=== PATIENT | male | born 1980 | race Caucasian/White ===

== ENCOUNTER 2019-06-09 20:41 | Emergency (ER) | payer OTHER, SELFPAY ==
[2019-06-09] VITALS (10 sets, daily range): BP systolic 111–245; BP diastolic 63–201; PULSE 80–110; RESP 15–21; TEMP 36.6–37.7; O2SAT 97–100; BMI 40.6
--- NOTE | 2019-06-09 20:43 | EKG12_ITS ---
Test Reason : STROKE Blood Pressure : / mmHG Vent. Rate : 097 BPM Atrial Rate : 097 BPM P-R Int : 188 ms QRS Dur : 102 ms QT Int : 390 ms P-R-T Axes : 056 016 154 degrees QTc Int : 495 ms Normal sinus rhythm Biatrial enlargement Left ventricular hypertrophy Nonspecific ST & T wave changes Prolonged QT Abnormal ECG Confirmed by BERNABE PAUL, MARITZA ([id number]), loan expeditor BRIANNA WATSON ([id number]) on 06/14/2019 8:46:25 AM Referred By: CONNOR Confirmed By:PAULINE KIDD MD
--- NOTE | 2019-06-09 20:43 | CT_ITS ---
We are attempting to reach an attending provider to discuss findings. An addendum with communication details will be sent when the communication is complete. STUDY: CT BRAIN WITHOUT CONTRAST REASON FOR EXAM: Male, 38 years old. HEADACHE, RT HEMPARISIS, APHASIA, RT VISION LOSS RADIATION DOSAGE (If Supplied By Facility): CTDIvol = ( 44.99 ) mGy, DLP = ( 796.11 ) mGycm TECHNIQUE: Transaxial CT imaging of the brain was performed without administration of intravenous contrast material. Individualized dose optimization techniques were used for this CT. COMPARISON: No relevant priors. FINDINGS: Normal soft tissue structures. Normal calvarium. There is an acute intracranial hemorrhage of the left thalamus measuring approximately 2.7 x 1.9 x 3.1 cm. There is mild effacement of the mid left lateral ventricle. Blood is seen in the left lateral ventricle and frontal pole of the right lateral ventricle. There is also demonstrated a focus of hemorrhage posterior to the brainstem measuring 2.2 x 0.8 x 0.8 cm. There is a thin rim of edema surrounding the thalamic bleed. Normal cerebellum. There are no findings of an acute ischemic infarction. Normal visualized paranasal sinuses. CT/Brain/Head without Contrast IMPRESSION: Acute intracranial hemorrhage of the left thalamus measuring approximately 2.7 x 1.9 x 3.1 cm, within rim of surrounding vasogenic edema. There is mild effacement of the mid left lateral ventricle. Blood is seen in the left lateral ventricle and frontal pole of the right lateral ventricle. There is also demonstrated a cyst focus of hemorrhage posterior to the brainstem measuring 2.2 x 0.8 x 0.8 cm. Electronically Signed: kR Valladares MD at 21:01 EST , Service support ,
--- NOTE | 2019-06-09 20:44 | ED.DCSUM_ITS ---
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 Prehospital blood pressure 260/110s. - Past Medical History (1) Depression Status: Chronic Past Medical History Primary Care Physician: NOT,DEFINED [NON-STAFF] - Past Medical History: - - unknown Lives: - - works at [employer] Review of Systems ROS: Unable to Obtain STROKE Inital Vital Signs reviewed: Yes - NIHSS Initial 1a Level of Consciousness: 1 1b LOC Questions (Score 2 if aphasic/stupor): 2 1c LOC Commands (Only score 1st attempt): 0 2 Best Gaze (If aphasic, use reflexive mvmts.): 0 3 Visual: 0 4 Facial Palsy: 0 5 Motor Arm Right (UN = amputation/fusion): 4 5 Motor Arm Left: 0 6 Motor Leg Right: UN 6 Motor Leg Left: UN 8 Sensory (Aphasia/stupor=0 or 1, coma=2): 1 9 Best Language: 3 10 Dysarthria (mute, coma=2, intubated=UN): 2 11 Extinction and Inattention (only scored if +): 0 Total Score: 13 General: Well nourished, Well developed, Obese, - - Somnolent but eyes open, alert. Protecting airway, intermittently vomiting Head: Normocephalic, Atraumatic Eyes: Perrl, EOMI - Able to move bilaterally. No forced deviation. ENT: Moist mucous membranes, No rhinorrhea Neck: Supple, Nontender Abdomen: Soft, Nontender, Nondistended, Normal bowel sounds Back: Normal Inspection Extremities: Nontender, No edema Skin: Normal color, No rash, No Trauma Neurological: Lethargic Diagnostic/Tx/Re-eval Procedure note: Rapid sequence intubation Patient was sedated with etomidate 20 mg and succinylcholine 100 mg. We attempted to preoxygenated him in the right lateral decubitus position with high flow nasal cannula. 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 Therefore, we placed [id number] over him with high flow oxygen and gently bagged him. He had no more vomiting during this. 10 seconds later I was able to get his mouth open, and perform direct laryngoscopy but I was only able to see the epiglottis and may be the very posterior aspect of the vallecula. By hyperflexing the stylette in the 7.5 Uzbek ETT, I was able to direct the end of the tube more anteriorly and with an insurance claims assistant performing a very mild amount of cricoid pressure, she could palpate the tube appearing to pass through the cords/trachea. It was secured with inflated balloon at 20 cm at the lip, bilateral equal breath sounds were heard on auscultation, and no epigastric sounds. Good chest rise was visualized, with good color change on the CO2 Immediately. Intubation was complicated by bradycardia in the 40s and hypoxemia in the 30s. These quickly reversed with bagging. Chest x-ray confirms good ETT placement. Impressions Brain CT 06/09/19 20:43 IMPRESSION: Acute intracranial hemorrhage of the left thalamus measuring approximately 2.7 x 1.9 x 3.1 cm, within rim of surrounding vasogenic edema. There is mild effacement of the mid left lateral ventricle. Blood is seen in the left lateral ventricle and frontal pole of the right lateral ventricle. There is also demonstrated a cyst focus of hemorrhage posterior to the brainstem measuring 2.2 x 0.8 x 0.8 cm. Electronically Signed: Rk Valladares MD at 21:01 EST , Service support , ADDENDUM: 06/09/192108 IMPRESSION: Acute intracranial hemorrhage of the left thalamus measuring approximately 2.7 x 1.9 x 3.1 cm, within rim of surrounding vasogenic edema. There is mild effacement of the mid left lateral ventricle. Blood is seen in the left lateral ventricle and frontal pole of the right lateral ventricle. There is also demonstrated a cyst focus of hemorrhage posterior to the brainstem measuring 2.2 x 0.8 x 0.8 cm. N.B. : The above information has been verbally conveyed by Rk Valladares MD to Dr. Buster Moody MD, on 06/09/2019 21:02:43 (ET). Electronically Signed: Rk Valladares MD at 21:01 EST , Service support , 06/09/19 20:43 Brain/Head without Contrast [CT] Stat 06/09/19 21:22 Chest 1 View [RAD] Stat Laboratory Results 06/09/19 06/09/19 06/09/19 21:00 21:00 21:00 WBC 10.5 RBC 4.93 Hgb 14.8 Hct 43.6 MCV 88.4 MCH 30.0 MCHC 33.9 RDW Std Deviation 40.7 RDW Coeff of Mary 12.6 Plt Count 364 MPV 10.2 Immature Gran % (Auto) 0.400 Neut % (Auto) 60.7 Lymph % (Auto) 25.7 Ray % (Auto) 8.0 Eos % (Auto) 4.5 Baso % (Auto) 0.7 Absolute Neuts (auto) 6.4 Absolute Lymphs (auto) 2.70 Nucleated RBC % 0 PT 14.6 INR 1.2 APTT 26.2 Sodium 141 Potassium 3.4 L Chloride 106 Carbon Dioxide 29.0 Anion Gap 6 BUN 20 H Creatinine 1.49 H Estim Creat Clear Calc 73.78 Est GFR (MDRD) Af Amer 68 Est GFR (MDRD) Non-Af 56 L BUN/Creatinine Ratio 13.4 Glucose 117 H Calcium 8.6 Troponin I 2.100 H* - Rhythm Strip Rhythm Strip: Sinus Tach Rate: 110 Ectopy: None - EKG Initial EKG Interpretation: Sinus Rhythm, No Acute Injury Pattern, Inverted T-Waves - Medical Decision Making Stroke Team Activated: Yes - Prehospital IV Alteplase (t-PA) Administered: No - Hemorrhagic stroke I saw and evaluated patient initially in the EMS bay. I agree with EMSs assessment that his airway at the time is intact but he is intermittently vomiting. They bring him in right lateral decubitus. The patient was able to follow commands and understand me but not able to speak. He was obviously weak unilaterally on the right side and strong with the left upper extremity. I sent him to CT immediately with a team of nurses. His CT was seen as hemorrhagic thalamic bleed with intraventricular extension prior to the patient returning to the room. When he did so, he was a little more lethargic than before, I already had the team prepping him for intubation and drawling up etomidate and succinylcholine. Simultaneously, he was given Zofran 4 mg, labetalol 20 mg, and they were obtaining Cardene drip from the ED Pyxis. We attempted to preoxygenated him however he kept intermittently vomiting and we had to keep him in the right lateral decubitus position, complicating this. We intubated him successfully on the first attempt. Discussed with neurology at [facility], who agrees to accept the patient to the emergency department. We attempted to fly him by local helicopter but they are not able due to weather, it is snowing. Therefore the patient is being transferred via ground MICU. I discussed with the patient's mother over the phone and advised that she meet him at [facility] in [place]. She said he took an antidepressant at one point but is no longer on that and takes no other medications. She states he is not a drug or alcohol user/abuser. Apparently the patient has no other family locally. Also, it appears that we have no access to a medical ICU ground unit. Therefore, to expedite transfer time, patient will be sent by standard local ground crew which we can obtain quickly, along with 1 of the ED nurses with appropriate orders given by myself, which I think will get the patient there in a more timely fashion then awaiting for an [facility] MICU crew. Critical care time (excluding procedures): 30-74 minutes - 45 minutes, including discussing with family over the phone (mother in [place]), discussing with consultants, arranging transfer, and performing direct patient care to bedside. This is exclusive of procedures. ED Disposition - Plan for ED Patient: Disposition: [facility] Diagnosis: Hemorrhagic stroke Referrals: NOT,DEFINED [NON-STAFF] -
[2019-06-09] MEDS: Ondansetron 4 MG/2 ML Vial IV (20:54)
[2019-06-09] MEDS: Etomidate 20 MG/10 ML Vial IV (20:56)
[2019-06-09] MEDS: Succinylcholine Chloride 200 MG/10 ML Vial 100 MG IV (20:57)
[2019-06-09 21:09] LABS: Absolute Neutrophil Count 6.4 X10^3/uL (2.0-7.7); Basophil# 0.07 X10^3/uL; Basophil% 0.7 % (0-1); Eosinophil# 0.47 X10^3/uL; Eosinophils% 4.5 % (0-5); Hematocrit 43.6 % (40-54); Hemoglobin 14.8 g/dL (13.0-16.5); Lymphocyte % 25.7 % (19-41); Mean Corp Hgb Conc 33.9 g/dL (32-36); Mean Corpuscular Volume 88.4 fL (80-94); Mean Platelet Vol. 10.2 fl (6.2-12.0); Monocyte# 0.84 X10^3/uL; NRBC Flagged by Analyzer 0 % (0-5); Neutrophil % 60.7 % (47-70); Platelet Count 364 K/mm3 (150-450); RBC Distribution Width CV 12.6 % (11.6-14.6); RBC Distribution Width SD 40.7 fl (35.1-43.9); Red Blood Count 4.93 M/mm3 (4.6-6.2); White Blood Count 10.5 K/mm3 (4.4-11.0)
[2019-06-09] MEDS: Propofol 10MG/Ml 1,000 MG/100 ML Bottle 8.1 MG CONT INF (21:10)
--- NOTE | 2019-06-09 21:22 | RAD_ITS ---
STUDY: X-RAY CHEST REASON FOR EXAM: Male, 38 years old. ET TUBE AND OG PLACEMENT TECHNIQUE: Single AP portable view of the chest. COMPARISON: None. FINDINGS: monitoring and evaluation advisor leads are present. There is a nasogastric tube with the tip in the stomach and out of the [id number] of the image. There is an endotracheal tube with the tip 6.3 cm proximal to the deondre. The lungs are clear and expanded. There is no demonstrated pleural abnormality. There is moderate cardiac enlargement. Normal mediastinum and alea. Normal visualized pulmonary arteries. Normal visualized aortic arch and descending thoracic aorta. Normal visualized thoracic spine. Normal visualized ribs, clavicles, and shoulders. There is no demonstrated abnormality of the visualized soft tissue structures of the upper abdomen. RAD/Chest 1 View IMPRESSION: Moderate cardiomegaly. Nasogastric and endotracheal tubes noted appearing in adequate position. Electronically Signed: Rk Valladares MD at 21:49 EST , Service support ,
[2019-06-09 21:26] LABS: International Normalized Ratio 1.2; Prothrombin Time (Protime)PT. 14.6 SECONDS (11.7-14.9)
[2019-06-09] MEDS: LORazepam 2 MG/ML Syringe IV (21:26)
[2019-06-09 21:27] LABS: Partial Thromboplast Time 26.2 Seconds (24.1-36.2)
[2019-06-09 21:33] LABS: Anion Gap 6 (5-15); BUN 20 mg/dL (7-18); BUN/Creat Ratio 13.4 RATIO (10-20); Calcium,Total 8.6 mg/dL (8.5-10.1); Chloride 106 mmol/L (98-107); Creatinine, Serum 1.49 mg/dL (0.70-1.30); EST Glomerular Filtration Rate 56 mL/min (>60); Est Glom Filt Rate - Afr Amer 68 mL/min (>60); Estimated Creatinine Clearance 73.78 ml/min; Glucose 117 mg/dL (74-106); Potassium 3.4 mmol/L (3.5-5.1); Sodium Level 141 mmol/L (136-145)
--- NOTE | 2019-06-09 21:35 | ED.RN ---
PT INTUBATED. UNABLE TO PERFORM MOST TASKS FOR NIH. CONTINUING WITH NIH VITALS. UNABLE TO FURTHER ASSES NIH
--- NOTE | 2019-06-09 21:52 | ED.RN ---
UNABLE TO CHART CARDENE GTT ON MAR OR MED TITRATION CARDENE STARTED 2101 @ 5MG/HR BP 196/163 HR 103 2114 TITRATED UP TO RATE OF 7.35 MG/ HR BP 178/123 HR94 2129 TITRATED UP TO RATE OF 10MG/HR BP 153/95 HR 87 2139 TITRATED DOWN TO RATE OF 7.5 MG/HR BP OF 119/68 0 TITRATED DOWN TO RATE OF 5MG/HR BP OF 125/68
[2019-06-09 21:54] LABS: Amphetamine Urine VISTA NEGATIVE (<1000 ng/mL); Barbiturate Urine VISTA NEGATIVE (< 200 ng/mL); Benzodiazepine Urine VISTA NEGATIVE (< 200 ng/mL); Cocaine Urine VISTA NEGATIVE (< 300 ng/mL); Ecstacy Urine VISTA NEGATIVE (< 500 ng/mL); Methadone Urine VISTA NEGATIVE (< 300 ng/mL); PCP Urine VISTA NEGATIVE (< 25 ng/mL); THC Urine VISTA NEGATIVE (< 50 ng/mL); Vista UDS pH Range 6
--- NOTE | 2019-06-09 22:12 | ED.RN ---
Dr Francois notified of tropinon of 2.1 at 2134.
--- NOTE | 2019-06-09 22:19 | ED.RN ---
SHIRA GARCIA HELD FOR BP 111/63. PER DR. SIMS HE WANTS SBP 120-140
[2019-06-09] MEDS: LORazepam 2 MG/ML Syringe 1 MG IV (22:35)
--- NOTE | 2019-06-09 22:42 | ED.RN ---
[facility] TRANSFER LINE NOTIFIED THAT PT HAS LEFT THE FACILITY
--- NOTE | 2019-06-09 22:46 | ED.RN ---
UPON TRANSFER, CARDENE GTT STILL HANGING BUT NOT INFUSING TO TO SBP BEING 111 <120-[address] SIMS.
== END 2019-06-09 22:18 | disposition short-term general hospital (02) ==
PROVIDERS: Emergency Provider Emergency Medicine
DX: I62.9 Nontraumatic intracranial hemorrhage, unspecified (principal); G83.21 Monoplegia of upper limb affecting right dominant side; R47.81 Slurred speech; R09.02 Hypoxemia; R00.1 Bradycardia, unspecified; F32.9 Major depressive disorder, single episode, unspecified
CPT/HCPCS: 31500; 31720; 51702; 70450; 71045; 80048; 80307; 84484; 85025; 85610; 85730; 93005; 94002; 96374; 96375; 96376; 99251; 99285; A4216; G0463; J0330; J2405

== ENCOUNTER 2019-07-08 17:56 | Inpatient (IN) | payer OTHER, SELFPAY ==
[2019-06-09 21:00] VITALS: BMI 40.6
[2019-07-08 18:01] VITALS: BMI 40.1
[2019-07-08 18:54] VITALS: BP 140/94; PULSE 87; RESP 18; TEMP 36.5; O2SAT 96
[2019-07-08 19:00] VITALS: O2SAT 94; BMI 40.0
--- NOTE | 2019-07-08 19:34 | HP.PCM_ITS ---
Problem List (1) Debility Status: Acute (2) Hemorrhagic stroke Status: Acute (3) Intracranial hemorrhage Status: Acute (4) Left-sided nontraumatic intraventricular intracerebral hemorrhage Status: Acute (5) Acute respiratory failure Status: Acute (6) Hydrocephalus Status: Chronic (7) HTN (hypertension) Status: Chronic (8) Chronic cholecystitis Status: Chronic (9) Body mass index (BMI) 40.0-44.9, adult Status: Chronic (10) Tracheostomy present Status: Acute (11) Percutaneous endoscopic gastrostomy status Status: Acute (12) Depression Status: Chronic History of Present Illness Date of Admission: 07/08/19 Chief Complaint: Here for rehabilitation, strengthening, prior to disposition determination. The patient is a 38 year old Male with below past medical history presented to [facility] Department 06/09/2019 with neurologic signs and symptoms. 06/09/2019 CT brain acute hemorrhagic left thalamic stroke within rim vasogenic edema, mild effacement mid left lateral ventricle, blood left lateral ventricle, frontal poles right ventricle hemorrhage posterior to brain stem. 06/09/2019 EKG normal sinus rhythm, biatrial enlargement, left ventricular hypertrophy, nonspecific ST&T wave changes, prolonged QT. 06/09/2019 Chest X-ray moderate cardiomegaly, nasogastric tube, endotracheal tube in position. Slumped in chair, depressed level of consciousness, vomiting. Right sided weakness. Right arm weakness, slurred speech. Happened acutely at work. BP 260/110. Patient intubated. K 3.4, BUN 20, Cr 1.49, Troponin 2.1, started on Cardene drip. [facility] helicopters not flying due to snow. 06/10/2019 Admit to [facility]. CTA head/neck negative aneurysm, vascular malformation. External ventricular drain placed by Neurosurgery to lower intracranial pressure. Hold all anticoagulants in light of intracranial hemorrhage. 06/11/2019 Extubated. 06/12/2019 Reintubated for hypoxia/hypercarbia. Requiring heavy sedation. 06/23/2019 Trach, PEG, restart DVT prophylaxis. 06/24/2019 Restart Tube feed, Attempt CPAP. 06/25/2019 Mccoy catheter removed, using condom catheter. 06/26/2019 External ventricular drain removed, Trach collar as tolerated. 06/28/2019 Treated for S. dysgalactiae pneumonia with Vancomycin, Zosyn. Started on Atorvastatin. BP goal 130/80, on Coreg 12.5MG twice daily, Amlodipine 10MG daily. Clonidine 0.2MG TID. Klonopin 1MG TID, Seroquel 125MG Q8H for agitation. Agitation requiring restraints, Haldol at times. 07/08/2019 Admit to TCU with debility, here for rehabilitation, strengthening, prior to disposition determination. Past Medical History Past Medical History (Chronic Problems): Chronic Problems Depression (Chronic) Hydrocephalus (Chronic) HTN (hypertension) (Chronic) Chronic cholecystitis (Chronic) Body mass index (BMI) 40.0-44.9, adult (Chronic) Allergies No Known Allergies Allergy (Verified 07/08/19 18:53) Home Medications: Ambulatory Orders Medication Instructions Recorded Amlodipine [Norvasc] 10 mg GT DAILY 07/08/19 Carvedilol 25 mg GT BID 07/08/19 Glucerna 1.5 70 ml GT CONT 07/08/19 Ipratropium/Albuterol Sulfate 3 ml IH Q6H 07/08/19 [Iprat-Albut 0.5-3(2.5) mg/3 ml] Quetiapine Fumarate [Seroquel] 25 mg GT BID 07/08/19 Surgical History: - - Tracheostomy, PEG tube. Psychiatric History: Depression Lives: Alone - Works at [employer]. Smoking Status: Unknown if ever smoked Tobacco Use: Non-smoker Alcohol: None Drugs: None - *Family History Maternal History Items: No pertinent history Paternal History Items: No pertinent history Review of Systems Constitutional: Denies: Chills, Fever, Weight Change HEENT: Denies: Head Aches, Sinus Congestion, Sinus Drainage Cardiovascular: Denies: Chest Pain, Palpitations Respiratory: Denies: Cough, Shortness of breath at rest, Sputum production Gastrointestinal: Denies: Abdominal Pain, Nausea, Vomiting Genitourinary: Denies: Dysuria Musculoskeletal: Denies: Joint Pain, Joint Tenderness Skin: Denies: Rash, Wounds Neurological: Denies: Numbness, Tingling, Focal weakness Psychiatric: Denies: Anxiety, Depression, Homicidal Ideations, Suicidal Ideations Hematologic/ Lymphatic: Denies: Easy Bruising, Easy Bleeding VTE Information - Inpt Only VTE Present on Admission: No VTE Mechan Device Prophylaxis: Knee High CHACHA Hose VTE Pharm Prophylaxis ordered?: No Reason prophylaxis not ordered:: Medical Contraindication Patient Problems: Active and Suspected Problems Debility (Acute) Hemorrhagic stroke (Acute) Intracranial hemorrhage (Acute) Left-sided nontraumatic intraventricular intracerebral hemorrhage (Acute) Acute respiratory failure (Acute) Tracheostomy present (Acute) Percutaneous endoscopic gastrostomy status (Acute) - Physical Exam Vitals/I&O's: Vital Signs Temp Pulse Resp BP Pulse Ox 97.7 F L 87 18 140/94 H 94 07/08/19 18:54 07/08/19 18:54 07/08/19 18:54 07/08/19 18:54 07/08/19 19:00 Oxygen Flow Rate (L/min) 5 Oxygen Delivery Method Trach Collar Weight: 134 kg Body Mass Index (BMI) 40.0 Finger Stick Blood Glucose 92 General: Alert, Oriented x3, Cooperative HEENT: Atraumatic, PERRLA, EOMI, Normocephalic Neck: Supple, No JVD, Negative Carotid Bruits, - - Tracheostomy. Lungs: Clear to auscultation, Normal air movement Cardiovascular: Regular rate, No murmurs Abdomen: Bowel Sounds Present, Soft, Non Tender, - - Gastrostomy. Extremities: No edema, Capillary Refill Less than 3 Seconds Skin: No rashes, No breakdown Musculoskeletal: No Tenderness to Palpation of Joints or Extremities Neurological: Cranial nerves II-XII grossly intact Psych/Mental Status: Normal Affect, Appropriate Current Medications Albuterol/Ipratropium (Duoneb) 3 ml INHALATION Q6H.RT YAMILET Amlodipine Besylate (Norvasc) 10 mg GT DAILY [facility] Calamine/Phenol (Calmoseptine Ointment) 1 applic TOPICAL TID YAMILET; Protocol Carvedilol (Coreg) 25 mg GT BID [facility] Enteral Nutritional Formula (Glucerna 1.5) 1,000 mls @ 70 mls/hr GT .[id number] YAMILET Nystatin (Mycostatin Powder) 1 applic TOPICAL BID YAMILET; Protocol Quetiapine Fumarate (Seroquel) 25 mg GT BID [facility] Tuberculin PPD (Tubersol, Aplisol, Ppd) 5 tu ID X1 ONE Stop: 07/09/19 10:01 Tuberculin PPD (Tubersol, Aplisol, Ppd) 5 tu ID X1 ONE Stop: 07/16/19 10:01 Assessment/Plan All Active Problems Debility (Acute) Hemorrhagic stroke (Acute) Intracranial hemorrhage (Acute) Left-sided nontraumatic intraventricular intracerebral hemorrhage (Acute) Acute respiratory failure (Acute) Tracheostomy present (Acute) Percutaneous endoscopic gastrostomy status (Acute) 38 year old male with below past medical history hospitalized for hemorrhagic stroke, acute respiratory failure, status post tracheostomy, PEG tube placement, complicated by agitation, admitted to TCU with debility, here for rehabilitation, strengthening, prior to disposition determination. * Debility - PT/OT. * Dysphagia - ST. * Pain - Tylenol 650MG Q4H PRN pain (1-10). * Bowel - Miralax 17GM daily, Senna/colace 1 tablet BID, Dulcolax 10MG daily PRN. * Adult immunization - Administer Fluzone as appropriate. * DVT prophylaxis - Hold, due to hemorrhagic stroke. * Hypertension - Coreg 25MG BID, Amlodipine 10MG daily. * Nutrition - Glucerna 1.5 70ML/HR. * Shortness of breath - Duoneb 3ML Q6H. * Skin irritation - Calmoseptine BID. * Tinea Corporis - Nystatin powder BID. * Agitation - Seroquel 25MG GT BID, GDR when resident clinically stable.
[2019-07-08 20:30] VITALS: PULSE 86; RESP 18
[2019-07-08] MEDS: Ipratropium/Albuterol Sulfate 3 ML AMPUL.NEB INHALATION (20:30)
[2019-07-08 22:00] VITALS: PULSE 82; O2SAT 98
[2019-07-08] MEDS: Menthol/Lanolin/Calamine/Znox 113 GM Tube 1 APPLIC TOPICAL (22:53)
[2019-07-09] MEDS: Ipratropium/Albuterol Sulfate 3 ML AMPUL.NEB INHALATION ×3 (00:55→19:35)
[2019-07-09 01:13] VITALS: PULSE 91; RESP 24
--- NOTE | 2019-07-09 02:50 | NURSING ---
Went into patients room to check on patient. Patient found to have Tracheostomy pulled out, laying to right side. Moderate amount of drainage noted. FINANCIAL DEVELOPER called at 02:50 hours. Dusky in color. Respirations 5-6 per min. Oxygen Saturation at 68%. HR 148 BPM. Elaina TAN in room at this time. This nurse reinserted trach tube. FINANCIAL DEVELOPER team arrived. Vitals obtained. BP: 163/92; P: 118; R: 20. Patient's color becoming normal in color. Dressing reapplied to Trach site. Labs ordered by Dr. Ivory. Sitter in place per Ethologist. Dr. Oneill notified. NNO. [ End ]
[2019-07-09 03:00] VITALS: RESP 28; O2SAT 95
--- NOTE | 2019-07-09 03:07 | PCM.RRT.NO ---
Rapid Response Note Rapid response was called after the patient pulled out tracheostomy tube. Tracheostomy tube was reinstated. Respiratory therapist were present. Patient has hemorrhagic stroke with right-sided weakness. Heart rate is controlled. Blood pressure systolic in 150s. Pulse ox normal after tracheostomy tube was reinserted patient is mildly irritable. Discussed with the nursing supervisor lamp shades and patient needs sitter. Labs CBC, CMP and magnesium ordered. Patient also has ulcer possible false tract near the tracheostomy tube. Advised to consult ENT tomorrow a.m. Patient Problems: Active and Suspected Problems Debility (Acute) Hemorrhagic stroke (Acute) Intracranial hemorrhage (Acute) Left-sided nontraumatic intraventricular intracerebral hemorrhage (Acute) Acute respiratory failure (Acute) Tracheostomy present (Acute) Percutaneous endoscopic gastrostomy status (Acute) - Physical Exam Vitals/I&O's: Vital Signs Temp Pulse Resp BP Pulse Ox 97.7 F L 91 24 H 140/94 H 98 07/08/19 18:54 07/09/19 01:13 07/09/19 01:13 07/08/19 18:54 07/08/19 22:00 Oxygen Flow Rate (L/min) 5 Oxygen Delivery Method Trach Collar Weight: 295 lb 6.711 oz Body Mass Index (BMI) 40.0 Finger Stick Blood Glucose 92 Intake and Output for Last 24 Hours 07/07/19 07/08/19 07/09/19 23:59 23:59 23:59 Intake Total Balance Current Medications Acetaminophen (Tylenol Liquid) 650 mg GT Q4H PRN PRN PRN Reason: Pain Score 1-10/10 Albuterol/Ipratropium (Duoneb) 3 ml INHALATION Q6H.RT YAMILET Last Admin: 07/09/19 00:55 Dose: 3 ml Documented by: Amlodipine Besylate (Norvasc) 10 mg GT DAILY YAMILET Bisacodyl (Dulcolax) 10 mg RECTAL DAILY PRN PRN Reason: Constipation Calamine/Phenol (Calmoseptine Ointment) 1 applic TOPICAL TID [facility]; Protocol Last Admin: 07/08/19 22:53 Dose: 1 applicatio Documented by: Carvedilol (Coreg) 25 mg GT BID [facility] Enteral Nutritional Formula (Glucerna 1.5) 1,000 mls @ 70 mls/hr GT .[id number] [facility] Last Admin: 07/08/19 22:53 Dose: 70 mls/hr Documented by: Nystatin (Mycostatin Powder) 1 applic TOPICAL BID YAMILET; Protocol Polyethylene Glycol (Miralax) 17 gm GT DAILY YAMILET Quetiapine Fumarate (Seroquel) 25 mg GT BID YAMILET Senna/Docusate Sodium (Senokot-S, Teressa-Colace) 1 tablet GT BID YAMILTE Tuberculin PPD (Tubersol, Aplisol, Ppd) 5 tu ID X1 ONE Stop: 07/09/19 10:01 Tuberculin PPD (Tubersol, Aplisol, Ppd) 5 tu ID X1 ONE Stop: 07/16/19 10:01 Assessment/Plan All Active Problems Debility (Acute) Hemorrhagic stroke (Acute) Intracranial hemorrhage (Acute) Left-sided nontraumatic intraventricular intracerebral hemorrhage (Acute) Acute respiratory failure (Acute) Tracheostomy present (Acute) Percutaneous endoscopic gastrostomy status (Acute)
--- NOTE | 2019-07-09 03:27 | NURSING ---
0250- WORM FARM LABORER reported pt pulling out trach. HOME THEATER INSTALLER called, see WORM FARM LABORER note for further documentation. Dr. Oneill updated via phone, no new orders from Dr. Oneill at this time. Sitter at bedside for patient safety.
[2019-07-09 03:50] LABS: Absolute Lymphocyte Count 1.08 X10^3/uL (0.83-4.51); Basophil# 0.04 X10^3/uL; Basophil% 0.6 % (0-1); Hematocrit 38.5 % (40-54); Hemoglobin 12.4 g/dL (13.0-16.5); Lymphocyte # 1.08 X10^3/ul (4.0); Lymphocyte % 17.2 % (19-41); Mean Corp Hgb Conc 32.2 g/dL (32-36); Mean Corpuscular Hgb 29.9 pg (27.0-32.0); Mean Corpuscular Volume 92.8 fL (80-94); Mean Platelet Vol. 10.4 fl (6.2-12.0); Monocyte# 0.61 X10^3/uL; Monocyte% 9.7 % (0-10); NRBC Flagged by Analyzer 0 % (0-5); Neutrophil % 63.9 % (47-70); Platelet Count 328 K/mm3 (150-450); RBC Distribution Width CV 12.4 % (11.6-14.6); RBC Distribution Width SD 41.6 fl (35.1-43.9); Red Blood Count 4.15 M/mm3 (4.6-6.2); White Blood Count 6.3 K/mm3 (4.4-11.0)
[2019-07-09 04:49] LABS: AST(SGOT) 35 U/L (15-37); Alanine Aminotransfer ALT/SGPT 96 U/L (16-61); Albumin, Serum 3.2 g/dL (3.2-5.0); Alkaline Phosphatase 137 U/L (45-117); Anion Gap 9 (5-15); BUN 31 mg/dL (7-18); BUN/Creat Ratio 27.4 RATIO (10-20); Calcium,Total 8.8 mg/dL (8.5-10.1); Chloride 99 mmol/L (98-107); Creatinine, Serum 1.13 mg/dL (0.70-1.30); EST Glomerular Filtration Rate 77 mL/min (>60); Est Glom Filt Rate - Afr Amer 93 mL/min (>60); Estimated Creatinine Clearance 97.29 ml/min; Glucose 158 mg/dL (74-106); Magnesium 2.1 mg/dL (1.6-2.6); Potassium 4.1 mmol/L (3.5-5.1); Sodium Level 139 mmol/L (136-145)
[2019-07-09 06:20] LABS: ALB/GLOB Ratio 0.7 RATIO (0.9-2.4); Globulin 4.4 g/dL (2.2-4.2); Protein, Total 7.6 g/dL (6.4-8.2)
[2019-07-09] MEDS: Acetaminophen 650 MG/20 ML UDC GT (06:38)
[2019-07-09] MEDS: Polyethylene Glycol 3350 17 GM PACKET GT (06:38)
[2019-07-09] MEDS: Senna/Docusate Sodium 1 Tablet GT (06:38)
[2019-07-09] MEDS: amLODIPine 10 MG Tablet GT (06:46)
[2019-07-09] MEDS: Menthol/Lanolin/Calamine/Znox 113 GM Tube 1 APPLIC TOPICAL ×3 (06:46→21:03)
[2019-07-09] MEDS: QUEtiapine 25 MG Tablet GT ×3 (06:46→21:02)
[2019-07-09] MEDS: Carvedilol 25 MG Tablet GT ×2 (06:46→15:39)
[2019-07-09] MEDS: Nystatin Powder 15gm Bottle 1 APPLIC TOPICAL ×2 (06:47→15:40)
[2019-07-09 06:50] VITALS: PULSE 92; RESP 20; O2SAT 98
--- NOTE | 2019-07-09 10:18 | PCM.NTREPORT ---
Nutrition Therapy Report - History Nutrition Services has been consulted to:: Manage enteral nutrition Current diet / nutrition support order:: Glucerna 1.5 at goal rate of 70ml/hr w/ 200ml flush q6. NPO. - Anthropometric Measurements Height:: 6 ft Weight:: 134 kg Body Mass Index (BMI):: 40.0 - Relevant Labs Relevant Labs:: RBC 4.15 M/mm3 (4.6-6.2) L 07/09/19 03:40 Hgb 12.4 g/dL (13.0-16.5) L 07/09/19 03:40 Hct 38.5 % (40-54) L 07/09/19 03:40 Lymph % (Auto) 17.2 % (19-41) L 07/09/19 03:40 Eos % (Auto) 8.0 % (0-5) H 07/09/19 03:40 BUN 31 mg/dL (7-18) H 07/09/19 03:40 BUN/Creatinine Ratio 27.4 RATIO (10-20) H 07/09/19 03:40 Glucose 158 mg/dL (74-106) H 07/09/19 03:40 ALT 96 U/L (16-61) H 07/09/19 03:40 Alkaline Phosphatase 137 U/L (45-117) H 07/09/19 03:40 Globulin 4.4 g/dL (2.2-4.2) H 07/09/19 03:40 Albumin/Globulin Ratio 0.7 RATIO (0.9-2.4) L 07/09/19 03:40 - Assessment Food / Nutrition-Related History:: Per EMR res non-verbal. Res previous admin [facility]. 06/22 Trach and PEG placed. Current TF: Glucerna 1.5 at goal rate of 70ml/hr w/ 200ml flush q6 providing 2520 calories, 138.6 g protein, 2075 ml total free water per day. Pt tolerating TF w/ residuals-190, 90. Res strict NPO. CBW 295.4 lbs, per EMR res w/ no wt hx. Per RN note pt w/ normal BMs. - Nutrition Intervention Nutrition Prescription:: Estimated pt nutrition needs: 5937-4359 calories, 85-95 grams protein--using 21 jeffry/kg actual wt, 1g/kg pro (adjust BW 94kg). - Food / Nutrient Delivery Interventions Summary of nutrition intervention:: Will monitor TF tolerance and adjust TF as well as flushes as indicated. Nutrition support ordered as / adjusted to:: Jevity 1.5 via PEG at goal rate of 65 ml/hr with 185 ml flush every 4 hours to provide 2340 calories, 100 grams protein, 2296 ml total free water per day. Would intiate TF at 20 ml/hr and increase by 20 ml every 6 to 8 hours as pt tolerates until goal rate achieved Nutrition education provided?: No - MNT Monitoring Further MNT monitoring and evaluation required?: Yes MNT Follow-up in:: 5-7 days - Please call RDN at [phone] with questions/concerns.
[2019-07-09 10:24] VITALS: BMI 40.0
--- NOTE | 2019-07-09 10:35 | CASEMGMT ---
Social Work Attempted to arouse pt to do initial assessment-unsuccessful. Mother is next of kin for pt. Spoke with mother via phone to do initial assessment. Mother asked if pt would stay at facility very long, explained insurance to mother and that continued stay is not guaranteed but talked with mother about placement in another facility if more care is needed. Mother agreeable and realistic to more care for pt and appreciative of phone call. Offered to e-mail her a list of facilities, she declined at this time and will wait until closer to [place] to make SNF placement decisions. Crys Hernandez, social work internet researcher Morena Schroeder, TOOL PLANER SET UP OPERATOR IMAGERY INTELLIGENCE
[2019-07-09] MEDS: Tuberculin,Purif.prot.deriv. 50 TU/ML Vial 5 ML ID (10:43)
--- NOTE | 2019-07-09 11:18 | PCM.PN.RX ---
<Soheila Torrez - Last Filed: 07/09/19 11:18> Progress Note - Pharmacy Subjective: TCU Admission Objective: Allergies No Known Allergies Allergy (Verified 07/08/19 18:53) Current Medications Generic Name Dose Route Start Last Admin Trade Name Freq PRN Reason Stop Dose Admin Acetaminophen 650 mg 07/08/19 19:55 07/09/19 06:38 Tylenol Liquid GT 650 mg Q4H PRN PRN Administration Pain Score 1-10/10 Albuterol/Ipratropium 3 ml 07/08/19 18:15 07/09/19 06:50 Duoneb INHALATION 3 ml Q6H.RT YAMILET Administration Amlodipine Besylate 10 mg 07/09/19 06:00 07/09/19 06:46 Norvasc GT 10 mg DAILY YAMILET Administration Bisacodyl 10 mg 07/08/19 19:56 Dulcolax RECTAL DAILY PRN Constipation Calamine/Phenol 1 applic 07/08/19 22:00 07/09/19 06:46 Calmoseptine Ointment TOPICAL 1 applicatio TID YAMILET Administration Protocol Carvedilol 25 mg 07/09/19 06:00 07/09/19 06:46 Coreg GT 25 mg BID YAMILET Administration Enteral Nutritional Formula 1,000 mls @ 65 mls/hr 07/09/19 11:00 Jevity 1.5 GT .[id number] YAMILET Nystatin 1 applic 07/09/19 06:00 07/09/19 06:47 Mycostatin Powder TOPICAL 1 applicatio BID YAMILET Administration Protocol Polyethylene Glycol 17 gm 07/09/19 06:00 07/09/19 06:38 Miralax GT 17 gm DAILY YAMILET Administration Quetiapine Fumarate 25 mg 07/09/19 16:00 Seroquel GT 1600,2200 YAMILET Senna/Docusate Sodium 1 tablet 07/09/19 06:00 07/09/19 06:38 Senokot-S, Teressa-Colace GT 1 tablet BID YAMILET Administration Tuberculin PPD 5 tu 07/16/19 10:00 Tubersol, Aplisol, Ppd ID 07/16/19 10:01 X1 ONE Problem List Debility (Acute) Hemorrhagic stroke (Acute) Intracranial hemorrhage (Acute) Left-sided nontraumatic intraventricular intracerebral hemorrhage (Acute) Acute respiratory failure (Acute) Hydrocephalus (Chronic) HTN (hypertension) (Chronic) Chronic cholecystitis (Chronic) Body mass index (BMI) 40.0-44.9, adult (Chronic) Tracheostomy present (Acute) Percutaneous endoscopic gastrostomy status (Acute) Vital Signs Temp Pulse Resp BP Pulse Ox 97.7 F L 92 20 H 140/94 H 98 07/08/19 18:54 07/09/19 06:50 07/09/19 06:50 07/08/19 18:54 07/09/19 06:50 Oxygen Flow Rate (L/min) 5 Oxygen Delivery Method Trach Collar Weight: 134 kg Body Mass Index (BMI) 40.0 Finger Stick Blood Glucose 92 Sodium 139 mmol/L (136-145) 07/09/19 03:40 Potassium 4.1 mmol/L (3.5-5.1) 07/09/19 03:40 Chloride 99 mmol/L (98-107) 07/09/19 03:40 Carbon Dioxide 31.0 mmol/L (21.0-32.0) 07/09/19 03:40 Anion Gap 9 (5-15) 07/09/19 03:40 BUN 31 mg/dL (7-18) H 07/09/19 03:40 Creatinine 1.13 mg/dL (0.70-1.30) 07/09/19 03:40 Est GFR (MDRD) Af Amer 93 mL/min (>60) 07/09/19 03:40 Est GFR (MDRD) Non-Af 77 mL/min (>60) 07/09/19 03:40 BUN/Creatinine Ratio 27.4 RATIO (10-20) H 07/09/19 03:40 Glucose 158 mg/dL (74-106) H 07/09/19 03:40 Assessment/Plan: 1. Pain: acetaminophen liquid 650mg GT Q4H PRN pain 1-01/21. Please continue to monitor for increased pain and PRN usage. 2. Hypertension: amlodipine 10mg GT daily and carvedilol 25mg GT BID. Please continue to monitor BP and HR. 3. Shortness of breath: ipratropium/albuterol 3mL inhalation Q6H.RT. Please continue to monitor for increased HR and shortness of breath. Psychotropic Medications: 1. Agitation: quetiapine 25mg GT 1600,2200. Please see physician note regarding GDR. Thanks. Unnecessary Medications: None Bowel Regimen: Miralax 17gm GT daily, senna/docusate 1T GT BID, bisacodyl 10mg MI daily PRN constipation. Please continue to monitor for constipation and PRN usage. Date of Note:: 07/09/19 - Provider Comments Provider responsibility: Provider responsible to enter orders to implement recommendations <Johnathan Oneill Chi - Last Filed: 07/09/19 11:46> Progress Note - Pharmacy Subjective: [] Objective: Allergies No Known Allergies Allergy (Verified 07/08/19 18:53) Current Medications Generic Name Dose Route Start Last Admin Trade Name Freq PRN Reason Stop Dose Admin Acetaminophen 650 mg 07/08/19 19:55 07/09/19 06:38 Tylenol Liquid GT 650 mg Q4H PRN PRN Administration Pain Score 1-10/10 Albuterol/Ipratropium 3 ml 07/08/19 18:15 07/09/19 06:50 Duoneb INHALATION 3 ml Q6H.RT YAMILET Administration Amlodipine Besylate 10 mg 07/09/19 06:00 07/09/19 06:46 Norvasc GT 10 mg DAILY YAMILET Administration Bisacodyl 10 mg 07/08/19 19:56 Dulcolax RECTAL DAILY PRN Constipation Calamine/Phenol 1 applic 07/08/19 22:00 07/09/19 06:46 Calmoseptine Ointment TOPICAL 1 applicatio TID YAMILET Administration Protocol Carvedilol 25 mg 07/09/19 06:00 07/09/19 06:46 Coreg GT 25 mg BID YAMILET Administration Enteral Nutritional Formula 1,000 mls @ 65 mls/hr 07/09/19 11:00 Jevity 1.5 GT .[id number] YAMILET Nystatin 1 applic 07/09/19 06:00 07/09/19 06:47 Mycostatin Powder TOPICAL 1 applicatio BID YAMILET Administration Protocol Polyethylene Glycol 17 gm 07/09/19 06:00 07/09/19 06:38 Miralax GT 17 gm DAILY YAMILET Administration Quetiapine Fumarate 25 mg 07/09/19 16:00 Seroquel GT 1600,2200 YAMILET Senna/Docusate Sodium 1 tablet 07/09/19 06:00 07/09/19 06:38 Senokot-S, Teressa-Colace GT 1 tablet BID YAMILET Administration Tuberculin PPD 5 tu 07/16/19 10:00 Tubersol, Aplisol, Ppd ID 07/16/19 10:01 X1 ONE Problem List Debility (Acute) Hemorrhagic stroke (Acute) Intracranial hemorrhage (Acute) Left-sided nontraumatic intraventricular intracerebral hemorrhage (Acute) Acute respiratory failure (Acute) Hydrocephalus (Chronic) HTN (hypertension) (Chronic) Chronic cholecystitis (Chronic) Body mass index (BMI) 40.0-44.9, adult (Chronic) Tracheostomy present (Acute) Percutaneous endoscopic gastrostomy status (Acute) Vital Signs Temp Pulse Resp BP Pulse Ox 97.7 F L 92 20 H 140/94 H 98 07/08/19 18:54 07/09/19 06:50 07/09/19 06:50 07/08/19 18:54 07/09/19 06:50 Oxygen Flow Rate (L/min) 5 Oxygen Delivery Method Trach Collar Weight: 134 kg Body Mass Index (BMI) 40.0 Finger Stick Blood Glucose 92 Sodium 139 mmol/L (136-145) 07/09/19 03:40 Potassium 4.1 mmol/L (3.5-5.1) 07/09/19 03:40 Chloride 99 mmol/L (98-107) 07/09/19 03:40 Carbon Dioxide 31.0 mmol/L (21.0-32.0) 07/09/19 03:40 Anion Gap 9 (5-15) 07/09/19 03:40 BUN 31 mg/dL (7-18) H 07/09/19 03:40 Creatinine 1.13 mg/dL (0.70-1.30) 07/09/19 03:40 Est GFR (MDRD) Af Amer 93 mL/min (>60) 07/09/19 03:40 Est GFR (MDRD) Non-Af 77 mL/min (>60) 07/09/19 03:40 BUN/Creatinine Ratio 27.4 RATIO (10-20) H 07/09/19 03:40 Glucose 158 mg/dL (74-106) H 07/09/19 03:40 Assessment/Plan: Psychotropic Medications: Unnecessary Medications: Bowel Regimen: - Provider Comments Provider responsibility: Provider responsible to enter orders to implement recommendations Provider Comments to Recommendations by Pharmacy: Agree
--- NOTE | 2019-07-09 11:37 | CASEMGMT ---
Social Work Met with pt to provide emotional support due to visitor restrictions. Gave pt drawing and read letter from community member. Explained to pt why mother is not able to be in the hospital to see him-pt expressed understanding. Crys Hernandez, social work electrical intern Morena Schroeder, OFFAL SEPARATOR OPERATIONS ADMINISTRATIVE ASSISTANT
--- NOTE | 2019-07-09 11:49 | NURSING ---
Addendum entered by Kacie Arevalo 07/09/19 14:35: Dr Kruse returned call, will not be in today, but if pt develops resp distress then he wants notified. Original Note: message left on Dr kruse cell phone for consult order d/t ulcer near trach site, possible false tract
[2019-07-09] MEDS: Jevity 1.5 1,000 ML 65 ML GT (12:45)
[2019-07-09 13:30] VITALS: PULSE 95; RESP 18
[2019-07-09 13:37] VITALS: BP 135/78; PULSE 79; RESP 16; TEMP 36.4; O2SAT 97
--- NOTE | 2019-07-09 14:53 | CASEMGMT ---
Social Work Reviewed and agreed with social work international first officer documentation on this date. Morena Schroeder, STAFFING ADMINISTRATOR CIVIL ENGINEERING ASSISTANT
[2019-07-09 19:30] VITALS: PULSE 86; RESP 22
[2019-07-10] VITALS (7 sets, daily range): BP systolic 129–190; BP diastolic 81–129; PULSE 75–88; RESP 16–20; TEMP 36.6; O2SAT 97
[2019-07-10] MEDS: Ipratropium/Albuterol Sulfate 3 ML AMPUL.NEB INHALATION ×4 (01:17→19:04)
[2019-07-10] MEDS: Menthol/Lanolin/Calamine/Znox 113 GM Tube 1 APPLIC TOPICAL ×3 (06:07→21:06)
[2019-07-10] MEDS: Nystatin Powder 15gm Bottle 1 APPLIC TOPICAL ×2 (06:08→17:18)
[2019-07-10] MEDS: amLODIPine 10 MG Tablet GT (06:09)
[2019-07-10] MEDS: Carvedilol 25 MG Tablet GT ×2 (06:09→17:02)
[2019-07-10] MEDS: Senna/Docusate Sodium 1 Tablet GT (06:09)
[2019-07-10] MEDS: Polyethylene Glycol 3350 17 GM PACKET GT (06:09)
[2019-07-10] MEDS: Jevity 1.5 1,000 ML 65 ML GT (06:11)
[2019-07-10 06:53] LABS: Absolute Neutrophil Count 3.1 X10^3/uL (2.0-7.7); Basophil# 0.06 X10^3/uL; Eosinophil# 0.41 X10^3/uL; Eosinophils% 6.8 % (0-5); Hematocrit 38.3 % (40-54); Hemoglobin 12.5 g/dL (13.0-16.5); Lymphocyte % 28.3 % (19-41); Mean Corp Hgb Conc 32.6 g/dL (32-36); Mean Corpuscular Volume 91.8 fL (80-94); Mean Platelet Vol. 10.5 fl (6.2-12.0); Monocyte# 0.74 X10^3/uL; Monocyte% 12.3 % (0-10); NRBC Flagged by Analyzer 0 % (0-5); Neutrophil # 3.07 X10^3/uL (2.7-7.7); Neutrophil % 51.3 % (47-70); Platelet Count 316 K/mm3 (150-450); RBC Distribution Width CV 12.8 % (11.6-14.6); Red Blood Count 4.17 M/mm3 (4.6-6.2)
[2019-07-10 07:25] LABS: Anion Gap 7 (5-15); BUN 29 mg/dL (7-18); BUN/Creat Ratio 27.1 RATIO (10-20); Calcium,Total 8.9 mg/dL (8.5-10.1); Chloride 101 mmol/L (98-107); Creatinine, Serum 1.07 mg/dL (0.70-1.30); EST Glomerular Filtration Rate 82 mL/min (>60); Est Glom Filt Rate - Afr Amer 99 mL/min (>60); Estimated Creatinine Clearance 102.74 ml/min; Glucose 110 mg/dL (74-106); Potassium 3.9 mmol/L (3.5-5.1); Sodium Level 140 mmol/L (136-145)
--- NOTE | 2019-07-10 10:05 | NURSING ---
pt noted to be coughing up increased amt of mucous. Trach suctioned at this time with small, thick amt of white mucous, coughing resolved at this time and pt resting comfortably. Sitter remains at bedside.
--- NOTE | 2019-07-10 13:09 | NURSING ---
Patient coughing up mucous from trach, suctioned with small but thick amount obtained.
--- NOTE | 2019-07-10 14:58 | NURSING ---
pt trach shiley changed at this time. New size 6 shiley placed without difficulty. Previous shiley noted to have small amt of thick, white mucous in tubing. Wound to trach area cleaned with NS at this time and new foam dressing applied. Pt resting in bed at this time with small twitching movements noted to left side per norm. No s/s distress noted. Sitter remains at bedside.
[2019-07-10] MEDS: QUEtiapine 25 MG Tablet GT ×2 (17:02→21:07)
[2019-07-10] MEDS: Acetaminophen 650 MG/20 ML UDC GT (17:02)
--- NOTE | 2019-07-10 17:21 | NURSING ---
pt noted to be coughing up thick, white mucous via trach. Trach suctioned at this time with noted amt of mall, white, thick drainage. No visible distress noted, resting comfortably at this time, sitter at bedside.
[2019-07-11] MEDS: Jevity 1.5 1,000 ML 65 ML GT ×2 (00:44→20:24)
[2019-07-11 01:20] VITALS: PULSE 82; RESP 20
[2019-07-11] MEDS: Ipratropium/Albuterol Sulfate 3 ML AMPUL.NEB INHALATION ×4 (01:20→19:31)
[2019-07-11] MEDS: Menthol/Lanolin/Calamine/Znox 113 GM Tube 1 APPLIC TOPICAL ×3 (05:22→20:19)
[2019-07-11] MEDS: Nystatin Powder 15gm Bottle 1 APPLIC TOPICAL ×2 (05:23→16:53)
[2019-07-11] MEDS: amLODIPine 10 MG Tablet GT (05:23)
[2019-07-11] MEDS: Carvedilol 25 MG Tablet GT ×2 (05:23→16:45)
[2019-07-11 05:46] LABS: Absolute Lymphocyte Count 1.46 X10^3/uL (0.83-4.51); Absolute Neutrophil Count 3.7 X10^3/uL (2.0-7.7); Basophil# 0.07 X10^3/uL; Basophil% 1.1 % (0-1); Eosinophil# 0.56 X10^3/uL; Eosinophils% 8.7 % (0-5); Hematocrit 37.6 % (40-54); Hemoglobin 12.3 g/dL (13.0-16.5); Lymphocyte # 1.46 X10^3/ul (4.0); Lymphocyte % 22.6 % (19-41); Mean Corp Hgb Conc 32.7 g/dL (32-36); Mean Corpuscular Hgb 31.1 pg (27.0-32.0); Mean Corpuscular Volume 94.9 fL (80-94); Mean Platelet Vol. 10.8 fl (6.2-12.0); Monocyte# 0.61 X10^3/uL; Monocyte% 9.4 % (0-10); NRBC Flagged by Analyzer 0 % (0-5); Neutrophil # 3.74 X10^3/uL (2.7-7.7); Neutrophil % 57.9 % (47-70); Platelet Count 280 K/mm3 (150-450); RBC Distribution Width CV 12.9 % (11.6-14.6); RBC Distribution Width SD 43.8 fl (35.1-43.9); Red Blood Count 3.96 M/mm3 (4.6-6.2); White Blood Count 6.5 K/mm3 (4.4-11.0)
[2019-07-11 06:34] LABS: Anion Gap 6 (5-15); BUN 28 mg/dL (7-18); BUN/Creat Ratio 25.9 RATIO (10-20); Calcium,Total 9.2 mg/dL (8.5-10.1); Chloride 106 mmol/L (98-107); Creatinine, Serum 1.08 mg/dL (0.70-1.30); EST Glomerular Filtration Rate 81 mL/min (>60); Est Glom Filt Rate - Afr Amer 98 mL/min (>60); Estimated Creatinine Clearance 101.79 ml/min; Glucose 134 mg/dL (74-106); Potassium 3.7 mmol/L (3.5-5.1); Sodium Level 144 mmol/L (136-145)
[2019-07-11 07:23] VITALS: PULSE 86; RESP 22; O2SAT 94
[2019-07-11] MEDS: Acetaminophen 650 MG/20 ML UDC GT (07:55)
[2019-07-11 10:00] VITALS: PULSE 85; RESP 18
[2019-07-11 13:37] VITALS: PULSE 84; RESP 18; O2SAT 94
[2019-07-11 13:55] VITALS: BP 152/70; PULSE 82; RESP 20; TEMP 36.8; O2SAT 95
[2019-07-11] MEDS: QUEtiapine 25 MG Tablet GT ×2 (16:46→20:20)
[2019-07-11] MEDS: Senna/Docusate Sodium 1 Tablet GT (16:46)
--- NOTE | 2019-07-11 17:38 | NURSING ---
Pt suctioned, trach care done, inner cannula changed. Pt tolerated well.
[2019-07-11 19:31] VITALS: PULSE 81; RESP 18; O2SAT 94
[2019-07-12 01:45] VITALS: PULSE 82; RESP 20
[2019-07-12] MEDS: Ipratropium/Albuterol Sulfate 3 ML AMPUL.NEB INHALATION ×4 (01:45→21:15)
[2019-07-12] MEDS: Menthol/Lanolin/Calamine/Znox 113 GM Tube 1 APPLIC TOPICAL ×3 (05:24→19:39)
[2019-07-12] MEDS: Nystatin Powder 15gm Bottle 1 APPLIC TOPICAL ×2 (05:24→17:04)
[2019-07-12] MEDS: Senna/Docusate Sodium 1 Tablet GT ×2 (05:25→16:57)
[2019-07-12] MEDS: amLODIPine 10 MG Tablet GT (05:25)
[2019-07-12] MEDS: Carvedilol 25 MG Tablet GT ×2 (05:25→16:57)
[2019-07-12 06:42] LABS: Absolute Lymphocyte Count 1.25 X10^3/uL (0.83-4.51); Absolute Neutrophil Count 3.7 X10^3/uL (2.0-7.7); Basophil# 0.06 X10^3/uL; Eosinophil# 0.47 X10^3/uL; Eosinophils% 7.8 % (0-5); Hematocrit 38.2 % (40-54); Hemoglobin 12.1 g/dL (13.0-16.5); Lymphocyte # 1.25 X10^3/ul (4.0); Lymphocyte % 20.7 % (19-41); Mean Corp Hgb Conc 31.7 g/dL (32-36); Mean Corpuscular Hgb 29.8 pg (27.0-32.0); Mean Corpuscular Volume 94.1 fL (80-94); Mean Platelet Vol. 10.9 fl (6.2-12.0); Monocyte# 0.58 X10^3/uL; Monocyte% 9.6 % (0-10); NRBC Flagged by Analyzer 0 % (0-5); Neutrophil # 3.67 X10^3/uL (2.7-7.7); Neutrophil % 60.6 % (47-70); Platelet Count 264 K/mm3 (150-450); RBC Distribution Width CV 12.6 % (11.6-14.6); RBC Distribution Width SD 43.6 fl (35.1-43.9); Red Blood Count 4.06 M/mm3 (4.6-6.2); White Blood Count 6.1 K/mm3 (4.4-11.0)
[2019-07-12 07:01] LABS: Anion Gap 7 (5-15); BUN 29 mg/dL (7-18); Chloride 103 mmol/L (98-107); Creatinine, Serum 1.16 mg/dL (0.70-1.30); EST Glomerular Filtration Rate 75 mL/min (>60); Est Glom Filt Rate - Afr Amer 90 mL/min (>60); Estimated Creatinine Clearance 94.77 ml/min; Glucose 138 mg/dL (74-106); Potassium 3.8 mmol/L (3.5-5.1); Sodium Level 141 mmol/L (136-145)
[2019-07-12 07:20] VITALS: PULSE 83; RESP 20
--- NOTE | 2019-07-12 08:35 | NURSING ---
pt calllight on, checked on pt and found trach collar off, eyes wide open but no eye contact or response to his name. reapplied trach collar at 28% or 6 liters. pt LT leg & arm with erratic uncontrolled movements frequently. staff checking on him frequently.
--- NOTE | 2019-07-12 09:16 | NURSING ---
CHECKED ON PT AND FOUND TRACH COLLAR OFF. PT SOUNDING MOIST AND COUGHING. SUCTIONED PT OUT. ALOT OF THICK WHITE SPUTUM. ASKED PT IF HE WAS OK, PT NODDED HEAD YES. REAPPLIED TRACH COLLAR. REPORTED TO RN.
--- NOTE | 2019-07-12 13:02 | NURSING ---
TRACH CHANGED OUT. RN IN ROOM. PT TOLERATED WELL.
[2019-07-12 13:25] VITALS: PULSE 85; RESP 20
[2019-07-12 14:25] VITALS: BP 148/88; PULSE 81; RESP 16; TEMP 36.4; O2SAT 94
[2019-07-12] MEDS: Jevity 1.5 1,000 ML 65 ML GT (14:49)
[2019-07-12] MEDS: QUEtiapine 25 MG Tablet GT ×2 (16:43→19:40)
--- NOTE | 2019-07-12 17:08 | NURSING ---
PT SUCTIONED OUT. THICK ,WHITE SPUTUM.
[2019-07-12 21:15] VITALS: PULSE 84; RESP 18
[2019-07-13] MEDS: Nystatin Powder 15gm Bottle 1 APPLIC TOPICAL ×2 (06:04→16:53)
[2019-07-13] MEDS: Menthol/Lanolin/Calamine/Znox 113 GM Tube 1 APPLIC TOPICAL ×3 (06:04→22:02)
[2019-07-13] MEDS: Carvedilol 25 MG Tablet GT ×2 (06:05→16:59)
[2019-07-13] MEDS: Senna/Docusate Sodium 1 Tablet GT ×2 (06:05→16:59)
[2019-07-13] MEDS: amLODIPine 10 MG Tablet GT (06:05)
[2019-07-13 06:30] VITALS: PULSE 88; RESP 20
[2019-07-13] MEDS: Ipratropium/Albuterol Sulfate 3 ML AMPUL.NEB INHALATION ×2 (06:30→19:25)
[2019-07-13 07:00] LABS: Absolute Lymphocyte Count 1.19 X10^3/uL (0.83-4.51); Absolute Neutrophil Count 3.6 X10^3/uL (2.0-7.7); Basophil# 0.05 X10^3/uL; Basophil% 0.8 % (0-1); Eosinophil# 0.55 X10^3/uL; Eosinophils% 9.1 % (0-5); Hematocrit 36.4 % (40-54); Hemoglobin 11.9 g/dL (13.0-16.5); Lymphocyte # 1.19 X10^3/ul (4.0); Lymphocyte % 19.7 % (19-41); Mean Corp Hgb Conc 32.7 g/dL (32-36); Mean Corpuscular Hgb 31.1 pg (27.0-32.0); Mean Platelet Vol. 10.5 fl (6.2-12.0); Monocyte# 0.63 X10^3/uL; Monocyte% 10.4 % (0-10); NRBC Flagged by Analyzer 0 % (0-5); Neutrophil # 3.61 X10^3/uL (2.7-7.7); Neutrophil % 59.7 % (47-70); Platelet Count 242 K/mm3 (150-450); RBC Distribution Width CV 12.9 % (11.6-14.6); RBC Distribution Width SD 43.9 fl (35.1-43.9); Red Blood Count 3.83 M/mm3 (4.6-6.2); White Blood Count 6.1 K/mm3 (4.4-11.0)
[2019-07-13 07:21] LABS: Anion Gap 5 (5-15); BUN 31 mg/dL (7-18); BUN/Creat Ratio 26.3 RATIO (10-20); Calcium,Total 9.2 mg/dL (8.5-10.1); Chloride 106 mmol/L (98-107); Creatinine, Serum 1.18 mg/dL (0.70-1.30); EST Glomerular Filtration Rate 73 mL/min (>60); Est Glom Filt Rate - Afr Amer 89 mL/min (>60); Estimated Creatinine Clearance 93.16 ml/min; Glucose 143 mg/dL (74-106); Potassium 3.8 mmol/L (3.5-5.1); Sodium Level 143 mmol/L (136-145)
[2019-07-13] MEDS: Jevity 1.5 1,000 ML 65 ML GT (09:09)
[2019-07-13 10:00] VITALS: PULSE 81; RESP 18; O2SAT 96
[2019-07-13 14:23] VITALS: BP 126/82; PULSE 78; RESP 24; O2SAT 100
--- NOTE | 2019-07-13 16:33 | NURSING ---
PT SUCTIONED OUT 10AM,12;45 AND 1445. MODERATE THICK/WHITE SPUTUM. AT 10AM INTER CANNULA CHANGED AND TRACH SITE CLEANED AND NEW DRESSING. MOUTH CARE GIVEN. PT TURNED TO RIGHT SIDE HOB 30 DEGREES. PT RESPONDS TO QUESTIONS BY SHACKING HIS HEAD YES OR NO. PT CAN HELP A LITTLE BY TURNING TO THE RIGHT ONCE HE GRABS THE BED RAIL. PT TOLERATED WELL. RN AWARE
[2019-07-13] MEDS: QUEtiapine 25 MG Tablet GT ×2 (16:53→22:02)
[2019-07-13 19:25] VITALS: PULSE 79; RESP 18
[2019-07-14] MEDS: Carvedilol 25 MG Tablet GT ×2 (05:19→17:00)
[2019-07-14] MEDS: Menthol/Lanolin/Calamine/Znox 113 GM Tube 1 APPLIC TOPICAL ×3 (05:19→22:16)
[2019-07-14] MEDS: Senna/Docusate Sodium 1 Tablet GT ×2 (05:19→17:00)
[2019-07-14] MEDS: Polyethylene Glycol 3350 17 GM PACKET GT (05:19)
[2019-07-14] MEDS: amLODIPine 10 MG Tablet GT (05:19)
[2019-07-14] MEDS: Nystatin Powder 15gm Bottle 1 APPLIC TOPICAL ×2 (05:36→17:00)
[2019-07-14] MEDS: Jevity 1.5 1,000 ML 65 ML GT (05:37)
[2019-07-14 06:40] VITALS: PULSE 78; RESP 18; O2SAT 96
[2019-07-14] MEDS: Ipratropium/Albuterol Sulfate 3 ML AMPUL.NEB INHALATION ×2 (06:40→19:16)
--- NOTE | 2019-07-14 10:54 | CASEMGMT ---
Social Work IDT met with patient and mother via conference call. Pt unable to be aroused for meeting. Discussed patient's progress in therapy. Pt is dependent x2 for bed mobility, dependent for all ADLS, using shobha lift to transfers, incontinent of bowel and bladder. Pt is able to tolerate sitting in the chair for up to 2 hours. Using ESTIM on right UE and LE - pt responded well. That will continue. ST is working on receptive and expressive language, oral motor exercises, oral care. Pt needing max tactile cues for exercises. Pt is nonverbal, but can nod head yes-no at times. Pt tolerating continuous tube feed. Recommendations made for bolus - physician to decide. Will continue to monitor weight. Pt still having involuntary left side movements, but trach collar changed to right side and pt is tolerating that better. Activities continuing 1:1 visits, having pt listen to rock music and facetiming family. Pt was independent and working prior with 10 steps to enter home. Explained [employer] NRD 07/18 and continued stay is not guaranteed. IDT recommending continued therapy and nursing care. Mother expressed appreciation for pt's care. Will continue to follow. Morena Schroeder, CLEAT MAKER PAYROLL AND BENEFITS SPECIALIST
[2019-07-14 13:44] VITALS: BP 127/82; PULSE 82; RESP 18; TEMP 36.6; O2SAT 93
[2019-07-14] MEDS: QUEtiapine 25 MG Tablet GT ×2 (17:00→22:16)
[2019-07-14 19:16] VITALS: PULSE 71; RESP 16; O2SAT 91
[2019-07-14 22:56] VITALS: PULSE 83; O2SAT 95
[2019-07-15] MEDS: Jevity 1.5 1,000 ML 65 ML GT ×2 (00:31→19:19)
[2019-07-15] MEDS: Polyethylene Glycol 3350 17 GM PACKET GT (06:45)
[2019-07-15] MEDS: amLODIPine 10 MG Tablet GT (06:45)
[2019-07-15] MEDS: Carvedilol 25 MG Tablet GT ×2 (06:45→17:18)
[2019-07-15] MEDS: Senna/Docusate Sodium 1 Tablet GT ×2 (06:45→17:18)
[2019-07-15] MEDS: Nystatin Powder 15gm Bottle 1 APPLIC TOPICAL ×2 (06:45→17:18)
[2019-07-15] MEDS: Menthol/Lanolin/Calamine/Znox 113 GM Tube 1 APPLIC TOPICAL ×3 (06:45→21:21)
[2019-07-15 09:12] VITALS: PULSE 69; RESP 18; O2SAT 96
[2019-07-15 10:00] VITALS: PULSE 75; RESP 18; O2SAT 95
[2019-07-15 13:31] VITALS: BP 138/95; PULSE 80; RESP 16; TEMP 36.8; O2SAT 95
--- NOTE | 2019-07-15 14:26 | NURSING ---
Received written order from Catherine Lake CNP to remove the scalp sutures. Will make Dr. Oneill aware of the orders received.
--- NOTE | 2019-07-15 14:52 | CASEMGMT ---
Social Work Reviewed and agreed with social work marketing pr intern documentation on this date. Morena Schroeder, COLDFUSION PONY TRIMMER
--- NOTE | 2019-07-15 16:05 | CHAPLAIN ---
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
--- NOTE | 2019-07-15 17:17 | NURSING ---
sutures removed from scalp per order. pt tolerated procedure well.
[2019-07-15] MEDS: QUEtiapine 25 MG Tablet GT ×2 (17:19→21:21)
[2019-07-15 19:12] VITALS: PULSE 81; RESP 18; O2SAT 98
[2019-07-15] MEDS: Ipratropium/Albuterol Sulfate 3 ML AMPUL.NEB INHALATION (19:12)
[2019-07-16] MEDS: Carvedilol 25 MG Tablet GT ×2 (05:23→16:59)
[2019-07-16] MEDS: Senna/Docusate Sodium 1 Tablet GT ×2 (05:24→16:59)
[2019-07-16] MEDS: Menthol/Lanolin/Calamine/Znox 113 GM Tube 1 APPLIC TOPICAL ×3 (05:24→22:48)
[2019-07-16] MEDS: amLODIPine 10 MG Tablet GT (05:24)
[2019-07-16] MEDS: Nystatin Powder 15gm Bottle 1 APPLIC TOPICAL ×2 (05:24→17:00)
[2019-07-16] MEDS: Ipratropium/Albuterol Sulfate 3 ML AMPUL.NEB INHALATION ×2 (07:10→19:45)
[2019-07-16 07:11] VITALS: PULSE 74; RESP 18; O2SAT 95
[2019-07-16] MEDS: Tuberculin,Purif.prot.deriv. 50 TU/ML Vial 5 ML ID (10:50)
[2019-07-16] MEDS: Jevity 1.5 1,000 ML 65 ML GT (11:50)
[2019-07-16 14:04] VITALS: BP 132/90; PULSE 75; RESP 18; TEMP 36.4; O2SAT 96
--- NOTE | 2019-07-16 15:35 | CASEMGMT ---
Social Work Reviewed and agreed with social work pricing intern documentation on this date. Morena Schroeder, POWDER GUARD ENERGY SALES BROKER
[2019-07-16] MEDS: QUEtiapine 25 MG Tablet GT ×2 (16:59→22:29)
[2019-07-16 19:45] VITALS: PULSE 78; RESP 20
[2019-07-17] MEDS: Carvedilol 25 MG Tablet GT ×2 (05:22→16:59)
[2019-07-17] MEDS: amLODIPine 10 MG Tablet GT (05:22)
[2019-07-17] MEDS: Senna/Docusate Sodium 1 Tablet GT ×2 (05:22→16:59)
[2019-07-17] MEDS: Menthol/Lanolin/Calamine/Znox 113 GM Tube 1 APPLIC TOPICAL ×3 (05:22→20:03)
[2019-07-17] MEDS: Nystatin Powder 15gm Bottle 1 APPLIC TOPICAL ×2 (05:22→16:48)
[2019-07-17] MEDS: Jevity 1.5 1,000 ML 65 ML GT (07:06)
[2019-07-17 07:12] VITALS: PULSE 71; RESP 16; O2SAT 97
[2019-07-17] MEDS: Ipratropium/Albuterol Sulfate 3 ML AMPUL.NEB INHALATION ×2 (07:12→19:10)
[2019-07-17 14:12] VITALS: BP 136/91; PULSE 76; RESP 18; TEMP 36.5; O2SAT 97
[2019-07-17] MEDS: QUEtiapine 25 MG Tablet GT ×2 (16:46→20:02)
[2019-07-17 19:10] VITALS: PULSE 82; RESP 20
[2019-07-18] MEDS: Jevity 1.5 1,000 ML 65 ML GT ×2 (02:20→18:43)
[2019-07-18 05:07] VITALS: BP 133/90; PULSE 69
[2019-07-18] MEDS: Carvedilol 25 MG Tablet GT ×2 (05:13→17:00)
[2019-07-18] MEDS: amLODIPine 10 MG Tablet GT (05:13)
[2019-07-18] MEDS: Nystatin Powder 15gm Bottle 1 APPLIC TOPICAL ×2 (05:13→16:51)
[2019-07-18] MEDS: Senna/Docusate Sodium 1 Tablet GT (05:13)
[2019-07-18] MEDS: Menthol/Lanolin/Calamine/Znox 113 GM Tube 1 APPLIC TOPICAL ×3 (05:13→20:31)
[2019-07-18 07:55] VITALS: PULSE 78; RESP 16; O2SAT 96
[2019-07-18] MEDS: Ipratropium/Albuterol Sulfate 3 ML AMPUL.NEB INHALATION ×2 (07:55→20:40)
[2019-07-18 08:45] VITALS: PULSE 71; RESP 18; O2SAT 96
[2019-07-18 16:50] VITALS: BP 146/87; PULSE 79; RESP 14; TEMP 36.7; O2SAT 98
[2019-07-18] MEDS: QUEtiapine 25 MG Tablet GT ×2 (16:50→20:31)
[2019-07-18 20:40] VITALS: PULSE 79; RESP 18
[2019-07-19 05:10] VITALS: BP 154/104; PULSE 78
[2019-07-19] MEDS: Nystatin Powder 15gm Bottle 1 APPLIC TOPICAL ×2 (05:13→17:00)
[2019-07-19] MEDS: amLODIPine 10 MG Tablet GT (05:13)
[2019-07-19] MEDS: Carvedilol 25 MG Tablet GT ×2 (05:13→17:00)
[2019-07-19] MEDS: Menthol/Lanolin/Calamine/Znox 113 GM Tube 1 APPLIC TOPICAL ×3 (05:14→20:27)
[2019-07-19 06:40] VITALS: PULSE 78; RESP 20; O2SAT 94
[2019-07-19] MEDS: Ipratropium/Albuterol Sulfate 3 ML AMPUL.NEB INHALATION ×2 (06:40→18:30)
[2019-07-19] MEDS: Jevity 1.5 1,000 ML 65 ML GT (10:53)
[2019-07-19 14:03] VITALS: BP 142/82; PULSE 74; RESP 16; TEMP 36.4; O2SAT 98
--- NOTE | 2019-07-19 14:39 | CASEMGMT ---
Social Work Reviewed and agreed with social work risk intern documentation on this date. Morena Schroeder, STEWARD/STEWARDESS THIRD SALES AND MARKETING ASSISTANT
--- NOTE | 2019-07-19 14:55 | NURSING ---
Pt suctioned twice this shift so far, moderate amount of thick white sputum noted. Jevity, sterile water, and cool mist humidifier changed this shift, pt had hair/lee trimmed as well as hair washed today. Pt tolerated well and is currently sitting up in his recliner watching tv.
[2019-07-19] MEDS: QUEtiapine 25 MG Tablet GT ×2 (16:54→20:29)
[2019-07-19] MEDS: Senna/Docusate Sodium 1 Tablet GT (17:00)
[2019-07-19 18:30] VITALS: PULSE 81; RESP 18
[2019-07-19 20:27] VITALS: PULSE 76; O2SAT 97
[2019-07-20] MEDS: Carvedilol 25 MG Tablet GT ×2 (05:55→17:17)
[2019-07-20] MEDS: amLODIPine 10 MG Tablet GT (05:55)
[2019-07-20] MEDS: Polyethylene Glycol 3350 17 GM PACKET GT (05:55)
[2019-07-20] MEDS: Senna/Docusate Sodium 1 Tablet GT ×2 (05:55→17:17)
[2019-07-20] MEDS: Jevity 1.5 1,000 ML 65 ML GT (06:06)
[2019-07-20] MEDS: Menthol/Lanolin/Calamine/Znox 113 GM Tube 1 APPLIC TOPICAL ×3 (06:06→20:19)
[2019-07-20] MEDS: Nystatin Powder 15gm Bottle 1 APPLIC TOPICAL ×2 (06:12→17:17)
[2019-07-20 07:14] LABS: Absolute Lymphocyte Count 1.32 X10^3/uL (0.83-4.51); Absolute Neutrophil Count 3.5 X10^3/uL (2.0-7.7); Basophil# 0.04 X10^3/uL; Basophil% 0.7 % (0-1); Eosinophil# 0.48 X10^3/uL; Eosinophils% 8.1 % (0-5); Hematocrit 36.5 % (40-54); Lymphocyte # 1.32 X10^3/ul (4.0); Lymphocyte % 22.3 % (19-41); Mean Corp Hgb Conc 32.9 g/dL (32-36); Mean Corpuscular Hgb 29.9 pg (27.0-32.0); Mean Corpuscular Volume 90.8 fL (80-94); Mean Platelet Vol. 11.3 fl (6.2-12.0); Monocyte# 0.55 X10^3/uL; Monocyte% 9.3 % (0-10); NRBC Flagged by Analyzer 0 % (0-5); Neutrophil # 3.51 X10^3/uL (2.7-7.7); Neutrophil % 59.3 % (47-70); Platelet Count 227 K/mm3 (150-450); RBC Distribution Width CV 12.3 % (11.6-14.6); RBC Distribution Width SD 40.9 fl (35.1-43.9); Red Blood Count 4.02 M/mm3 (4.6-6.2); White Blood Count 5.9 K/mm3 (4.4-11.0)
[2019-07-20 07:38] LABS: Anion Gap 6 (5-15); BUN 20 mg/dL (7-18); BUN/Creat Ratio 21.6 RATIO (10-20); Calcium,Total 8.9 mg/dL (8.5-10.1); Chloride 100 mmol/L (98-107); Creatinine, Serum 0.93 mg/dL (0.70-1.30); EST Glomerular Filtration Rate 97 mL/min (>60); Est Glom Filt Rate - Afr Amer 117 mL/min (>60); Estimated Creatinine Clearance 118.21 ml/min; Glucose 123 mg/dL (74-106); Potassium 3.6 mmol/L (3.5-5.1); Sodium Level 139 mmol/L (136-145)
[2019-07-20 08:00] VITALS: PULSE 90; RESP 18; O2SAT 99
[2019-07-20] MEDS: Ipratropium/Albuterol Sulfate 3 ML AMPUL.NEB INHALATION ×2 (08:00→19:05)
--- NOTE | 2019-07-20 08:50 | MDS.RN ---
Information for the mds was obtained from review of the clinical record, interview of resident, staff, and direct observation of resident's care.
--- NOTE | 2019-07-20 09:57 | NURSING ---
Pt suctioned, tolerated well. Pt had moderate amount of thick, creamy white sputum. Trach area cleaned with sterile water and sterile gauze, dressing changed. Inner cannula changed, tolerated well. PEG tube area cleaned with NS and dressing changed.
[2019-07-20 10:00] VITALS: PULSE 71; RESP 18; O2SAT 98
[2019-07-20 13:50] VITALS: BP 146/82; PULSE 77; RESP 16; TEMP 36.2; O2SAT 97
[2019-07-20 15:17] VITALS: O2SAT 97
--- NOTE | 2019-07-20 15:17 | CPS ---
R.T. was called to TCU because pt pulled his trach out, as R.T. was going in to room, an overhead Rapid Response was called. This R.T. tried to place a size 6 shiley but site was swollen and a 6 wouldn't fit, size 4 shiley cuffed was then placed and secured, pt's Sat's stayed around 97% during this. R.T. recommended an x-ray be taken.
--- NOTE | 2019-07-20 15:30 | RAD_ITS ---
STUDY: X-RAY CHEST REASON FOR EXAM: Male, 38 years old. Reinsertion of tracheostomy after patient pulled it out. TECHNIQUE: Single AP portable view of the chest. COMPARISON: June 09, 2019. FINDINGS: There is now a tracheostomy tube with its tip 6.1 cm above the deondre. The NG tube and endotracheal tube seen on the prior study are no longer present. The lungs are hypoexpanded. There is minimal atelectasis along the horizontal fissure. There is no new infiltrate or mass. There is no demonstrated pleural abnormality. Stable cardiomegaly. Normal mediastinum and alea. Normal visualized pulmonary arteries. Normal visualized aortic arch and descending thoracic aorta. No visualized osseous changes. There is no demonstrated abnormality of the visualized soft tissue structures of the upper abdomen. RAD/Chest 1 View (Portable) IMPRESSION: 1. Tracheostomy tube as described. 2. Stable cardiomegaly without acute pulmonary disease. Electronically Signed: José Antonio Keita DO at 20:17 EDT Tel [phone], Service support ,
--- NOTE | 2019-07-20 15:35 | NURSING ---
Addendum entered by Kacie Arevalo 07/20/19 16:56: Dr Wright removed shiley #4 cuffed and inserted #6 shiley XLT uncuffed. tried capping and unsuccessful. Addendum entered by Kacie Arevalo 07/20/19 16:39: Dr Wright here in room, Resp at his side for assist. Original Note: 1520 BUS AIDE called, trach was lying on pts chest. no resp distress noted, sat 97% on 28% trach collar. RT tried reinserting shiley 6 PROMOTIONS ASSISTANT SALES MARKETING cuffed w/out success, was able to insert shiley 4 PROMOTIONS ASSISTANT SALES MARKETING cuffed w/some resistance. suctioned after w/some resp distress. Dr Wright notified and will be in to assess, chest xray done stat. pt vitals stable, has some coughing d/t irritation. will continue to monitor.
--- NOTE | 2019-07-20 16:30 | CHAPLAIN ---
Type of Pastoral Visit ___ Initial Visit ___ Follow-up Visit ___ On-call Visit ___ General Patient Visit ___ Spiritual Assessment ___ Family Conference ___ Bereavement _x__ Rapid Response ___ Code Blue ___ Other (describe below) Pastoral Care Referral From ___ Patient ___ Family ___ Nurse ___ Physician ___ Amusement Park Ride Mechanic ___ Wrapper Selector _x__ Other (describe below) Sacrament/Intervention ___ Active listening ___ Anointing ___ Islam ___ Bereavement ___ Communion ___ Suha exploration ___ ___ Life review ___ Prayer ___ Reconciliation ___ Sacrament of Sick ___ Supportive presence ___ Wedding ___ Other (describe below) Pastoral Comments attending medical team had situation under control and patient was no longer at risk; no family is available at this time
--- NOTE | 2019-07-20 16:44 | PCM.CONS.GEN ---
Problem List (1) Hemorrhagic stroke Status: Acute (2) Intracranial hemorrhage Status: Acute (3) Acute respiratory failure Status: Acute (4) Tracheostomy present Status: Acute Reason for Consult Date of Consultation: 07/20/19 Reason for Consultation: Trach dislodged, unable to replace size 6, size 4 placed by respiratory History of Present Illness: The patient is a 38 year old M who was transferred from [facility] after a hemorrhagic stroke and tracheotomy. He has suffered ongoing right hemineglect and has dislodged his tracheostomy tube which had been a #6 cuffless. This was placed by respiratory therapy with a #4 cuffed I was consulted for evaluation. Per review of his discharge notes from [facility] he had tolerated downsizing from a #8 well but has not undergone any capping trials although with his recent dislodgment noted oxygen desaturation or respiratory distress was reported. He is otherwise nonverbal and very limited history from the patient was able to be obtained. His current tracheostomy tube is displaced today although previously this had had some ulceration at the side which has subsequently healed since the time of his initial transfer from [facility] over the last week or so. He has had some sputum production that is been suctioned easily but no brayden bleeding, oxygen desaturation, or respiratory distress has been reported. [] Past Medical History Past Medical History (Chronic Problems): Chronic Problems Depression (Chronic) Hydrocephalus (Chronic) HTN (hypertension) (Chronic) Chronic cholecystitis (Chronic) Body mass index (BMI) 40.0-44.9, adult (Chronic) Allergies No Known Allergies Allergy (Verified 07/08/19 18:53) Home Medications: Ambulatory Orders Medication Instructions Recorded Amlodipine [Norvasc] 10 mg GT DAILY 07/08/19 Carvedilol 25 mg GT BID 07/08/19 Glucerna 1.5 70 ml GT CONT 07/08/19 Ipratropium/Albuterol Sulfate 3 ml IH Q6H 07/08/19 [Iprat-Albut 0.5-3(2.5) mg/3 ml] Quetiapine Fumarate [Seroquel] 25 mg GT BID 07/08/19 Surgical History: - - Tracheostomy, PEG tube. Psychiatric History: Depression Lives: Alone - Works at [employer]. Smoking Status: Unknown if ever smoked Tobacco Use: Non-smoker Alcohol: None Drugs: None - *Family History Maternal History Items: No pertinent history Paternal History Items: No pertinent history Review of Systems Unable to obtain accurate/complete ROS d/t: Patient nonverbal with right hemineglect Patient Problems: Active and Suspected Problems Debility (Acute) Hemorrhagic stroke (Acute) Intracranial hemorrhage (Acute) Left-sided nontraumatic intraventricular intracerebral hemorrhage (Acute) Acute respiratory failure (Acute) Tracheostomy present (Acute) Percutaneous endoscopic gastrostomy status (Acute) - Physical Exam Vitals/I&O's: Vital Signs Temp Pulse Resp BP Pulse Ox 97.1 F L 77 16 146/82 H 97 07/20/19 13:50 07/20/19 13:50 07/20/19 13:50 07/20/19 13:50 07/20/19 15:17 Oxygen Flow Rate (L/min) 6 Oxygen Delivery Method Trach Collar Weight: 115.218 kg Body Mass Index (BMI) 40.0 Finger Stick Blood Glucose 92 Intake and Output for Last 24 Hours 07/18/19 07/19/19 07/20/19 23:59 23:59 23:59 Intake Total 2375 / 2375 1083 / 1083 897 / 897 Output Total 6 / 6 Balance 2375 / 2375 1077 / 1077 897 / 897 General: Alert, Cooperative, No apparent distress HEENT: Atraumatic, PERRLA Oral: Moist Mucosa Neck: Supple, Trachea Midline, - - #4 Left tracheotomy tube in place, with occlusion with finger he is unable to move air through the upper airway and is aphonic Lungs: No rhonchi, No wheeze Extremities: No clubbing, No cyanosis, No edema Psych/Mental Status: Normal Affect, - - Nonverbal but does shake his head yes and no although his responses are inconsistent Laboratory Results 07/20/19 06:38: WBC 5.9, RBC 4.02 L, Hgb 12.0 L, Hct 36.5 L, MCV 90.8, MCH 29.9, MCHC 32.9, RDW Std Deviation 40.9, RDW Coeff of Mary 12.3, Plt Count 227, MPV 11.3, Immature Gran % (Auto) 0.300, Neut % (Auto) 59.3, Lymph % (Auto) 22.3, [place] % (Auto) 9.3, Eos % (Auto) 8.1 H, Baso % (Auto) 0.7, Absolute Neuts (auto) 3.5, Absolute Lymphs (auto) 1.32, Nucleated RBC % 0 07/20/19 06:38: Sodium 139, Potassium 3.6, Chloride 100, Carbon Dioxide 33.0 H, Anion Gap 6, BUN 20 H, Creatinine 0.93, Estim Creat Clear Calc 118.21, Est GFR (MDRD) Af Amer 117, Est GFR (MDRD) Non-Af 97, BUN/Creatinine Ratio 21.6 H, Glucose 123 H, Calcium 8.9 Current Medications Acetaminophen (Tylenol Liquid) 650 mg GT Q4H PRN PRN PRN Reason: Pain Score 1-1010 Last Admin: 07/11/19 07:55 Dose: 650 mg Documented by: Albuterol/Ipratropium (Duoneb) 3 ml INHALATION BID.RT [facility] Last Admin: 07/20/19 08:00 Dose: 3 ml Documented by: Amlodipine Besylate (Norvasc) 10 mg GT DAILY [facility] Last Admin: 07/20/19 05:55 Dose: 10 mg Documented by: Bisacodyl (Dulcolax) 10 mg RECTAL DAILY PRN PRN Reason: Constipation Calamine/Phenol (Calmoseptine Ointment) 1 applic TOPICAL TID [facility]; Protocol Last Admin: 07/20/19 06:06 Dose: 1 applicatio Documented by: Carvedilol (Coreg) 25 mg GT BID [facility] Last Admin: 07/20/19 05:55 Dose: 25 mg Documented by: Enteral Nutritional Formula (Jevity 1.5) 1,000 mls @ 65 mls/hr GT .[id number] [facility] Last Admin: 07/20/19 06:06 Dose: 65 mls/hr Documented by: Nystatin (Mycostatin Powder) 1 applic TOPICAL BID [facility]; Protocol Last Admin: 07/20/19 06:12 Dose: 1 applicatio Documented by: Polyethylene Glycol (Miralax) 17 gm GT DAILY [facility] Last Admin: 07/20/19 05:55 Dose: 17 gm Documented by: Quetiapine Fumarate (Seroquel) 25 mg GT 1600,2200 [facility] Last Admin: 07/19/19 20:29 Dose: 25 mg Documented by: Senna/Docusate Sodium (Senokot-S, Teressa-Colace) 1 tablet GT BID [facility] Last Admin: 07/20/19 05:55 Dose: 1 tablet Documented by: Assessment/Plan All Active Problems Debility (Acute) Hemorrhagic stroke (Acute) Intracranial hemorrhage (Acute) Left-sided nontraumatic intraventricular intracerebral hemorrhage (Acute) Acute respiratory failure (Acute) Tracheostomy present (Acute) Percutaneous endoscopic gastrostomy status (Acute) Mich a 38-year-old male status post hemorrhagic stroke with right hemiparesis and tracheostomy. This is been dislodged previously in the day and a #4 was placed. With respiratory therapy at the bedside I replaced this with a #6 uncuffed standard Shiley tracheostomy tube. After placement there is noted to be excellent airflow and suctioning passed easily initiating cough reflex consistent with good placement. A well-formed tracheostoma tract was noted without significant granulation tissue and no bleeding was encountered. He does not appear able to tolerate capping at this time and appears to be trach dependent. Exam is limited at this time in part due to his cooperation but I do suspect given his hemineglect that he may also suffer a focal paralysis and as he improves cognitively over time endoscopic evaluation may be helpful for further assessment. At this time he appears to continue to need tracheostomy for maintenance of his airway and ongoing care to his trach collar to prevent further dislodgment is advised although as this is a mature tract easy replacement of his tracheostomy tube would be anticipated as what was encountered today it is unclear as to why difficulty was encountered previously.
--- NOTE | 2019-07-20 16:51 | CPS ---
AT BEDSIDE ASSESSING PT. DECIDED TO PLACE A SIZE 6 SHILEY BACK IN PT DUE TO 4 HE FELT LIKE WAS TOO SMALL. PT WAS UNABLE TO BREATH AROUND SIZE 4 TRACH WHEN IT WAS OCCLUDED. 6 SHILEY WAS PLACED WITH NO ISSUES. SATS 98% ON 28%CA. PT TOLERATED TRACH CHANGE FINE.
--- NOTE | 2019-07-20 16:55 | NURSING ---
Observed patient attempting to remove trach again. When I entered his room he had the trach collar undone and was attempting to remove the Velcro.
[2019-07-20] MEDS: QUEtiapine 25 MG Tablet GT ×2 (17:16→20:09)
[2019-07-20 19:05] VITALS: PULSE 81; RESP 18
[2019-07-21] MEDS: Jevity 1.5 1,000 ML 65 ML GT ×2 (00:22→18:02)
--- NOTE | 2019-07-21 03:51 | NURSING ---
Patient suctioned at this time, tolerated well. Patient with a moderate amount of thick white sputum still tinged with blood.
[2019-07-21] MEDS: amLODIPine 10 MG Tablet GT (05:21)
[2019-07-21] MEDS: Carvedilol 25 MG Tablet GT ×2 (05:21→17:00)
[2019-07-21] MEDS: Menthol/Lanolin/Calamine/Znox 113 GM Tube 1 APPLIC TOPICAL ×3 (05:24→20:46)
[2019-07-21] MEDS: Nystatin Powder 15gm Bottle 1 APPLIC TOPICAL ×2 (05:24→16:43)
[2019-07-21 06:35] VITALS: PULSE 89; RESP 16; O2SAT 99
[2019-07-21] MEDS: Ipratropium/Albuterol Sulfate 3 ML AMPUL.NEB INHALATION ×2 (06:35→19:45)
--- NOTE | 2019-07-21 12:44 | NURSING ---
AT 9:15AM THIS NURSE SUCTIONED PT OUT,SPUTUM THICK/PINK IN COLOR. DRESSING TO TRACH SITE CLEANED AND CHANGED. TRACHEOSTOMY TIE CHANGED. RN AWARE.
--- NOTE | 2019-07-21 13:22 | NURSING ---
Notified patient's mother that patient decannulated self yesterday and required BROOM HANDLE DIPPER to be called and have Dr. Adriana segundo.
[2019-07-21 15:17] VITALS: BP 144/95; PULSE 85; RESP 22; TEMP 37.3; O2SAT 98
--- NOTE | 2019-07-21 15:25 | CASEMGMT ---
Social Work Met with patient to assess psychosocial well-being. Asked yes/no questions. Patient responded to not intentionally pulling out trache. He indicated it was from his involuntary arm movements. Pt indicated he was not in pain, trache did not currently hurt, but not happy it was in place. Pt responded to sleeping well at night, his mood was good and had no issues. Pt indicated he was tolerating tube feeding well and felt full. Pt working with patient relations director to create a list of items from his apartment that his friend could bring in to help him feel more comfortable and improve his mood. Pt has been Facetiming with his mother and enjoys that greatly. Pt did express how much he misses his mother. SW explained she talks with his mother consistently and provides her updates - pt was pleased. Pt indicated therapy is going well and is excited to be out of isolation 07/21. Will continue to follow. Morena Schroeder, ENVIRONMENTAL GEOLOGIST SCREW MACHINE HAND
[2019-07-21] MEDS: QUEtiapine 25 MG Tablet GT ×2 (16:43→20:48)
[2019-07-21 19:45] VITALS: PULSE 88; RESP 16
[2019-07-22] MEDS: amLODIPine 10 MG Tablet GT (06:02)
[2019-07-22] MEDS: Carvedilol 25 MG Tablet GT ×2 (06:02→16:59)
[2019-07-22] MEDS: Menthol/Lanolin/Calamine/Znox 113 GM Tube 1 APPLIC TOPICAL ×3 (06:03→20:57)
[2019-07-22] MEDS: Nystatin Powder 15gm Bottle 1 APPLIC TOPICAL ×2 (06:10→16:47)
[2019-07-22 07:09] VITALS: PULSE 77; RESP 16; O2SAT 98
--- NOTE | 2019-07-22 07:18 | NURSING ---
suctioned twice this shift, once at 2000 and another at 530 am along with changing of dressings, moderate amount of drainage on dressing of blood and yellow-green mucus, pressure sore very red and raw. cleansed canula size 6 non disposable. tolerated all well.
[2019-07-22 09:45] VITALS: PULSE 82; RESP 18
--- NOTE | 2019-07-22 11:52 | NURSING ---
PT UP IN WHEEL CHAIR TODAY AND WENT TO THERAPY. PT TOLERATED WELL.
--- NOTE | 2019-07-22 12:51 | NURSING ---
NEW DRESSING ORDERS PER DOMINICK DAY/WOUND NURSE. RN AWARE. SEE ORDERS.
[2019-07-22] MEDS: Jevity 1.5 1,000 ML 65 ML GT (14:11)
[2019-07-22 15:31] VITALS: BP 147/91; PULSE 84; RESP 22; TEMP 36.3; O2SAT 97
[2019-07-22] MEDS: QUEtiapine 25 MG Tablet GT ×2 (16:46→20:58)
[2019-07-22 18:20] VITALS: PULSE 77; RESP 15; O2SAT 98
[2019-07-22] MEDS: Ipratropium/Albuterol Sulfate 3 ML AMPUL.NEB INHALATION (18:20)
[2019-07-23] MEDS: Carvedilol 25 MG Tablet GT ×2 (06:22→16:14)
[2019-07-23] MEDS: amLODIPine 10 MG Tablet GT (06:22)
[2019-07-23] MEDS: Nystatin Powder 15gm Bottle 1 APPLIC TOPICAL ×2 (06:24→16:15)
[2019-07-23] MEDS: Menthol/Lanolin/Calamine/Znox 113 GM Tube 1 APPLIC TOPICAL ×3 (06:25→19:55)
[2019-07-23] MEDS: Jevity 1.5 1,000 ML 65 ML GT (07:07)
[2019-07-23] MEDS: Ipratropium/Albuterol Sulfate 3 ML AMPUL.NEB INHALATION ×2 (07:20→18:18)
--- NOTE | 2019-07-23 07:20 | CPS ---
Tube feed running, vest not done.
--- NOTE | 2019-07-23 07:22 | NURSING ---
changed dressing, cleansed area with NS, drainaged was moderate yellow with blood tinge. Site reddened. this nurse also cleansed trach cannula. pt tolerated well. resting with call light at reach.
[2019-07-23 07:40] VITALS: PULSE 78; RESP 18; O2SAT 96
--- NOTE | 2019-07-23 09:08 | CASEMGMT ---
Social Work Patient's friend contacted SW to speak with pt. Pt agreed to speak with friend via conference call. Pt smiled and gave 'thumbs up' and waved 'goodbye'. Pt enjoyed hearing from friend. Friend provided additional interests and background about pt. Friend emotional about pt medical condition - provided emotional support. 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 Friend very appreciative of assistance. Morena Schroeder, INSTALLATION SERVICE REPRESENTATIVE PHLEBOTOMY TECHNICIAN
--- NOTE | 2019-07-23 09:14 | CASEMGMT ---
Social Work Spoke with pt's mother to update on friend phone call. Mother did receive update from therapy the previous day. Explained goal for pt is to request precert from insurance to transfer to RU come NRD 08/04, then complete RU and transition back to TCU until pt progresses for a safe DC plan. Mother is very much agreeable to this plan. Will keep her updated. Will continue to follow. ALISTAIR SierraW
[2019-07-23 14:14] VITALS: BP 142/84; PULSE 84; RESP 16; TEMP 36.6; O2SAT 96
--- NOTE | 2019-07-23 16:10 | NURSING ---
THIS NURSE AWARE OF VITALS THAT WERE TAKEN THIS AFTERNOON AT 1414
[2019-07-23] MEDS: QUEtiapine 25 MG Tablet GT ×2 (16:14→20:41)
[2019-07-23 18:18] VITALS: PULSE 74; RESP 16; O2SAT 95
[2019-07-24] MEDS: Jevity 1.5 1,000 ML 65 ML GT ×2 (03:20→21:03)
[2019-07-24] MEDS: amLODIPine 10 MG Tablet GT (05:54)
[2019-07-24] MEDS: Menthol/Lanolin/Calamine/Znox 113 GM Tube 1 APPLIC TOPICAL ×3 (05:54→21:14)
[2019-07-24] MEDS: Carvedilol 25 MG Tablet GT ×2 (05:54→17:08)
[2019-07-24] MEDS: Nystatin Powder 15gm Bottle 1 APPLIC TOPICAL ×2 (05:55→17:09)
--- NOTE | 2019-07-24 06:31 | NURSING ---
change dressing this morning and cleansed site. large dime size hard mucus found on oli, rn notified. pt tolerated well. pt in bed, comfortable with call light in reach.
[2019-07-24 06:40] VITALS: PULSE 77; RESP 20
[2019-07-24] MEDS: Ipratropium/Albuterol Sulfate 3 ML AMPUL.NEB INHALATION ×2 (06:40→19:15)
[2019-07-24 13:40] VITALS: BP 146/94; PULSE 74; RESP 18; TEMP 36.9
--- NOTE | 2019-07-24 16:58 | NURSING ---
Aware of Vital Signs from this afternoon.
[2019-07-24] MEDS: QUEtiapine 25 MG Tablet GT ×2 (17:08→21:08)
[2019-07-24 19:15] VITALS: PULSE 77; RESP 20; O2SAT 99
[2019-07-25] MEDS: Carvedilol 25 MG Tablet GT ×2 (04:42→17:21)
[2019-07-25] MEDS: amLODIPine 10 MG Tablet GT (04:42)
[2019-07-25] MEDS: Nystatin Powder 15gm Bottle 1 APPLIC TOPICAL ×2 (04:49→17:38)
[2019-07-25] MEDS: Menthol/Lanolin/Calamine/Znox 113 GM Tube 1 APPLIC TOPICAL ×3 (04:49→22:18)
[2019-07-25 06:15] VITALS: PULSE 78; RESP 20
[2019-07-25] MEDS: Ipratropium/Albuterol Sulfate 3 ML AMPUL.NEB INHALATION (06:15)
[2019-07-25] MEDS: Jevity 1.5 1,000 ML 65 ML GT (13:00)
--- NOTE | 2019-07-25 13:14 | NURSING ---
1315 pt coughing more and sputum noted, respiratory called to suction pt Desi Doss RN
[2019-07-25 14:59] VITALS: BP 137/91; PULSE 74; RESP 16; TEMP 36.8; O2SAT 98
[2019-07-25] MEDS: QUEtiapine 25 MG Tablet GT ×2 (17:21→22:19)
[2019-07-26] MEDS: Carvedilol 25 MG Tablet GT ×2 (04:21→16:33)
[2019-07-26] MEDS: Menthol/Lanolin/Calamine/Znox 113 GM Tube 1 APPLIC TOPICAL ×3 (04:21→20:55)
[2019-07-26] MEDS: amLODIPine 10 MG Tablet GT (04:21)
[2019-07-26] MEDS: Nystatin Powder 15gm Bottle 1 APPLIC TOPICAL ×2 (04:22→16:33)
--- NOTE | 2019-07-26 04:37 | NURSING ---
Inner cannula cleansed and reinserted, pt tolerated well. Site cleansed and dressing applied. Pt coughed up secretions on his own and did not require suctioning at this time.
[2019-07-26] MEDS: Jevity 1.5 1,000 ML 65 ML GT (05:59)
[2019-07-26 07:44] VITALS: PULSE 79; RESP 18; O2SAT 96
--- NOTE | 2019-07-26 11:00 | NURSING ---
reattached tube feed after therapy finished session. no residual. trach collar in place @ 28%, pt sitting up in recliner chair. touch call light in reach.
[2019-07-26 14:24] VITALS: BP 151/98; PULSE 77; RESP 22; TEMP 36.7; O2SAT 95
[2019-07-26] MEDS: QUEtiapine 25 MG Tablet GT ×2 (16:33→20:45)
--- NOTE | 2019-07-26 17:00 | NURSING ---
0 residual, meds given via PEG. resting in bed, touch call light in reach, incont urine, incont care provided. jevity infusing as ordered. Trach collar in place 28% or 6 liters.
[2019-07-26 18:49] VITALS: RESP 16
[2019-07-26] MEDS: Ipratropium/Albuterol Sulfate 3 ML AMPUL.NEB INHALATION (18:49)
[2019-07-26 20:57] VITALS: O2SAT 98
[2019-07-27] MEDS: Jevity 1.5 1,000 ML 65 ML GT ×2 (00:13→19:53)
[2019-07-27] MEDS: amLODIPine 10 MG Tablet GT (04:58)
[2019-07-27] MEDS: Carvedilol 25 MG Tablet GT ×2 (04:58→15:03)
[2019-07-27] MEDS: Nystatin Powder 15gm Bottle 1 APPLIC TOPICAL ×2 (04:58→15:12)
[2019-07-27] MEDS: Menthol/Lanolin/Calamine/Znox 113 GM Tube 1 APPLIC TOPICAL ×3 (04:59→19:55)
[2019-07-27 05:54] LABS: Absolute Lymphocyte Count 1.41 X10^3/uL (0.83-4.51); Absolute Neutrophil Count 4.3 X10^3/uL (2.0-7.7); Basophil# 0.05 X10^3/uL; Basophil% 0.7 % (0-1); Eosinophil# 0.45 X10^3/uL; Eosinophils% 6.5 % (0-5); Hematocrit 36.2 % (40-54); Hemoglobin 11.8 g/dL (13.0-16.5); Lymphocyte # 1.41 X10^3/ul (4.0); Lymphocyte % 20.4 % (19-41); Mean Corp Hgb Conc 32.6 g/dL (32-36); Mean Corpuscular Hgb 29.9 pg (27.0-32.0); Mean Corpuscular Volume 91.9 fL (80-94); Mean Platelet Vol. 10.7 fl (6.2-12.0); Monocyte# 0.66 X10^3/uL; Monocyte% 9.5 % (0-10); NRBC Flagged by Analyzer 0 % (0-5); Neutrophil # 4.31 X10^3/uL (2.7-7.7); Neutrophil % 62.3 % (47-70); Platelet Count 298 K/mm3 (150-450); RBC Distribution Width CV 12.2 % (11.6-14.6); RBC Distribution Width SD 41.1 fl (35.1-43.9); Red Blood Count 3.94 M/mm3 (4.6-6.2); White Blood Count 6.9 K/mm3 (4.4-11.0)
[2019-07-27 06:14] LABS: Anion Gap 7 (5-15); BUN 15 mg/dL (7-18); Calcium,Total 8.8 mg/dL (8.5-10.1); Chloride 97 mmol/L (98-107); Creatinine, Serum 0.94 mg/dL (0.70-1.30); EST Glomerular Filtration Rate 95 mL/min (>60); Est Glom Filt Rate - Afr Amer 115 mL/min (>60); Estimated Creatinine Clearance 116.95 ml/min; Glucose 110 mg/dL (74-106); Potassium 3.8 mmol/L (3.5-5.1); Sodium Level 136 mmol/L (136-145)
[2019-07-27 06:30] VITALS: PULSE 88; RESP 18; O2SAT 97
[2019-07-27] MEDS: Ipratropium/Albuterol Sulfate 3 ML AMPUL.NEB INHALATION ×2 (06:30→19:40)
[2019-07-27 14:29] VITALS: BP 157/69; PULSE 79; RESP 18; TEMP 37.3; O2SAT 96
[2019-07-27] MEDS: QUEtiapine 25 MG Tablet GT ×2 (15:03→19:57)
--- NOTE | 2019-07-27 15:15 | NURSING ---
0 RESIDUAL, INNER CANNULA OF TRACH CLEANED AND REINSERTED. TRACH COLLAR TIGHTENED, SLIGHTLY LOOSE AROUND NECK. PT DENIED NEED FOR SUCTIONING, PT HAS BEEN COUGHING UP MUCUS.
[2019-07-27 19:40] VITALS: PULSE 76; RESP 18
[2019-07-28] MEDS: amLODIPine 10 MG Tablet GT (04:53)
[2019-07-28] MEDS: Carvedilol 25 MG Tablet GT ×2 (04:53→17:12)
[2019-07-28] MEDS: Nystatin Powder 15gm Bottle 1 APPLIC TOPICAL ×2 (04:53→17:12)
[2019-07-28] MEDS: Menthol/Lanolin/Calamine/Znox 113 GM Tube 1 APPLIC TOPICAL ×3 (04:53→21:53)
--- NOTE | 2019-07-28 05:30 | NURSING ---
Patient suctioned at this time for a minimum amount of green sputum. Patient's inner cannula cleansed and reinserted. Trache site cleansed at this time and new dressing applied. Patient tolerated procedure well.
[2019-07-28 08:00] VITALS: PULSE 92; RESP 18
[2019-07-28] MEDS: Ipratropium/Albuterol Sulfate 3 ML AMPUL.NEB INHALATION ×2 (08:00→18:30)
[2019-07-28 10:12] VITALS: O2SAT 97
[2019-07-28 13:44] VITALS: BP 140/91; PULSE 76; RESP 18; TEMP 37.3; O2SAT 30
[2019-07-28] MEDS: Jevity 1.5 1,000 ML 65 ML GT (14:37)
[2019-07-28] MEDS: QUEtiapine 25 MG Tablet GT ×2 (17:12→21:49)
[2019-07-28 18:30] VITALS: PULSE 78; RESP 18; O2SAT 98
--- NOTE | 2019-07-28 18:31 | CPS ---
changed water in cool aerosol
[2019-07-29] MEDS: Nystatin Powder 15gm Bottle 1 APPLIC TOPICAL ×2 (04:43→17:44)
[2019-07-29] MEDS: Carvedilol 25 MG Tablet GT ×2 (04:43→17:38)
[2019-07-29] MEDS: Menthol/Lanolin/Calamine/Znox 113 GM Tube 1 APPLIC TOPICAL ×3 (04:43→22:38)
[2019-07-29] MEDS: amLODIPine 10 MG Tablet GT (04:44)
--- NOTE | 2019-07-29 05:15 | NURSING ---
Patient inner cannula cleansed and reinserted at this time. Trache site cleansed and new dressing applied. Offered to suction patient at this time patient refused.
--- NOTE | 2019-07-29 05:45 | NURSING ---
Patient requesting to be suctioned at this time. Patient suctioned at this time for a moderate amount green sputum. Patient tolerated well. Patient appreciative of being suctioned.
[2019-07-29] MEDS: Jevity 1.5 1,000 ML 65 ML GT (11:46)
[2019-07-29] MEDS: QUEtiapine 25 MG Tablet GT ×2 (17:38→22:39)
[2019-07-29 18:56] VITALS: PULSE 70; RESP 16; O2SAT 96
[2019-07-29] MEDS: Ipratropium/Albuterol Sulfate 3 ML AMPUL.NEB INHALATION (18:56)
[2019-07-30] MEDS: Carvedilol 25 MG Tablet GT ×2 (05:52→15:47)
[2019-07-30] MEDS: Polyethylene Glycol 3350 17 GM PACKET GT (05:52)
[2019-07-30] MEDS: amLODIPine 10 MG Tablet GT (05:52)
[2019-07-30] MEDS: Nystatin Powder 15gm Bottle 1 APPLIC TOPICAL ×2 (05:53→15:47)
[2019-07-30] MEDS: Menthol/Lanolin/Calamine/Znox 113 GM Tube 1 APPLIC TOPICAL ×3 (05:54→20:54)
[2019-07-30] MEDS: Jevity 1.5 1,000 ML 65 ML GT (06:00)
--- NOTE | 2019-07-30 11:00 | NURSING ---
0cc tube feed residual. pt going to therapy, sitting in recliner chair. Denies needs or c/o. Off of trach collar per pt request. Sat 96%-97% on RA.
[2019-07-30 13:25] VITALS: BP 133/78; PULSE 76; RESP 22; TEMP 36.7; O2SAT 93
[2019-07-30 14:38] VITALS: RESP 18
[2019-07-30] MEDS: QUEtiapine 25 MG Tablet GT ×2 (15:47→20:53)
--- NOTE | 2019-07-30 15:54 | NURSING ---
0cc residual. meds given via peg, flushed with 60cc sterile water. restarted tube feed as ordered.
[2019-07-30 18:22] VITALS: PULSE 75; RESP 20; O2SAT 99
[2019-07-30] MEDS: Ipratropium/Albuterol Sulfate 3 ML AMPUL.NEB INHALATION (18:22)
[2019-07-31] MEDS: Jevity 1.5 1,000 ML 65 ML GT ×2 (02:26→21:38)
[2019-07-31] MEDS: Carvedilol 25 MG Tablet GT ×2 (04:24→17:02)
[2019-07-31] MEDS: Polyethylene Glycol 3350 17 GM PACKET GT (04:24)
[2019-07-31] MEDS: Menthol/Lanolin/Calamine/Znox 113 GM Tube 1 APPLIC TOPICAL ×3 (04:24→21:36)
[2019-07-31] MEDS: Nystatin Powder 15gm Bottle 1 APPLIC TOPICAL ×2 (04:24→17:02)
[2019-07-31] MEDS: amLODIPine 10 MG Tablet GT (04:25)
--- NOTE | 2019-07-31 05:30 | NURSING ---
Patient suctioned at this time for a small amount of green sputum. Patient's inner cannula cleansed and reinserted at this time. Trache site cleansed and new dressing applied. Patient tolerated procedure well.
[2019-07-31 06:40] VITALS: PULSE 72; RESP 16; O2SAT 98
[2019-07-31] MEDS: Ipratropium/Albuterol Sulfate 3 ML AMPUL.NEB INHALATION ×2 (06:40→19:19)
[2019-07-31 15:00] VITALS: BP 144/92; PULSE 78; RESP 18; TEMP 36.6; O2SAT 96
[2019-07-31] MEDS: QUEtiapine 25 MG Tablet GT ×2 (17:02→21:35)
[2019-07-31 19:19] VITALS: PULSE 75; RESP 18; O2SAT 98
[2019-07-31 23:15] VITALS: PULSE 76; RESP 18; O2SAT 96
[2019-08-01] MEDS: Carvedilol 25 MG Tablet GT ×2 (06:39→16:24)
[2019-08-01] MEDS: Polyethylene Glycol 3350 17 GM PACKET GT (06:39)
[2019-08-01] MEDS: amLODIPine 10 MG Tablet GT (06:39)
[2019-08-01] MEDS: Menthol/Lanolin/Calamine/Znox 113 GM Tube 1 APPLIC TOPICAL ×3 (06:40→22:01)
[2019-08-01] MEDS: Nystatin Powder 15gm Bottle 1 APPLIC TOPICAL ×2 (06:43→16:24)
[2019-08-01] MEDS: Ipratropium/Albuterol Sulfate 3 ML AMPUL.NEB INHALATION ×2 (07:10→19:03)
[2019-08-01 08:22] VITALS: PULSE 85; RESP 18; O2SAT 96
[2019-08-01 14:32] VITALS: BP 155/90; PULSE 80; RESP 20; TEMP 37.1; O2SAT 98
[2019-08-01] MEDS: Jevity 1.5 1,000 ML 65 ML GT (16:22)
[2019-08-01] MEDS: QUEtiapine 25 MG Tablet GT ×2 (16:22→22:00)
--- NOTE | 2019-08-01 16:34 | NURSING ---
Pt suctioned, tolerated well. Trach care done. Inner cannula removed and cleaned with Steril procedure. PT tolerated well. Trach dressing and collar changed.
[2019-08-01 19:03] VITALS: PULSE 83; RESP 18
[2019-08-01 20:05] VITALS: PULSE 81; RESP 16; O2SAT 97
--- NOTE | 2019-08-02 05:13 | NURSING ---
Addendum entered by Rena Lorenzana 08/02/19 07:11: Pt no longer has bright red blood drainage from inner cannula. Sputum cough up by pt on his own color pink tinged thick. SPo2-97% via trach collar 6L FI02-28%. Rn made aware. Original Note: This nurse noted bright red blood on 4x4 gauze and coming out of inner cannula. Notifed DOMINICK Hensley and respiratory. Respiratory came up and accessed the trach and suctioned the patient. Continuing to monitor patient.
[2019-08-02] MEDS: Nystatin Powder 15gm Bottle 1 APPLIC TOPICAL ×2 (05:47→18:14)
[2019-08-02] MEDS: Menthol/Lanolin/Calamine/Znox 113 GM Tube 1 APPLIC TOPICAL ×3 (05:47→22:16)
[2019-08-02] MEDS: Carvedilol 25 MG Tablet GT ×2 (05:47→18:14)
[2019-08-02] MEDS: Polyethylene Glycol 3350 17 GM PACKET GT (05:47)
[2019-08-02] MEDS: amLODIPine 10 MG Tablet GT (05:47)
[2019-08-02 07:17] VITALS: PULSE 80; RESP 18; O2SAT 95
[2019-08-02] MEDS: Ipratropium/Albuterol Sulfate 3 ML AMPUL.NEB INHALATION ×2 (07:37→20:01)
[2019-08-02] MEDS: Jevity 1.5 1,000 ML 65 ML GT (11:23)
[2019-08-02 11:40] VITALS: PULSE 82; RESP 18; O2SAT 98
--- NOTE | 2019-08-02 12:21 | PN_ITS ---
Subjective: Resident seen in room, he is sitting in recliner watching television. He is unable to speak, but he gives me thumbs up and points. His only complaint is he would like to get out of bed, out of chair, walk. He otherwise appears well. Vitals/I&O's: Vital Signs Temp Pulse Resp BP Pulse Ox 98.8 F 80 18 155/90 H 95 08/01/19 14:32 08/02/19 07:17 08/02/19 07:17 08/01/19 14:32 08/02/19 07:17 Oxygen Flow Rate (L/min) 6 Oxygen Delivery Method Trach Collar Weight: 114.986 kg Body Mass Index (BMI) 40.0 Finger Stick Blood Glucose 92 Intake and Output for Last 24 Hours 07/31/19 08/01/19 08/02/19 23:59 23:59 23:59 Intake Total 2689 / 2689 1448 / 1448 Balance 2689 / 2689 1448 / 1448 Past Medical History Past Medical History (Chronic Problems): Chronic Problems Depression (Chronic) Hydrocephalus (Chronic) HTN (hypertension) (Chronic) Chronic cholecystitis (Chronic) Body mass index (BMI) 40.0-44.9, adult (Chronic) Allergies No Known Allergies Allergy (Verified 07/08/19 18:53) Home Medications: Ambulatory Orders Medication Instructions Recorded Amlodipine [Norvasc] 10 mg GT DAILY 07/08/19 Carvedilol 25 mg GT BID 07/08/19 Glucerna 1.5 70 ml GT CONT 07/08/19 Ipratropium/Albuterol Sulfate 3 ml IH Q6H 07/08/19 [Iprat-Albut 0.5-3(2.5) mg/3 ml] Quetiapine Fumarate [Seroquel] 25 mg GT BID 07/08/19 Surgical History: - - Tracheostomy, PEG tube. Psychiatric History: Depression Lives: Alone - Works at [employer]. Smoking Status: Unknown if ever smoked Tobacco Use: Non-smoker Alcohol: None Drugs: None - *Family History Maternal History Items: No pertinent history Paternal History Items: No pertinent history Capacity - Capacity Assessment Tool Can the patient make a choice & communicate that choice?: Yes Can the patient understand benefits, risks and alternatives?: Yes Can the patient make a logical, rational choice?: Yes Is the choice the patient makes consistent w/ their values?: Yes Is there an impending, emergent risk to the patient?: No Does the patient have an Advance Directive?: No Is there a Surrogate Available?: Yes i.e. HCPOA: Yes i.e. close relative (spouse, child, parent, sibling)?: Yes Review of Systems Constitutional: Denies: Chills, Fever, Weight Change HEENT: Denies: Head Aches, Sinus Congestion, Sinus Drainage Cardiovascular: Denies: Chest Pain, Palpitations Respiratory: Denies: Cough, Shortness of breath at rest, Sputum production Gastrointestinal: Denies: Abdominal Pain, Nausea, Vomiting Genitourinary: Denies: Dysuria Musculoskeletal: Denies: Joint Pain, Joint Tenderness Skin: Denies: Rash, Wounds Neurological: Denies: Numbness, Tingling, Focal weakness Psychiatric: Denies: Anxiety, Depression, Homicidal Ideations, Suicidal Ideations Hematologic/ Lymphatic: Denies: Easy Bruising, Easy Bleeding Patient Problems: Active and Suspected Problems Debility (Acute) Hemorrhagic stroke (Acute) Intracranial hemorrhage (Acute) Left-sided nontraumatic intraventricular intracerebral hemorrhage (Acute) Acute respiratory failure (Acute) Tracheostomy present (Acute) Percutaneous endoscopic gastrostomy status (Acute) - Physical Exam Vitals/I&O's: Vital Signs Temp Pulse Resp BP Pulse Ox 98.8 F 80 18 155/90 H 95 08/01/19 14:32 08/02/19 07:17 08/02/19 07:17 08/01/19 14:32 08/02/19 07:17 Oxygen Flow Rate (L/min) 6 Oxygen Delivery Method Trach Collar Weight: 114.986 kg Body Mass Index (BMI) 40.0 Finger Stick Blood Glucose 92 Intake and Output for Last 24 Hours 07/31/19 08/01/19 08/02/19 23:59 23:59 23:59 Intake Total 2689 / 2689 1448 / 1448 Balance 2689 / 2689 1448 / 1448 General: Alert, Oriented x3, Cooperative HEENT: Atraumatic, PERRLA, EOMI, Normocephalic Neck: Supple, No JVD, Negative Carotid Bruits, - - Tracheostomy. Lungs: Clear to auscultation, Normal air movement Cardiovascular: Regular rate, No murmurs Abdomen: Bowel Sounds Present, Soft, Non Tender, - - PEG tube. Extremities: No edema, Capillary Refill Less than 3 Seconds Skin: No rashes, No breakdown Musculoskeletal: No Tenderness to Palpation of Joints or Extremities Neurological: Cranial nerves II-XII grossly intact, - - Right hemiplegia. Psych/Mental Status: Normal Affect, Appropriate Current Medications Acetaminophen (Tylenol Liquid) 650 mg GT Q4H PRN PRN PRN Reason: Pain Score 1-10/10 Last Admin: 07/11/19 07:55 Dose: 650 mg Documented by: Albuterol/Ipratropium (Duoneb) 3 ml INHALATION BID.RT [facility] Last Admin: 08/02/19 07:37 Dose: 3 ml Documented by: Amlodipine Besylate (Norvasc) 10 mg GT DAILY [facility] Last Admin: 08/02/19 05:47 Dose: 10 mg Documented by: Bisacodyl (Dulcolax) 10 mg RECTAL DAILY PRN PRN Reason: Constipation Calamine/Phenol (Calmoseptine Ointment) 1 applic TOPICAL TID [facility]; Protocol Last Admin: 08/02/19 05:47 Dose: 1 applicatio Documented by: Carvedilol (Coreg) 25 mg GT BID [facility] Last Admin: 08/02/19 05:47 Dose: 25 mg Documented by: Enteral Nutritional Formula (Jevity 1.5) 1,000 mls @ 65 mls/hr GT .[id number] [facility] Last Admin: 08/02/19 11:23 Dose: 65 mls/hr Documented by: Nystatin (Mycostatin Powder) 1 applic TOPICAL BID [facility]; Protocol Last Admin: 08/02/19 05:47 Dose: 1 applicatio Documented by: Polyethylene Glycol (Miralax) 17 gm GT DAILY [facility] Last Admin: 08/02/19 05:47 Dose: 17 gm Documented by: Quetiapine Fumarate (Seroquel) 25 mg GT 1600,2200 [facility] Last Admin: 08/01/19 22:00 Dose: 25 mg Documented by: Senna/Docusate Sodium (Senokot-S, Teressa-Colace) 1 tablet GT BID PRN PRN Reason: Constipation Assessment/Plan All Active Problems Debility (Acute) Hemorrhagic stroke (Acute) Intracranial hemorrhage (Acute) Left-sided nontraumatic intraventricular intracerebral hemorrhage (Acute) Acute respiratory failure (Acute) Tracheostomy present (Acute) Percutaneous endoscopic gastrostomy status (Acute) 38 year old male with below past medical history hospitalized for hemorrhagic stroke, acute respiratory failure, status post tracheostomy, PEG tube placement, complicated by agitation, admitted to TCU with debility, here for rehabilitation, strengthening, prior to disposition determination. * Debility - PT/OT. * Dysphagia - ST. * Pain - Tylenol 650MG Q4H PRN pain (1-10). * Bowel - Miralax 17GM daily, Senna/colace 1 tablet BID, Dulcolax 10MG daily PRN. * Adult immunization - Administer Fluzone as appropriate. * DVT prophylaxis - Hold, due to hemorrhagic stroke. * Hypertension - Coreg 25MG BID, Amlodipine 10MG daily. * Nutrition - Glucerna 1.5 70ML/HR. * Shortness of breath - Duoneb 3ML Q6H. * Skin irritation - Calmoseptine BID. * Tinea Corporis - Nystatin powder BID. * Agitation -Lower Seroquel to 25MG QHS x7 days, then stop. * Tracheostomy - Appreciate Dr. Wright input.
[2019-08-02 16:28] VITALS: BP 114/85; PULSE 85; RESP 16; TEMP 37; O2SAT 98
[2019-08-02 20:01] VITALS: PULSE 81; RESP 18; O2SAT 97
[2019-08-02] MEDS: QUEtiapine 25 MG Tablet GT (22:16)
[2019-08-02] MEDS: Acetaminophen 650 MG/20 ML UDC GT (22:16)
--- NOTE | 2019-08-03 05:23 | NURSING ---
Patient complaining of left side pain. unable to withdraw or flush anything via PEG tube. RN on floor notified When attempted to withdraw, patient jumped and grabbed left side in pain. RN notified Dr. Miranda. KUB ordered.
[2019-08-03 05:53] VITALS: O2SAT 98
--- NOTE | 2019-08-03 05:53 | CPS ---
CALLED UP TO SUCTION PT-WHEN ENTERED ROOM PT COUGHING AND DUSKY COLOR-RIGHT SIDE OF TRACH WAS NOT SECURE -TRACH COLLAR REPLACED AND JUAN J REMOVED -PT SUCTIONED FOR SCANT AMOUNT OF BLOODY SECREATIONS-PT HAS STRONG COUGH. SATS 97%
[2019-08-03] MEDS: Acetaminophen 650 MG/20 ML UDC GT (06:01)
[2019-08-03] MEDS: Nystatin Powder 15gm Bottle 1 APPLIC TOPICAL ×2 (06:16→17:05)
[2019-08-03 07:05] VITALS: PULSE 85; RESP 18; O2SAT 98
[2019-08-03] MEDS: Ipratropium/Albuterol Sulfate 3 ML AMPUL.NEB INHALATION ×2 (07:05→19:34)
--- NOTE | 2019-08-03 07:11 | RAD_ITS ---
STUDY: X-RAY - ABDOMEN/PELVIS REASON FOR EXAM: Male, 38 years old. Lt side pain. S/p cva, ltd hx TECHNIQUE: Single AP view of the abdomen / pelvis. COMPARISON: None. FINDINGS: Elevation of the right hemidiaphragm. Right basilar atelectasis and/or infiltrate. There is an unremarkable bowel gas pattern. The visualized liver, spleen and kidneys are grossly normal in size and morphology. Normal soft tissue structures. Normal visualized osseous structures. RAD/Abdomen Single View (Portable) IMPRESSION: Elevation of the right hemidiaphragm with right basilar atelectasis and/or infiltrate. Electronically Signed: Mike Ramos, at 8:31 EDT , Service support ,
--- NOTE | 2019-08-03 08:35 | DCINST_ITS ---
- Discharge Diagnoses Current Active Problems: Current Active and Chronic Problems Debility (Acute) Hemorrhagic stroke (Acute) Intracranial hemorrhage (Acute) Left-sided nontraumatic intraventricular intracerebral hemorrhage (Acute) Acute respiratory failure (Acute) Hydrocephalus (Chronic) HTN (hypertension) (Chronic) Chronic cholecystitis (Chronic) Body mass index (BMI) 40.0-44.9, adult (Chronic) Tracheostomy present (Acute) Percutaneous endoscopic gastrostomy status (Acute) You will use the following diet at home:: Other - NPO. Discharge Activity: Return to Normal Activity, Use Walker Weight Bearing Status: Weight bearing as tolerated Call your doctor if you observe: Fever of 101 or Higher, Inability to urinate, Inability to have a bowel movement, Shortness of breath, Chest pain, Uncontrolled pain Allergies/Adverse Reactions: Allergies No Known Allergies Allergy (Verified 07/08/19 18:53) Medications to take at Discharge Amlodipine [Norvasc] 10 mg GT DAILY 07/08/19 Carvedilol 25 mg GT BID 07/08/19 Glucerna 1.5 70 ml GT CONT 07/08/19 Ipratropium/Albuterol Sulfate [Iprat-Albut 0.5-3(2.5) mg/3 ml] 3 ml IH Q6H 07/08/19 Quetiapine Fumarate [Seroquel] 25 mg GT BID 07/08/19 Acetaminophen Liquid [Tylenol Liquid] 650 mg GT Q4H PRN PRN udc 08/03/19 Bisacodyl [Dulcolax] 10 mg RECTAL DAILY PRN suppos. 08/03/19 Menthol/Lanolin/Calamine/Znox [Calmoseptine Ointment] 1 applic TOPICAL TID tube 08/03/19 Nystatin Powder [Mycostatin Powder] 1 applic TOPICAL BID bottle 08/03/19 Polyethylene Glycol 3350 [Miralax] 17 gm GT DAILY packet 08/03/19 Senna/Docusate Sodium [Senokot-S] 1 tablet GT BID PRN tablet 08/03/19 Primary Care Physician: Care Physician,No Primary [Primary Care Provider] - Please follow up with your Primary Care Physician in: After RU. Test Results: Test results from this visit will be discussed in further detail at your follow- up appointment, if applicable. Please Follow Up With: Deandre Freitas Jr., MD Proposed Discharge Date: 08/03/19
--- NOTE | 2019-08-03 08:37 | DS.PCM_ITS ---
Discharge Date and Diagnosis - Problem List Patient Problems: Active and Suspected Problems Debility (Acute) Hemorrhagic stroke (Acute) Intracranial hemorrhage (Acute) Left-sided nontraumatic intraventricular intracerebral hemorrhage (Acute) Acute respiratory failure (Acute) Tracheostomy present (Acute) Percutaneous endoscopic gastrostomy status (Acute) Date of Admission: 07/08/19 Date of Discharge: 08/03/19 - Primary Discharge Diagnosis Active and Suspected Problems Debility (Acute) Hemorrhagic stroke (Acute) Intracranial hemorrhage (Acute) Left-sided nontraumatic intraventricular intracerebral hemorrhage (Acute) Acute respiratory failure (Acute) Tracheostomy present (Acute) Percutaneous endoscopic gastrostomy status (Acute) - Secondary Discharge Diagnosis Chronic Problems Depression (Chronic) Hydrocephalus (Chronic) HTN (hypertension) (Chronic) Chronic cholecystitis (Chronic) Body mass index (BMI) 40.0-44.9, adult (Chronic) Hospital Course and Treatment Imaging Results: 08/03/19 07:11 KUB [Abdomen Single View (Portable)] [RAD] Urgent Consultations 07/08/19 18:16 Consult: Onc/Wound/claim approver Routine Comment: 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 Segundo on Seroquel taper, 25MG QHS x 7 days, then stop. He is no longer agitated. Dr. Wright consulted for tracheostomy management. 08/03/2019 PEG tube stopped functioning, General Surgery consulted to fix/replace PEG tube. Consult is pending. Discharge to 08/03/2019 for 3 hours of therapy per day. Patient Problems: Active and Suspected Problems Debility (Acute) Hemorrhagic stroke (Acute) Intracranial hemorrhage (Acute) Left-sided nontraumatic intraventricular intracerebral hemorrhage (Acute) Acute respiratory failure (Acute) Tracheostomy present (Acute) Percutaneous endoscopic gastrostomy status (Acute) - Physical Exam Vitals/I&O's: Vital Signs Temp Pulse Resp BP Pulse Ox 98.6 F 85 18 114/85 H 98 08/02/19 16:28 08/03/19 07:05 08/03/19 07:05 08/02/19 16:28 08/03/19 07:05 Oxygen Flow Rate (L/min) 6 Oxygen Delivery Method Trach Collar Weight: 114.986 kg Body Mass Index (BMI) 40.0 Finger Stick Blood Glucose 92 Intake and Output for Last 24 Hours 08/01/19 08/02/19 08/03/19 23:59 23:59 23:59 Intake Total 2551 / 2551 1048 / 1048 Balance 255 / 255 1048 / 1048 Current Medications Acetaminophen (Tylenol Liquid) 650 mg GT Q4H PRN PRN PRN Reason: Pain Score 1-01/21 Last Admin: 08/03/19 06:01 Dose: 650 mg Documented by: Albuterol/Ipratropium (Duoneb) 3 ml INHALATION BID.RT [facility] Last Admin: 08/03/19 07:05 Dose: 3 ml Documented by: Amlodipine Besylate (Norvasc) 10 mg GT DAILY [facility] Last Admin: 08/02/19 05:47 Dose: 10 mg Documented by: Bisacodyl (Dulcolax) 10 mg RECTAL DAILY PRN PRN Reason: Constipation Calamine/Phenol (Calmoseptine Ointment) 1 applic TOPICAL TID [facility]; Protocol Last Admin: 08/02/19 22:16 Dose: 1 applicatio Documented by: Carvedilol (Coreg) 25 mg GT BID [facility] Last Admin: 08/02/19 18:14 Dose: 25 mg Documented by: Enteral Nutritional Formula (Jevity 1.5) 1,000 mls @ 65 mls/hr GT .[id number] [facility] Last Admin: 08/02/19 22:14 Dose: Not Given Documented by: Nystatin (Mycostatin Powder) 1 applic TOPICAL BID [facility]; Protocol Last Admin: 08/03/19 06:16 Dose: 1 applicatio Documented by: Polyethylene Glycol (Miralax) 17 gm GT DAILY [facility] Last Admin: 08/02/19 05:47 Dose: 17 gm Documented by: Quetiapine Fumarate (Seroquel) 25 mg GT QHS [facility] Stop: 08/09/19 22:01 Last Admin: 08/02/19 22:16 Dose: 25 mg Documented by: Senna/Docusate Sodium (Senokot-S, Teressa-Colace) 1 tablet GT BID PRN PRN Reason: Constipation Discharge Diet: - - NPO. Discharge Activity: Return to Normal Activity, Use Walker Weight Bearing Status: Weight bearing as tolerated Call your doctor if you observe: Fever of 101 or Higher, Inability to urinate, Inability to have a bowel movement, Shortness of breath, Chest pain, Uncontrolled pain Home Medications: Medications to take at Discharge Amlodipine [Norvasc] 10 mg GT DAILY 07/08/19 Carvedilol 25 mg GT BID 07/08/19 Glucerna 1.5 70 ml GT CONT 07/08/19 Ipratropium/Albuterol Sulfate [Iprat-Albut 0.5-3(2.5) mg/3 ml] 3 ml IH Q6H 07/08/19 Quetiapine Fumarate [Seroquel] 25 mg GT BID 07/08/19 Acetaminophen Liquid [Tylenol Liquid] 650 mg GT Q4H PRN PRN udc 08/03/19 Bisacodyl [Dulcolax] 10 mg RECTAL DAILY PRN suppos. 08/03/19 Menthol/Lanolin/Calamine/Znox [Calmoseptine Ointment] 1 applic TOPICAL TID tube 08/03/19 Nystatin Powder [Mycostatin Powder] 1 applic TOPICAL BID bottle 08/03/19 Polyethylene Glycol 3350 [Miralax] 17 gm GT DAILY packet 08/03/19 Senna/Docusate Sodium [Senokot-S] 1 tablet GT BID PRN tablet 08/03/19 Primary Care Physician: Care Physician,No Primary [Primary Care Provider] - Please follow up with your Primary Care Physician in: After RU. Please Follow Up With: Deandre Freitas Jr., MD Disposition: Inpt Rehab Unit/Facility Minutes spent on discharge:: 30 Patient Condition:: Stable Medical Necessity - Tobacco Use Smoking Status: Unknown if ever smoked Tobacco Use: Non-smoker Meaningful Use Info Meaningful Use Diagnoses (Choose all that apply): Hemorrhagic CVA - CVA Therapy Assessed for PT,OT and/or ST?: Yes
--- NOTE | 2019-08-03 09:20 | CASEMGMT ---
Social Work John approved patient to transfer to on this date with NRD 08/15. Spoke with mother - mother agreeable. IDT aware. Spoke with pt and pt understandable and agreeable as well. Plan: DC to 08/02. Mroena Schroeder, [employer] SAL[employer]OC[employer] TEACHER
--- NOTE | 2019-08-03 09:44 | NURSING ---
Dr Thorne paged this AM d/t night time nanny reporting unable to withdraw or flush anything via PEG tube pt also c/o LT abd pain. new order for labs and to get CT of abdomen w/contrast via IV. Pt remains NPO.
[2019-08-03 10:33] LABS: Absolute Lymphocyte Count 1.19 X10^3/uL (0.83-4.51); Absolute Neutrophil Count 10.4 X10^3/uL (2.0-7.7); Basophil# 0.05 X10^3/uL; Basophil% 0.4 % (0-1); Eosinophil# 0.18 X10^3/uL; Eosinophils% 1.4 % (0-5); Hematocrit 36.9 % (40-54); Hemoglobin 12.2 g/dL (13.0-16.5); Lymphocyte # 1.19 X10^3/ul (4.0); Lymphocyte % 9.2 % (19-41); Mean Corp Hgb Conc 33.1 g/dL (32-36); Mean Corpuscular Hgb 29.9 pg (27.0-32.0); Mean Corpuscular Volume 90.4 fL (80-94); Mean Platelet Vol. 10.3 fl (6.2-12.0); Monocyte# 1.02 X10^3/uL; Monocyte% 7.9 % (0-10); NRBC Flagged by Analyzer 0 % (0-5); Neutrophil # 10.39 X10^3/uL (2.7-7.7); Neutrophil % 80.6 % (47-70); Platelet Count 323 K/mm3 (150-450); RBC Distribution Width CV 12.2 % (11.6-14.6); RBC Distribution Width SD 40.1 fl (35.1-43.9); Red Blood Count 4.08 M/mm3 (4.6-6.2); White Blood Count 12.9 K/mm3 (4.4-11.0)
[2019-08-03 10:47] LABS: Anion Gap 5 (5-15); BUN 15 mg/dL (7-18); BUN/Creat Ratio 16.3 RATIO (10-20); Chloride 102 mmol/L (98-107); Creatinine, Serum 0.92 mg/dL (0.70-1.30); EST Glomerular Filtration Rate 97 mL/min (>60); Est Glom Filt Rate - Afr Amer 118 mL/min (>60); Estimated Creatinine Clearance 119.49 ml/min; Glucose 115 mg/dL (74-106); Potassium 4.2 mmol/L (3.5-5.1); Sodium Level 136 mmol/L (136-145)
--- NOTE | 2019-08-03 10:53 | NURSING ---
Addendum entered by Kacie Arevalo 08/03/19 12:18: pt going to surgery at 2pm, staff to take down via bed at 1p. Dr Thorne spoke with mother for verbal consent via phone call. Addendum entered by Kacie Arevalo 08/03/19 11:20: pt off unit to CT of abd. prior authorization give via John access services representative. auth #[id number] Original Note: Dr Thorne here and able to get PEG tube to flush and withdraw but pt continues to c/o LT abd pain. still wants CT scan done. feels site may be slightly infected, redness and some drng noted around site.
[2019-08-03 10:57] VITALS: BP 160/95; PULSE 94; RESP 18; TEMP 37.3; O2SAT 97
[2019-08-03] MEDS: Menthol/Lanolin/Calamine/Znox 113 GM Tube 1 APPLIC TOPICAL ×3 (10:59→23:10)
--- NOTE | 2019-08-03 11:05 | CON.PCM_ITS ---
Reason for Consult Date of Consultation: 08/03/19 History of Present Illness: The patient is a 38 year old M admitted to the TCU after a stroke status post trach and PEG back in May at [facility] is planned to go to rehab today. This morning nurses were unable to flush his PEG which he normally has continuous feeds. They also stated that he had discomfort when they are attempting to do so. Patient is able to answer yes/no questions. Denies any abdominal pain when or not do anything with the PEG tube. Past Medical History Past Medical History (Chronic Problems): Chronic Problems Depression (Chronic) Hydrocephalus (Chronic) HTN (hypertension) (Chronic) Chronic cholecystitis (Chronic) Body mass index (BMI) 40.0-44.9, adult (Chronic) Allergies No Known Allergies Allergy (Verified 07/08/19 18:53) Home Medications: Ambulatory Orders Medication Instructions Recorded Amlodipine [Norvasc] 10 mg GT DAILY 07/08/19 Carvedilol 25 mg GT BID 07/08/19 Glucerna 1.5 70 ml GT CONT 07/08/19 Ipratropium/Albuterol Sulfate 3 ml IH Q6H 07/08/19 [Iprat-Albut 0.5-3(2.5) mg/3 ml] Quetiapine Fumarate [Seroquel] 25 mg GT BID 07/08/19 Acetaminophen Liquid [Tylenol 650 mg GT Q4H PRN PRN udc 08/03/19 Liquid] Bisacodyl [Dulcolax] 10 mg RECTAL DAILY PRN suppos. 08/03/19 Menthol/Lanolin/Calamine/Znox 1 applic TOPICAL TID tube 08/03/19 [Calmoseptine Ointment] Nystatin Powder [Mycostatin Powder] 1 applic TOPICAL BID bottle 08/03/19 Polyethylene Glycol 3350 [Miralax] 17 gm GT DAILY packet 08/03/19 Senna/Docusate Sodium [Senokot-S] 1 tab GT BID PRN tab 08/03/19 Surgical History: - - Tracheostomy, PEG tube. Psychiatric History: Depression Lives: Alone - Works at [employer]. Smoking Status: Unknown if ever smoked Tobacco Use: Non-smoker Alcohol: None Drugs: None - *Family History Maternal History Items: No pertinent history Paternal History Items: No pertinent history Patient Problems: Active and Suspected Problems Debility (Acute) Hemorrhagic stroke (Acute) Intracranial hemorrhage (Acute) Left-sided nontraumatic intraventricular intracerebral hemorrhage (Acute) Acute respiratory failure (Acute) Tracheostomy present (Acute) Percutaneous endoscopic gastrostomy status (Acute) - Physical Exam Vitals/I&O's: Vital Signs Temp Pulse Resp BP Pulse Ox 99.2 F H 94 18 160/95 H 97 08/03/19 10:57 08/03/19 10:57 08/03/19 10:57 08/03/19 10:57 08/03/19 10:57 Oxygen Flow Rate (L/min) 6 Oxygen Delivery Method Trach Collar Weight: 253 lb 8 oz Body Mass Index (BMI) 40.0 Finger Stick Blood Glucose 92 Intake and Output for Last 24 Hours 08/01/19 08/02/19 08/03/19 23:59 23:59 23:59 Intake Total 2551 / 2551 1048 / 1048 Balance 2551 / 2551 1048 / 1048 General: Alert, Cooperative, No apparent distress HEENT: - - Trach in place Neck: - - Trach in place Lungs: Normal air movement Cardiovascular: Regular rate Abdomen: Soft, Non-Distended, Tender - Minimal erythema at the PEG site on the left, tender if touching site of PEG or trying to aspirate or flush through PEG site., PEG tube able to be gently flushed with sterile saline without meeting resistance. Neurological: - - Weakness of all 4 extremities with more coordination on the right side Psych/Mental Status: Appropriate Laboratory Results 08/03/19 10:16: WBC 12.9 H, RBC 4.08 L, Hgb 12.2 L, Hct 36.9 L, MCV 90.4, MCH 29.9, MCHC 33.1, RDW Std Deviation 40.1, RDW Coeff of Mary 12.2, Plt Count 323, MPV 10.3, Immature Gran % (Auto) 0.500, Neut % (Auto) 80.6 H, Lymph % (Auto) 9.2 L, [place] % (Auto) 7.9, Eos % (Auto) 1.4, Baso % (Auto) 0.4, Absolute Neuts (auto) 10.4 H, Absolute Lymphs (auto) 1.19, Nucleated RBC % 0 08/03/19 10:16: Sodium 136, Potassium 4.2, Chloride 102, Carbon Dioxide 29.0, Anion Gap 5, BUN 15, Creatinine 0.92, Estim Creat Clear Calc 119.49, Est GFR (M DRD) Af Amer 118, Est GFR (MDRD) Non-Af 97, BUN/Creatinine Ratio 16.3, Glucose 115 H, Calcium 9.0 Current Medications Acetaminophen (Tylenol Liquid) 650 mg GT Q4H PRN PRN PRN Reason: Pain Score 1-1010 Last Admin: 08/03/19 06:01 Dose: 650 mg Documented by: Albuterol/Ipratropium (Duoneb) 3 ml INHALATION BID.RT [facility] Last Admin: 08/03/19 07:05 Dose: 3 ml Documented by: Amlodipine Besylate (Norvasc) 10 mg GT DAILY [facility] Last Admin: 08/02/19 05:47 Dose: 10 mg Documented by: Bisacodyl (Dulcolax) 10 mg RECTAL DAILY PRN PRN Reason: Constipation Calamine/Phenol (Calmoseptine Ointment) 1 applic TOPICAL TID [facility]; Protocol Last Admin: 08/03/19 10:59 Dose: 1 applicatio Documented by: Carvedilol (Coreg) 25 mg GT BID [facility] Last Admin: 08/02/19 18:14 Dose: 25 mg Documented by: Enteral Nutritional Formula (Jevity 1.5) 1,000 mls @ 65 mls/hr GT .[id number] [facility] Last Admin: 08/02/19 22:14 Dose: Not Given Documented by: Nystatin (Mycostatin Powder) 1 applic TOPICAL BID [facility]; Protocol Last Admin: 08/03/19 06:16 Dose: 1 applicatio Documented by: Polyethylene Glycol (Miralax) 17 gm GT DAILY [facility] Last Admin: 08/03/19 10:59 Dose: Not Given Documented by: Quetiapine Fumarate (Seroquel) 25 mg GT QHS [facility] Stop: 08/09/19 22:01 Last Admin: 08/02/19 22:16 Dose: 25 mg Documented by: Senna/Docusate Sodium (Senokot-S, Teressa-Colace) 1 tablet GT BID PRN PRN Reason: Constipation Assessment/Plan All Active Problems Debility (Acute) Hemorrhagic stroke (Acute) Intracranial hemorrhage (Acute) Left-sided nontraumatic intraventricular intracerebral hemorrhage (Acute) Acute respiratory failure (Acute) Tracheostomy present (Acute) Percutaneous endoscopic gastrostomy status (Acute) 38-year-old male status post trach and PEG due to stroke, pain in the left upper quadrant unable to flush PEG possible dislodged 1. Patient does appear to have started about infection at the PEG site was able to slowly flush sterile saline without resistance patient did have discomfort with this. We will plan to check CT abdomen pelvis make sure the PEG is in place. Await CT abdomen pelvis. Addendum: Appears that the PEG tube is within the abdominal wall will plan to do an EGD with replacement of PEG site likely would be using new site in this area is infected. Tried to call the mother however she did not answer her phone will discuss with her once nursing was able to get a hold of her. Kristin Thorne M.D. Pager: [phone] [facility] [address] [place] [address], [address] [place] [address] Office: [phone]
--- NOTE | 2019-08-03 12:32 | NURSING ---
attempted to call report to in rehab, no answer. will try again.
--- NOTE | 2019-08-03 12:44 | NURSING ---
Report called to DOMINICK Pineda on Rehab at this time.
--- NOTE | 2019-08-03 14:00 | CASEMGMT ---
Social Work Due to patient peg procedure, transfer to has been postponed at this time. Will continue to follow. Morena Schroeder, SUPERVISOR TELEVISION [employer] DISTRIBUTION OPERATION SUPERVISOR
[2019-08-03 16:00] VITALS: BP 142/88; PULSE 91; RESP 16; TEMP 36.9; O2SAT 98
--- NOTE | 2019-08-03 16:24 | NURSING ---
AT 1235 TRACH SITE CLEANED AND DRESSING CHANGED. MINIMAL DRAINAGE. INTER CANNULA CLEANED,PT SUCTIONED OUT. HAD THICK PINKED TINGED SPUTUM. PEG SITE CLEANED, DRESSING CHANGED. MINIMAL BLOOD LOOKING DRAINAGE. PT STATED IT WAS SORE TO THE TOUCH. RN AWARE
[2019-08-03] MEDS: Carvedilol 25 MG Tablet GT (17:06)
[2019-08-03] MEDS: Jevity 1.5 1,000 ML 33 ML GT (17:17)
[2019-08-03] MEDS: Cefazolin 2 GM in 0.9% Normal Saline 100 ML IV ×2 (17:48→23:27)
[2019-08-03] MEDS: 0.9% Saline Lock 10 ML Syringe IV ×3 (17:55→23:11)
[2019-08-03 19:34] VITALS: PULSE 85; RESP 18; O2SAT 95
[2019-08-03 20:16] VITALS: PULSE 83; O2SAT 95
[2019-08-03] MEDS: QUEtiapine 25 MG Tablet GT (23:10)
--- NOTE | 2019-08-04 01:25 | NURSING ---
Jevity 1.5 increased to 65 mL/hr per order at this time.
[2019-08-04] MEDS: Carvedilol 25 MG Tablet GT ×2 (05:08→17:36)
[2019-08-04] MEDS: Jevity 1.5 1,000 ML 65 ML GT (05:08)
[2019-08-04] MEDS: Menthol/Lanolin/Calamine/Znox 113 GM Tube 1 APPLIC TOPICAL ×2 (05:08→13:16)
[2019-08-04] MEDS: amLODIPine 10 MG Tablet GT (05:08)
[2019-08-04] MEDS: Polyethylene Glycol 3350 17 GM PACKET GT (05:09)
[2019-08-04] MEDS: Nystatin Powder 15gm Bottle 1 APPLIC TOPICAL ×2 (05:14→17:37)
[2019-08-04] MEDS: 0.9% Saline Lock 10 ML Syringe IV ×2 (05:24→13:19)
[2019-08-04] MEDS: Cefazolin 2 GM in 0.9% Normal Saline 100 ML IV ×2 (05:24→13:16)
--- NOTE | 2019-08-04 05:27 | NURSING ---
0 residual, medications given via PEG. Jevity 1.5 running at 65 mL/hr. Patient tolerating well. Dressing changed to new peg site. optsite noted to left upper quad.
[2019-08-04 06:18] VITALS: PULSE 78; RESP 20
[2019-08-04] MEDS: Ipratropium/Albuterol Sulfate 3 ML AMPUL.NEB INHALATION (06:18)
[2019-08-04 08:16] VITALS: PULSE 83; RESP 16; O2SAT 95
[2019-08-04 09:00] VITALS: TEMP 37.6
[2019-08-04] MEDS: Acetaminophen 650 MG/20 ML UDC GT (09:22)
--- NOTE | 2019-08-04 09:29 | NURSING ---
pt tearful, c/o pain around PEG site from surgery. Tylenol given via PEG, checked placement by auscultation. no issues during administration. Binder reapplied to protect tube from being pulled, pt does not like it but explained the importance of it. Therapy assisted staff with shobha transfer to recliner chair.
--- NOTE | 2019-08-04 10:56 | RAD_ITS ---
STUDY: X-RAY CHEST REASON FOR EXAM: Male, 38 years old. LOW GRADE FEVER TECHNIQUE: AP and lateral views of the chest. COMPARISON: Comparison is made with prior examination dated July 20, 2019. FINDINGS: A tracheostomy tube is in situ. The tip is at 5.3 cm proximal to the deondre. Stable elevation of the right hemidiaphragm. Persistent mild increased markings at the lung bases. This is unchanged. Blunting of the right costophrenic angle. There is moderate cardiac enlargement. Normal mediastinum and alea. Normal visualized pulmonary arteries. Normal visualized aortic arch and descending thoracic aorta. Normal visualized thoracic spine. Normal visualized ribs, clavicles, and shoulders. There is no demonstrated abnormality of the visualized soft tissue structures of the upper abdomen. RAD/Chest PA and Lateral IMPRESSION: Persistent mild increased markings at the lung bases worse on the right side with blunting of the right costophrenic angle. Electronically Signed: Mike Ramos, at 13:18 EDT , Service support ,
[2019-08-04 11:04] VITALS: BP 148/79; PULSE 74; RESP 18; TEMP 37.4; O2SAT 96
--- NOTE | 2019-08-04 11:30 | NURSING ---
trach drsg changed, inner cannula cleansed and reinserted w/out diff. Pt on IV cefazolin for PEG site infection and RT lower lobe infiltrate according to CT of abdomen done yesterday. Low grade temps this AM. Pt pleasant, did his therapy w/out difficulty. Trach collar in place @ 28%, sat 98%. Urine obtained via st cath per order. Urine yellow & clear on return. pt tolerated well.
[2019-08-04 11:55] LABS: Color, Urine Yellow (Yellow); Glucose, Dipstick Normal (Normal); Ketone-Dipstick 5 mg/dl (Negative); Leukocyte Esterase-Dipstick Negative /ul (Negative); Nitrite-Dipstick Negative (Negative); Occult Blood-Urine Negative /ul (Negative); Protein-Dipstick 15 mg/dl (Negative); Urine Bilirubin Dipstick Negative (Negative); Urine Clarity Clear (Clear); Urine Urobilinogen Normal (Normal)
[2019-08-04 12:13] LABS: Absolute Lymphocyte Count 1.44 X10^3/uL (0.83-4.51); Absolute Neutrophil Count 6.9 X10^3/uL (2.0-7.7); Basophil# 0.05 X10^3/uL; Basophil% 0.5 % (0-1); Eosinophil# 0.24 X10^3/uL; Eosinophils% 2.5 % (0-5); Hematocrit 32.7 % (40-54); Hemoglobin 10.9 g/dL (13.0-16.5); Lymphocyte # 1.44 X10^3/ul (4.0); Lymphocyte % 15.1 % (19-41); Mean Corp Hgb Conc 33.3 g/dL (32-36); Mean Corpuscular Hgb 30.2 pg (27.0-32.0); Mean Corpuscular Volume 90.6 fL (80-94); Mean Platelet Vol. 10.7 fl (6.2-12.0); Monocyte# 0.84 X10^3/uL; Monocyte% 8.8 % (0-10); NRBC Flagged by Analyzer 0 % (0-5); Neutrophil # 6.88 X10^3/uL (2.7-7.7); Neutrophil % 72.1 % (47-70); Platelet Count 272 K/mm3 (150-450); RBC Distribution Width CV 12.3 % (11.6-14.6); RBC Distribution Width SD 40.5 fl (35.1-43.9); Red Blood Count 3.61 M/mm3 (4.6-6.2); White Blood Count 9.6 K/mm3 (4.4-11.0)
[2019-08-04 13:18] VITALS: BP 147/85; PULSE 80; RESP 16; TEMP 36.4; O2SAT 96
--- NOTE | 2019-08-04 15:22 | NURSING ---
Dr Thorne here and ok to apply bacitracin to PEG site daily but wipe off later in shift to keep it dry & not moist.
--- NOTE | 2019-08-04 15:49 | PCM.PN.SRG ---
Patient Problems: Active and Suspected Problems Debility (Acute) Hemorrhagic stroke (Acute) Intracranial hemorrhage (Acute) Left-sided nontraumatic intraventricular intracerebral hemorrhage (Acute) Acute respiratory failure (Acute) Tracheostomy present (Acute) Percutaneous endoscopic gastrostomy status (Acute) Subjective: Pt occasionally got tylenol for pain at the G tube site, tolerating TFs - Physical Exam Vitals/I&O's: Vital Signs Temp Pulse Resp BP Pulse Ox 97.6 F L 80 16 147/85 H 96 08/04/19 13:18 08/04/19 13:18 08/04/19 13:18 08/04/19 13:18 08/04/19 13:18 Oxygen Flow Rate (L/min) 6 Oxygen Delivery Method Trach Collar Weight: 253 lb 8 oz Body Mass Index (BMI) 40.0 Finger Stick Blood Glucose 92 Intake and Output for Last 24 Hours 08/02/19 08/03/19 08/04/19 23:59 23:59 23:59 Intake Total 2551 / 2551 1188 / 1188 1326 / 1326 Balance 2551 / 2551 1188 / 1188 1326 / 1326 General: Alert HEENT: - - trach in place Abdomen: Soft, Non-Distended, - - mild erythema at gtube site, mild ttp Laboratory Results 08/04/19 11:30: Urine Color Yellow, Urine Clarity Clear, Urine pH 5.0, Ur Specific Sunol 1.020, Urine Protein 15 H, Urine Glucose (UA) Normal, Urine Ketones 5 H, Urine Occult Blood Negative, Urine Nitrite Negative, Urine Bilirubin Negative, Urine Urobilinogen Normal, Ur Leukocyte Esterase Negative 08/04/19 11:54: WBC 9.6, RBC 3.61 L, Hgb 10.9 L, Hct 32.7 L, MCV 90.6, MCH 30.2, MCHC 33.3, RDW Std Deviation 40.5, RDW Coeff of Mary 12.3, Plt Count 272, MPV 10.7, Immature Gran % (Auto) 1.000 H, Neut % (Auto) 72.1 H, Lymph % (Auto) 15.1 L, [place] % (Auto) 8.8, Eos % (Auto) 2.5, Baso % (Auto) 0.5, Absolute Neuts (auto) 6.9, Absolute Lymphs (auto) 1.44, Nucleated RBC % 0 Current Medications Acetaminophen (Tylenol Liquid) 650 mg GT Q4H PRN PRN PRN Reason: Pain Score 1-10/10 Last Admin: 08/04/19 09:22 Dose: 650 mg Documented by: Albuterol/Ipratropium (Duoneb) 3 ml INHALATION BID.RT [facility] Last Admin: 08/04/19 06:18 Dose: 3 ml Documented by: Amlodipine Besylate (Norvasc) 10 mg GT DAILY [facility] Last Admin: 08/04/19 05:08 Dose: 10 mg Documented by: Bacitracin (Bacitracin Ointment) 1 applic TOPICAL 1000 [facility]; Protocol Bisacodyl (Dulcolax) 10 mg RECTAL DAILY PRN PRN Reason: Constipation Calamine/Phenol (Calmoseptine Ointment) 1 applic TOPICAL TID [facility]; Protocol Last Admin: 08/04/19 13:16 Dose: 1 applicatio Documented by: Carvedilol (Coreg) 25 mg GT BID [facility] Last Admin: 08/04/19 05:08 Dose: 25 mg Documented by: Enteral Nutritional Formula (Jevity 1.5) 1,000 mls @ 65 mls/hr GT .[id number] [facility] Last Admin: 08/04/19 05:08 Dose: 65 mls/hr Documented by: Cefazolin Sodium 2 gm/ Sodium (Chloride) 110 mls @ 150 mls/hr IV Q8 [facility] Last Infusion: 08/04/19 15:29 Dose: Infused Documented by: Sodium Chloride () 250 mls @ 15 mls/hr IV .[id number] PRN PRN Reason: Saline Flush Last Admin: 08/03/19 17:47 Dose: 15 mls/hr Documented by: Sodium Chloride () 250 mls @ 15 mls/hr IV .[id number] PRN PRN Reason: Additional IVPB Infusion Nystatin (Mycostatin Powder) 1 applic TOPICAL BID [facility]; Protocol Last Admin: 08/04/19 05:14 Dose: 1 applicatio Documented by: Polyethylene Glycol (Miralax) 17 gm GT DAILY [facility] Last Admin: 08/04/19 05:09 Dose: 17 gm Documented by: Quetiapine Fumarate (Seroquel) 25 mg GT QHS [facility] Stop: 08/09/19 22:01 Last Admin: 08/03/19 23:10 Dose: 25 mg Documented by: Senna/Docusate Sodium (Senokot-S, Teressa-Colace) 1 tablet GT BID PRN PRN Reason: Constipation Sodium Chloride () 10 - 40 ml IV UD PRN PRN Reason: SALINE FLUSH Last Admin: 08/04/19 13:19 Dose: 10 ml Documented by: Medical Necessity - Tobacco Use Smoking Status: Unknown if ever smoked Tobacco Use: Non-smoker Assessment/Plan All Active Problems Debility (Acute) Hemorrhagic stroke (Acute) Intracranial hemorrhage (Acute) Left-sided nontraumatic intraventricular intracerebral hemorrhage (Acute) Acute respiratory failure (Acute) Tracheostomy present (Acute) Percutaneous endoscopic gastrostomy status (Acute) 38-year-old male status post trach and PEG due to stroke, PEG dislodged s/p replacement G tube 1. Pt radha TFs, g tube is at 7 cm at skin, mild erythema- continue ancef 2 grams IV q8h will continue to monitor/follow at rehab. Kristin Thorne M.D. Pager: [phone] [facility] [address] [place] [address], [address] [place], [address] [place] [address] Office: [phone] Inpatient E&M: [id number] Subs Hosp L1
--- NOTE | 2019-08-04 18:23 | NURSING ---
report given to DOMINICK Goodrich in Rehab, pt to rehab via bed at this time.
== END 2019-08-04 18:21 | DRG 57 ==
PROVIDERS: Internal Medicine; Admitting Provider Family Medicine Geriatric Medicine; Visit Provider Family Medicine Geriatric Medicine
DX: I69.351 Hemiplegia and hemiparesis following cerebral infarction affecting right dominant side (principal); K94.22 Gastrostomy infection; I69.328 Other speech and language deficits following cerebral infarction; I10 Essential (primary) hypertension; F32.9 Major depressive disorder, single episode, unspecified; B35.4 Tinea corporis; Z93.0 Tracheostomy status; Z23 Encounter for immunization; Z87.01 Personal history of pneumonia (recurrent)
CPT/HCPCS: 31502; 31720; 36415; 71045; 71046; 74018; 80048; 80053; 81002; 83735; 85025; 87086; 90732; 92507; 92523; 92526; 92610; 94640; 94667; 94668; 97032; 97110; 97112; 97162; 97167; 97530; 97535; 97802; 97803; 99251; J7050; J7120; A4216; G0463

== ENCOUNTER → 2019-08-03 10:38 | Outpatient (CLI) | payer OTHER, SELFPAY ==
[2019-07-09 10:24] VITALS: BMI 40.0
--- NOTE | 2019-08-03 10:41 | CT_ITS ---
STUDY: CT ABDOMEN WITH CONTRAST REASON FOR EXAM: Male, 38 years old. LUQ PAIN AND PEG TUBE CHECK RADIATION DOSAGE (If Supplied By Facility): CTDIvol = ( 16.73 ) mGy, DLP = ( 1253.07 ) mGycm TECHNIQUE: Transaxial images were obtained post I.V. administration of IV 100ML ISOVUE 300, and with oral contrast. Sagittal and coronal images were reconstructed. Individualized dose optimization techniques were used for this CT. COMPARISON: None. FINDINGS: Focal right lower lobe infiltrate. Minimal increased markings at the left lung base. The visualized portions of the heart are within normal limits. Normal liver. Normal gallbladder and extrahepatic biliary system. Normal spleen. Normal pancreas. Normal bilateral adrenal glands. Normal right kidney. Normal left kidney. The tip of the gastrostomy tube is seen in the anterior aspect of the body of the stomach. Contrast was injected through the gastrostomy tube. Normal small intestine. Normal colon. The appendix is visualized and appears normal. Normal abdominal aorta. Normal inferior vena cava. There is borderline retroperitoneal lymphadenopathy with enlarged nodes no greater than 10mm in the short axis diameter. There is a moderate-sized umbilical hernia containing fat. The neck of the hernia measures 3 cm in transverse dimension. Normal osseous structures. CT/Abdomen WITH IV Contrast IMPRESSION: The tip of the gastrostomy tube is within the anterior aspect of the body of the stomach. Focal right lobe infiltrate with mild increased markings at the left lung base. Electronically Signed: Mike Ramos, at 12:17 EDT , Service support ,
== END ==
PROVIDERS: Visit Provider Family Medicine Geriatric Medicine
DX: R10.12 Left upper quadrant pain (principal); Z93.1 Gastrostomy status
CPT/HCPCS: 74160; Q9967

== ENCOUNTER → 2019-08-03 14:55 | Outpatient (CLI) | payer OTHER, SELFPAY ==
[2019-07-09 10:24] VITALS: BMI 40.0
--- NOTE | 2019-08-03 12:42 | HP.PCM_ITS ---
History and Physical Date of Admission: 08/03/19 08/03/19 1105 MR#: [id number] Acct: [id number] Name: JAVIER PANTOJA Rep #:[id number] : 1980 38 From: Kristin Thorne MD PCP: Care Physician, No Primary Statu s:ADM IN Y Location: [place] [address] Reason for Consult Date of Consultation: 08/03/19 History of Present Illness: The patient is a 38 year old M admitted to the TCU after a stroke status post trach and PEG back in May at [facility] is planned to go to rehab today. This morning nurses were unable to flush his PEG which he normally has continuous feeds. They also stated that he had discomfort when they are attempting to do so. Patient is able to answer yes/no questions. Denies any abdominal pain when or not do anything with the PEG tube. Past Medical History Past Medical History (Chronic Problems): Chronic Problems Depression (Chronic) Hydrocephalus (Chronic) HTN (hypertension) (Chronic) Chronic cholecystitis (Chronic) Body mass index (BMI) 40.0-44.9, adult (Chronic) Allergies No Known Allergies Allergy (Verified 07/08/19 18:53) Home Medications: Ambulatory Orders Medication Instructions Recorded Amlodipine [Norvasc] 10 mg GT DAILY 07/08/19 Carvedilol 25 mg GT BID 07/08/19 Glucerna 1.5 70 ml GT CONT 07/08/19 Ipratropium/Albuterol Sulfate 3 ml IH Q6H 07/08/19 [Iprat-Albut 0.5-3(2.5) mg/3 ml] Quetiapine Fumarate [Seroquel] 25 mg GT BID 07/08/19 Acetaminophen Liquid [Tylenol 650 mg GT Q4H PRN PRN udc 08/03/19 Liquid] Bisacodyl [Dulcolax] 10 mg RECTAL DAILY PRN suppos. 08/03/19 Menthol/Lanolin/Calamine/Znox 1 applic TOPICAL TID tube 08/03/19 [Calmoseptine Ointment] Nystatin Powder [Mycostatin Powder] 1 applic TOPICAL BID bottle 08/03/19 Polyethylene Glycol 3350 [Miralax] 17 gm GT DAILY packet 08/03/19 Senna/Docusate Sodium [Senokot-S] 1 tab GT BID PRN tab 08/03/19 Surgical History: - - Tracheostomy, PEG tube. Psychiatric History: Depression Lives: Alone - Works at [employer]. Smoking Status: Unknown if ever smoked Tobacco Use: Non-smoker Alcohol: None Drugs: None - *Family History Maternal History Items: No pertinent history Paternal History Items: No pertinent history Patient Problems: Active and Suspected Problems Debility (Acute) Hemorrhagic stroke (Acute) Intracranial hemorrhage (Acute) Left-sided nontraumatic intraventricular intracerebral hemorrhage (Acute) Acute respiratory failure (Acute) Tracheostomy present (Acute) Percutaneous endoscopic gastrostomy status (Acute) - Physical Exam Vitals/I&O's: Vital Signs Temp Pulse Resp BP Pulse Ox 99.2 F H 94 18 160/95 H 97 08/03/19 10:57 08/03/19 10:57 08/03/19 10:57 08/03/19 10:57 08/03/19 10:57 Oxygen Flow Rate (L/min) 6 Oxygen Delivery Method Trach Collar Weight: 253 lb 8 oz Body Mass Index (BMI) 40.0 Finger Stick Blood Glucose 92 Intake and Output for Last 24 Hours 08/01/19 08/02/19 08/03/19 23:59 23:59 23:59 Intake Total 2551 / 2551 1048 / 1048 Balance 2551 / 2551 1048 / 1048 General: Alert, Cooperative, No apparent distress HEENT: - - Trach in place Neck: - - Trach in place Lungs: Normal air movement Cardiovascular: Regular rate Abdomen: Soft, Non-Distended, Tender - Minimal erythema at the PEG site on the left, tender if touching site of PEG or trying to aspirate or flush through PEG site., PEG tube able to be gently flushed with sterile saline without meeting resistance. Neurological: - - Weakness of all 4 extremities with more coordination on the right side Psych/Mental Status: Appropriate Laboratory Results 08/03/19 10:16: WBC 12.9 H, RBC 4.08 L, Hgb 12.2 L, Hct 36.9 L, MCV 90.4, MCH 29.9, MCHC 33.1, RDW Std Deviation 40.1, RDW Coeff of Mary 12.2, Plt Count 323, MPV 10.3, Immature Gran % (Auto) 0.500, Neut % (Auto) 80.6 H, Lymph % (Auto) 9.2 L, [place] % (Auto) 7.9, Eos % (Auto) 1.4, Baso % (Auto) 0.4, Absolute Neuts (auto) 10.4 H, Absolute Lymphs (auto) 1.19, Nucleated RBC % 0 08/03/19 10:16: Sodium 136, Potassium 4.2, Chloride 102, Carbon Dioxide 29.0, Anion Gap 5, BUN 15, Creatinine 0.92, Estim Creat Clear Calc 119.49, Est GFR (MDRD) Af Amer 118, Est GFR (MDRD) Non-Af 97, BUN/Creatinine Ratio 16.3, Glucose 115 H, Calcium 9.0 Current Medications Acetaminophen (Tylenol Liquid) 650 mg GT Q4H PRN PRN PRN Reason: Pain Score 1-1010 Last Admin: 08/03/19 06:01 Dose: 650 mg Documented by: Albuterol/Ipratropium (Duoneb) 3 ml INHALATION BID.RT [facility] Last Admin: 08/03/19 07:05 Dose: 3 ml Documented by: Amlodipine Besylate (Norvasc) 10 mg GT DAILY [facility] Last Admin: 08/02/19 05:47 Dose: 10 mg Documented by: Bisacodyl (Dulcolax) 10 mg RECTAL DAILY PRN PRN Reason: Constipation Calamine/Phenol (Calmoseptine Ointment) 1 applic TOPICAL TID [facility]; Protocol Last Admin: 08/03/19 10:59 Dose: 1 applicatio Documented by: Carvedilol (Coreg) 25 mg GT BID [facility] Last Admin: 08/02/19 18:14 Dose: 25 mg Documented by: Enteral Nutritional Formula (Jevity 1.5) 1,000 mls @ 65 mls/hr GT .[id number] [facility] Last Admin: 08/02/19 22:14 Dose: Not Given Documented by: Nystatin (Mycostatin Powder) 1 applic TOPICAL BID [facility]; Protocol Last Admin: 08/03/19 06:16 Dose: 1 applicatio Documented by: Polyethylene Glycol (Miralax) 17 gm GT DAILY [facility] Last Admin: 08/03/19 10:59 Dose: Not Given Documented by: Quetiapine Fumarate (Seroquel) 25 mg GT QHS [facility] Stop: 08/09/19 22:01 Last Admin: 08/02/19 22:16 Dose: 25 mg Documented by: Senna/Docusate Sodium (Senokot-S, Teressa-Colace) 1 tablet GT BID PRN PRN Reason: Constipation Assessment/Plan All Active Problems Debility (Acute) Hemorrhagic stroke (Acute) Intracranial hemorrhage (Acute) Left-sided nontraumatic intraventricular intracerebral hemorrhage (Acute) Acute respiratory failure (Acute) Tracheostomy present (Acute) Percutaneous endoscopic gastrostomy status (Acute) 38-year-old male status post trach and PEG due to stroke, pain in the left upper quadrant unable to flush PEG possible dislodged 1. Patient does appear to have started about infection at the PEG site was able to slowly flush sterile saline without resistance patient did have discomfort with this. We will plan to check CT abdomen pelvis make sure the PEG is in place. Await CT abdomen pelvis. Addendum: Appears that the PEG tube is within the abdominal wall will plan to do an EGD with replacement of PEG site likely would be using new site in this area is infected. Tried to call the mother however she did not answer her phone will discuss with her once nursing was able to get a hold of her. Addendum: Was able to talk to Shakira vo's mother/POA via phone. I have offered the patient EGD with placement of percutaneous gastrostomy tube, if need be will likely use a new site as there may be a possible abscess that would need to drain at the present site. I have explained the risks/benefits of the procedure and described the procedure. I have discussed the risks with the patient, including but not limited to: infection, bleeding, perforation of the GI tract requiring emergency surgery, inability to complete the procedure, injury to any internal organs, complications of anesthesia, etc. - the patient understands and agrees to proceed. I have answered all the mother's questions to the mother's satisfaction and the mother has no further questions. Did also explain to patient and he nodded in understanding and agreement to proceed. Kristin Thorne M.D. Pager: [phone] [facility] [address] [place] [address], [address] [place] [address] Office: [phone] 04/21/20 1155 <Electronically signed by Kristin Rivero am MD> Date _ Kristin Thorne MD
[2019-08-03 13:27] VITALS: BP 155/99; PULSE 99; RESP 18; TEMP 36.5; O2SAT 98; BMI 34.4
[2019-08-03] MEDS: Lactated Ringers 1,000 ML 100 ML IV (13:39)
[2019-08-03] MEDS: Cefazolin 2 GM in 0.9% Normal Saline 100 ML IV (14:07)
[2019-08-03 15:05] VITALS: BP 125/106; BP 155/99; PULSE 101; RESP 20; TEMP 37.4; O2SAT 94
[2019-08-03 15:10] VITALS: BP 118/94; BP 155/99; PULSE 100; RESP 20; O2SAT 93
[2019-08-03 15:15] VITALS: BP 137/80; BP 155/99; PULSE 98; RESP 20; O2SAT 94
[2019-08-03 15:20] VITALS: BP 125/73; BP 155/99; PULSE 95; RESP 20; O2SAT 96
[2019-08-03 15:28] VITALS: BP 123/81; BP 155/99; PULSE 94; RESP 20; TEMP 37.6; O2SAT 97
--- NOTE | 2019-08-11 12:26 | OP.EGD_ITS ---
Patient Name: Segundo Mora Procedure Date: 08/03/2019 2:01 PM Date of : 1980 Age: 38 Procedure: Upper GI endoscopy Indications: PEG replaced with 20 Fr gastric tube Providers: Kristin Thorne MD Medicines: Monitored Anesthesia Care Patient Profile: This is a 38 year old male. Complications: No immediate complications. Procedure: Pre-Anesthesia Assessment: - Prior to the procedure, a History and Physical was performed, and patient medications and allergies were reviewed. The patient's tolerance of previous anesthesia was also reviewed. The risks and benefits of the procedure and the sedation options and risks were discussed with the patient. All questions were answered, and informed consent was obtained. Prior Anticoagulants: The patient has taken no previous anticoagulant or antiplatelet agents. ASA Grade Assessment: Per anesthesia. After reviewing the risks and benefits, the patient was deemed in satisfactory condition to undergo the procedure. After obtaining informed consent, the endoscope was passed under direct vision. Throughout the procedure, the patient's blood pressure, pulse, and oxygen saturations were monitored continuously. The gastroscope was introduced through the mouth, and advanced to the pylorus. The upper GI endoscopy was accomplished without difficulty. The patient tolerated the procedure well. Scope In: 2:31:18 PM Scope Out: 2:55:09 PM Total Procedure Duration Time 0 hours 23 minutes 51 seconds Findings: The Z-line was found 39 cm from the incisors. A small hiatal hernia was present. Previous PEG was no longer in stomach. A replacement site was attempted where there appeared to be good light reflex near the previous peg; however the needle wasn't long enought to be seen in the stomach. The previous PEG was removed under direct visualization and a 20 Fr Gastric tube was placed with a picture taken-- 7 cm at the skin maybe little thicker due to inflammation from dislodgement, but CT a/p done today didn't show any evidence of colon etc between stomach and abd wall- tract was well formed as it was originally placed in May 2019. Impression: - Z-line, 39 cm from the incisors. - Small hiatal hernia. - No specimens collected. - PEG exchanged to Gastric tube 20 Fr Recommendation: - Return patient to TCU for ongoing care. - Continue present medications. Procedure Code(s): --- Professional --- 37413, 52, Esophagogastroduodenoscopy, flexible, transoral; diagnostic, including collection of specimen(s) by brushing or washing, when performed (separate procedure) Diagnosis Code(s): --- Professional --- K44.9, Diaphragmatic hernia without obstruction or gangrene CPT copyright 2017 [employer]. All rights reserved. The codes documented in this report are preliminary and upon curatorial assistant review may be revised to meet current compliance requirements. MD Kristin Miller MD 08/03/2019 3:22:22 PM This report has been signed electronically. Number of Addenda: 0 Note Initiated On: 08/03/2019 2:01 PM
--- NOTE | 2019-08-11 12:26 | OP.CCLET_ITS ---
08/11/2019 No Primary Care Physician Re : Upper GI endoscopy procedure for Segundo Mora Dear Care Physician This procedure was performed on Saturday, August 03, 2019. My impressions and recommendations are as follows: Impressions : - Z-line, 39 cm from the incisors. - Small hiatal hernia. - No specimens collected. - PEG exchanged to Gastric tube 20 Fr Recommendations : - Return patient to TCU for ongoing care. - Continue present medications. My findings are described in the full procedure note, which is enclosed. If I can be of further assistance, please feel free to contact me at Doctor phone number(s): , Work: . Sincerely, MD Kristin Miller MD 08/03/2019 3:22:22 PM This report has been signed electronically.
== END ==
PROVIDERS: Visit Provider Surgery
PROC: 0DJ08ZZ Inspection of Upper Intestinal Tract, Via Natural or Artificial Opening Endoscopic (ICD-10-PCS; CPT 43235; principal; 2019-08-03 13:55)
DX: K94.22 Gastrostomy infection (principal); K44.9 Diaphragmatic hernia without obstruction or gangrene; I10 Essential (primary) hypertension; F32.9 Major depressive disorder, single episode, unspecified; Z93.0 Tracheostomy status; Z79.51 Long term (current) use of inhaled steroids; Z79.899 Other long term (current) drug therapy; Z86.73 Personal history of transient ischemic attack (TIA), and cerebral infarction without residual deficits
CPT/HCPCS: 43246

== ENCOUNTER 2019-08-04 18:15 | Inpatient (IN) | payer OTHER, SELFPAY ==
[2019-08-03 13:27] VITALS: BMI 34.4
[2019-08-04 18:34] VITALS: BP 120/78; PULSE 82; RESP 16; TEMP 37.1; O2SAT 98; BMI 34.4; BMI 40.8
--- NOTE | 2019-08-04 18:45 | NURSING ---
Patient nonverbal, showed this nurse proper call lujan placement. RT here and asked to verify trach collar orders on patient since he moved units.
[2019-08-04 19:16] VITALS: PULSE 73; RESP 16; O2SAT 98
[2019-08-04] MEDS: Ipratropium/Albuterol Sulfate 3 ML AMPUL.NEB INHALATION (19:16)
[2019-08-04 20:00] VITALS: BP 124/66; PULSE 73; RESP 18; TEMP 37.1; O2SAT 97
--- NOTE | 2019-08-04 22:02 | CPS ---
BRAND MARKETING COORDINATOR at bedside with RN for trach care. Trach care was performed with no difficulty. Trach and patient assessment were done after trach care. No problems were noted and pt. noted no SOB. Trach mask was reapplied 28% 6L. BRAND MARKETING COORDINATOR will monitor patient overnight.
[2019-08-04] MEDS: QUEtiapine 25 MG Tablet GT (22:12)
[2019-08-04] MEDS: Carvedilol 25 MG Tablet GT (22:12)
[2019-08-04] MEDS: Cefazolin 2 GM in 0.9% Normal Saline 100 ML IV (22:16)
[2019-08-04] MEDS: Nystatin Powder 15gm Bottle 1 APPLIC TOPICAL (22:16)
[2019-08-04] MEDS: 0.9% Saline Lock 10 ML Syringe IV ×2 (22:18→22:56)
[2019-08-04] MEDS: Menthol/Lanolin/Calamine/Znox 113 GM Tube 1 APPLIC TOPICAL (22:33)
[2019-08-05] VITALS (8 sets, daily range): BP systolic 133–158; BP diastolic 77–91; PULSE 69–80; RESP 18–20; TEMP 36.8–37.1; O2SAT 95–99
[2019-08-05] MEDS: Jevity 1.5 1,000 ML 65 ML GT (03:00)
[2019-08-05] MEDS: 0.9% Saline Lock 10 ML Syringe IV ×3 (06:45→23:41)
[2019-08-05] MEDS: Cefazolin 2 GM in 0.9% Normal Saline 100 ML IV ×3 (06:45→22:31)
[2019-08-05] MEDS: Enoxaparin 40 MG/0.4 ML Syringe SC (06:46)
[2019-08-05] MEDS: Ipratropium/Albuterol Sulfate 3 ML AMPUL.NEB INHALATION ×3 (07:32→19:50)
[2019-08-05] MEDS: Polyethylene Glycol 3350 17 GM PACKET GT (09:25)
[2019-08-05] MEDS: amLODIPine 10 MG Tablet GT (09:26)
[2019-08-05] MEDS: Carvedilol 25 MG Tablet GT ×2 (09:26→21:10)
[2019-08-05] MEDS: QUEtiapine 25 MG Tablet GT ×2 (09:26→21:10)
[2019-08-05] MEDS: BACITRACIN 15 GM Tube 1 APPLIC TOPICAL (09:27)
[2019-08-05] MEDS: Nystatin Powder 15gm Bottle 1 APPLIC TOPICAL ×2 (09:45→21:10)
--- NOTE | 2019-08-05 13:26 | HP.PCM_ITS ---
Problem List (1) Cellulitis Status: Acute Qualifiers: Site of cellulitis of trunk: abdominal wall Comment: at the PEG site (2) Normochromic normocytic anemia Status: Acute Comment: likely due to frequent blood draws while acutely ill. 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 There was also a cyst focus of hemorrhage posterior to the brainstem measuring 2.2 x 0.8 x 0.8 cm. (7) Percutaneous endoscopic gastrostomy status Status: Chronic (8) Tracheostomy present Status: Chronic (9) Chronic cholecystitis Status: Chronic (10) Depression Status: Chronic (11) HTN (hypertension) Status: Chronic Comment: untreated prior to the stroke (12) Hydrocephalus Status: Acute Comment: had a ventriculostomy through a R frontal tj hole with ventricular shunt (13) Obesity Status: Chronic Qualifiers: Obesity type: due to excess calories (14) Hyperglycemia Status: Acute Comment: no hx of DM (15) Regional wall motion abnormality of heart Status: Acute Comment: due to CAD/HI? (16) QT prolongation Status: Acute Comment: on EKG 06/09/19 prior to the initiation of Seroquel History of Present Illness Date of Admission: 08/04/19 Chief Complaint: Debility secondary to left thalamic hemorrhagic CVA with extension into the lateral ventricles. Status post ventriculostomy through a tj hole in the right frontal skull with insertion of a ventricular shunt. Prolonged intubation and now has tracheostomy and PEG. He has R side weakness, dysphagia and aphasia. The patient is a 38 year old M with a past medical history of obesity, depression (not on medication) and hypertension (not on medication at the time of the stroke) who had a left thalamic hemorrhagic CVA with extension into the ventricles on 06/09/19. He was walking along and suddenly fell to the ground and started having vomiting. He was brought to the [facility] emergency room. He was vomiting and unresponsive so he was intubated and sent for a non-contrasted CT brain. CT brain showed an acute intracranial hemorrhage of the left thalamus measuring approximately 2.7 x 1.9 x 3.1 cm within a rim of surrounding vasogenic edema. Blood was seen in the left lateral ventricle and frontal pole of the right lateral ventricle. He was started on a Cardene drip for blood pressure control and transferred to [facility] per the recommendation of the telestroke neurologist. Upon arrival at [facility] his NIH score was 23. He developed hydrocephalus and had a ventriculostomy through a right frontal tj hole with placement of a ventricular shunt. He had a prolonged intubation and required tracheostomy and PEG tube. He had a transthoracic echocardiogram at [facility] which showed concentric left ventricular hypertrophy, grade 2 diastolic dysfunction, akinesis of the inferior wall, hypokinesis of the posterior segment and a mildly reduced ejection fraction at 50 to 55%. There was also right ventricular enlargement which raises a suspicion of pulmonary HTN/possible JAUN. He was transferred to TCU on 07/08/19. PT/OT/ST were ordered and he has improved with therapy to the point where the therapists felt he could tolerate 3 hours of therapy daily. He was transferred to the [facility] at [facility] on 08/04/19 for > 3 H of therapy to restore function as close to his previous normal as possible. Dr. Thorne was consulted on 08/03/2019 because they were unable to flush the PEG and it was very painful when they attempted to. A CT scan of the abdomen and pelvis was done and the PEG tube appeared to be within the abdominal wall. Dr. Thorne was able to get the PEG functioning again. She did notice mild erythema at the insertion site and he has been on Ancef. Past Medical History Past Medical History (Chronic Problems): Chronic Problems Depression (Chronic) Hemorrhagic stroke (Chronic) HTN (hypertension) (Chronic) untreated prior to the stroke Chronic cholecystitis (Chronic) Tracheostomy present (Chronic) Percutaneous endoscopic gastrostomy status (Chronic) Elevated hemidiaphragm (Chronic) Obesity (Chronic) Allergies No Known Allergies Allergy (Verified 08/03/19 13:36) Home Medications: Ambulatory Orders Medication Instructions Recorded Amlodipine [Norvasc] 10 mg GT DAILY 07/08/19 Carvedilol 25 mg GT BID 07/08/19 Glucerna 1.5 70 ml GT CONT 07/08/19 Ipratropium/Albuterol Sulfate 3 ml IH Q6H 07/08/19 [Iprat-Albut 0.5-3(2.5) mg/3 ml] Quetiapine Fumarate [Seroquel] 25 mg GT BID 07/08/19 Acetaminophen Liquid [Tylenol 650 mg GT Q4H PRN PRN udc 08/03/19 Liquid] Bisacodyl [Dulcolax] 10 mg RECTAL DAILY PRN suppos. 08/03/19 Senna/Docusate Sodium [Senokot-S] 1 tab GT BID PRN tab 08/03/19 Menthol/Lanolin/Calamine/Znox 1 applic TOPICAL TID 08/04/19 [Calmoseptine Ointment] Nystatin Powder [Mycostatin Powder] 1 applic TOPICAL BID 08/04/19 Polyethylene Glycol 3350 [Miralax] 17 gm GT DAILY 08/04/19 Surgical History: - - Tracheostomy, PEG tube. Ventriculostomy right frontal skull with insertion of ventricular shunt for hydrocephalus Psychiatric History: Depression - Untreated at the time of the stroke Lives: Alone - He lives in an apartment/condo with a full flight of stairs. There is one handrail. 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 Smoking Status: Never smoker Tobacco Use: Non-smoker Alcohol: Occasional Drugs: None - *Family History Maternal History Items: No pertinent history Paternal History Items: No pertinent history Review of Systems Constitutional: Reports: Weakness. Denies: Chills, Fever HEENT: Reports: Difficulty Swallowing. Denies: Difficulty Hearing Cardiovascular: Denies: Chest Pain, Edema Respiratory: Reports: Cough, Shortness of Breath - when he needs suctioned. Denies: Wheezing Gastrointestinal: Reports: - - he has loose stool related to the tube feed and he is on PRN Imodium. Denies: Abdominal Pain, Hematemesis, Hematochezia, Nausea, Vomiting Genitourinary: Reports: Incontinence - Sometimes does not feel that he has to go and then he is incontinent. Post void residuals yesterday were 200 and 359.. Denies: Dysuria Musculoskeletal: Denies: Joint Pain, Muscle pain Skin: Denies: Jaundice Neurological: Reports: Balance problems, Focal weakness - Right upper extremity, right lower extremity, - - He has expressive a aphasia. Denies: Headaches, Seizures Psychiatric: Reports: Depression - He has a history of depression but was not on medication prior to the stroke. Hematologic/ Lymphatic: Denies: Hx of blood clot Unable to obtain accurate/complete ROS d/t: Review of systems is limited by the fact that the patient has aphasia VTE Information - Inpt Only VTE Present on Admission: No VTE Mechan Device Prophylaxis: Knee High CHACHA Hose VTE Pharm Prophylaxis ordered?: Yes Patient Problems: Active and Suspected Problems Cellulitis (Acute) at the PEG site Normochromic normocytic anemia (Acute) likely due to frequent blood draws while acutely ill. Hyperglycemia (Acute) no hx of DM Regional wall motion abnormality of heart (Acute) due to CAD/HI? QT prolongation (Acute) on EKG 06/09/19 prior to the initiation of Seroquel - Physical Exam Vitals/I&O's: Vital Signs Temp Pulse Resp BP Pulse Ox 98.3 F 74 18 133/77 H 95 08/05/19 09:33 08/05/19 09:33 08/05/19 09:33 08/05/19 09:33 08/05/19 09:33 Oxygen Flow Rate (L/min) 6 Oxygen Delivery Method Trach Collar Weight: 253 lb 7.8 oz Body Mass Index (BMI) 34.3 Finger Stick Blood Glucose 92 Intake and Output for Last 24 Hours 08/03/19 08/04/19 08/05/19 23:59 23:59 23:59 Intake Total 128.25 / 648.25 1500 / 1500 Balance 128.25 / 648.25 1500 / 1500 General: Alert, Cooperative, No apparent distress, Well developed, Well nourished HEENT: Atraumatic, PERRLA, EOMI, Normocephalic Oral: Moist Mucosa Neck: Supple, No Nuchal Rigidity, Trachea Midline, - - difficult to hear over respiratory secretions/noise but no bruits appreciated Lungs: Normal air movement, - - some rales scattered but, I suspect if he was suctioned now the crackles would improve. No wheezing, not tachypneic, no accessory muscle use. Cardiovascular: Regular rate, Regular Rhythm, Normal S1, Normal S2, No murmurs, No Ectopic Activity, No rub noted, No Gallop Abdomen: Bowel Sounds Present, Soft, Non Tender, Non-Distended, Obese, - - Minimal amount of erythema at the PEG site, no odor, no purulent appearing discharge. Extremities: No clubbing, No cyanosis, No edema, No Calf Tenderness Skin: No rashes, No breakdown, - - The site of the endotracheal tube has no teressa-trach erythema and no purulent discharge. There is an ulceration to the left side of the trach that is mostly healed. He currently has a trach collar 6 L of O2. He is maintaining a pulse ox of 95 to 96% on 6 L. The new PEG site has no purulent DC or significant erythema. the old PEG site is reddened and the area is mildly tender to palpate Musculoskeletal: No Muscle Wasting Lymphatic: - - No cervical or supraclavicular adenopathy Neurological: - - No facial asymmetry, weak on the right side, expressive aphasia but understands what is being said to him and responds appropriately. No muscle wasting Psych/Mental Status: Depressed Current Medications Acetaminophen (Tylenol Liquid) 650 mg GT Q4H PRN PRN PRN Reason: Pain Score 1-10/10 Albuterol/Ipratropium (Duoneb) 3 ml INHALATION Q6H.RT [facility] Last Admin: 08/05/19 07:32 Dose: 3 ml Documented by: Amlodipine Besylate (Norvasc) 10 mg GT DAILY [facility] Last Admin: 08/05/19 09:26 Dose: 10 mg Documented by: Bacitracin (Bacitracin Ointment) 1 applic TOPICAL DAILY [facility]; Protocol Last Admin: 08/05/19 09:27 Dose: 1 applicatio Documented by: Bisacodyl (Dulcolax) 10 mg RECTAL DAILY PRN PRN Reason: Constipation Bisacodyl (Dulcolax) 10 mg RECTAL .PRN X 1 PRN PRN Reason: Constipation Calamine/Phenol (Calmoseptine Ointment) 1 applic TOPICAL TID [facility]; Protocol Last Admin: 08/05/19 06:55 Dose: Not Given Documented by: Carvedilol (Coreg) 25 mg GT BID [facility] Last Admin: 08/05/19 09:26 Dose: 25 mg Documented by: Enoxaparin Sodium (Lovenox) 40 mg SC DAILY@0600 [facility] Last Admin: 08/05/19 06:46 Dose: 40 mg Documented by: Cefazolin Sodium 2 gm/ Sodium (Chloride) 110 mls @ 150 mls/hr IV Q8 [facility] Last Infusion: 08/05/19 09:26 Dose: Infused Documented by: Enteral Nutritional Formula (Jevity 1.5) 1,000 mls @ 65 mls/hr GT .[id number] Last Admin: 08/05/19 03:00 Dose: 65 mls/hr Documented by: Sodium Chloride () 250 mls @ 15 mls/hr IV .[id number] PRN PRN Reason: Saline Flush Last Infusion: 08/04/19 23:30 Dose: 0 mls/hr Documented by: Sodium Chloride () 250 mls @ 15 mls/hr IV .[id number] PRN PRN Reason: Additional IVPB Infusion Magnesium Hydroxide (Milk Of Magnesia) 30 ml PO .PRN X 1 PRN PRN Reason: Constipation Nystatin (Mycostatin Powder) 1 applic TOPICAL BID [facility]; Protocol Last Admin: 08/05/19 09:45 Dose: 1 applicatio Documented by: Polyethylene Glycol (Miralax) 17 gm GT DAILY [facility] Last Admin: 08/05/19 09:25 Dose: 17 gm Documented by: Quetiapine Fumarate (Seroquel) 25 mg GT BID [facility] Last Admin: 08/05/19 09:26 Dose: 25 mg Documented by: Senna/Docusate Sodium (Senokot-S, Teressa-Colace) 1 tablet GT BID PRN PRN Reason: Constipation Sodium Chloride () 10 - 40 ml IV UD PRN PRN Reason: SALINE FLUSH Last Admin: 08/05/19 06:45 Dose: 10 ml Documented by: Assessment/Plan All Active Problems Debility (Acute) Left-sided nontraumatic intraventricular intracerebral hemorrhage (Acute) Acute respiratory failure (Resolved) Hydrocephalus (Acute) Cellulitis (Acute) Normochromic normocytic anemia (Acute) Hyperglycemia (Acute) Regional wall motion abnormality of heart (Acute) QT prolongation (Acute) Impressions 1. Debility secondary to intracerebral hemorrhage involving the left thalamus and intraventricular hemorrhage with hydrocephalus requiring a ventriculostomy and placement of a ventricular shunt at [facility]. R side weakness, dysphagia and severe expressive aphasia. 2. Hypertension-not on medication prior to CVA. He was not aware that he had HTN. Admits to drinking energy drinks because he is chronically tired. 3. History of depression per the H&P done in TCU and he is not currently on an antidepressant. 4. Acute respiratory failure requiring prolonged intubation and tracheostomy- tracheostomy is still in place. He decannulated himself twice in the early days after admission to TCU.....no events recently 5. Morbid obesity 6. New onset normochromic normocytic anemia-suspect secondary to prolonged hospitalization and frequent blood draws 7. Status post PEG tube and then new PEG inserted when the first PEG became non-functional and infected. 8. Cellulitis of the subcutaneous tissue around the PEG-on Ancef 9. Dyslipidemia with LDL of 92 and a low HDL at 23 10. Urinary incontinence with urine retention - may need to straight cath or insert Mccoy. Do a couple more PVR's before we commit to a Mccoy 11. suspected JAUN +/- central sleep apnea post CVA. Stop BANG score puts him at high risk for JAUN. Neck circumference is >40cm. Has chronic fatigue and is drinking energy drinks to keep him awake. PLAN PT for gait stability OT for ADL's ST for evaluation Analgesics as needed Bowel protocol Fall precautions Assess for Anxiety/Depression GI prophylaxis not needed-no evidence of ulceration on endoscopy by Dr. Thorne. Patient is without complaint of heartburn or abdominal pain. DVT prophylaxis with enoxaparin 40 mg subcu daily Follow up with neurology, PCP, sleep lab, pulmonary medicine following DC from IP Rehab if the overnight trending pulse ox chows hypoxia at night. Overnight trending pulse ox Consider antidepressant Convert to bolus feedings in the next few days if there is no problem with the new PEG tube Weight loss advised Will need a primary care physician at discharge Inpatient E&M: 92138 Init Hosp L3
[2019-08-05] MEDS: Menthol/Lanolin/Calamine/Znox 113 GM Tube 1 APPLIC TOPICAL ×2 (14:23→21:10)
--- NOTE | 2019-08-05 15:10 | PCM.RU.PYE ---
Admission Information Primary Diagnosis:: Post stroke debility due to hemorrhagic left thalamic CVA with hydrocephalus Status Changes from Prescreening?: No changes Identified Actual Problem List:: Infection, Skin Intergrity, Pain, ALteration in Cmfrt, Depression, Bladder Incontinence, Alteration in Nutrition, Mobility Impaired, Self Care Deficit, Ineffective Communication, Know.Dfct/Disease Process, Know.Dfct of Medicaitons, BP, Hypertension, Alteration/ Air Exchange, Alteration-Leisure Activ. Potential Problem List:: DVT, Bleeding, Infection, UTI, Aspiration, Falls, Skin Integrity, Depression Risk of Complications DVT: LMWH, CHACHA Hose, Sequential Compression Device Bleeding: Monitor Lab Values, Nursing to Teach Precautions for anti-coagulation therapy., Wound, if applicable, to be assessed every shift., Stroke patients assessed for lethargy or change in status. Infection: Clinical Staff to Monitor for S/S of infection:, S/S of infection include fever, redness, warmth, etc. Urinary Tract Infection: Monitor for frequency, burning, discomfort, or incontinence., Nursing will obtain urine sample for urinalysis and C&S when ordered. Aspiration: Clinical staff will monitor for coughing, drooling, congestion., Speech will evaluate swallowing and dsyphasia., Nursing will monitor patient swallowing during meals. Falls: Patient will be evaluated for Fall Precautions, Patient will be placed on Fall Precautions as indicated per protocol. Skin Breakdown: Nursing will assess skin daily using assessment tool., Nursing will place on Skin Breakdown Precautions as indicated. Pain: Clinical staff will assess patient's pain level per protocol., Medications will be given, if needed, and the pain level reassessed., Other methods: Massage, distraction, decrease stimulus, etc. used PRN. Plan of Care Patient requires physician specializing in physical medicine and rehab oversight to provide close medical supervision of rehab issues including: Pain Management, Sleep Problems, Bowel and Bladder, Medical and co-morbidity Management, DVT prophylaxis, Rehabilitation Leadership, Coordination of treatment team Patient needs Physical Therapy: For a minimum of 1 hour, At least 5 out of 7 days Patient needs Physical Therapy to improve:: Mobility, Mobility, Mobility, Strengthening, Transfers, Stretching, ROM, Endurance, Stairs, Gait, Balance Patient needs Occupational Therapy: For a minimum of 1 hour, At least 5 out of 7 days Patient needs Occupational Therapy to improve ADL's incl.: Eating, Grooming, Bathing, Dressing, Toileting, Toilet transfers, Community Reintegration, Higher functioning activities, Household tasks, Adaptive Equipment, Splinting, Other activities as determined Patient requires speech therapy: For a minimum of 1 hour, At least 5 out of 7 days Patient requires speech therapy for: Swallowing, Cognition, Language Skills, Compensatory Strategies Patient requires 24/7 Rehabilitation Nursing for: Pain Issues, Identifying and preventing risk factors, Monitoring and reporting current medical conditions, Assisting with ambulation, transfer, and all ADL's, Teaching patients about disease process and medications, Family teaching, Providing safe environment, Bowel and Bladder Issues, Skin integrity, Medication Management Patient needs Research Librarian/ Case Management for: Discharge Planning, Arranging Home Equipment or Services, Family Interventions Patient needs Dietary and Nutrition Services for: Adequate Nutrition, Nutritional Supplements, Nutritional Education Goals Patient will remain: free from falls, or injury at time of discharge. Patient will perform bed mobility at: MOD I level of assist. Patient will complete transfers from bed to chair at: MOD I level of assist. Patient will ambulate: 100 feet, with MOD I assist, with LRD Patient will complete upper body dressing at: MOD I level of assist. Patient will complete lower body dressing at: MOD I level of assist. Patient will complete toileting at: MOD I level of assist. Patient will perform bathing at: MOD I level of assist. Patient will complete grooming at: MOD I level of assist. Patient will complete home management skills at: MOD I level of assist. Patient will achieve: 12 stairs, at MOD I assist Patient will have pain level of: of 3 or less Patient's skin will: remain intact, free from infection. Patient will receive: adequate nutrition. Discharge Planning Pt Prognosis for Sig. Practical Improv. w/in Reasonable Time: Good Estimated Length of stay (days): 28 Anticipated D/C Destination: Home Was Preadmission Assessment Accurate?: Yes
--- NOTE | 2019-08-05 16:35 | EKG12_ITS ---
Test Reason : QT LONGATION Blood Pressure : / mmHG Vent. Rate : 070 BPM Atrial Rate : 070 BPM P-R Int : 194 ms QRS Dur : 098 ms QT Int : 414 ms P-R-T Axes : 027 004 069 degrees QTc Int : 447 ms Normal sinus rhythm Normal ECG When compared with ECG of 09-JUN-2019 21:11, T wave inversion no longer evident in Inferior leads T wave inversion no longer evident in Lateral leads QT has shortened Confirmed by LARISA BENITO ([id number]), managing editor REGINALD MONSON ([id number] on 08/13/2019 10:34:05 AM Referred By: BRANDAN Confirmed By:LARISA BENITO
--- NOTE | 2019-08-05 18:32 | NURSING ---
Pt unable to void, bladder scanned for 526ml, straight catheter placed at this time using sterile technique, 600mL straw colored urine return, pt tolerated well, will continue with voiding trials and monitor urinary output.
[2019-08-06] VITALS (7 sets, daily range): BP systolic 154; BP diastolic 91; PULSE 70–74; RESP 16–17; TEMP 36.8–37.1; O2SAT 87–98
[2019-08-06] MEDS: Jevity 1.5 1,000 ML 65 ML GT ×2 (00:53→15:57)
[2019-08-06] MEDS: Ipratropium/Albuterol Sulfate 3 ML AMPUL.NEB INHALATION ×3 (01:15→19:30)
[2019-08-06 06:30] LABS: Hematocrit 32.2 % (40-54); Hemoglobin 10.6 g/dL (13.0-16.5); Mean Corp Hgb Conc 32.9 g/dL (32-36); Mean Corpuscular Hgb 29.9 pg (27.0-32.0); Mean Platelet Vol. 10.5 fl (6.2-12.0); Platelet Count 335 K/mm3 (150-450); RBC Distribution Width CV 12.1 % (11.6-14.6); RBC Distribution Width SD 40.6 fl (35.1-43.9); Red Blood Count 3.54 M/mm3 (4.6-6.2)
[2019-08-06] MEDS: Cefazolin 2 GM in 0.9% Normal Saline 100 ML IV ×3 (06:34→21:42)
[2019-08-06] MEDS: Enoxaparin 40 MG/0.4 ML Syringe SC (06:34)
[2019-08-06] MEDS: BACITRACIN 15 GM Tube 1 APPLIC TOPICAL (06:36)
[2019-08-06] MEDS: Menthol/Lanolin/Calamine/Znox 113 GM Tube 1 APPLIC TOPICAL ×3 (06:36→21:43)
[2019-08-06 07:00] LABS: Hemoglobin A1c 6.1 % (4.2-6.3)
[2019-08-06 07:09] LABS: ALB/GLOB Ratio 0.6 RATIO (0.9-2.4); AST(SGOT) 19 U/L (15-37); Alanine Aminotransfer ALT/SGPT 25 U/L (16-61); Albumin, Serum 2.9 g/dL (3.2-5.0); Alkaline Phosphatase 108 U/L (45-117); Anion Gap 6 (5-15); BUN 10 mg/dL (7-18); BUN/Creat Ratio 12.4 RATIO (10-20); Calcium,Total 8.9 mg/dL (8.5-10.1); Chloride 102 mmol/L (98-107); Cholesterol 146 mg/dL (200); Creatinine, Serum 0.81 mg/dL (0.70-1.30); EST Glomerular Filtration Rate 113 mL/min (>60); Est Glom Filt Rate - Afr Amer 137 mL/min (>60); Estimated Creatinine Clearance 135.72 ml/min; Globulin 4.5 g/dL (2.2-4.2); Glucose 113 mg/dL (74-106); High Density Lipoprotein 23 mg/dL; Magnesium 2.2 mg/dL (1.6-2.6); Phosphorus 4.7 mg/dL (2.5-4.9); Potassium 3.7 mmol/L (3.5-5.1); Protein, Total 7.4 g/dL (6.4-8.2); Sodium Level 138 mmol/L (136-145); Triglycerides 157 mg/dL; Very Low Density Lipoprotein 31 mg/dL (5-40)
[2019-08-06] MEDS: QUEtiapine 25 MG Tablet GT ×2 (09:52→21:42)
[2019-08-06] MEDS: Polyethylene Glycol 3350 17 GM PACKET GT (09:53)
[2019-08-06] MEDS: amLODIPine 10 MG Tablet GT (09:53)
[2019-08-06] MEDS: Carvedilol 25 MG Tablet GT ×2 (09:53→21:42)
[2019-08-06] MEDS: Nystatin Powder 15gm Bottle 1 APPLIC TOPICAL ×2 (09:56→21:42)
--- NOTE | 2019-08-06 10:53 | PCM.PN.SRG ---
Patient Problems: Active and Suspected Problems Cellulitis (Acute) at the PEG site Normochromic normocytic anemia (Acute) likely due to frequent blood draws while acutely ill. Hyperglycemia (Acute) no hx of DM Regional wall motion abnormality of heart (Acute) due to CAD/NH? QT prolongation (Acute) on EKG 06/09/19 prior to the initiation of Seroquel Subjective: Patient still tolerating tube feeds at goal with no issues. Patient denies tenderness at PEG site. - Physical Exam Vitals/I&O's: Vital Signs Temp Pulse Resp BP Pulse Ox 98.2 F 71 16 153/81 H 96 08/06/19 08:20 08/06/19 08:20 08/06/19 08:20 08/05/19 21:08 08/06/19 08:20 Oxygen Flow Rate (L/min) 6 Oxygen Delivery Method Trach Collar Weight: 257 lb 0.944 oz Body Mass Index (BMI) 40.8 Finger Stick Blood Glucose 92 Intake and Output for Last 24 Hours 08/04/19 08/05/19 08/06/19 23:59 23:59 23:59 Intake Total 128.25 / 648.25 3255.5 / 3255.5 1195 / 1195 Output Total 600 / 600 Balance 128.25 / 648.25 2655.5 / 2655.5 1195 / 1195 General: Alert, Cooperative, No apparent distress Abdomen: Soft, Non Tender, Non-Distended, - - Minimal erythema at PEG site, moved bumper to 6.5 cm as there was extra slack. Laboratory Results 08/06/19 06:10: Hemoglobin A1c 6.1 08/06/19 06:10: WBC 8.0, RBC 3.54 L, Hgb 10.6 L, Hct 32.2 L, MCV 91.0, MCH 29.9, MCHC 32.9, RDW Std Deviation 40.6, RDW Coeff of Mary 12.1, Plt Count 335, MPV 10.5 08/06/19 06:10: Sodium 138, Potassium 3.7, Chloride 102, Carbon Dioxide 30.0, Anion Gap 6, BUN 10, Creatinine 0.81, Estim Creat Clear Calc 135.72, Est GFR (MDRD) Af Amer 137, Est GFR (MDRD) Non-Af 113, BUN/Creatinine Ratio 12.4, Glucose 113 H, Calcium 8.9, Phosphorus 4.7, Magnesium 2.2, Total Bilirubin 0.20, AST 19, ALT 25, Alkaline Phosphatase 108, Total Protein 7.4, Albumin 2.9 L, Globulin 4.5 H, Albumin/Globulin Ratio 0.6 L, Triglycerides 157, Cholesterol 146, LDL Cholesterol 92, VLDL Cholesterol 31, HDL Cholesterol 23 L Current Medications Acetaminophen (Tylenol Liquid) 650 mg GT Q4H PRN PRN PRN Reason: Pain Score 1-10/10 Albuterol/Ipratropium (Duoneb) 3 ml INHALATION Q6H.RT [facility] Last Admin: 08/06/19 07:00 Dose: 3 ml Documented by: Amlodipine Besylate (Norvasc) 10 mg GT DAILY [facility] Last Admin: 08/06/19 09:53 Dose: 10 mg Documented by: Bacitracin (Bacitracin Ointment) 1 applic TOPICAL DAILY [facility]; Protocol Last Admin: 08/06/19 06:36 Dose: 1 applicatio Documented by: Bisacodyl (Dulcolax) 10 mg RECTAL DAILY PRN PRN Reason: Constipation Bisacodyl (Dulcolax) 10 mg RECTAL .PRN X 1 PRN PRN Reason: Constipation Calamine/Phenol (Calmoseptine Ointment) 1 applic TOPICAL TID [facility]; Protocol Last Admin: 08/06/19 09:57 Dose: 1 applicatio Documented by: Carvedilol (Coreg) 25 mg GT BID [facility] Last Admin: 08/06/19 09:53 Dose: 25 mg Documented by: Enoxaparin Sodium (Lovenox) 40 mg SC DAILY@0600 [facility] Last Admin: 08/06/19 06:34 Dose: 40 mg Documented by: Cefazolin Sodium 2 gm/ Sodium (Chloride) 110 mls @ 150 mls/hr IV Q8 [facility] Last Infusion: 08/06/19 08:00 Dose: Infused Documented by: Enteral Nutritional Formula (Jevity 1.5) 1,000 mls @ 65 mls/hr GT .[id number] [facility] Last Admin: 08/06/19 00:53 Dose: 65 mls/hr Documented by: Sodium Chloride () 250 mls @ 15 mls/hr IV .[id number] PRN PRN Reason: Saline Flush Last Infusion: 08/05/19 23:42 Dose: 0 mls/hr Documented by: Sodium Chloride () 250 mls @ 15 mls/hr IV .[id number] PRN PRN Reason: Additional IVPB Infusion Last Admin: 08/06/19 06:36 Dose: 15 mls/hr Documented by: Magnesium Hydroxide (Milk Of Magnesia) 30 ml PO .PRN X 1 PRN PRN Reason: Constipation Nystatin (Mycostatin Powder) 1 applic TOPICAL BID [facility]; Protocol Last Admin: 08/06/19 09:56 Dose: 1 applicatio Documented by: Polyethylene Glycol (Miralax) 17 gm GT DAILY [facility] Last Admin: 08/06/19 09:53 Dose: 17 gm Documented by: Quetiapine Fumarate (Seroquel) 25 mg GT BID [facility] Last Admin: 08/06/19 09:52 Dose: 25 mg Documented by: Senna/Docusate Sodium (Senokot-S, Teressa-Colace) 1 tablet GT BID PRN PRN Reason: Constipation Sodium Chloride () 10 - 40 ml IV UD PRN PRN Reason: SALINE FLUSH Last Admin: 08/05/19 23:41 Dose: 10 ml Documented by: Medical Necessity - Tobacco Use Smoking Status: Never smoker Tobacco Use: Non-smoker Assessment/Plan All Active Problems Debility (Acute) Left-sided nontraumatic intraventricular intracerebral hemorrhage (Acute) Acute respiratory failure (Resolved) Hydrocephalus (Acute) Cellulitis (Acute) Normochromic normocytic anemia (Acute) Hyperglycemia (Acute) Regional wall motion abnormality of heart (Acute) QT prolongation (Acute) 38-year-old male status post replacement of PEG with G-tube due to dislodgment 1. We will continue Ancef at 2 g IV every 8 as patient had some inflammation at the site of his previous PEG it used to be about 4 cm to the skin placed at 7 cm which is also consistent with the CT abdomen pelvis that was done prior to EGD. G-tube was placed under direct visualization. Due to the inflammation of the abdominal wall unable to place a PEG in another location safely. Patient has been tolerating tube feeds without any issues. Continue to monitor the slight erythema and distance of the bumper of the G-tube. Dr. Hampton will be following weekend and next week. Kristin Thorne M.D. Pager: [phone] [facility] [address] [place] [address], Outpatient [place], [address] [place] [address] Office: [phone] Inpatient E&M: 54531 Subs Hosp L1
--- NOTE | 2019-08-06 12:37 | PCM.PN.BLA ---
Progress Note Day #4 Ancef Afebile VSS-blood pressure is not adequately controlled. The goal for the blood pressure is less than 130/80. 87% on room air today. 94 to 95% on a trach collar with a 6 L of oxygen Oral intake is Agata water only Discussed with nursing - no problems that need addressed Reviewed the PT/OT/ST notes Medication list reviewed. He is currently on 2 antihypertensives (amlodipine 10 mg, Coreg 25 mg twice daily) hx of agitation and is on Seroquel 25 BID but, in the DC note he was to be tapered to 25 mg daily and then stop on 08/08 Alert, no apparent distress Lungs-scattered rhonchi Heart-regular rate and rhythm Abdomen-obese, soft, no guarding with palpation, new PEG site is without erythema or purulent discharge No peripheral edema No calf tenderness no skin breakdown or rashes Impressions 1. 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 2. Hypertension-not adequately controlled 3. Morbid obesity 4. Dysphagia 5. Cellulitis of the abdominal wall secondary to infected PEG tube 6. Encephalopathy post CVA with agitation requiring Seroquel 7. History of depression 8. Suspected obstructive sleep apnea plus/minus central sleep apnea Add HCTZ 12.5 mg Decrease the Seroquel to 25 mg Q HS and DC in the next few days if he tolerates the decrease in the dose with no recurrence of agitation recheck a BMP and mag on Friday and also a Overnight trending pulse ox Consider adding an antidepressant Inpatient E&M: 12803 Subs Hosp L2
[2019-08-07] VITALS (7 sets, daily range): BP systolic 151–156; BP diastolic 90; PULSE 67–89; RESP 15–20; TEMP 36.9–37.1; O2SAT 94–98
[2019-08-07] MEDS: Menthol/Lanolin/Calamine/Znox 113 GM Tube 1 APPLIC TOPICAL ×3 (05:21→21:37)
[2019-08-07] MEDS: Enoxaparin 40 MG/0.4 ML Syringe SC (05:21)
[2019-08-07] MEDS: Cefazolin 2 GM in 0.9% Normal Saline 100 ML IV ×3 (05:21→21:13)
[2019-08-07] MEDS: Ipratropium/Albuterol Sulfate 3 ML AMPUL.NEB INHALATION ×3 (07:09→18:30)
[2019-08-07] MEDS: Carvedilol 25 MG Tablet GT ×2 (08:08→21:35)
[2019-08-07] MEDS: hydroCHLOROthiazide 25 MG Tablet GT (08:08)
[2019-08-07] MEDS: BACITRACIN 15 GM Tube 1 APPLIC TOPICAL (08:08)
[2019-08-07] MEDS: amLODIPine 10 MG Tablet GT (08:08)
[2019-08-07] MEDS: Nystatin Powder 15gm Bottle 1 APPLIC TOPICAL ×2 (08:09→21:37)
[2019-08-07] MEDS: Sertraline 50 MG Tablet PO (12:43)
[2019-08-07] MEDS: Jevity 1.5 1,000 ML 65 ML GT (12:43)
[2019-08-07] MEDS: 0.9% Saline Lock 10 ML Syringe IV (21:29)
[2019-08-07] MEDS: QUEtiapine 25 MG Tablet GT (21:37)
[2019-08-08] MEDS: Cefazolin 2 GM in 0.9% Normal Saline 100 ML IV (05:56)
[2019-08-08] MEDS: Enoxaparin 40 MG/0.4 ML Syringe SC (05:56)
[2019-08-08] MEDS: Menthol/Lanolin/Calamine/Znox 113 GM Tube 1 APPLIC TOPICAL ×3 (06:01→21:39)
[2019-08-08] MEDS: Jevity 1.5 1,000 ML 65 ML GT (09:16)
[2019-08-08] MEDS: hydroCHLOROthiazide 25 MG Tablet GT (09:17)
[2019-08-08] MEDS: Carvedilol 25 MG Tablet GT ×2 (09:17→21:38)
[2019-08-08] MEDS: amLODIPine 10 MG Tablet GT (09:18)
[2019-08-08] MEDS: Nystatin Powder 15gm Bottle 1 APPLIC TOPICAL ×2 (09:18→21:38)
[2019-08-08] MEDS: Sertraline 50 MG Tablet PO (09:18)
[2019-08-08] MEDS: BACITRACIN 15 GM Tube 1 APPLIC TOPICAL (09:22)
[2019-08-08 10:00] VITALS: BP 151/90; PULSE 78; RESP 18; TEMP 36.8; O2SAT 93
[2019-08-08 13:30] VITALS: PULSE 76; RESP 20
[2019-08-08] MEDS: Ipratropium/Albuterol Sulfate 3 ML AMPUL.NEB INHALATION ×2 (13:30→18:35)
[2019-08-08] MEDS: Cephalexin Suspension 250 MG/5 ML PO.SYRINGE 500 MG GT ×3 (14:14→23:58)
[2019-08-08 18:35] VITALS: PULSE 68; RESP 18; O2SAT 96
[2019-08-08] MEDS: QUEtiapine 25 MG Tablet GT (21:38)
[2019-08-08 22:00] VITALS: BP 147/90; PULSE 79; RESP 18; TEMP 36.9; O2SAT 98
[2019-08-09] MEDS: Enoxaparin 40 MG/0.4 ML Syringe SC (05:02)
[2019-08-09] MEDS: Cephalexin Suspension 250 MG/5 ML PO.SYRINGE 500 MG GT ×4 (05:03→23:38)
[2019-08-09] MEDS: Menthol/Lanolin/Calamine/Znox 113 GM Tube 1 APPLIC TOPICAL ×3 (05:04→21:33)
[2019-08-09] MEDS: Jevity 1.5 1,000 ML 65 ML GT (06:03)
[2019-08-09 06:22] LABS: Hematocrit 35.8 % (40-54); Hemoglobin 11.6 g/dL (13.0-16.5)
[2019-08-09 06:25] VITALS: PULSE 72; RESP 18; O2SAT 97
[2019-08-09] MEDS: Ipratropium/Albuterol Sulfate 3 ML AMPUL.NEB INHALATION ×3 (06:25→19:20)
[2019-08-09 06:42] LABS: Anion Gap 5 (5-15); BUN 12 mg/dL (7-18); BUN/Creat Ratio 12.7 RATIO (10-20); Calcium,Total 8.9 mg/dL (8.5-10.1); Chloride 98 mmol/L (98-107); Creatinine, Serum 0.94 mg/dL (0.70-1.30); EST Glomerular Filtration Rate 95 mL/min (>60); Est Glom Filt Rate - Afr Amer 114 mL/min (>60); Estimated Creatinine Clearance 96.15 ml/min; Glucose 111 mg/dL (74-106); Magnesium 2.2 mg/dL (1.6-2.6); Potassium 3.6 mmol/L (3.5-5.1); Sodium Level 135 mmol/L (136-145)
--- NOTE | 2019-08-09 09:58 | CASEMGMT ---
Social Work IDT met with patient and mother via conference call for Team Meeting. Discussed patient's progress in therapy. Pt is is transferring with a hyoer, but the goal is to trial a transfer without the lift. Pt could stand at the wall rail for 3 mins with modx2. Pt is in w/c today and will continue to work on w/c mobility. Pt regained some right hand movements on this date, attempting to assist with dressing while in bed, CGA to min assist for trunk control and total assist for ADLs. ST working on pt's expressive aphasia, but able to understand others and make needs known. St working on other forms of communication, specifically typing. Pt is receiving ATB through peg tube for infection in site. Pt will transition to bolus tube feeds 5x/day. Pt is smiling and in good spirits. Physician did start pt on antidepressant and requested SW to refer to behavioral health for depression. Referral made. Explained insurance update 08/15 and continued stay is not guaranteed. Will ReTeam next week. Will continue to follow. Morena Schroeder, REHAB OFFICE COORDINATOR FINANCIAL REPORTING ACCOUNTANT
[2019-08-09 10:00] VITALS: BP 150/90; PULSE 72; RESP 16; TEMP 36.6; O2SAT 95
[2019-08-09] MEDS: BACITRACIN 15 GM Tube 1 APPLIC TOPICAL (10:31)
[2019-08-09] MEDS: Carvedilol 25 MG Tablet GT ×2 (10:31→21:33)
[2019-08-09] MEDS: Nystatin Powder 15gm Bottle 1 APPLIC TOPICAL ×2 (10:32→21:34)
[2019-08-09] MEDS: hydroCHLOROthiazide 25 MG Tablet GT (10:32)
[2019-08-09] MEDS: Sertraline 50 MG Tablet PO (10:32)
[2019-08-09] MEDS: amLODIPine 10 MG Tablet GT (10:32)
[2019-08-09 13:30] VITALS: PULSE 73; RESP 18; O2SAT 97
--- NOTE | 2019-08-09 14:06 | CPS ---
Patient placed on venti mask through the trach, cool aerosol will be worn at night. Venti mask can be worn throughout the day. This RT ran it over with Dr. Deondre Mensah ELECTRICIAN SUPERVISOR
[2019-08-09] MEDS: Jevity 1.5. 1,000 ML Bottle 300 ML GT ×3 (15:00→21:34)
--- NOTE | 2019-08-09 16:56 | PCM.PN.BLA ---
Progress Note Patient was seen on team rounds today and his mother participated in the telephone in the team meeting by phone. Afebrile VSS-blood pressures are not adequately controlled and in fact have been increasing since admission. The goal of treatment is to maintain the blood pressure less than 130/80. The blood pressure this a.m. is 150/90. Current antihypertensives include amlodipine 10 mg daily, carvedilol 25 mg twice daily and hydrochlorothiazide 25 mg daily. Heart rate is mostly in the 70s. Maintaining appropriate oxygen saturation on RA Oral intake is [] Discussed with nursing - no problems that need addressed Reviewed the PT/OT/ST notes Medication list reviewed. All lab was personally reviewed. Hemoglobin is stable at 11.6. Sodium is mildly decreased at 135 today and the BUN is 12 with a creatinine of 0.94. Potassium is 3.6. HGBA1C is 6.1%. He denies chest pain, shortness of breath, nausea, abdominal pain. He has an occasional cough which is loose and the expectorations from the trach site are clear. Alert, smiling, very interactive today and communicating through hand gestures, oriented x3 Lungs -scattered rhonchi that clear significantly after a cough. Heart-regular rate and rhythm, no gallop Abdomen-obese, soft, nondistended, no guarding with palpation, bowel sounds are normal, the new PEG site has no purulent discharge or erythema around it and the old PEG site is essentially closed. There is a trace of erythema in the area but no pain with palpation No peripheral edema He has started to move his right hand today. He was able to stand at the wall rail for 3-1/2 minutes today. He did the NuStep for 10 minutes today. Please see the PT/OT/ST notes for a better update on how he is progressing. Impressions 1. Debility post intracerebral hemorrhage involving the left thalamus and intraventricular hemorrhage with Hydrocephalus. Status post ventriculostomy and placement of a ventricular shunt at [facility]. Right-sided weakness, dysphagia, severe expressive a aphasia. 2. Status post tracheostomy for acute respiratory failure with prolonged intubation 3. Status post PEG tube for dysphagia 4. Hypertension-not adequately controlled on the present medications. Lisinopril 10 mg daily has been added to his drug regimen. Continue to monitor blood pressures closely and the goal for blood pressure control is less than 130/80. 5. Glucose intolerance-I suspect this should improve with weight loss and weight loss was encouraged. 6. Hypoxia with sleep despite tracheostomy. I suspect he has both obstructive sleep apnea and central sleep apnea related to his recent stroke. He will need a formal sleep study at discharge and follow-up with pulmonary medicine. 7. Acute anemia-suspect secondary to blood loss related to tracheostomy, PEG tube insertion and frequent lab draws during prolonged hospital admission. Hemoglobin is increasing. 8. Urinary incontinence and urine retention - resolved. Initially the postvoid residual ranged from 200-3 59 but the most recent postvoid residual was 66. 9. Depression-started on sertraline 50 mg once daily on 08/07/2019. If the tolerates this for the next 3 or 4 days without any GI symptoms we will likely increase the dose to a more appropriate antidepressant dose of 100 mg daily. Recheck another post void residual today or tomorrow. Continue therapy Start lisinopril 10 mg daily and continue to monitor blood pressure STROKE Vital Signs/Narrative: Vital Signs Pulse Resp Pulse Ox 08/09/19 13:30 73 18 97 Inpatient E&M: [id number] Subs Hosp L2
[2019-08-09] MEDS: Lisinopril 10 MG Tablet PO (18:28)
[2019-08-09 19:20] VITALS: PULSE 80; RESP 18
[2019-08-09 21:07] VITALS: BP 151/97; PULSE 82; RESP 20; TEMP 37.2; O2SAT 97
[2019-08-09 21:30] VITALS: RESP 20; O2SAT 97
[2019-08-09] MEDS: QUEtiapine 25 MG Tablet GT (21:33)
--- NOTE | 2019-08-09 23:40 | NURSING ---
2300 staff heard pt coughing all the up to the nursing station, staff when back to the pt room and pt was slouched in bed and coughing bring up a scant amt of creamy white thick secretions.. staff suctioned pt at this time for a small amt of thick creamy white secretion. pt tolerated this well and pt sounding better with upper lung you clear at this time. staff had offered pt earlier to suction trach and pt refused when he had been coughing up secretions when clinical findings were completed. 2350-pt resting quietly at this time with even non-labored respirations .
--- NOTE | 2019-08-10 02:47 | NURSING ---
Reviewed and agree with ANIMAL HUSBANDRY MANAGER documentation and charting.
[2019-08-10] MEDS: Jevity 1.5. 1,000 ML Bottle 300 ML GT ×2 (05:03→09:38)
[2019-08-10] MEDS: Cephalexin Suspension 250 MG/5 ML PO.SYRINGE 500 MG GT ×4 (05:03→20:25)
[2019-08-10] MEDS: Menthol/Lanolin/Calamine/Znox 113 GM Tube 1 APPLIC TOPICAL ×3 (05:06→20:26)
[2019-08-10] MEDS: Enoxaparin 40 MG/0.4 ML Syringe SC (05:07)
[2019-08-10 08:30] VITALS: PULSE 77; RESP 16; O2SAT 98
[2019-08-10] MEDS: Ipratropium/Albuterol Sulfate 3 ML AMPUL.NEB INHALATION ×3 (08:30→19:50)
[2019-08-10 09:18] VITALS: BP 123/81; PULSE 74; RESP 18; TEMP 36.7; O2SAT 99
[2019-08-10] MEDS: Carvedilol 25 MG Tablet GT ×2 (09:33→20:26)
[2019-08-10] MEDS: Lisinopril 10 MG Tablet PO (09:34)
[2019-08-10] MEDS: amLODIPine 10 MG Tablet GT (09:34)
[2019-08-10] MEDS: hydroCHLOROthiazide 25 MG Tablet GT (09:34)
[2019-08-10] MEDS: Sertraline 50 MG Tablet PO (09:34)
[2019-08-10] MEDS: BACITRACIN 15 GM Tube 1 APPLIC TOPICAL (09:38)
[2019-08-10] MEDS: Nystatin Powder 15gm Bottle 1 APPLIC TOPICAL ×2 (09:39→20:27)
[2019-08-10] MEDS: Jevity 1.5. 1,000 ML Bottle 240 ML GT ×3 (13:10→20:26)
[2019-08-10 13:36] VITALS: PULSE 76; RESP 18
[2019-08-10] MEDS: Loperamide 2 MG Capsule GT (17:56)
[2019-08-10 19:44] VITALS: BP 114/94; PULSE 80; RESP 17; TEMP 36.3; O2SAT 96
[2019-08-10 19:50] VITALS: PULSE 75; PULSE 80; RESP 17; RESP 18
[2019-08-10] MEDS: QUEtiapine 25 MG Tablet GT (20:26)
--- NOTE | 2019-08-11 04:34 | NURSING ---
Reviewed and agree with ELECTRIC RANGE SERVICER documentation and charting.
[2019-08-11] MEDS: Menthol/Lanolin/Calamine/Znox 113 GM Tube 1 APPLIC TOPICAL ×3 (05:10→22:33)
[2019-08-11] MEDS: Cephalexin Suspension 250 MG/5 ML PO.SYRINGE 500 MG GT ×3 (05:11→18:23)
[2019-08-11] MEDS: Nystatin Powder 15gm Bottle 1 APPLIC TOPICAL ×2 (05:11→22:33)
[2019-08-11] MEDS: Jevity 1.5. 1,000 ML Bottle 240 ML GT ×5 (05:12→22:33)
[2019-08-11] MEDS: Enoxaparin 40 MG/0.4 ML Syringe SC (05:21)
--- NOTE | 2019-08-11 07:08 | NURSING ---
Addendum entered by Flavia Faulkner 08/11/19 07:13: 60 minutes at hs and this am for care given. after staff leaves and pt will ring indicating incontinence and at times will require bed changes Original Note: d/t stroke pt requires extensive care for adls, tube feeding, oral care and trach care, as well as incontinence staff spent 60i
[2019-08-11 07:10] VITALS: PULSE 88; RESP 18
[2019-08-11] MEDS: Ipratropium/Albuterol Sulfate 3 ML AMPUL.NEB INHALATION ×2 (07:10→19:18)
[2019-08-11 08:36] VITALS: BP 132/85; PULSE 71; RESP 16; TEMP 36.6; O2SAT 98
--- NOTE | 2019-08-11 09:58 | PCM.PN.BLA ---
Progress Note Afebrile VSS and the BP is well controlled tolerating the TF with no residuals No problems reported by nursing Denies SOB, CP, abdominal pain, nausea He is alert and his mood is more positive and upbeat He is laughing and interacting with the staff in a positive way. Alert, NAD Lungs - CTA, no significant secretions from the trach HRRR PEG site is without erythema or purulent DC. (OLD site and the new site) no edema Impressions 1. Debility secondary to intracerebral hemorrhage involving the left thalamus and intraventricular hemorrhage with hydrocephalus. Status post ventriculostomy and placement of a ventricular shunt at [facility]. 2. Status post tracheostomy following prolonged intubation 3. Status post PEG tube. Speech therapy is working with him and may soon be able to start Agata water protocol...goal is to get him eating. 4. HTN - controlled 5. Glucose intolerance 6. Morbid obesity 7. depression-started on sertraline and seems to be doing well. 8. Sleep disordered breathing with hypoxia at night despite tracheostomy and I suspect he has central sleep apnea in addition to obstructive sleep apnea. Will need to follow-up with pulmonary medicine as an outpatient and have a formal sleep study. Continue therapy and current drug regimen. STROKE Vital Signs/Narrative: Vital Signs Temp Pulse Resp BP Pulse Ox 08/11/19 08:36 98 F 71 16 132/85 H 98 08/11/19 07:10 88 18 Inpatient E&M: [id number] Subs Hosp L2
[2019-08-11] MEDS: amLODIPine 10 MG Tablet GT (10:17)
[2019-08-11] MEDS: Lisinopril 10 MG Tablet PO (10:17)
[2019-08-11] MEDS: BACITRACIN 15 GM Tube 1 APPLIC TOPICAL (10:17)
[2019-08-11] MEDS: Sertraline 50 MG Tablet PO (10:17)
[2019-08-11] MEDS: hydroCHLOROthiazide 25 MG Tablet GT (10:17)
[2019-08-11] MEDS: Carvedilol 25 MG Tablet GT ×2 (10:17→22:33)
[2019-08-11 19:19] VITALS: PULSE 88; RESP 18
[2019-08-11 19:54] VITALS: BP 135/73; PULSE 77; RESP 20; TEMP 37; O2SAT 95
[2019-08-11 20:57] VITALS: O2SAT 98
[2019-08-11] MEDS: QUEtiapine 25 MG Tablet GT (22:33)
[2019-08-12] VITALS (7 sets, daily range): BP systolic 127–146; BP diastolic 68–78; PULSE 66–82; RESP 16–20; TEMP 36.8–37.1; O2SAT 94–99
[2019-08-12] MEDS: Cephalexin Suspension 250 MG/5 ML PO.SYRINGE 500 MG GT ×5 (00:56→22:28)
[2019-08-12] MEDS: Enoxaparin 40 MG/0.4 ML Syringe SC (05:33)
[2019-08-12] MEDS: Menthol/Lanolin/Calamine/Znox 113 GM Tube 1 APPLIC TOPICAL ×3 (05:33→22:27)
[2019-08-12] MEDS: Jevity 1.5. 1,000 ML Bottle 240 ML GT ×5 (05:34→22:28)
[2019-08-12] MEDS: Ipratropium/Albuterol Sulfate 3 ML AMPUL.NEB INHALATION ×3 (07:25→20:35)
[2019-08-12] MEDS: BACITRACIN 15 GM Tube 1 APPLIC TOPICAL (09:58)
[2019-08-12] MEDS: Carvedilol 25 MG Tablet GT ×2 (09:58→22:28)
[2019-08-12] MEDS: amLODIPine 10 MG Tablet GT (09:59)
[2019-08-12] MEDS: hydroCHLOROthiazide 25 MG Tablet GT (09:59)
[2019-08-12] MEDS: Lisinopril 10 MG Tablet PO (09:59)
[2019-08-12] MEDS: Sertraline 50 MG Tablet PO (09:59)
[2019-08-12] MEDS: Nystatin Powder 15gm Bottle 1 APPLIC TOPICAL ×2 (10:14→22:29)
--- NOTE | 2019-08-12 15:31 | CHAPLAIN ---
Type of Pastoral Visit _x__ Initial Visit ___ Follow-up Visit ___ On-call Visit ___ General Patient Visit ___ Spiritual Assessment ___ Family Conference ___ Bereavement ___ Rapid Response ___ Code Blue ___ Other (describe below) Pastoral Care Referral From ___ Patient ___ Family ___ Nurse ___ Physician ___ Strip Polisher ___ Budget Coordinator _x__ Teaching Music Lessons - Other (describe below) Sacrament/Intervention _?__ Active listening ___ Anointing ___ Judaism ___ Bereavement ___ Communion ___ Suha exploration ___ ___ Life review ___ Prayer ___ Reconciliation ___ Sacrament of Sick _x__ Supportive presence ___ Wedding _x__ Other (describe below) Pastoral Comments patient welcoming; visit suggested by community youth secretary; pt could easily follow conversation and responded appropriately with nods and hand motions; pt appears to have positive attitude and does not respond with needs or concerns; this solderer torch talked and asked questions using the pictures in room; pt would be open to future visits;
[2019-08-12] MEDS: QUEtiapine 25 MG Tablet GT (22:28)
[2019-08-13] MEDS: Cephalexin Suspension 250 MG/5 ML PO.SYRINGE 500 MG GT (06:23)
[2019-08-13] MEDS: Enoxaparin 40 MG/0.4 ML Syringe SC (06:23)
[2019-08-13] MEDS: Jevity 1.5. 1,000 ML Bottle 240 ML GT ×5 (06:23→22:29)
[2019-08-13] MEDS: Menthol/Lanolin/Calamine/Znox 113 GM Tube 1 APPLIC TOPICAL ×3 (06:24→22:29)
[2019-08-13] MEDS: Ipratropium/Albuterol Sulfate 3 ML AMPUL.NEB INHALATION ×2 (06:35→19:05)
[2019-08-13 06:45] VITALS: PULSE 60; RESP 20; O2SAT 95
[2019-08-13 07:47] VITALS: BP 159/91; PULSE 63; RESP 18; TEMP 36.6; O2SAT 99
[2019-08-13] MEDS: Sertraline 50 MG Tablet PO (10:50)
[2019-08-13] MEDS: hydroCHLOROthiazide 25 MG Tablet GT (10:50)
[2019-08-13] MEDS: Lisinopril 10 MG Tablet PO ×2 (10:50→22:28)
[2019-08-13] MEDS: BACITRACIN 15 GM Tube 1 APPLIC TOPICAL (10:50)
[2019-08-13] MEDS: amLODIPine 10 MG Tablet GT (10:50)
[2019-08-13] MEDS: Carvedilol 25 MG Tablet GT ×2 (10:50→22:29)
[2019-08-13] MEDS: Nystatin Powder 15gm Bottle 1 APPLIC TOPICAL ×2 (10:51→22:29)
--- NOTE | 2019-08-13 15:07 | PCM.PN.BLA ---
Progress Note Afebrile Blood pressure was elevated at 159/91 this morning. Last night it was 146/78. Tolerating bolus tube feedings. Last bowel movement was today and it was loose and brown and he is incontinent. Continues to be incontinent of urine. Alert, no apparent distress Lungs-clear to auscultation. Occasional cough with rare secretions when taking a deep breath Heart-regular rate and rhythm Abdomen-soft, nontender, nondistended, no guarding with palpation, bowel sounds present. The PEG site is free of erythema and there is no purulent discharge. The old PEG site is closed and nontender to palpation No rashes, no skin breakdown Impressions 1. Debility secondary to intracerebral hemorrhage, subarachnoid hemorrhage and hydrocephalus. Status post craniotomy and placement of reticular shunt. 2. Glucose intolerance 3. Hypertension-he is having end of dose failure so will increase lisinopril to 10 mg twice daily and continue to monitor blood pressures Increase lisinopril to 10 mg p.o. twice daily Check a CBC with differential, BMP, magnesium and phosphorus on Friday continue therapy Inpatient E&M: [id number] [facility] Hosp L1
[2019-08-13 19:05] VITALS: PULSE 70; RESP 18; O2SAT 94
[2019-08-13 19:39] VITALS: BP 119/68; PULSE 69; RESP 16; TEMP 37.2; O2SAT 94
[2019-08-13] MEDS: QUEtiapine 25 MG Tablet GT (22:28)
[2019-08-14] MEDS: Enoxaparin 40 MG/0.4 ML Syringe SC (06:50)
[2019-08-14] MEDS: Jevity 1.5. 1,000 ML Bottle 240 ML GT ×5 (06:50→21:17)
[2019-08-14] MEDS: Menthol/Lanolin/Calamine/Znox 113 GM Tube 1 APPLIC TOPICAL ×3 (06:51→21:16)
[2019-08-14 07:07] LABS: Anion Gap 5 (5-15); BUN 19 mg/dL (7-18); BUN/Creat Ratio 19.1 RATIO (10-20); Calcium,Total 9.1 mg/dL (8.5-10.1); Chloride 100 mmol/L (98-107); EST Glomerular Filtration Rate 89 mL/min (>60); Est Glom Filt Rate - Afr Amer 108 mL/min (>60); Estimated Creatinine Clearance 90.38 ml/min; Glucose 93 mg/dL (74-106); Magnesium 2.2 mg/dL (1.6-2.6); Phosphorus 5.7 mg/dL (2.5-4.9); Potassium 3.8 mmol/L (3.5-5.1); Sodium Level 137 mmol/L (136-145)
[2019-08-14 07:30] VITALS: PULSE 76; RESP 18; O2SAT 91
[2019-08-14] MEDS: Ipratropium/Albuterol Sulfate 3 ML AMPUL.NEB INHALATION ×3 (07:30→18:54)
[2019-08-14 07:45] VITALS: O2SAT 94
[2019-08-14 07:52] VITALS: BP 120/70; PULSE 70; RESP 20; TEMP 36.8; O2SAT 92
[2019-08-14] MEDS: Carvedilol 25 MG Tablet GT ×2 (09:46→21:15)
[2019-08-14] MEDS: BACITRACIN 15 GM Tube 1 APPLIC TOPICAL (09:46)
[2019-08-14] MEDS: hydroCHLOROthiazide 25 MG Tablet GT (09:47)
[2019-08-14] MEDS: Lisinopril 10 MG Tablet PO ×2 (09:48→21:15)
[2019-08-14] MEDS: Sertraline 50 MG Tablet PO (09:48)
[2019-08-14] MEDS: amLODIPine 10 MG Tablet GT (09:48)
[2019-08-14] MEDS: Nystatin Powder 15gm Bottle 1 APPLIC TOPICAL ×2 (09:49→21:41)
[2019-08-14 13:47] VITALS: PULSE 79; RESP 18
[2019-08-14 18:47] VITALS: BP 141/75; PULSE 64; RESP 16; TEMP 36.9; O2SAT 98
[2019-08-14 18:54] VITALS: PULSE 64; RESP 14
[2019-08-14] MEDS: QUEtiapine 25 MG Tablet GT (21:15)
--- NOTE | 2019-08-14 23:23 | NURSING ---
Pt overheard coughing in bed while nurse was outside room. Pt was awake in bed and still coughing when nurse entered room. This nurse asked pt if pt would allow me to suction trach to clear mucous and allow more restful sleep. Pt shook his head. This nurse repeated concern for pt but pt refused a second time. Will continue to monitor.
[2019-08-15] MEDS: Enoxaparin 40 MG/0.4 ML Syringe SC (06:10)
[2019-08-15] MEDS: Menthol/Lanolin/Calamine/Znox 113 GM Tube 1 APPLIC TOPICAL ×3 (06:10→21:56)
[2019-08-15] MEDS: Jevity 1.5. 1,000 ML Bottle 240 ML GT ×5 (06:10→21:57)
[2019-08-15 07:01] LABS: Anion Gap 4 (5-15); BUN 20 mg/dL (7-18); BUN/Creat Ratio 17.2 RATIO (10-20); Calcium,Total 9.1 mg/dL (8.5-10.1); Chloride 99 mmol/L (98-107); Creatinine, Serum 1.16 mg/dL (0.70-1.30); EST Glomerular Filtration Rate 75 mL/min (>60); Est Glom Filt Rate - Afr Amer 90 mL/min (>60); Estimated Creatinine Clearance 77.92 ml/min; Glucose 95 mg/dL (74-106); Magnesium 2.2 mg/dL (1.6-2.6); Phosphorus 5.7 mg/dL (2.5-4.9); Potassium 3.8 mmol/L (3.5-5.1); Sodium Level 136 mmol/L (136-145)
[2019-08-15 07:40] VITALS: PULSE 80; RESP 18; O2SAT 98
[2019-08-15] MEDS: Ipratropium/Albuterol Sulfate 3 ML AMPUL.NEB INHALATION ×3 (07:40→19:15)
[2019-08-15 08:26] VITALS: BP 116/63; PULSE 70; RESP 18; TEMP 36.7; O2SAT 97
[2019-08-15] MEDS: Loperamide 2 MG Capsule GT (09:51)
[2019-08-15] MEDS: BACITRACIN 15 GM Tube 1 APPLIC TOPICAL (09:51)
[2019-08-15] MEDS: Carvedilol 25 MG Tablet GT ×2 (09:51→21:56)
[2019-08-15] MEDS: Lisinopril 10 MG Tablet PO ×2 (09:51→21:57)
[2019-08-15] MEDS: Sertraline 50 MG Tablet PO (09:51)
[2019-08-15] MEDS: hydroCHLOROthiazide 25 MG Tablet GT (09:51)
[2019-08-15] MEDS: Nystatin Powder 15gm Bottle 1 APPLIC TOPICAL ×2 (09:52→21:57)
[2019-08-15] MEDS: amLODIPine 10 MG Tablet GT (09:54)
[2019-08-15 13:33] VITALS: PULSE 78; RESP 18
[2019-08-15 19:15] VITALS: PULSE 71; RESP 16; O2SAT 92
[2019-08-15 19:19] VITALS: BP 116/61; PULSE 68; RESP 16; TEMP 37.1; O2SAT 93
[2019-08-15 21:00] VITALS: BMI 40.8
[2019-08-15] MEDS: QUEtiapine 25 MG Tablet GT (21:57)
[2019-08-16] VITALS (7 sets, daily range): BP systolic 122–142; BP diastolic 65–66; PULSE 65–84; RESP 16–18; TEMP 36.8–37; O2SAT 93–99; BMI 40.8
[2019-08-16] MEDS: Menthol/Lanolin/Calamine/Znox 113 GM Tube 1 APPLIC TOPICAL ×3 (05:24→21:14)
[2019-08-16] MEDS: Enoxaparin 40 MG/0.4 ML Syringe SC (05:24)
[2019-08-16] MEDS: Jevity 1.5. 1,000 ML Bottle 240 ML GT ×5 (05:24→21:13)
[2019-08-16] MEDS: Ipratropium/Albuterol Sulfate 3 ML AMPUL.NEB INHALATION ×3 (06:21→19:47)
--- NOTE | 2019-08-16 06:49 | NURSING ---
Pt suctioned this a.m. and had moderate amount of white, creamy sputum. Pt tolerated fair.
[2019-08-16 06:56] LABS: Absolute Lymphocyte Count 1.42 X10^3/uL (0.83-4.51); Absolute Neutrophil Count 5.1 X10^3/uL (2.0-7.7); Basophil# 0.05 X10^3/uL; Basophil% 0.7 % (0-1); Eosinophil# 0.28 X10^3/uL; Eosinophils% 3.7 % (0-5); Hematocrit 35.9 % (40-54); Hemoglobin 11.8 g/dL (13.0-16.5); Lymphocyte # 1.42 X10^3/ul (4.0); Lymphocyte % 18.9 % (19-41); Mean Corp Hgb Conc 32.9 g/dL (32-36); Mean Corpuscular Hgb 30.6 pg (27.0-32.0); Mean Corpuscular Volume 93.2 fL (80-94); Mean Platelet Vol. 10.4 fl (6.2-12.0); Monocyte# 0.59 X10^3/uL; Monocyte% 7.9 % (0-10); NRBC Flagged by Analyzer 0 % (0-5); Neutrophil # 5.12 X10^3/uL (2.7-7.7); Neutrophil % 68.3 % (47-70); Platelet Count 287 K/mm3 (150-450); RBC Distribution Width CV 12.4 % (11.6-14.6); RBC Distribution Width SD 41.1 fl (35.1-43.9); Red Blood Count 3.85 M/mm3 (4.6-6.2); White Blood Count 7.5 K/mm3 (4.4-11.0)
[2019-08-16 07:15] LABS: Anion Gap 4 (5-15); BUN 21 mg/dL (7-18); BUN/Creat Ratio 16.9 RATIO (10-20); Calcium,Total 8.9 mg/dL (8.5-10.1); Chloride 101 mmol/L (98-107); Creatinine, Serum 1.24 mg/dL (0.70-1.30); EST Glomerular Filtration Rate 69 mL/min (>60); Est Glom Filt Rate - Afr Amer 84 mL/min (>60); Estimated Creatinine Clearance 72.89 ml/min; Glucose 154 mg/dL (74-106); Phosphorus 4.8 mg/dL (2.5-4.9); Potassium 4.1 mmol/L (3.5-5.1); Sodium Level 137 mmol/L (136-145)
--- NOTE | 2019-08-16 10:54 | CASEMGMT ---
Social Work IDT met with patient and mom via conference call for Team meeting. Discussed patient's progress in therapy. Pt is walking 20 ft at wall rail x2 with mod x2 and w/c follow as left side is not as strong, and leg emilia. Pt is mod x2 fro transfers mod assist for bathing, and grooming, min for UE dressing, total for LE dressing. Pt can stand at // bars for 4 mins, scoot pivot transfers min to mod x1. Pt can write with left hand and text. Pt tolerated 1 [address] session, on [place] free water protocol, and will complete MBS soon. Pt's expressive apashia has greatly improved. Pt smiling, laughing, and has good cognitive function. Phsyicain to consult pulmonary to downsize trache and start capping trials. Explained insurance update 08/15 and continued stay is not guaranteed. However, pt making significant progress and IDT recommending continued therapy and nursing. Will continue to follow. Morena Schroeder, SINKER PULLER MARBLE MECHANIC HELPER
[2019-08-16] MEDS: Carvedilol 25 MG Tablet GT ×2 (11:15→21:14)
[2019-08-16] MEDS: hydroCHLOROthiazide 25 MG Tablet GT (11:15)
[2019-08-16] MEDS: Loperamide 2 MG Capsule GT (11:15)
[2019-08-16] MEDS: amLODIPine 10 MG Tablet GT (11:15)
[2019-08-16] MEDS: Sertraline 50 MG Tablet PO (11:15)
[2019-08-16] MEDS: Lisinopril 10 MG Tablet PO ×2 (11:15→21:12)
[2019-08-16] MEDS: Nystatin Powder 15gm Bottle 1 APPLIC TOPICAL ×2 (11:16→21:13)
[2019-08-16] MEDS: BACITRACIN 15 GM Tube 1 APPLIC TOPICAL (11:17)
--- NOTE | 2019-08-16 12:26 | PN_ITS ---
Progress Note Segundo was seen on team rounds today. His mother Shakira participated in the team rounds by phone. Afebrile VSS-blood pressure is currently well controlled. Heart rate is within normal limits. Maintaining appropriate oxygen saturation on RA He is currently on tube feeds by bolus and tolerating well without residuals Discussed with nursing - no problems that need addressed Reviewed the PT/OT/ST notes. Has been tolerating the Passy Merrick speaking valve for 1 hour at a time Medication list reviewed. All lab was personally reviewed. White blood cell count and platelets are within normal limits. The hemoglobin is stable at 11.8 and is actually up from 11.6 on 08/09/2019 and from 10.6 on 08/06/2019. Potassium, sodium and calcium are within normal limits. Blood sugar this morning on the BMP was 154 but I am not sure what the proximity of the most recent feeding was. Phosphorus and magnesium are within normal limits. He denies chest pain, shortness of breath, nausea, abdominal pain, palpitations. He is sleeping well at night and he denies feeling depressed. He is very animated when speaking with the team and he gets his needs across. He is smiling and does not appear to be depressed, but, according to staff he is more grumpy and not wanting to participate with therapy in the valve lapper. Alert, appropriate, upbeat affect Scant secretions from the tracheostomy, there is no erythema around the trach site and no purulent DC Lungs - CTA after a few deep breaths HRRR, no ectopy and no gallop Abdomen-obese, nontender, nondistended, soft, no guarding with palpation, the PEG site is clean without erythema or discharge and he has no pain with palpation of the surrounding area No peripheral edema No rashes, no breakdown He is able to move the L hip forward when ambulating with the wall rail now with better consistency but, he is still requiring assistance with this to adduct the left leg and widen his stance...he can not do this on his own yet. Still having significant ataxia on the left side. He still needs a wheelchair follow. I reviewed Tamym's notes from occupational therapy and the patient is doing better with his upper body dressing and only needed minimal assistance. He is still total assistance for toileting, lower extremity dressing. He is max assist for grooming and moderate assistance with bathing. Impressions 1. Debility secondary to intracerebral hemorrhage involving the left thalamus and intraventricular hemorrhage with hydrocephalus. Status post ventriculostomy and placement of a ventricular shunt at [facility]. 2. Status post tracheostomy following prolonged intubation 3. Status post PEG tube. Speech therapy is working with him and may soon be able to start Agata water protocol...goal is to get him eating. 4. HTN - controlled 5. Glucose intolerance 6. Morbid obesity 7. depression-started on sertraline and seems to be doing well. 8. Sleep disordered breathing with hypoxia at night despite tracheostomy and I suspect he has central sleep apnea in addition to obstructive sleep apnea. Will need to follow-up with pulmonary medicine as an outpatient and have a formal sleep study. Discuss the increased BS this AM with charge machine operator. Does he need a change in the TF formula? Will check a blood sugar 2 hours after the next bolus tube feed. We found out today that Lawrence is not a morning person.....has been doing much better in the afternoon with therapy and not so good in the AM. His therapy schedule will be adjusted. Consult pulmonary medicine. Can the trach be down sized? or can he be decannulated? Will continue to need O2 at night and will also need a formal sleep study post DC. He is making good progress toward his therapy goals. He can no ambulate 20 ft using the wall rail. If he continues to be grumpy and non-cooperative in the AM with the change in the therapy times will likely increase the dose of the antidepressant. We are going to allow a friend to come in for a visit with Lawrence.....he has been isolated for several weeks now and this may be contributing to the depression. Inpatient E&M: 05856 Subs Hosp L2
[2019-08-16 16:50] LABS: Bedside Glucose 135 mg/dL (70-110)
[2019-08-16] MEDS: QUEtiapine 25 MG Tablet GT (21:13)
[2019-08-17] MEDS: Jevity 1.5. 1,000 ML Bottle 240 ML GT ×2 (06:16→09:22)
[2019-08-17] MEDS: Enoxaparin 40 MG/0.4 ML Syringe SC (06:16)
[2019-08-17] MEDS: Menthol/Lanolin/Calamine/Znox 113 GM Tube 1 APPLIC TOPICAL ×3 (06:17→21:04)
[2019-08-17 07:27] VITALS: PULSE 65; RESP 16; O2SAT 98
[2019-08-17] MEDS: Ipratropium/Albuterol Sulfate 3 ML AMPUL.NEB INHALATION ×2 (07:27→13:25)
[2019-08-17 08:19] VITALS: BP 110/61; PULSE 64; RESP 16; TEMP 36.9; O2SAT 94
[2019-08-17] MEDS: hydroCHLOROthiazide 25 MG Tablet GT (09:20)
[2019-08-17] MEDS: BACITRACIN 15 GM Tube 1 APPLIC TOPICAL (09:20)
[2019-08-17] MEDS: Carvedilol 25 MG Tablet GT ×2 (09:20→21:03)
[2019-08-17] MEDS: amLODIPine 10 MG Tablet GT (09:21)
[2019-08-17] MEDS: Lisinopril 10 MG Tablet PO ×2 (09:21→21:03)
[2019-08-17] MEDS: Sertraline 50 MG Tablet PO (09:21)
[2019-08-17] MEDS: Nystatin Powder 15gm Bottle 1 APPLIC TOPICAL ×2 (09:21→21:03)
--- NOTE | 2019-08-17 10:51 | NURSING ---
Dr. Gaming present to asses patient and removing trach. Patient is to remained capped for 12 hours today if tolerated and then increase to 24 hours tomorrow. Patient is educted and aware and is agreeably to treatment plan.
[2019-08-17 11:53] VITALS: PULSE 70; RESP 16; O2SAT 94
[2019-08-17 12:02] VITALS: BMI 40.8
--- NOTE | 2019-08-17 12:45 | CON.PCM_ITS ---
Reason for Consult Date of Consultation: 08/17/19 Reason for Consultation: Possible Trach Decannulation History of Present Illness: The patient is a 38-year-old male, with a history as outlined below, who presented to the rehab unit on August 03 after having spent nearly a month on the TCU. The patient sustained a hemorrhagic CVA on June 09, 2019. He required transfer to [facility], where he underwent ventriculostomy and shunt placement. The patient did have a prolonged endotracheal intubation, which led to subsequent tracheostomy and PEG tube placement. The patient's TCU stay was complicated by unintentional tracheostomy decannulation. The patient currently has a #[address] in place[address] No significant secretions were noted by respiratory or nursing staff. The patient has been on room air. He tolerates a Passy-Merrick valve without issue. Per speech therapy, the patient has been reluctant to go beyond 1 hour of a capping trial. It does appear that the patient's trach was placed on June 23, 2019. Past Medical History Past Medical History (Chronic Problems): Chronic Problems Depression (Chronic) Hemorrhagic stroke (Chronic) HTN (hypertension) (Chronic) untreated prior to the stroke Chronic cholecystitis (Chronic) Tracheostomy present (Chronic) Percutaneous endoscopic gastrostomy status (Chronic) Elevated hemidiaphragm (Chronic) Obesity (Chronic) Allergies No Known Allergies Allergy (Verified 08/03/19 13:36) Home Medications: Ambulatory Orders Medication Instructions Recorded Amlodipine [Norvasc] 10 mg GT DAILY 07/08/19 Carvedilol 25 mg GT BID 07/08/19 Glucerna 1.5 70 ml GT CONT 07/08/19 Ipratropium/Albuterol Sulfate 3 ml IH Q6H 07/08/19 [Iprat-Albut 0.5-3(2.5) mg/3 ml] Quetiapine Fumarate [Seroquel] 25 mg GT BID 07/08/19 Acetaminophen Liquid [Tylenol 650 mg GT Q4H PRN PRN udc 08/03/19 Liquid] Bisacodyl [Dulcolax] 10 mg RECTAL DAILY PRN suppos. 08/03/19 Senna/Docusate Sodium [Senokot-S] 1 tab GT BID PRN tab 08/03/19 Menthol/Lanolin/Calamine/Znox 1 applic TOPICAL TID 08/04/19 [Calmoseptine Ointment] Nystatin Powder [Mycostatin Powder] 1 applic TOPICAL BID 08/04/19 Polyethylene Glycol 3350 [Miralax] 17 gm GT DAILY 08/04/19 Surgical History: - - Tracheostomy, PEG tube. Ventriculostomy right frontal skull with insertion of ventricular shunt for hydrocephalus Psychiatric History: Depression - Untreated at the time of the stroke Lives: Alone - He lives in an apartment/condo with a full flight of stairs. Th ere is one handrail. 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 Smoking Status: Never smoker Tobacco Use: Non-smoker Alcohol: Occasional Drugs: None - *Family History Maternal History Items: No pertinent history Paternal History Items: No pertinent history Review of Systems Constitutional: Denies: Chills, Fever, Weight Change HEENT: Reports: Difficulty Swallowing Cardiovascular: Denies: Chest Pain, Palpitations Respiratory: Denies: Cough, Sputum production Gastrointestinal: Denies: Abdominal Pain, Nausea, Vomiting Genitourinary: Denies: Dysuria Musculoskeletal: Denies: Joint Pain, Joint Tenderness Skin: Denies: Rash, Wounds Neurological: Denies: Numbness, Tingling, Focal weakness Psychiatric: Denies: Anxiety, Depression, Homicidal Ideations, Suicidal Ideations Hematologic/ Lymphatic: Denies: Easy Bruising, Easy Bleeding Patient Problems: Active and Suspected Problems Cellulitis (Acute) at the PEG site Normochromic normocytic anemia (Acute) likely due to frequent blood draws while acutely ill. Hyperglycemia (Acute) no hx of DM Regional wall motion abnormality of heart (Acute) due to CAD/NM? QT prolongation (Acute) on EKG 06/09/19 prior to the initiation of Seroquel - Physical Exam Vitals/I&O's: Vital Signs Temp Pulse Resp BP Pulse Ox 98.4 F 70 16 110/61 94 08/17/19 08:19 08/17/19 11:53 08/17/19 11:53 08/17/19 08:19 08/17/19 11:53 Oxygen Flow Rate (L/min) 6 Oxygen Delivery Method Room Air Weight: 255 lb 4.725 oz Body Mass Index (BMI) 40.8 Finger Stick Blood Glucose 92 Intake and Output for Last 24 Hours 08/15/19 08/16/19 08/17/19 23:59 23:59 23:59 Intake Total 3520 / 3520 3180 / 3180 880 / 880 Output Total 800 / 800 800 / 800 Balance 2720 / 2720 3180 / 2580 80 / 80 General: Alert, Oriented x3, Cooperative, No apparent distress, - - Sitting in recliner HEENT: Atraumatic, PERRLA, EOMI, Normocephalic Neck: Supple, No Nodes, Trachea Midline, - - Tracheostomy site is C/D/I Lungs: Normal air movement, No rhonchi, No wheeze, No rales Cardiovascular: Regular rate, Regular Rhythm, Normal S1 Abdomen: Bowel Sounds Present, Soft, Non Tender Extremities: No clubbing, No cyanosis Skin: No breakdown Musculoskeletal: No Muscle Wasting Lymphatic: No Cervical, Supraclavicular, or Inguinal Adenopathy Psych/Mental Status: Normal Affect, Appropriate Labs (Last 48 Hours) 08/16/19 08/16/19 08/16/19 06:50 06:50 16:20 WBC 7.5 RBC 3.85 L Hgb 11.8 L Hct 35.9 L MCV 93.2 MCH 30.6 MCHC 32.9 RDW Std Deviation 41.1 RDW Coeff of Mary 12.4 Plt Count 287 MPV 10.4 Immature Gran % (Auto) 0.500 Neut % (Auto) 68.3 Lymph % (Auto) 18.9 L Davie % (Auto) 7.9 Eos % (Auto) 3.7 Baso % (Auto) 0.7 Absolute Neuts (auto) 5.1 Absolute Lymphs (auto) 1.42 Nucleated RBC % 0 Sodium 137 Potassium 4.1 Chloride 101 Carbon Dioxide 32.0 Anion Gap 4 L BUN 21 H Creatinine 1.24 Estim Creat Clear Calc 72.89 Est GFR (MDRD) Af Amer 84 Est GFR (MDRD) Non-Af 69 BUN/Creatinine Ratio 16.9 Glucose 154 H Calcium 8.9 Phosphorus 4.8 Magnesium 2.0 POC Glucose 135 H Current Medications Acetaminophen (Tylenol Liquid) 650 mg GT Q4H PRN PRN PRN Reason: Pain Score 1-10/10 Albuterol/Ipratropium (Duoneb) 3 ml INHALATION Q6H.RT YAMILET Last Admin: 08/17/19 07:27 Dose: 3 ml Documented by: Amlodipine Besylate (Norvasc) 10 mg GT DAILY [facility] Last Admin: 08/17/19 09:21 Dose: 10 mg Documented by: Bacitracin (Bacitracin Ointment) 1 applic TOPICAL DAILY [facility]; Protocol Last Admin: 08/17/19 09:20 Dose: 1 applicatio Documented by: Bisacodyl (Dulcolax) 10 mg RECTAL DAILY PRN PRN Reason: Constipation Bisacodyl (Dulcolax) 10 mg RECTAL .PRN X 1 PRN PRN Reason: Constipation Calamine/Phenol (Calmoseptine Ointment) 1 applic TOPICAL TID [facility]; Protocol Last Admin: 08/17/19 06:17 Dose: 1 applicatio Documented by: Carvedilol (Coreg) 25 mg GT BID [facility] Last Admin: 08/17/19 09:20 Dose: 25 mg Documented by: Emollient Ointment (Eucerin Intensive Repair) 1 applic TOPICAL 4X/DAY PRN PRN; Protocol PRN Reason: DRY SKIN Last Admin: 08/15/19 14:18 Dose: 1 applicatio Documented by: Enoxaparin Sodium (Lovenox) 40 mg SC DAILY@0600 [facility] Last Admin: 08/17/19 06:16 Dose: 40 mg Documented by: Enteral Nutritional Formula (Jevity 1.5) 240 ml GT 5X/DAY [facility] Last Admin: 08/17/19 09:22 Dose: 240 ml Documented by: Hydrochlorothiazide (Hctz) 25 mg GT DAILY [facility] Last Admin: 08/17/19 09:20 Dose: 25 mg Documented by: Sodium Chloride () 250 mls @ 15 mls/hr IV .[id number] PRN PRN Reason: Additional IVPB Infusion Last Infusion: 08/07/19 04:35 Dose: Infused Documented by: Lisinopril (Zestril) 10 mg PO BID [facility] Last Admin: 08/17/19 09:21 Dose: 10 mg Documented by: Loperamide HCl (Imodium) 2 mg GT Q4H PRN PRN Reason: DIARRHEA/LOOSE STOOLS Last Admin: 08/16/19 11:15 Dose: 2 mg Documented by: Magnesium Hydroxide (Milk Of Magnesia) 30 ml PO .PRN X 1 PRN PRN Reason: Constipation Nystatin (Mycostatin Powder) 1 applic TOPICAL BID [facility]; Protocol Last Admin: 08/17/19 09:21 Dose: 1 applicatio Documented by: Polyethylene Glycol (Miralax) 17 gm GT DAILY [facility] Last Admin: 08/17/19 09:21 Dose: Not Given Documented by: Quetiapine Fumarate (Seroquel) 25 mg GT QHS [facility] Last Admin: 08/16/19 21:13 Dose: 25 mg Documented by: Senna/Docusate Sodium (Senokot-S, Teressa-Colace) 1 tablet GT BID PRN PRN Reason: Constipation Sertraline HCl (Zoloft) 50 mg PO DAILY [facility] Last Admin: 08/17/19 09:21 Dose: 50 mg Documented by: Sodium Chloride () 10 - 40 ml IV UD PRN PRN Reason: SALINE FLUSH Last Admin: 08/07/19 21:29 Dose: 10 ml Documented by: Assessment/Plan All Active Problems Debility (Acute) Left-sided nontraumatic intraventricular intracerebral hemorrhage (Acute) Acute respiratory failure (Resolved) Hydrocephalus (Acute) Cellulitis (Acute) Normochromic normocytic anemia (Acute) Hyperglycemia (Acute) Regional wall motion abnormality of heart (Acute) QT prolongation (Acute) RECOMMENDATIONS: 1. Proceed with progressive capping trials over the next 2 to 3 days, with tentative plans for decannulation later this week. IMPRESSIONS: 1. Respiratory failure following hemorrhagic CVA, necessitating tracheostomy placement The patient currently has a stable airway in place. He is maintaining appropriate oxygen saturations on room air, has no significant respiratory secretions and appears to have a strong cough. At this time, the patient has a #6 cuffless [address]iley trach in place. I do not see an indication that he needs to be downsized any further. The patient is appropriate for capping trials. I did speak with speech therapy, with plans to cap his trach today for approximately 12 hours. If the patient tolerates capping for 12 hours, then tomorrow I would recommend that he be capped for 24 hours. If he tolerates progressive capping trials over the next several days, consideration could be given to decannulation towards the end of the week. Inpatient E&M: 35268 In Hosp L3
[2019-08-17 13:25] VITALS: PULSE 75; RESP 18; O2SAT 97
--- NOTE | 2019-08-17 13:53 | PCM.NTREPORT ---
Nutrition Therapy Report - History Nutrition Services has been consulted to:: Manage enteral nutrition Current diet / nutrition support order:: NPO; 240mL Jevity 1.5 w/ 200mL flush 5x/day to provide 1800 calories, 76 g protein, and 1912mL total fluid. - Anthropometric Measurements Height:: 5 ft 6 in Weight:: 115.8 kg Body Mass Index (BMI):: 41.2 - Relevant Labs Relevant Labs:: RBC 3.85 M/mm3 (4.6-6.2) L 08/16/19 06:50 Hgb 11.8 g/dL (13.0-16.5) L 08/16/19 06:50 Hct 35.9 % (40-54) L 08/16/19 06:50 Lymph % (Auto) 18.9 % (19-41) L 08/16/19 06:50 Sodium 135 mmol/L (136-145) L 08/09/19 06:10 Carbon Dioxide 33.0 mmol/L (21.0-32.0) H 08/15/19 06:10 Anion Gap 4 (5-15) L 08/16/19 06:50 BUN 21 mg/dL (7-18) H 08/16/19 06:50 Glucose 154 mg/dL (74-106) H 08/16/19 06:50 Phosphorus 5.7 mg/dL (2.5-4.9) H 08/15/19 06:10 Albumin 2.9 g/dL (3.2-5.0) L 08/06/19 06:10 Globulin 4.5 g/dL (2.2-4.2) H 08/06/19 06:10 Albumin/Globulin Ratio 0.6 RATIO (0.9-2.4) L 08/06/19 06:10 HDL Cholesterol 23 mg/dL (40-) L 08/06/19 06:10 - Assessment Food / Nutrition-Related History:: Continues to be NPO. Overall wt appears stable, 0.8 kg decrease since last review. Gradual wt loss desirable given obesity. Tube feeds decreased to 240mL bolus of Jevity 1.5 5x/day. Tolerating well from GI standpoint. Concerns for hyperglycemia yesterday AM - Nutrition Intervention Nutrition Prescription:: As discussed w/ Dr. Mendosa, pt would benefit from wt loss. Appling body wt, 64 kg. 30 calories/kg IBW ~1920 calories/day. However, in considering ASPEN guidelines for morbidly obese (22-25 calories/ kg IBW) pt's needs are more closely ~9423-9680 calories/day. Current tube feeds as ordered provide 1800 calories, 76 g protein, and ~259 g CHO per day. Approximately 57.5% of pt's calories are from CHO, 16.8% from protein, and 30% calories from fat. This is an appropriate distribution of macronutrients, so changing formula does not appear appropriate at this time. Will decrease calories/day so overall CHO/day is less. Will adjust tube feeds to 4x/day as well. See adjusted recommendations below. - Food / Nutrient Delivery Interventions Summary of nutrition intervention:: Adjusted tube feeds Nutrition support ordered as / adjusted to:: Will change tube feeds to 275mL 4x/day to provide 1650 calories, 70 g protein, and 836mL fluid. Continue 200mL flush 5x/day (w/ each feeding and at 2200) to provide a total of 1836mL/day. Nutrition education provided?: No - MNT Monitoring Further MNT monitoring and evaluation required?: Yes MNT Follow-up in:: 1-2 days
[2019-08-17 13:56] VITALS: BMI 41.2
[2019-08-17] MEDS: Jevity 1.5. 1,000 ML Bottle 275 ML GT ×2 (14:01→18:26)
[2019-08-17 14:18] VITALS: O2SAT 95
--- NOTE | 2019-08-17 16:14 | PCM.PN.BLA ---
Progress Note Afebrile Vital signs stable Maintaining appropriate oxygen saturation on room air while awake. FBS on 08/16/2019 was 154. A 2-hour postprandial blood sugar after a bolus feeding was 135. HGBA1C was 6.1 earlier in the admission and this is consistent with glucose intolerance. I discussed the elevated BS's with the technical support engineer and she would like to monitor the Blood sugar fasting a a 2 h PPBS for the next 2 days and if the blood sugars remain elevated will change the TF formula, possibly to Glucerna Lawrence was seen by Dr. Gaming today and the Passy Merrick is going to stay in for 12 hours today and if he tolerates will increase to 24 hours tomorrow. I dicussed this with Lawrence and he understands this is what we have to do to get him decannulated. He has no complaints L- CTA HRRR abd -soft, NT, ND no rashes or breakdown Impressions 1. glucose intolerance 2. Acute respiratory failure with hypoxia. Prolonged intubation at the previous hospital requiring tracheostomy. I hope we can get him decannulated by the end of the week. STROKE Vital Signs/Narrative: Vital Signs Pulse Resp Pulse Ox 08/17/19 14:18 95 08/17/19 13:25 75 18 97 Inpatient E&M: 20085 Subs Hosp L1
[2019-08-17] MEDS: QUEtiapine 25 MG Tablet GT (21:03)
[2019-08-17 21:45] LABS: Bedside Glucose 116 mg/dL (70-110)
[2019-08-18] VITALS: BP 144/74; PULSE 88; RESP 16; TEMP 36.7; O2SAT 96
[2019-08-18 02:18] VITALS: BMI 41.2
[2019-08-18] MEDS: Enoxaparin 40 MG/0.4 ML Syringe SC (06:20)
[2019-08-18] MEDS: Menthol/Lanolin/Calamine/Znox 113 GM Tube 1 APPLIC TOPICAL ×3 (06:20→23:19)
[2019-08-18] MEDS: Jevity 1.5. 1,000 ML Bottle 275 ML GT ×4 (06:20→17:18)
[2019-08-18 06:40] VITALS: PULSE 74; RESP 16; O2SAT 98
[2019-08-18] MEDS: Ipratropium/Albuterol Sulfate 3 ML AMPUL.NEB INHALATION ×2 (06:40→19:00)
[2019-08-18 06:55] LABS: Bedside Glucose 93 mg/dL (70-110)
[2019-08-18 07:33] VITALS: BP 122/75; PULSE 63; RESP 16; TEMP 36.9; O2SAT 100
--- NOTE | 2019-08-18 07:58 | PN_ITS ---
Progress Note Afebrile Blood pressures in the afternoon are still mildly increased Maintaining appropriate oxygen saturation on room air while awake. He is on 2 L of nasal O2 while sleeping due to sleep apnea No complaints sleeping well no N/V/abdominal pain L- CTA HRRR abd -soft, NT, ND no rashes or breakdown discussed the high FBS with the debt counselor and she is going to adjust the caloric intake since he is not actually as tall as what we were told and does not need that many calories. Impressions 1. Debility secondary to intracerebral hemorrhage involving the left thalamus and associated with intraventricular hemorrhage and hydrocephalus. He had a ventriculostomy and placement of a ventricular shunt at [facility]. 2. Acute respiratory failure with prolonged intubation requiring tracheostomy 3. Dysphagia-status post PEG tube 4. Hypertension-not adequately controlled yet. Will continue to adjust antihypertensives to get his systolic less than 130 and the diastolic less than 80 5. Glucose intolerance-encouraged weight loss 6. Morbid obesity 7. Depression-started on sertraline 50 mg daily 8. Sleep disordered breathing-will need a formal sleep study as an outpatient. Continue PT/OT/ST STROKE Vital Signs/Narrative: Vital Signs Temp Pulse Resp BP Pulse Ox 08/18/19 07:33 98.4 F 63 16 122/75 H 100 08/18/19 06:40 74 16 98 Inpatient E&M: [id number] Subs Hosp L2
--- NOTE | 2019-08-18 08:33 | PCM.PN.PUL ---
Patient Problems: Active and Suspected Problems Cellulitis (Acute) at the PEG site Normochromic normocytic anemia (Acute) likely due to frequent blood draws while acutely ill. Hyperglycemia (Acute) no hx of DM Regional wall motion abnormality of heart (Acute) due to CAD/IN? QT prolongation (Acute) on EKG 06/09/19 prior to the initiation of Seroquel Subjective: I was notified by Dr. Mendosa last evening that the patient only tolerated a capping trial for approximately 2 hours yesterday. Per speech therapy documentation, the patient's Passy-Carrollton valve was placed at approximately 10:30 AM. This was subsequently removed and the patient's trach was capped at 1345. The cap was then removed at 1635. Therefore, I did speak with respiratory therapy this morning and advised them to change the patient's tracheostomy tube from a #6 cuffless to a #4 cuffless Shiley. Capping trials can once again then proceed. - Physical Exam Vitals/I&O's: Vital Signs Temp Pulse Resp BP Pulse Ox 98.4 F 63 16 122/75 H 100 08/18/19 07:33 08/18/19 07:33 08/18/19 07:33 08/18/19 07:33 08/18/19 07:33 Oxygen Flow Rate (L/min) 6 Oxygen Delivery Method Room Air Weight: 255 lb 4.725 oz Body Mass Index (BMI) 41.2 Finger Stick Blood Glucose 92 Intake and Output for Last 24 Hours 08/16/19 08/17/19 08/18/19 23:59 23:59 23:59 Intake Total 3180 / 3180 2510 / 2510 Output Total 1200 / 1200 0 / 0 Balance 3180 / 2580 1310 / 1310 0 / 0 Laboratory Results 08/17/19 21:06: POC Glucose 116 H 08/18/19 06:21: POC Glucose 93 Current Medications Acetaminophen (Tylenol Liquid) 650 mg GT Q4H PRN PRN PRN Reason: Pain Score 1-10/10 Albuterol/Ipratropium (Duoneb) 3 ml INHALATION Q6H.RT YAMILET Last Admin: 08/18/19 06:40 Dose: 3 ml Documented by: Amlodipine Besylate (Norvasc) 10 mg GT DAILY YAMILET Last Admin: 08/17/19 09:21 Dose: 10 mg Documented by: Bacitracin (Bacitracin Ointment) 1 applic TOPICAL DAILY [facility]; Protocol Last Admin: 08/17/19 09:20 Dose: 1 applicatio Documented by: Bisacodyl (Dulcolax) 10 mg RECTAL DAILY PRN PRN Reason: Constipation Bisacodyl (Dulcolax) 10 mg RECTAL .PRN X 1 PRN PRN Reason: Constipation Calamine/Phenol (Calmoseptine Ointment) 1 applic TOPICAL TID [facility]; Protocol Last Admin: 08/18/19 06:20 Dose: 1 applicatio Documented by: Carvedilol (Coreg) 25 mg GT BID [facility] Last Admin: 08/17/19 21:03 Dose: 25 mg Documented by: Emollient Ointment (Eucerin Intensive Repair) 1 applic TOPICAL 4X/DAY PRN PRN; Protocol PRN Reason: DRY SKIN Last Admin: 08/17/19 18:27 Dose: 1 applicatio Documented by: Enoxaparin Sodium (Lovenox) 40 mg SC DAILY@0600 [facility] Last Admin: 08/18/19 06:20 Dose: 40 mg Documented by: Enteral Nutritional Formula (Jevity 1.5) 275 ml GT 0600,1000,1400,1800 [facility] Last Admin: 08/18/19 06:20 Dose: 275 ml Documented by: Sodium Chloride () 250 mls @ 15 mls/hr IV .[id number] PRN PRN Reason: Additional IVPB Infusion Last Infusion: 08/07/19 04:35 Dose: Infused Documented by: Lisinopril (Zestril) 10 mg PO QHS [facility] Last Admin: 08/17/19 21:03 Dose: 10 mg Documented by: Lisinopril (Zestril) 15 mg PO DAILY [facility] Loperamide HCl (Imodium) 2 mg GT Q4H PRN PRN Reason: DIARRHEA/LOOSE STOOLS Last Admin: 08/16/19 11:15 Dose: 2 mg Documented by: Magnesium Hydroxide (Milk Of Magnesia) 30 ml PO .PRN X 1 PRN PRN Reason: Constipation Nystatin (Mycostatin Powder) 1 applic TOPICAL BID [facility]; Protocol Last Admin: 08/17/19 21:03 Dose: 1 applicatio Documented by: Polyethylene Glycol (Miralax) 17 gm GT DAILY [facility] Last Admin: 08/17/19 09:21 Dose: Not Given Documented by: Quetiapine Fumarate (Seroquel) 25 mg GT QHS [facility] Last Admin: 08/17/19 21:03 Dose: 25 mg Documented by: Senna/Docusate Sodium (Senokot-S, Teressa-Colace) 1 tablet GT BID PRN PRN Reason: Constipation Sertraline HCl (Zoloft) 50 mg PO DAILY [facility] Last Admin: 08/17/19 09:21 Dose: 50 mg Documented by: Sodium Chloride () 10 - 40 ml IV UD PRN PRN Reason: SALINE FLUSH Last Admin: 08/07/19 21:29 Dose: 10 ml Documented by: Medical Necessity - Tobacco Use Smoking Status: Never smoker Tobacco Use: Non-smoker Assessment/Plan All Active Problems Debility (Acute) Left-sided nontraumatic intraventricular intracerebral hemorrhage (Acute) Acute respiratory failure (Resolved) Hydrocephalus (Acute) Cellulitis (Acute) Normochromic normocytic anemia (Acute) Hyperglycemia (Acute) Regional wall motion abnormality of heart (Acute) QT prolongation (Acute) RECOMMENDATIONS: 1. Downsize tracheostomy tube from #6 to #4 cuffless Shiley. 2. Proceed with progressive capping trials over the next 2 to 3 days, with tentative plans for decannulation later this week. 3. Passy-Carrollton valve can be used as an alternative to capping prior to decannulation. IMPRESSIONS: 1. Respiratory failure following hemorrhagic CVA, necessitating tracheostomy placement The patient currently has a stable airway in place. He is maintaining appropriate oxygen saturations on room air, has no significant respiratory secretions and appears to have a strong cough. At this time, the patient has a #6 cuffless Sh[address] trach in place, which will be downsized today. Following this, plan to proceed with progressive capping trials. Of note, Passy-Carrollton valve can be used as an alternative to capping prior to decannulation. If he tolerates progressive capping trials over the next several days, consideration could be given to decannulation towards the end of the week.
--- NOTE | 2019-08-18 09:00 | CPS ---
R.T. prepped size 4 cuffless shiley trach. Took size 6 trach out and inserted size 4 trach in w/o complications. SpO2=92% post change.
[2019-08-18] MEDS: BACITRACIN 15 GM Tube 1 APPLIC TOPICAL (10:30)
[2019-08-18] MEDS: amLODIPine 10 MG Tablet GT (10:31)
[2019-08-18] MEDS: Carvedilol 25 MG Tablet GT ×2 (10:31→23:18)
[2019-08-18] MEDS: Sertraline 50 MG Tablet PO (10:32)
[2019-08-18] MEDS: Lisinopril 5 MG Tablet 15 MG PO (10:40)
[2019-08-18] MEDS: Nystatin Powder 15gm Bottle 1 APPLIC TOPICAL ×2 (10:41→23:18)
[2019-08-18 11:30] VITALS: BMI 41.2
--- NOTE | 2019-08-18 13:00 | SP.MBSS_ITS ---
PRIMARY / SECONDARY DIAGNOSIS: dysphagia (R13.12) CURRENT DIET (SOLIDS): nothing by mouth (NPO) CURRENT DIET (LIQUIDS): nothing by mouth (NPO) ROUTE OF NUTRITION: percutaneous endoscopic gastrostomy (PEG) tube (Glucerna 1.5 at 65mL/hr) DENTITION: natural upper / lower dentition MENTAL STATUS: sufficient for participation RESPIRATORY STATUS: O2 via room air; tracheostomy tube in place (Shiley 4.0; cuffless; capped). REASON FOR REFERRAL: The Patient is a 38 year old male referred for a modified barium swallow (MBS) study to objectively assess the Patients oropharyngeal swallow function under fluoroscopy to determine appropriateness for PO diet advancement following prolonged NPO status due to severe dysphagia secondary to an acute intracranial hemorrhage of the left thalamus with extension to the lateral ventricles status post tj hole vetriculostomy with ventricular shunt placement, in addition to prolonged intubation and eventual tracheostomy and PEG placement. MEDICAL HISTORY: Acute left thalamic intracranial hemorrhage with extension to the lateral ventricles status post tj hole vetriculostomy with ventricular shunt placement, with resulting right hemiparesis, acute respiratory failure necessitating prolonged intubation (intubated 06/09/2019; extubated 06/11/2019; re-intubated 06/12/2019) with eventual tracheostomy tube placement (06/23/2019), dysphagia resulting in percutaneous endoscopic gastrostomy (PEG) tube placement (06/23/2019), depression, hypertension, chronic cholecystitis, elevated hemidiaphragm, obesity. PREVIOUS MODIFIED BARIUM SWALLOW STUDY: None ADDITIONAL OBJECTIVE ASSESSMENT RESULTS: 06/09/2019 CT revealed an acute intracranial hemorrhage of the left thalamus with mild effacement of the mid left lateral ventricle; blood noted in the left lateral ventricle and frontal pole of the right lateral ventricle; cyst focus of hemorrhage posterior to the brainstem. ASSESSMENT PARAMETERS: The Patient participated in a Modified Barium Swallow (MBS) study on 08/18/2019. This study was recorded in the lateral view and images were sent to PACs for storage. Scoring was completed through each trial using the 8- point Penetration-Aspiration Scale (PAS) and the Videofluoroscopic Scale Score (VSS), and summarized via the Modified Barium Swallow Impairment Profile (MBSImP) and the Bolus Residue Scale (BRS), with severity scoring through the Dysphagia Severity Rating Scale (DSRS), the Swallowing Performance Scale (SPS), and the Dysphagia Classification Scale (DCS), and recommended diet textures through the International Dysphagia Diet Standardisation Initiative (IDDSI) RESULTS OF THE EVALUATION: The Patient presents with mild to moderate oropharyngeal dysphagia (DSRS: 4; SPS: 4) with grade III SILENT aspiration of thin liquids secondary to a recent 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 PER TRIAL): PENETRATION / ASPIRATION SCALE (ZARATE): 1 = does not enter airway 2 = enters airway/above vocal folds/ejected 3 = enters airway/above vocal folds/not ejected 4 = enters airway/contacts vocal folds/ejected 5 = enters airway/contacts vocal folds/not ejected 6 = enters airway/below vocal folds/ejected 7 = enters airway/below vocal folds/not ejected despite effort 8 = enters airway/below vocal folds/no effort VIDEOFLOROSCOPIC SCALE SCORE (ZARATE): Grade I = aspiration of material that has penetrated into the laryngeal vestibule, intact cough reflex Grade II = aspiration < 10 % of the bolus, intact cough reflex Grade III = aspiration of < 10 % of the bolus, reduced cough reflex or aspiration of > 10 % of the bolus, intact cough reflex Grade IV = aspiration of > 10 % of the bolus, reduced cough reflex PENETRATION / ASPIRATION SCALE (SCORE) WITH VIDEOFLOROSCOPIC SCALE SCORE: Thin liquid - 5 mL tsp.: 1 Thin liquids via cup (single sip): 2 Thin liquids via straw (single sip): 1 Thin liquids via straw (single sip): 1 Thin liquids via straw (single sip): 1 Thin liquids via straw (sequential swallows): 2 Pudding via spoon: 1 Regular textured cookie: 1 Thin liquids via straw (single sip): 2 Thin liquids via straw (single sip): 2 Thin liquids via straw (single sip): 1 Thin liquids via straw (sequential swallows): 8 ? Grade III Thin liquids via straw (chin tuck): 2 Thin liquids via straw (chin tuck): 1 Thin liquids via straw (chin tuck): 1 Thin liquids via straw (chin tuck): 2 OBJECTIVE ASSESSMENT OF SWALLOW FUNCTION (QUANTITATIVE ? AGGREGATE): MODIFIED BARIUM SWALLOW IMPAIRMENT PROFILE (MBSImP) LABIAL SEAL: 0 (of 4) no labial escape TONGUE CONTROL: 2 (of 3) posterior escape < 50% BOLUS PREPARATION / MASTICATION: 0 (of 3) timely and efficient BOLUS TRANSPORT / LINGUAL MOTION: 0 (of 4) brisk tongue motion ORAL RESIDUE: 2 (of 4) residue collection on oral structures INITIATION OF PHARYNGEAL SWALLOW: 2 (of 4) posterior surface of epiglottis SOFT PALATE ELEVATION: 0 (of 4) no bolus between soft palate & pharyngeal wall LARYNGEAL ELEVATION: 0 (of 3) complete superior movement / approximation ANTERIOR HYOID EXCURSION: 0 (of 2) complete movement EPIGLOTTIC MOVEMENT: 0 (of 2) complete inversion LARYNGEAL VESTIBULE CLOSURE: 0 (of 2) complete closure PHARYNGEAL STRIPPING WAVE: 0 (of 2) present / complete PE SEGMENT OPENIN (of 3) partial distension / duration / obstruction TONGUE BASE RETRACTION: 2 (of 4) narrow column of contrast PHARYNGEAL RESIDUE: 2 (of 4) collection of residue ESOPHAGEAL BOLUS CLEARANCE: could not view BOLUS RESIDUE SCALE (BRS): 4 (of 6) residue in valleculae and piriform sinus OBJECTIVE ASSESSMENT OF SWALLOW FUNCTION (SEVERITY GRADING): DYSPHAGIA SEVERITY RATING SCALE (DSRS): 4 (moderate) SWALLOWING PERFORMANCE SCALE (SPS): 4 (mild to moderate) DYSPHAGIA CLASSIFICATION SCALE (DCS): D1 (mild) DCS CLASSIFICATION CHARACTERISTICS: mild stasis, without food consistency restriction OBJECTIVE ASSESSMENT OF SWALLOW FUNCTION (QUALITATIVE): ORAL PREPARATORY PHASE: competent bolus manipulation without fragmented swallowing (piecemeal deglutition); sufficient anterior oral containment during oral manipulation; preserved management of breathing / bolus formation ORAL TRANSITIONAL PHASE: no presence of transitional incompetence; no lingual discoordination (no tremor / undulations); sufficient oral clearance; intermittent premature posterior bolus loss directly contributing to pre- prandial penetration and sole aspiration event with thin liquids PHARYNGEAL PHASE: mild pharyngeal phase dyssynchrony directly contributing to intermittent pre-prandial transient penetration and subsequent sole aspiration event during sequential ingestion of thin liquids; appropriate hyolaryngeal excursion and sufficient / consistent laryngeal vestibule pressure generated to expel penetrated material; appropriate pharyngeal motility despite restricted pharyngoesophageal segment dilation likely influenced by the presence of his tracheostomy tube; no signs of velopharyngeal impairments ESOPHAGEAL PHASE: no obvious esophageal phase abnormalities observed. CONTRIBUTING / COMPLICATING FACTORS AND NOTABLE FINDINGS: absent cough in response to tracheobronchial aspiration (atussia), with lowered cough response thresholds common in individuals with tracheostomy tubes. RESPONSE TO STRATEGIES: all deficits managed successfully with reduction in bolus rate / volume adjustments (in fact, he needed prompting to increase his bolus volume and ingestion rate during the sole aspiration event), use of straws, and mild effects during execution of the chin tuck posture, INTERVENTION RECOMMENDATIONS AND CONSIDERATIONS: The Patient requires continued skilled speech-language intervention targeting diet texture management and training / implementation of recommended compensatory strategies; considerations for continued training and implementation of recommended oropharyngeal strengthening exercises to facilitate improved oropharyngeal strength and coordination; and Patient education regarding stroke associated dysphagia. POST ASSESSMENT EDUCATION: The results and recommendations were discussed with the Patient immediately following MBS completion, with the Patient verbalizing understanding and agreement with all recommendations and education provided. We discussed factors impacting effects of aspiration, to include: the quantity of aspiration, the depth of aspiration (trachea or distal airways), and the physical properties of the aspirate. We discussed consequences of oropharyngeal dysphagia, to include pulmonary complications from tracheobronchial aspiration; potential for airway obstruction / asphyxiation; inadequate oral intake because of dysphagia; reduced caloric intake resulting in unintentional and potentially medically complicating loss of weight; and complications in overall course of care with later discharge from acute admissions / increased length of hospitalizations, increased likelihood for discharge to half-way, and overall worse rehabilitation outcomes. DIET TEXTURE RECOMMENDATIONS: Will recommend a mechanical soft textured (IDDSI: 5), thin liquid diet (IDDSI: 0) diet RECOMMENDED COMPENSATORY STRATEGIES: Supervision with assistance as needed, chin tuck, reduced bolus volume / rate of ingestion, straws with all liquids, seated upright at 90 degrees during PO intake, remain upright for 30-60 minutes post meal (GERD precaution), medications crushed in purees; PEG supplementation as needed during transitional period. IMAGE COUNT: [id number] Efra Genao M.A., [employer]ODUCER, CBIS MBSImP Certified, LSVT Certified [facility] Speech-Language Pathology Department Email: [email or web address]
[2019-08-18 17:31] LABS: Bedside Glucose 95 mg/dL (70-110)
[2019-08-18 19:00] VITALS: PULSE 75; RESP 18
[2019-08-18 19:29] VITALS: BP 115/62; PULSE 71; RESP 16; TEMP 37.1; O2SAT 97
[2019-08-18] MEDS: Lisinopril 10 MG Tablet PO (23:18)
[2019-08-18] MEDS: QUEtiapine 25 MG Tablet GT (23:18)
[2019-08-19] VITALS (8 sets, daily range): BP systolic 120–127; BP diastolic 65–73; PULSE 66–84; RESP 14–20; TEMP 36.7–36.8; O2SAT 83–100; BMI 41.2
--- NOTE | 2019-08-19 01:30 | NURSING ---
BLADDER SCANNED FOR 300 ML URINE. PT HAS NOT VOIDED SINCE BEGINNING OF THIS SHIFT.
[2019-08-19 05:51] LABS: Bedside Glucose 94 mg/dL (70-110)
[2019-08-19 06:17] LABS: Anion Gap 5 (5-15); BUN 27 mg/dL (7-18); BUN/Creat Ratio 18.5 RATIO (10-20); Calcium,Total 8.8 mg/dL (8.5-10.1); Chloride 96 mmol/L (98-107); Creatinine, Serum 1.46 mg/dL (0.70-1.30); EST Glomerular Filtration Rate 57 mL/min (>60); Est Glom Filt Rate - Afr Amer 69 mL/min (>60); Estimated Creatinine Clearance 61.91 ml/min; Glucose 101 mg/dL (74-106); Potassium 3.7 mmol/L (3.5-5.1); Sodium Level 133 mmol/L (136-145)
[2019-08-19] MEDS: Menthol/Lanolin/Calamine/Znox 113 GM Tube 1 APPLIC TOPICAL ×3 (06:44→21:11)
[2019-08-19] MEDS: Jevity 1.5. 1,000 ML Bottle 275 ML GT ×3 (06:44→12:49)
[2019-08-19] MEDS: Enoxaparin 40 MG/0.4 ML Syringe SC (06:44)
[2019-08-19] MEDS: Ipratropium/Albuterol Sulfate 3 ML AMPUL.NEB INHALATION ×3 (06:48→18:33)
--- NOTE | 2019-08-19 07:00 | CPS ---
Duoneb breathing treatment running through trach mask. Patient coughing constantly. Patient able to cough up secretions. Pulse ox checked during treatment, sats at 83%, placed patient back on cool aerosol trach collar at 28% and 6lpm. Sats frank to 98%. Nurse aware.
[2019-08-19] MEDS: BACITRACIN 15 GM Tube 1 APPLIC TOPICAL (09:55)
[2019-08-19] MEDS: Carvedilol 25 MG Tablet GT ×2 (09:57→21:11)
[2019-08-19] MEDS: Lisinopril 5 MG Tablet 15 MG PO (09:57)
[2019-08-19] MEDS: amLODIPine 10 MG Tablet GT (09:57)
[2019-08-19] MEDS: Nystatin Powder 15gm Bottle 1 APPLIC TOPICAL ×2 (10:00→21:11)
--- NOTE | 2019-08-19 11:23 | PCM.NTREPORT ---
Nutrition Therapy Report - History Nutrition Services has been consulted to:: Manage enteral nutrition Current diet / nutrition support order:: NPO; 275mL Jevity 1.5 via PEG 4x/day w/ 200mL H2O flush 5x/day - Anthropometric Measurements Height:: 5 ft 6 in Weight:: 115.8 kg Body Mass Index (BMI):: 41.2 - Relevant Labs Relevant Labs:: RBC 3.85 M/mm3 (4.6-6.2) L 08/16/19 06:50 Hgb 11.8 g/dL (13.0-16.5) L 08/16/19 06:50 Hct 35.9 % (40-54) L 08/16/19 06:50 Lymph % (Auto) 18.9 % (19-41) L 08/16/19 06:50 Sodium 133 mmol/L (136-145) L 08/19/19 05:40 Chloride 96 mmol/L (98-107) L 08/19/19 05:40 Carbon Dioxide 33.0 mmol/L (21.0-32.0) H 08/15/19 06:10 Anion Gap 4 (5-15) L 08/16/19 06:50 BUN 27 mg/dL (7-18) H 08/19/19 05:40 Creatinine 1.46 mg/dL (0.70-1.30) H 08/19/19 05:40 Est GFR (MDRD) Non-Af 57 mL/min (>60) L 08/19/19 05:40 Glucose 154 mg/dL (74-106) H 08/16/19 06:50 Phosphorus 5.7 mg/dL (2.5-4.9) H 08/15/19 06:10 Albumin 2.9 g/dL (3.2-5.0) L 08/06/19 06:10 Globulin 4.5 g/dL (2.2-4.2) H 08/06/19 06:10 Albumin/Globulin Ratio 0.6 RATIO (0.9-2.4) L 08/06/19 06:10 HDL Cholesterol 23 mg/dL (40-) L 08/06/19 06:10 - Assessment Food / Nutrition-Related History:: Follow-up after tube feed boluses reduced. Blood sugars appear much more adequately controlled w/ smaller, less frequent feedings. Had MBS yesterday- will trial mechanical soft and thin liquid diet this afternoon. No new wt to assess. - Nutrition Diagnosis Evidence of Malnutrition Exists:: No - Nutrition Intervention Nutrition Prescription:: As discussed w/ Dr. Mendosa, pt would benefit from wt loss. [place] body wt, 64 kg. 30 calories/kg IBW ~1920 calories/day. However, in considering ASPEN guidelines for morbidly obese (22-25 calories/ kg IBW) pt's needs are more closely ~2241-5656 calories/day. - Food / Nutrient Delivery Interventions Summary of nutrition intervention:: Will adjust bolus feeds when PO diet initiated. Nutrition support ordered as / adjusted to:: Recommend 1600 calorie controlled, cardiac diet when PO diet advanced. If pt able to tolerate a PO diet, wean enteral nutrition support. Will adjust to 360mL bolus of Jevity 1.5 if PO intake <50% at meals. 200mL flush w/ each feeding. Each feeding would provide 540 calories, 23 g protein, and 473mL fluid. Nutrition education provided?: No - MNT Monitoring Further MNT monitoring and evaluation required?: Yes MNT Follow-up in:: 3-5 days
[2019-08-19] MEDS: Sertraline 50 MG Tablet PO (12:41)
[2019-08-19 16:21] LABS: Bedside Glucose 131 mg/dL (70-110)
[2019-08-19] MEDS: Lisinopril 10 MG Tablet PO (21:10)
[2019-08-19] MEDS: QUEtiapine 25 MG Tablet GT (21:11)
--- NOTE | 2019-08-19 21:50 | NURSING ---
PT WITH CONTINUOUS COUGHING. SCANT AMT CREAMY WHITE, THIN SPUTUM PRODUCED. PT IS ON HUMIDIFIED OXYGEN AT 28%. PT STATES HE FEELS LIKE HE HAS NO AIR. RESPIRATORY NOTIFIED. RESP THERAPIST, MELINDA, TO PT'S BEDSIDE. PULSE OX IS 94% ON ROOM AIR. PT DEEP SUCTIONED BY RESP THERAPIST FOR SCANT AMT OF CREAMY WHITE WITH 10 ANDORRAN CATHETER. PT WRITING MESSAGES ON PAPER TO THERAPIST. PT'S TRACH CARE HAS BEEN COMPLETED EARLIER THIS SHIFT AND PT TOLERATED PROCEDURE WELL WITH MINIMAL COUGHING.
--- NOTE | 2019-08-20 01:30 | NURSING ---
PT NOTED TO BE COUGHING AND IS AWAKE. SMALL TO MOD AMT CREAM COLORED, SLIMY SPUTUM NOTED ON GOWN NEAR TRACH. OFFERED TO SUCTION PT AND PT IS AGREEABLE TO IT. NO SPUTUM NOTED FROM DEEP SUCTION USING 10 FR SUCTION CATHETER. AEROSOL TX OFFERED TO PT AND PT DECLINES. PT DOES NOT WANT REPOSITIONED AT THIS TIME. PT'S COUGHING SUBSIDES FOR NOW.
[2019-08-20] MEDS: Menthol/Lanolin/Calamine/Znox 113 GM Tube 1 APPLIC TOPICAL ×3 (06:35→21:30)
[2019-08-20] MEDS: Enoxaparin 40 MG/0.4 ML Syringe SC (06:35)
[2019-08-20 06:51] VITALS: PULSE 65; RESP 18; O2SAT 95
[2019-08-20] MEDS: Ipratropium/Albuterol Sulfate 3 ML AMPUL.NEB INHALATION ×2 (06:51→19:35)
[2019-08-20 07:05] LABS: Bedside Glucose 104 mg/dL (70-110)
[2019-08-20 07:36] VITALS: BP 120/55; PULSE 72; RESP 16; TEMP 36.8; O2SAT 95
[2019-08-20] MEDS: Carvedilol 25 MG Tablet GT ×2 (10:52→21:30)
[2019-08-20] MEDS: amLODIPine 10 MG Tablet GT (10:53)
[2019-08-20] MEDS: Sertraline 50 MG Tablet PO (10:53)
[2019-08-20] MEDS: Lisinopril 5 MG Tablet 15 MG PO (10:54)
[2019-08-20] MEDS: Nystatin Powder 15gm Bottle 1 APPLIC TOPICAL ×2 (12:14→21:29)
--- NOTE | 2019-08-20 14:10 | PCM.PN.BLA ---
Progress Note Segundo had an episode of coughing and shortness of breath that lasted approximately 1-1/2 hours last night. He was recently downsized to a #4 trach and has been refusing the humidified oxygen. After he was placed on minified oxygen the coughing paroxysms stopped. He denies shortness of breath today and also denies chest pain. No significant secretions from the ET tube. He is able to expectorate secretions from his mouth. Secretions are clear. Alert, no apparent distress Lungs-clear to auscultation after a cough to clear his throat Heart-regular rate and rhythm, no gallop, no murmur No peripheral edema No calf tenderness No rashes and no breakdown Hands 1. Debility secondary to intracerebral hemorrhage 2. Hypertension-patient had not been monitoring his blood pressure and was using high energy drinks with a lot of caffeine. I suspect the etiology of the intracerebral hemorrhage is uncontrolled hypertension 3. Glucose intolerance-blood sugars are better with decrease in his calories 4. PEG tube secondary to dysphagia 5. Tracheostomy present due to prolonged intubation post stroke - Continue therapy Like to be able to decannulate prior to discharge. I discussed this with Segundo and he understands that he will need to be able to tolerate the capped for at least 24 hours and preferably 48 hours prior to de-cannulating. He is somewhat anxious about this but, wants the ETT out Inpatient E&M: [id number] Subs Hosp L2
[2019-08-20] MEDS: BACITRACIN 15 GM Tube 1 APPLIC TOPICAL (15:25)
[2019-08-20 15:55] VITALS: BMI 41.2
[2019-08-20 17:30] LABS: Bedside Glucose 98 mg/dL (70-110)
[2019-08-20 19:35] VITALS: PULSE 82; RESP 20
[2019-08-20 19:42] VITALS: BP 128/72; PULSE 73; RESP 18; TEMP 36.8; O2SAT 95
[2019-08-20 21:24] VITALS: BMI 41.2
[2019-08-20] MEDS: Lisinopril 10 MG Tablet PO (21:30)
[2019-08-20] MEDS: QUEtiapine 25 MG Tablet GT (21:30)
[2019-08-21 01:31] VITALS: PULSE 67; RESP 16
[2019-08-21] MEDS: Ipratropium/Albuterol Sulfate 3 ML AMPUL.NEB INHALATION ×3 (01:31→22:06)
[2019-08-21] MEDS: Enoxaparin 40 MG/0.4 ML Syringe SC (05:07)
[2019-08-21] MEDS: Menthol/Lanolin/Calamine/Znox 113 GM Tube 1 APPLIC TOPICAL ×3 (05:08→22:04)
--- NOTE | 2019-08-21 05:35 | NURSING ---
This a.m. while performing ADLs, NATURAL GAS INSPECTOR alerted RN that pt PEG tube had popped out. Pt was in no distress and tube was [address] Jara, Hospitalist, was paged. Dr Alonzo came to floor and inserted a new 20 Martiniquais PEG but was unable to reinsert new PEG. Site was cleaned and covered with gauze. Pt tolerated fair.
--- NOTE | 2019-08-21 05:54 | CCHN_ITS ---
Hospitalist Note Hospitalist note: I was notified by the rehab unit early this morning that the patient's G-tube had become dislodged, the tubes balloon had deflated, I obtained another 20 [place]ian replacement G-tube from the emergency room and attempted to reinsert it through the patient's G-tube site stoma under aseptic conditions, unfortunately I was unable to advance the replacement G-tube through the stoma site and I had to stop the attempt. The G-tube site was covered with gauze. Patient had minor discomfort during the attempt.
[2019-08-21 06:46] LABS: Bedside Glucose 101 mg/dL (70-110)
[2019-08-21 07:00] VITALS: PULSE 70; RESP 18; O2SAT 95
[2019-08-21 07:48] VITALS: BP 121/75; PULSE 68; RESP 18; TEMP 36.6; O2SAT 96
[2019-08-21 09:53] VITALS: BMI 41.2
[2019-08-21] MEDS: amLODIPine 10 MG Tablet GT (10:42)
[2019-08-21] MEDS: Carvedilol 25 MG Tablet GT ×2 (10:42→22:01)
[2019-08-21] MEDS: BACITRACIN 15 GM Tube 1 APPLIC TOPICAL (10:42)
[2019-08-21] MEDS: Lisinopril 5 MG Tablet 15 MG PO (10:42)
[2019-08-21] MEDS: Sertraline 50 MG Tablet PO (10:42)
[2019-08-21] MEDS: Nystatin Powder 15gm Bottle 1 APPLIC TOPICAL ×2 (10:43→22:03)
--- NOTE | 2019-08-21 11:00 | NURSING ---
Addendum entered by Suzanne Waters 08/21/19 15:35: no s/s distress noted s/p peg being accidently pulled out this am. no s/s infection noted. minimal bleed this am which has stopped this afternoon. pt tolerating meals and medications without difficulty. no c/o pain. Original Note: Spoke with Dr López in regards to pt's peg tube being pulled out this am. updated him on Dr Chamberlain seeing pt this morning and attempting to reinsert with out success. Dr López said he would reviewed pt's records and would call back if he felt the peg needed to be reinserted, but most likely would just leave it out.
[2019-08-21] MEDS: QUEtiapine 25 MG Tablet GT (22:01)
[2019-08-21] MEDS: Lisinopril 10 MG Tablet PO (22:03)
[2019-08-21 22:06] VITALS: PULSE 74; RESP 16; O2SAT 97
[2019-08-21 22:25] VITALS: BP 115/63; PULSE 68; PULSE 92; RESP 18; TEMP 37.1; O2SAT 95; BMI 41.2
[2019-08-22] MEDS: Menthol/Lanolin/Calamine/Znox 113 GM Tube 1 APPLIC TOPICAL ×3 (06:02→21:26)
[2019-08-22] MEDS: Enoxaparin 40 MG/0.4 ML Syringe SC (06:02)
--- NOTE | 2019-08-22 06:46 | NURSING ---
Trach care done this am. trach cleansed and replaced. cleansed around stoma and new split gauze dressing applied. pt tolerated procedure well. no c/o shortness of breath. denies need for hyperoxygenation.
[2019-08-22 07:00] VITALS: PULSE 72; RESP 20; O2SAT 96
[2019-08-22] MEDS: Ipratropium/Albuterol Sulfate 3 ML AMPUL.NEB INHALATION ×2 (07:00→19:05)
[2019-08-22 08:26] VITALS: BP 109/58; PULSE 64; RESP 16; TEMP 36.8; O2SAT 95
[2019-08-22] MEDS: Loperamide 2 MG Capsule GT (08:42)
[2019-08-22] MEDS: Carvedilol 25 MG Tablet GT ×2 (08:42→21:24)
[2019-08-22] MEDS: Sertraline 50 MG Tablet PO (08:43)
[2019-08-22] MEDS: Lisinopril 5 MG Tablet 15 MG PO (08:43)
[2019-08-22] MEDS: amLODIPine 10 MG Tablet GT (08:43)
[2019-08-22] MEDS: Nystatin Powder 15gm Bottle 1 APPLIC TOPICAL ×2 (08:48→21:27)
[2019-08-22 10:03] VITALS: BMI 41.2
[2019-08-22 19:05] VITALS: PULSE 67; RESP 18
[2019-08-22 19:31] VITALS: BP 104/80; PULSE 80; RESP 18; TEMP 36.9; O2SAT 93
[2019-08-22 21:15] VITALS: PULSE 80; RESP 18; BMI 41.2
[2019-08-22] MEDS: QUEtiapine 25 MG Tablet GT (21:24)
[2019-08-22] MEDS: Lisinopril 10 MG Tablet PO (21:26)
[2019-08-23 06:54] VITALS: O2SAT 97
[2019-08-23 06:56] VITALS: PULSE 79; RESP 20
[2019-08-23] MEDS: Ipratropium/Albuterol Sulfate 3 ML AMPUL.NEB INHALATION ×2 (06:57→18:40)
[2019-08-23] MEDS: Enoxaparin 40 MG/0.4 ML Syringe SC (07:25)
[2019-08-23 07:46] VITALS: BP 133/86; PULSE 72; RESP 20; TEMP 36.9; O2SAT 96
[2019-08-23] MEDS: amLODIPine 10 MG Tablet PO (10:08)
[2019-08-23] MEDS: Polyethylene Glycol 3350 17 GM PACKET PO (10:08)
[2019-08-23] MEDS: Carvedilol 25 MG Tablet PO ×2 (10:08→21:17)
[2019-08-23] MEDS: Sertraline 50 MG Tablet PO (10:09)
[2019-08-23] MEDS: Lisinopril 5 MG Tablet 15 MG PO (10:09)
[2019-08-23] MEDS: Nystatin Powder 15gm Bottle 1 APPLIC TOPICAL (10:17)
--- NOTE | 2019-08-23 12:32 | CASEMGMT ---
Social Work IDT met with patient and mother via conference call for Team Meeting. Discussed patient's progress in therapy. Pt is min x1 assist for pivots, mod for sitting to standing, right arm opening hand, can feel more but no function yet,and starting to get bowel sensations. Pt is mod assist for bathing, mod assist for grooming while seated, min assist for UE, total assist x2 for LE ADLs and toileting. Pt walking on platform weighted walker, can move left leg on own walking 10-12 ft. Pt had MBS and was upgraded to [facility] soft/thin liquid diet, small bites/sips and chin tuck - large sips pt silently aspirated. Pt is tolerating speaking valve very well and will now keep on daily, and potentially get trache pulled this week, and peg tub is out. Explained insurance update 08/24 and continued stay is not guaranteed. Will continue to follow. Morena Schroeder, POLE FRAMER CONSTRUCTION LINEMAN
[2019-08-23] MEDS: Menthol/Lanolin/Calamine/Znox 113 GM Tube 1 APPLIC TOPICAL (14:00)
--- NOTE | 2019-08-23 14:20 | PN_ITS ---
Patient Problems: Active and Suspected Problems Cellulitis (Acute) at the PEG site Normochromic normocytic anemia (Acute) likely due to frequent blood draws while acutely ill. Hyperglycemia (Acute) no hx of DM Regional wall motion abnormality of heart (Acute) due to CAD/WI? QT prolongation (Acute) on EKG 06/09/19 prior to the initiation of Seroquel Subjective: Patient did okay overnight. Patient does report that he has been using the PMV significantly during the day. Patient states that he feels that he cannot tolerate his capping overnight, but is willing to try. Patient reports he is able to cough secretions into his mouth. - Physical Exam Vitals/I&O's: Vital Signs Temp Pulse Resp BP Pulse Ox 36.9 C 72 20 H 133/86 H 96 08/23/19 07:46 08/23/19 07:46 08/23/19 07:46 08/23/19 07:46 08/23/19 07:46 Oxygen Flow Rate (L/min) 6 Oxygen Delivery Method Room Air Weight: 113.2 kg Body Mass Index (BMI) 41.2 Finger Stick Blood Glucose 92 Intake and Output for Last 24 Hours 08/21/19 08/22/19 08/23/19 23:59 23:59 23:59 Intake Total 1660 / 1720 1260 / 1260 1160 / 1160 Output Total 950 / 1200 1950 / 1950 401 / 401 Balance 710 / 520 -690 / -690 759 / 759 General: Alert, Oriented x3, Cooperative, No apparent distress, - - No conversational dyspnea HEENT: Atraumatic, PERRLA, EOMI, Normocephalic Oral: Moist Mucosa, No Gingival or Mucosal Lesions/ Ulcerations Neck: Supple, No JVD, No Nodes, Trachea Midline, - - Shiley 4?0 trach noted. This is clean, dry and intact. PMV currently in place. Lungs: No rhonchi, No wheeze, No rales, Diminished Cardiovascular: Regular rate, Regular Rhythm, Normal S1, Normal S2, No murmurs, No rub noted, No Gallop Abdomen: Bowel Sounds Present, Soft, Non Tender, Non-Distended, Obese Extremities: No clubbing, No cyanosis, Edema Skin: No rashes, No breakdown Musculoskeletal: No Tenderness to Palpation of Joints or Extremities Lymphatic: No Cervical, Supraclavicular, or Inguinal Adenopathy Psych/Mental Status: - - Right-sided weakness with some ataxia appreciated. Sensation appears to be decreased Current Medications Acetaminophen (Tylenol) 650 mg PO Q4H PRN PRN Albuterol/Ipratropium (Duoneb) 3 ml INHALATION Q6H.RT [facility] Last Admin: 08/23/19 13:00 Dose: Not Given Documented by: Amlodipine Besylate (Norvasc) 10 mg PO DAILY [facility] Last Admin: 08/23/19 10:08 Dose: 10 mg Documented by: Bisacodyl (Dulcolax) 10 mg RECTAL DAILY PRN PRN Reason: Constipation Bisacodyl (Dulcolax) 10 mg RECTAL .PRN X 1 PRN PRN Reason: Constipation Calamine/Phenol (Calmoseptine Ointment) 1 applic TOPICAL TID [facility]; Protocol Last Admin: 08/23/19 14:00 Dose: 1 applicatio Documented by: Carvedilol (Coreg) 25 mg PO BID [facility] Last Admin: 08/23/19 10:08 Dose: 25 mg Documented by: Emollient Ointment (Eucerin Intensive Repair) 1 applic TOPICAL 4X/DAY PRN PRN; Protocol PRN Reason: DRY SKIN Last Admin: 08/19/19 13:54 Dose: 1 applicatio Documented by: Enoxaparin Sodium (Lovenox) 40 mg SC DAILY@0600 [facility] Last Admin: 08/23/19 07:25 Dose: 40 mg Documented by: Sodium Chloride () 250 mls @ 15 mls/hr IV .[id number] PRN PRN Reason: Additional IVPB Infusion Last Infusion: 08/07/19 04:35 Dose: Infused Documented by: Lisinopril (Zestril) 10 mg PO QHS [facility] Last Admin: 08/22/19 21:26 Dose: 10 mg Documented by: Lisinopril (Zestril) 15 mg PO DAILY [facility] Last Admin: 08/23/19 10:09 Dose: 15 mg Documented by: Loperamide HCl (Imodium) 2 mg PO Q4H PRN PRN Reason: DIARRHEA/LOOSE STOOLS Magnesium Hydroxide (Milk Of Magnesia) 30 ml PO .PRN X 1 PRN PRN Reason: Constipation Nystatin (Mycostatin Powder) 1 applic TOPICAL BID [facility]; Protocol Last Admin: 08/23/19 10:17 Dose: 1 applicatio Documented by: Polyethylene Glycol (Miralax) 17 gm PO DAILY [facility] Last Admin: 08/23/19 10:08 Dose: 17 gm Documented by: Quetiapine Fumarate (Seroquel) 25 mg PO QHS [facility] Senna/Docusate Sodium (Senokot-S, Teressa-Colace) 1 tablet PO BID PRN PRN Reason: Constipation Sertraline HCl (Zoloft) 50 mg PO DAILY [facility] Last Admin: 08/23/19 10:09 Dose: 50 mg Documented by: Sodium Chloride () 10 - 40 ml IV UD PRN PRN Reason: SALINE FLUSH Last Admin: 08/07/19 21:29 Dose: 10 ml Documented by: Medical Necessity - Tobacco Use Smoking Status: Never smoker Tobacco Use: Non-smoker Assessment/Plan All Active Problems Debility (Acute) Left-sided nontraumatic intraventricular intracerebral hemorrhage (Acute) Acute respiratory failure (Resolved) Hydrocephalus (Acute) Cellulitis (Acute) Normochromic normocytic anemia (Acute) Hyperglycemia (Acute) Regional wall motion abnormality of heart (Acute) QT prolongation (Acute) RECOMMENDATIONS: 1. Attempt capping for the rest of today 2. Reinitiate capping in the morning and continue for 48 hours as tolerated 3. Possible decannulation later this week if able to tolerate capping trials IMPRESSIONS: 1. Respiratory failure following hemorrhagic CVA, necessitating tracheostomy placement The patient currently has a stable airway in place. He is maintaining appropriate oxygen saturations on room air, has no significant respiratory secretions and appears to have a strong cough. Patient was downsized to a Shiley 4?0 cuffless trach and appears to be tolerating this well with PMV. Stressed to the patient the importance of capping trials to assess for ap propriateness of decannulation. Patient does have morbid obesity, so Shiley's 4.0 trach can be used long-term as a therapy for obstructive sleep apnea. However, given age, would recommend attempting decannulation with BiPAP if necessary. Inpatient E&M: [id number] [facility] Hosp L2
--- NOTE | 2019-08-23 14:39 | PCM.PN.BLA ---
Progress Note Lawrence was seen on team rounds today and his mother Shakira participated in the conversation by phone. Afebrile Vital signs stable Maintaining appropriate oxygen saturation on room air while awake Oral intake has been good. The PEG tube became dislodged on 08/21/19 and since he is eating > 50% of meals it was not re-inserted. He has the PMV in place today and he has good voice quality. He has not been able to tolerate being capped at night. I reviewed Dr. Cruz's note from today and he must be able to tolerate being capped at night to be decannulated.......I would suspect he gets better rest not being capped due to suspected JAUN. When he is capped he likely is more restless and not as rested in the AM. Alert, oriented x3, appropriate, smiling Lungs-diminished but clear to auscultation throughout. Currently has the PMV in place and his speech has good quality/not slurred and he is projecting well. H - RRR no gallop ABD - obese, NT, ND, PEG site is without erythema and no DC. There is some dried blood at the site no peripheral edema He is getting stronger with moving the R foot forward and has been using the platform walker. Still not much movement of the RUE but he is getting more feeling in the R arm. Impressions 1. Debility secondary to recent hemorrhagic CVA 2. Sleep disordered breathing 3. Glucose intolerance 4. ARF - this happened when he was on HCTZ for better BP control but it was discontinued. He is also on an NEERAJ.......will recheck the lab in the AM CBC, BMP, mag, phos in the a.m. Continue therapy Try and get him to tolerate capping the trach at night so he could possibly be decannulated. Formal sleep study as an outpatient Inpatient E&M: [id number] Subs Hosp L2
[2019-08-23 15:52] VITALS: BMI 41.2
--- NOTE | 2019-08-23 17:44 | NURSING ---
attempted to cap trach, pt unable to tolerate for more than 30 minutes at a time. Deep suctioned per pt request for secretions. cap replaced on trach pt still not able to tolerate for more than 5 minutes after several attempts with removing. Pt requested to remove cap through dinner and attempt again after he has finished eating. Will continue to monitor.
[2019-08-23 18:40] VITALS: PULSE 74; RESP 18
[2019-08-23 19:30] VITALS: BP 165/94; PULSE 93; RESP 18; TEMP 36.8; O2SAT 95; BMI 41.2
[2019-08-23] MEDS: QUEtiapine 25 MG Tablet PO (21:17)
[2019-08-23] MEDS: Lisinopril 10 MG Tablet PO (21:18)
[2019-08-24] VITALS (8 sets, daily range): BP systolic 113–151; BP diastolic 72–80; PULSE 63–77; RESP 16–20; TEMP 36.8–37.2; O2SAT 93–99; BMI 41.2
--- NOTE | 2019-08-24 03:04 | NURSING ---
pt rang and noted to be down in the bed with lt leg hanging out over the edge of the bed. pt repositioned for comfort. pt noted to have pink tinged mucus on his gown and trach collar. secretions were noted to be thin in consistency. pt trach dressing changed as well as his gown. staff asked pt if needed a breathing tx or be suctioned and pt shook his head no indicating that he just wanted to sleep. pt continued to cough which was dry and hacking in nature. staff asked pt if he needed his trached cleaned again pt shook his head no and then closed his eyes. rn present in pt room when this occurred. will continue to monitor
--- NOTE | 2019-08-24 04:10 | NURSING ---
Pt used call light for staff. When staff entered room, pt pointed to Attends, indicating needing changed. Staff assisted with repositioning pt as left leg was hanging off left side of bed and pt was crouched down in bed. After repositioning, staff noticed mucous on hospital gown and mask. Mucous was thin, pink-tinged mucous. Pt coughed while staff was in room but denied offers to suction pt. Pt mouthed the words that he just wanted to sleep. FINGER LIFT OPERATOR cleaned trach area and changed dressing. Hospital gown was changed. Pt closed his eyes when staff tried to offer help, not giving many answers to staff queries. Staff reassured pt to call for needs and staff will continue to monitor.
--- NOTE | 2019-08-24 04:19 | NURSING ---
Reviewed and agree with NUTRITION DIRECTOR documentation.
[2019-08-24] MEDS: Enoxaparin 40 MG/0.4 ML Syringe SC (05:40)
[2019-08-24] MEDS: Menthol/Lanolin/Calamine/Znox 113 GM Tube 1 APPLIC TOPICAL ×3 (05:40→20:38)
[2019-08-24 07:05] LABS: Hematocrit 34.2 % (40-54); Hemoglobin 11.2 g/dL (13.0-16.5); Mean Corp Hgb Conc 32.7 g/dL (32-36); Mean Corpuscular Hgb 29.9 pg (27.0-32.0); Mean Corpuscular Volume 91.4 fL (80-94); Mean Platelet Vol. 10.5 fl (6.2-12.0); Platelet Count 311 K/mm3 (150-450); RBC Distribution Width CV 12.3 % (11.6-14.6); Red Blood Count 3.74 M/mm3 (4.6-6.2); White Blood Count 7.5 K/mm3 (4.4-11.0)
[2019-08-24 07:30] LABS: Anion Gap 8 (5-15); BUN 27 mg/dL (7-18); BUN/Creat Ratio 21.3 RATIO (10-20); Chloride 103 mmol/L (98-107); Creatinine, Serum 1.27 mg/dL (0.70-1.30); EST Glomerular Filtration Rate 67 mL/min (>60); Est Glom Filt Rate - Afr Amer 81 mL/min (>60); Estimated Creatinine Clearance 71.17 ml/min; Glucose 96 mg/dL (74-106); Magnesium 2.3 mg/dL (1.6-2.6); Phosphorus 4.9 mg/dL (2.5-4.9); Potassium 4.2 mmol/L (3.5-5.1); Sodium Level 137 mmol/L (136-145)
--- NOTE | 2019-08-24 07:45 | NURSING ---
speaking valve placed on from [id number]. at 1005 capped.
[2019-08-24] MEDS: Sertraline 50 MG Tablet PO (08:06)
[2019-08-24] MEDS: Carvedilol 25 MG Tablet PO ×2 (08:06→20:38)
[2019-08-24] MEDS: amLODIPine 10 MG Tablet PO (08:06)
[2019-08-24] MEDS: Lisinopril 5 MG Tablet 15 MG PO (08:06)
[2019-08-24] MEDS: Nystatin Powder 15gm Bottle 1 APPLIC TOPICAL ×2 (10:22→20:39)
--- NOTE | 2019-08-24 11:52 | PCM.PN.BLA ---
Progress Note Afebrile since admission Blood pressures are well controlled with an occasional high blood pressure due to stress(like last night when his trach was capped) Heart rate is well controlled. He is maintaining appropriate oxygen saturation on room air while awake. He uses the trach collar with a 6 L flow at night while sleeping Excellent oral intake All labs personally reviewed. Hemoglobin is stable at 11.2 and the white blood cell count and platelets are within normal limits. With discontinuation of the HCTZ the creat is down to 1.27 from 1.46 on 08/19/19. Phosphorus and magnesium are within normal limits. Potassium is 4.2 today. Current blood pressure medications include amlodipine 10 mg daily, carvedilol 25 mg twice daily lisinopril 10 mg nightly and 15 mg every morning. Alert, appropriate Lungs - decrease but CTA HRRR MM are moist abd- obese NT, BS's present no peripheral edema persistent R side weakness Impressions 1. Debility secondary to intracerebral hemorrhage involving the left thalamus and alsocausing intraventricular hemorrhage with hydrocephalus. Status post ventriculostomy and placement of a ventricular shunt at [facility]. 2. Status post tracheostomy following prolonged intubation 3. Status post PEG tube. Speech therapy is working with him and may soon be able to start Agata water protocol...goal is to get him eating. 4. HTN - controlled for the most part 5. Glucose intolerance 6. Morbid obesity 7. depression-started on sertraline and seems to be doing well. 8. Sleep disordered breathing with hypoxia at night despite tracheostomy and I suspect he has central sleep apnea in addition to obstructive sleep apnea. Will need to follow-up with pulmonary medicine as an outpatient and have a formal sleep study. Continue to monitor the creatinine every few days. Creat at admission to the rehab unit was 0.93. May have to consider decreasing the Lisinopril if the creat does not come down further. Etiology of the HTN? Essential or could he have renal A stenosis? (this would explain an increase in the creatinine with an NEERAJ) Hyperthyroidism? Hyperadrenalism? Pheo? This is W/U that can be considered as an OP since the BP is adequately controlled at the present time. If we need to stop the Lisinopril will likely start an Alpha fara and would need to check orthostatics at that time. STROKE Vital Signs/Narrative: Vital Signs Temp 08/24/19 10:33 98.9 F Inpatient E&M: [id number] Subs Hosp L2
[2019-08-24] MEDS: Ipratropium/Albuterol Sulfate 3 ML AMPUL.NEB INHALATION ×2 (13:45→19:34)
--- NOTE | 2019-08-24 13:58 | CPS ---
Pt wanted capped inner cannula put in instead of PMV @this time, RN is aware.
--- NOTE | 2019-08-24 14:00 | NURSING ---
capped inner cannula in place from 1005 until 1155, pt then requested speaking valve to be placed prior to lunch at 1155. speaking valve in place until 1358 when respiratory therapy placed capped inner cannula per pt request.
--- NOTE | 2019-08-24 14:35 | NURSING ---
pt up to bathroom with assist x2. pt had coughing episode and requested capped inner cannula to be removed, #4 shiley inner cannula then placed, small amt of clear sputum noted, pt then able to breathe better, no s/s of distress, pulse ox 93% on ra.
[2019-08-24] MEDS: QUEtiapine 25 MG Tablet PO (20:37)
[2019-08-24] MEDS: busPIRone 5 MG Tablet PO (20:37)
[2019-08-24] MEDS: Lisinopril 10 MG Tablet PO (20:38)
[2019-08-25] MEDS: Enoxaparin 40 MG/0.4 ML Syringe SC (05:13)
[2019-08-25] MEDS: busPIRone 5 MG Tablet PO ×3 (05:13→20:51)
[2019-08-25] MEDS: Menthol/Lanolin/Calamine/Znox 113 GM Tube 1 APPLIC TOPICAL ×3 (05:14→20:52)
[2019-08-25 07:22] VITALS: PULSE 66; RESP 18; O2SAT 92
[2019-08-25] MEDS: Ipratropium/Albuterol Sulfate 3 ML AMPUL.NEB INHALATION ×2 (07:22→14:10)
[2019-08-25] MEDS: Carvedilol 25 MG Tablet PO ×2 (08:15→20:51)
[2019-08-25] MEDS: Sertraline 100 MG Tablet PO (08:15)
[2019-08-25] MEDS: Lisinopril 5 MG Tablet 15 MG PO (08:15)
[2019-08-25] MEDS: amLODIPine 10 MG Tablet PO (08:15)
[2019-08-25] MEDS: Nystatin Powder 15gm Bottle 1 APPLIC TOPICAL ×2 (08:19→20:50)
--- NOTE | 2019-08-25 08:32 | CASEMGMT ---
Social Work Spoke with pt. Discussed pt's progress with capping trache. Physician expressed pt get's panic attacks when trache is capped. Inquired to pt. Pt expressed it is scary, difficult to breathe at times. Validated feelings. Inquired if there was anything staff to do to make that easier. Pt stated, I just need time. Attempted to give some calming techniques. Pt reiterated, I just need time. Pt expressed yesterday was better than the day before - so he acknowledged the importance of capping and seeing the progress. Discussed pt's mood. Pt expressed he is ready to go home, but does see all of the progress he is making, which is encouraging. Pt stated the physician increased his antidepressant. Inquired if he felt depressed - pt stated no. Explained pt can choose not to have medication increased - pt understood, but that he trusts the physician, and once he gets better he will ask questions at that time. Pt stated overall he is doing well, no other issues. Pt enjoyed seeing his friends during the window visit 08/22, and being able to talk to his mom more. Will continue to follow. Morena Schroeder, ATTENDANT [employer] MOSS GATHERER
[2019-08-25 09:30] VITALS: BP 133/87; PULSE 75; RESP 17; O2SAT 97
[2019-08-25 14:10] VITALS: PULSE 72; RESP 18
[2019-08-25 16:03] VITALS: BMI 41.2
[2019-08-25 19:44] VITALS: BP 106/81; PULSE 68; RESP 16; TEMP 37.1; O2SAT 93
[2019-08-25] MEDS: QUEtiapine 25 MG Tablet PO (20:50)
[2019-08-25] MEDS: Lisinopril 10 MG Tablet PO (20:54)
[2019-08-25 21:05] VITALS: BMI 41.2
[2019-08-26] MEDS: busPIRone 5 MG Tablet PO ×3 (06:01→21:29)
[2019-08-26] MEDS: Menthol/Lanolin/Calamine/Znox 113 GM Tube 1 APPLIC TOPICAL ×3 (06:01→21:32)
[2019-08-26] MEDS: Enoxaparin 40 MG/0.4 ML Syringe SC (06:01)
[2019-08-26 06:28] VITALS: PULSE 73; RESP 20; O2SAT 91
[2019-08-26] MEDS: Ipratropium/Albuterol Sulfate 3 ML AMPUL.NEB INHALATION ×2 (06:28→18:55)
[2019-08-26 07:07] VITALS: BP 127/80; PULSE 63; RESP 18; TEMP 36.2; O2SAT 95
[2019-08-26] MEDS: amLODIPine 10 MG Tablet PO (08:32)
[2019-08-26] MEDS: Carvedilol 25 MG Tablet PO ×2 (08:32→21:29)
[2019-08-26] MEDS: Lisinopril 5 MG Tablet 15 MG PO (08:32)
[2019-08-26] MEDS: Sertraline 100 MG Tablet PO (08:33)
[2019-08-26] MEDS: Nystatin Powder 15gm Bottle 1 APPLIC TOPICAL ×2 (08:36→21:32)
--- NOTE | 2019-08-26 11:43 | PN_ITS ---
Progress Note Afebrile Vital signs are stable and blood pressure is well controlled Maintaining appropriate oxygen saturation on room air He was able to tolerate capping the ETT last night for approximately 3 hours and then he felt like he could not breath and the cap was removed. He denies SOB to me now and he has the PM valve in. PT/OT notes were reviewed. Nursing reports no significant problems. He is in a good mood and he always participates with therapy willingly without much encouragement. He has no complaints today. alert, appropriate, NAD Lungs - diminished but CTA H - RRR, no gallop and no MM and no rub abd - obese, soft, NL BS's present. no peripheral edema and no calf tenderness. still with mod - severe disability. Still requiring assistance to come to a stand from a sitting position but less than before. MOD assist to go from supine to sit. He requires moderate to maximum assist of 2 people with WC follow by a third person to ambulate 26 feet with a platform walker. He is now able to advance the R leg 100% of the time on his own and this is a big improvement. According to the OT notes he is still total assist with eating, mod assist with grooming, mod assist with bathing, min assist with upper body dressing but total assist with lower body dressing. He is total assist with toileting. He is now continent of urine and stool but requires total assist for using the urinal and the commode. He is able to sit at the edge of the bed for 20 minutes now without losing his balance. Impression 1. Debility secondary to intracerebral hemorrhage involving the left thalamus and an intraventricular hemorrhage with hydrocephalus requiring ventriculostomy and placement of a ventricular shunt at [facility]. Deficits include severe left side weakness, expressive aphasia ( much better at this time) and trouble swallowing which has considerably improved....PEG removed and he is now eating 2. Hx od depression - untreated prior to admission 3. tracheostomy.......still can only tolerate 3 hours of capping and must be able to tolerate 24H before the trach can be removed 4. morbid obesity 5. dyslipidemia 6. urine incontinence with urine retention - resolved 7. sleep disordered breathing requiring oxygen anytime he is sleeping - likely has JAUN and possibly central sleep apnea as well from the stroke 8. anxiety with panic attacks which limits the time he is able to tolerate capping of the trach We do not as of yet have a plan for discharge. I am very hopeful that the insurance company will continue to give him more time in inpt rehab because he has made so much improvement since he came to us and this is his best shot for significant recovery to the point where he could possibly return back to work. He is making good progress. I do not know at this time if he will be able to regain the ability to ambulate without assist. 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 At this point I do not see him returning to that level of function but, His intellect is good and he may be able to function in a WC at some point. He will have a long recovery time. He thinks he will go home to [place] and live with his mother but, he is not at that point yet where she could meet all his needs/assist by herself. Continue aggressive therapy because he is only 38 YO and he is making steady progress. I spent time completing his disability paperwork today. Inpatient E&M: [id number] Subs Hosp L3
[2019-08-26 14:26] VITALS: BMI 41.2
[2019-08-26 18:55] VITALS: PULSE 80; RESP 18; O2SAT 96
[2019-08-26 19:40] VITALS: BP 132/82; PULSE 68; RESP 16; TEMP 36.8; O2SAT 96
[2019-08-26] MEDS: Lisinopril 10 MG Tablet PO (21:30)
[2019-08-26] MEDS: QUEtiapine 25 MG Tablet PO (21:30)
[2019-08-27 04:25] VITALS: BMI 41.2
[2019-08-27] MEDS: busPIRone 5 MG Tablet PO ×3 (05:35→22:30)
[2019-08-27] MEDS: Enoxaparin 40 MG/0.4 ML Syringe SC (05:35)
[2019-08-27] MEDS: Menthol/Lanolin/Calamine/Znox 113 GM Tube 1 APPLIC TOPICAL ×3 (06:37→22:30)
[2019-08-27] MEDS: Ipratropium/Albuterol Sulfate 3 ML AMPUL.NEB INHALATION (06:45)
[2019-08-27 07:27] VITALS: PULSE 80; RESP 20; O2SAT 94
[2019-08-27] MEDS: amLODIPine 10 MG Tablet PO (07:57)
[2019-08-27] MEDS: Lisinopril 5 MG Tablet 15 MG PO (07:57)
[2019-08-27] MEDS: Carvedilol 25 MG Tablet PO ×2 (07:57→22:30)
[2019-08-27] MEDS: Sertraline 100 MG Tablet PO (07:58)
[2019-08-27] MEDS: Nystatin Powder 15gm Bottle 1 APPLIC TOPICAL ×2 (07:58→22:31)
[2019-08-27 08:44] VITALS: BP 106/75; PULSE 55; RESP 16; TEMP 36.7; O2SAT 95
--- NOTE | 2019-08-27 08:45 | NURSING ---
Patient refused capping. He requested the Passy Chaffee valve be placed instead. When this medical technical writer encouraged patient and educated patient on the purpose of the capping trials he continued to refuse the cap and insisted on the Passy valve. applied at 0800.
[2019-08-27 11:35] VITALS: BMI 41.2
[2019-08-27 22:30] VITALS: BP 135/75; PULSE 72; RESP 16; TEMP 36.8; O2SAT 97; O2SAT 98; BMI 41.2
[2019-08-27] MEDS: QUEtiapine 25 MG Tablet PO (22:30)
[2019-08-27] MEDS: Lisinopril 10 MG Tablet PO (22:30)
[2019-08-28] MEDS: Menthol/Lanolin/Calamine/Znox 113 GM Tube 1 APPLIC TOPICAL ×3 (05:17→22:29)
[2019-08-28] MEDS: Enoxaparin 40 MG/0.4 ML Syringe SC (05:17)
[2019-08-28] MEDS: busPIRone 5 MG Tablet PO ×3 (05:17→22:27)
--- NOTE | 2019-08-28 05:35 | NURSING ---
staff into give am medication and indicated that he was wet, staff offered pt to washed and pt declined pt given incontinence care and repositioned for comfort. dressing changed to trach. po fluids offered and pt refused
[2019-08-28 07:00] VITALS: BP 109/67; PULSE 68; RESP 18; TEMP 36.8; O2SAT 94
[2019-08-28] MEDS: amLODIPine 10 MG Tablet PO (09:33)
[2019-08-28] MEDS: Lisinopril 5 MG Tablet 15 MG PO (09:33)
[2019-08-28] MEDS: Sertraline 100 MG Tablet PO (09:33)
[2019-08-28] MEDS: Carvedilol 25 MG Tablet PO ×2 (09:33→22:27)
[2019-08-28] MEDS: Nystatin Powder 15gm Bottle 1 APPLIC TOPICAL ×2 (09:34→22:29)
[2019-08-28 14:30] VITALS: BMI 41.2
--- NOTE | 2019-08-28 18:33 | NURSING ---
speaking valve placed at 0920 until 1200 then removed per pt request. pt then capped at 1245.
[2019-08-28 19:40] VITALS: BP 144/75; PULSE 68; RESP 20; TEMP 36.5; O2SAT 95
[2019-08-28] MEDS: Lisinopril 10 MG Tablet PO (22:27)
[2019-08-28] MEDS: QUEtiapine 25 MG Tablet PO (22:28)
[2019-08-28 22:30] VITALS: O2SAT 97
[2019-08-29 00:45] VITALS: O2SAT 96
[2019-08-29 02:59] VITALS: BMI 41.2
[2019-08-29 03:40] VITALS: RESP 18; O2SAT 100
[2019-08-29] MEDS: Menthol/Lanolin/Calamine/Znox 113 GM Tube 1 APPLIC TOPICAL ×3 (06:17→20:21)
[2019-08-29] MEDS: busPIRone 5 MG Tablet PO ×3 (06:17→20:21)
[2019-08-29] MEDS: Enoxaparin 40 MG/0.4 ML Syringe SC (06:17)
[2019-08-29] MEDS: Sertraline 100 MG Tablet PO (07:45)
[2019-08-29] MEDS: amLODIPine 10 MG Tablet PO (07:45)
[2019-08-29] MEDS: Lisinopril 5 MG Tablet 15 MG PO (07:45)
[2019-08-29] MEDS: Nystatin Powder 15gm Bottle 1 APPLIC TOPICAL ×2 (07:46→20:21)
[2019-08-29] MEDS: Carvedilol 25 MG Tablet PO ×2 (07:46→20:21)
[2019-08-29 08:00] VITALS: BP 115/73; PULSE 69; RESP 16; TEMP 36.3; O2SAT 96
[2019-08-29 15:42] VITALS: BMI 41.2
[2019-08-29 16:00] VITALS: O2SAT 94
--- NOTE | 2019-08-29 16:00 | NURSING ---
This nurse called RT due to patients lung you with expiratory wheezing. Trach site remains capped and patients sp[o2 remains 94-97% RA. No complaints voiced or distress. RT will come see patient.
[2019-08-29 20:14] VITALS: BP 129/93; PULSE 69; RESP 20; TEMP 37; O2SAT 94
[2019-08-29] MEDS: Lisinopril 10 MG Tablet PO (20:20)
[2019-08-29] MEDS: QUEtiapine 25 MG Tablet PO (20:20)
[2019-08-30 06:48] VITALS: O2SAT 98
[2019-08-30] MEDS: Enoxaparin 40 MG/0.4 ML Syringe SC (06:58)
[2019-08-30] MEDS: busPIRone 5 MG Tablet PO ×3 (06:58→21:51)
[2019-08-30] MEDS: Menthol/Lanolin/Calamine/Znox 113 GM Tube 1 APPLIC TOPICAL ×3 (06:59→21:52)
[2019-08-30 07:47] LABS: Anion Gap 5 (5-15); BUN 19 mg/dL (7-18); BUN/Creat Ratio 16.4 RATIO (10-20); Calcium,Total 9.2 mg/dL (8.5-10.1); Chloride 104 mmol/L (98-107); Creatinine, Serum 1.16 mg/dL (0.70-1.30); EST Glomerular Filtration Rate 75 mL/min (>60); Est Glom Filt Rate - Afr Amer 90 mL/min (>60); Estimated Creatinine Clearance 77.92 ml/min; Glucose 93 mg/dL (74-106); Magnesium 2.2 mg/dL (1.6-2.6); Potassium 4.5 mmol/L (3.5-5.1); Sodium Level 138 mmol/L (136-145)
--- NOTE | 2019-08-30 08:53 | PCM.PN.BLA ---
Progress Note Lawrence was seen on team rounds today. His mother Shakira participated by phone. febrile Vital signs are stable and blood pressure is well controlled He is maintaining appropriate oxygen saturation on room air when awake. Good oral intake. He Has Now Been capped since noon on Friday. He denies shortness of breath and he is not tachypneic. He has no conversational dyspnea. There is no accessory muscle use. Lungs-clear to auscultation Heart-regular rate and rhythm No peripheral edema He is moving his right upper extremity more than last week. He is consistently moving his right leg forward with ambulation without the physical therapist having to push it forward. Ambulation is still quite difficult and he is requiring the assistance of 2 people to do this. Impressions 1. Post stroke debility 2. [id number] 3. Status post tracheostomy for prolonged intubation. I was able to discuss Decannulation with Dr. Gaming and since Segundo Has Been capped for almost 48 hours and is doing well 4. Dysphagia-PEG tube has been removed and he is eating well with no signs of aspiration. Continue therapy Decannulate today STROKE Vital Signs/Narrative: Vital Signs Pulse Ox 08/30/19 06:48 98 Inpatient E&M: [id number] Subs Hosp L2
[2019-08-30 09:07] VITALS: BP 129/80; PULSE 67; RESP 20; TEMP 36.7; O2SAT 96
[2019-08-30] MEDS: Sertraline 100 MG Tablet PO (09:41)
[2019-08-30] MEDS: Lisinopril 5 MG Tablet 15 MG PO (09:41)
[2019-08-30] MEDS: Carvedilol 25 MG Tablet PO ×2 (09:41→21:51)
[2019-08-30] MEDS: amLODIPine 10 MG Tablet PO (09:41)
[2019-08-30] MEDS: Nystatin Powder 15gm Bottle 1 APPLIC TOPICAL ×2 (09:44→21:52)
[2019-08-30 10:09] VITALS: BMI 41.2
--- NOTE | 2019-08-30 10:59 | CPS ---
Mr. Mora was decannulated at 1045 without any problems. A dressing was taped over the hole and explained to patient about covering the hole to talk until it seals closed.
--- NOTE | 2019-08-30 12:13 | CASEMGMT ---
Social Work IDT met with patient and mother via conference call for Team Meeting. Discussed patient's progress in therapy. Pt is max x1 with platform walker ambulating 28 ft twice with a rest break. Pt is min to mod assist for stand pivot transfers, improved right shoulder movement and hand grasp. Pt is min assist for UE dressing, mod for bathing and total x2 for LE dressing due to balance and clothing management. Pt is now continent with B&B and is using the toilet. Pt is reg/thin diet, chin tuck and small bites. Trache has been capped for 48 hours. Physician to contact specialist to get trache pulled this week. Pt is having improved speech as well. Insurance NRD 08/30 and recommending continued therapy. Will continue to follow. Morena Schroeder, JANITOR AND CLEANER [employer] BPM DEVELOPER
[2019-08-30 20:20] VITALS: BP 134/74; PULSE 69; RESP 18; TEMP 36.9; O2SAT 94; BMI 41.2
[2019-08-30 21:20] VITALS: PULSE 69; RESP 18; O2SAT 94
[2019-08-30] MEDS: QUEtiapine 25 MG Tablet PO (21:51)
[2019-08-30] MEDS: Lisinopril 10 MG Tablet PO (21:51)
--- NOTE | 2019-08-31 03:48 | NURSING ---
Reviewed and agree with PAPER SHEETER documentation and charting.
[2019-08-31] MEDS: Enoxaparin 40 MG/0.4 ML Syringe SC (06:46)
[2019-08-31] MEDS: busPIRone 5 MG Tablet PO ×2 (06:46→13:02)
[2019-08-31] MEDS: Menthol/Lanolin/Calamine/Znox 113 GM Tube 1 APPLIC TOPICAL ×3 (06:46→20:31)
[2019-08-31 07:43] VITALS: BP 127/74; PULSE 82; RESP 16; TEMP 36.6; O2SAT 100
[2019-08-31] MEDS: amLODIPine 10 MG Tablet PO (07:58)
[2019-08-31] MEDS: Carvedilol 25 MG Tablet PO ×2 (07:58→20:29)
[2019-08-31] MEDS: Lisinopril 5 MG Tablet 15 MG PO (07:58)
[2019-08-31] MEDS: Sertraline 100 MG Tablet PO (07:58)
[2019-08-31] MEDS: Nystatin Powder 15gm Bottle 1 APPLIC TOPICAL ×2 (07:59→20:31)
[2019-08-31 09:20] VITALS: BMI 41.2
--- NOTE | 2019-08-31 12:25 | PCM.PN.BLA ---
Progress Note Afebrile Blood pressures well controlled He maintains appropriate oxygen saturation on room air while awake. He is on 2 L of oxygen at night secondary to sleep disordered breathing/hypoxia. He was decannulated on 08/30/2019 and is doing well. Oral intake on 08/30/2019 was 1520 cc. PT/OT/ST notes were reviewed. He has improved exercise tolerance and is able to ambulate 20 to 28 feet with assistance of 2 people now rather than 3. Ambulation is still very difficult. Will likely need a power chair in the future to be mobile. The goal is to have him be more independent with stand pivot/bed mobility so he could function from a power chair level. He still requires maximum assistance of 1 person to go from supine to sitting. Minimal assistance to go from sit to stand and minimal assistance for stand pivot. Still requires total assistance for lower body dressing. He needs minimal assistance for upper body dressing. Total assistance for toileting and toilet transfer. He is not able at this time to be safe at home with just his mother for assistance. He is doing well with eating and lungs are CTA. He is able to recall compensatory strategies for swallowing technique and uses them appropriately. Lawrence denies shortness of breath, chest pain, anxiety. He requested that we discontinue the BuSpar. Alert, oriented X 3 , NAD, smiling Lungs - CTA, not tachypneic, no conversational dyspnea HRRR no peripheral edema He was able to lift the left leg off the bed a few inches today and he lifted the left arm up to shoulder height and he is very proud of himself and showing off Impressions 1. post stroke debility - making excellent progress in therapy 2. dysphagia - PEG has been discontinued and he is eating well and adhering to the small sips and small bites and chin tuck without being monitored now 3. S/P decannulation on 08/30/19 doing well 4. depression -much better mood DC the Buspar but, continue the increased dose of the Sertraline. We discussed that what we really to work hard on now is Stand pivot, supine to sit and transfers with min assist so that he will be able to move in with his mother to assist him at [place]. He is aware and he wants this too. 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 Inpatient E&M: [id number] Subs Hosp L2
[2019-08-31 20:15] VITALS: BP 136/83; PULSE 77; RESP 16; TEMP 36.8; O2SAT 97; BMI 41.2
[2019-08-31] MEDS: QUEtiapine 25 MG Tablet PO (20:29)
[2019-08-31] MEDS: Lisinopril 10 MG Tablet PO (20:30)
--- NOTE | 2019-09-01 03:22 | NURSING ---
REviewed and agree with COMMUNICATIONS FIELD TECHNICIAN documentation and charting.
[2019-09-01] MEDS: Menthol/Lanolin/Calamine/Znox 113 GM Tube 1 APPLIC TOPICAL ×3 (06:15→22:06)
[2019-09-01] MEDS: Enoxaparin 40 MG/0.4 ML Syringe SC (06:15)
[2019-09-01 07:53] VITALS: O2SAT 98
[2019-09-01] MEDS: Sertraline 100 MG Tablet PO (08:29)
[2019-09-01] MEDS: Lisinopril 5 MG Tablet 15 MG PO (08:30)
[2019-09-01] MEDS: Carvedilol 25 MG Tablet PO ×2 (08:30→22:06)
[2019-09-01] MEDS: amLODIPine 10 MG Tablet PO (08:30)
[2019-09-01] MEDS: Nystatin Powder 15gm Bottle 1 APPLIC TOPICAL ×2 (08:34→22:06)
[2019-09-01 08:36] VITALS: BP 148/70; PULSE 56; RESP 16; TEMP 36.7; O2SAT 98
[2019-09-01 15:10] VITALS: BMI 41.2
[2019-09-01 22:00] VITALS: BP 131/88; PULSE 81; RESP 18; TEMP 36.8; O2SAT 96; BMI 41.2
[2019-09-01] MEDS: QUEtiapine 25 MG Tablet PO (22:05)
[2019-09-01] MEDS: Lisinopril 10 MG Tablet PO (22:05)
[2019-09-02] MEDS: Menthol/Lanolin/Calamine/Znox 113 GM Tube 1 APPLIC TOPICAL ×3 (06:33→20:00)
[2019-09-02] MEDS: Enoxaparin 40 MG/0.4 ML Syringe SC (06:33)
--- NOTE | 2019-09-02 07:18 | NURSING ---
pt refused po fluids and use his IS when offered. pt stated that he didn't need use the IS, pt reeducated on the importance of using IS to prevent pneumonia
[2019-09-02 07:30] VITALS: BP 131/69; PULSE 64; RESP 16; TEMP 36.9; O2SAT 97
[2019-09-02] MEDS: Sertraline 100 MG Tablet PO (08:02)
[2019-09-02] MEDS: Lisinopril 5 MG Tablet 15 MG PO (08:02)
[2019-09-02] MEDS: amLODIPine 10 MG Tablet PO (08:02)
[2019-09-02] MEDS: Carvedilol 25 MG Tablet PO ×2 (08:03→20:00)
[2019-09-02] MEDS: Nystatin Powder 15gm Bottle 1 APPLIC TOPICAL ×2 (08:20→20:01)
[2019-09-02 09:11] VITALS: O2SAT 94
[2019-09-02 11:22] VITALS: BMI 41.2
[2019-09-02 19:22] VITALS: BP 123/78; PULSE 64; RESP 16; TEMP 37; O2SAT 95
[2019-09-02] MEDS: QUEtiapine 25 MG Tablet PO (20:01)
[2019-09-02] MEDS: Lisinopril 10 MG Tablet PO (20:01)
[2019-09-03 01:14] VITALS: BMI 41.2
[2019-09-03] MEDS: Enoxaparin 40 MG/0.4 ML Syringe SC (05:56)
[2019-09-03] MEDS: Menthol/Lanolin/Calamine/Znox 113 GM Tube 1 APPLIC TOPICAL ×3 (05:57→20:53)
[2019-09-03 06:46] VITALS: O2SAT 97
[2019-09-03 07:00] VITALS: BP 134/84; PULSE 67; RESP 18; TEMP 36.8; O2SAT 97
[2019-09-03] MEDS: Carvedilol 25 MG Tablet PO ×2 (08:14→20:52)
[2019-09-03] MEDS: amLODIPine 10 MG Tablet PO (08:15)
[2019-09-03] MEDS: Sertraline 100 MG Tablet PO (08:16)
[2019-09-03] MEDS: Lisinopril 5 MG Tablet 15 MG PO (08:16)
[2019-09-03] MEDS: Nystatin Powder 15gm Bottle 1 APPLIC TOPICAL ×2 (08:16→20:52)
--- NOTE | 2019-09-03 08:26 | PCM.PN.BLA ---
Progress Note Afebrile VSS-blood pressure is well controlled. Maintaining appropriate oxygen saturation on RA Oral intake is good Discussed with nursing - no problems that need addressed Reviewed the PT/OT/ST notes Medication list reviewed. Alert, no apparent distress Lungs-clear to auscultation without tachypnea Heart-regular rate and rhythm, no gallop Abdomen-obese, soft, nontender, normal bowel sounds No calf tenderness, no peripheral edema, no rashes, no breakdown Impressions 1. Post stroke debility 2. Acute respiratory failure with prolonged intubation requiring tracheostomy. He was decannulated on 08/30/2019 and is doing well 3. Status post PEG tube-removed 4. Morbid obesity-weight has been decreasing on a calorie controlled diet 5. Hypertension-controlled 6. Anxiety with panic attacks-improved 7. Depression-improving on sertraline and he has no adverse reactions to sertraline so will continue the 100 mg dose. Recheck BMP, magnesium, H&H on Friday. Decrease Seroquel to 12.5 mg p.o. nightly. He has improved significantly since admission to the rehab unit and he is appropriate, talking, alert and oriented x3. He may no longer needs Seroquel. Continue sertraline 100 mg p.o. daily STROKE Vital Signs/Narrative: Vital Signs Pulse Ox 09/03/19 06:46 97 Inpatient E&M: [id number] Subs Hosp L2
[2019-09-03 15:06] VITALS: BMI 41.2
[2019-09-03 19:20] VITALS: BP 143/90; PULSE 66; RESP 18; TEMP 36.6; O2SAT 96
[2019-09-03] MEDS: Lisinopril 10 MG Tablet PO (20:51)
[2019-09-03] MEDS: QUEtiapine 25 MG Tablet 12.5 MG PO (20:52)
[2019-09-04] MEDS: Enoxaparin 40 MG/0.4 ML Syringe SC (06:54)
[2019-09-04] MEDS: Menthol/Lanolin/Calamine/Znox 113 GM Tube 1 APPLIC TOPICAL ×3 (06:54→22:06)
[2019-09-04 07:31] VITALS: O2SAT 97
[2019-09-04] MEDS: Nystatin Powder 15gm Bottle 1 APPLIC TOPICAL ×2 (07:49→22:02)
[2019-09-04] MEDS: amLODIPine 10 MG Tablet PO (07:59)
[2019-09-04] MEDS: Carvedilol 25 MG Tablet PO ×2 (07:59→22:03)
[2019-09-04] MEDS: Lisinopril 5 MG Tablet 15 MG PO (07:59)
[2019-09-04] MEDS: Sertraline 100 MG Tablet PO (08:00)
[2019-09-04 10:00] VITALS: BP 128/72; PULSE 60; RESP 12; TEMP 36.7; O2SAT 95
[2019-09-04 15:01] VITALS: BMI 41.2
[2019-09-04 18:51] VITALS: BP 130/75; PULSE 59; RESP 18; TEMP 36.9; O2SAT 95
[2019-09-04 21:40] VITALS: BMI 41.2
[2019-09-04 22:00] VITALS: PULSE 63; RESP 17
[2019-09-04] MEDS: QUEtiapine 25 MG Tablet 12.5 MG PO (22:02)
[2019-09-04] MEDS: Lisinopril 10 MG Tablet PO (22:04)
[2019-09-05] MEDS: Menthol/Lanolin/Calamine/Znox 113 GM Tube 1 APPLIC TOPICAL ×3 (05:55→21:06)
[2019-09-05] MEDS: Enoxaparin 40 MG/0.4 ML Syringe SC (05:55)
[2019-09-05] MEDS: Lisinopril 5 MG Tablet 15 MG PO (07:39)
[2019-09-05] MEDS: Carvedilol 25 MG Tablet PO ×2 (07:39→21:05)
[2019-09-05] MEDS: amLODIPine 10 MG Tablet PO (07:39)
[2019-09-05] MEDS: Sertraline 100 MG Tablet PO (07:39)
[2019-09-05 08:16] VITALS: BP 126/86; PULSE 58; RESP 17; TEMP 36.6; O2SAT 97
[2019-09-05] MEDS: Nystatin Powder 15gm Bottle 1 APPLIC TOPICAL ×2 (08:18→21:06)
[2019-09-05 17:00] VITALS: BMI 41.2
[2019-09-05 21:00] VITALS: PULSE 86; O2SAT 97
[2019-09-05] MEDS: QUEtiapine 25 MG Tablet 12.5 MG PO (21:05)
[2019-09-05] MEDS: Lisinopril 10 MG Tablet PO (21:05)
[2019-09-05 21:06] VITALS: BP 145/82; PULSE 67; RESP 16; TEMP 36.8; O2SAT 95; BMI 41.2
[2019-09-06] MEDS: Enoxaparin 40 MG/0.4 ML Syringe SC (06:07)
[2019-09-06] MEDS: Menthol/Lanolin/Calamine/Znox 113 GM Tube 1 APPLIC TOPICAL ×2 (06:07→20:53)
[2019-09-06 06:41] LABS: Hematocrit 37.1 % (40-54); Hemoglobin 12.1 g/dL (13.0-16.5)
[2019-09-06 07:05] LABS: Anion Gap 5 (5-15); BUN 26 mg/dL (7-18); BUN/Creat Ratio 21.8 RATIO (10-20); Calcium,Total 9.2 mg/dL (8.5-10.1); Chloride 102 mmol/L (98-107); Creatinine, Serum 1.19 mg/dL (0.70-1.30); EST Glomerular Filtration Rate 72 mL/min (>60); Est Glom Filt Rate - Afr Amer 88 mL/min (>60); Estimated Creatinine Clearance 75.95 ml/min; Glucose 90 mg/dL (74-106); Magnesium 2.3 mg/dL (1.6-2.6); Potassium 4.4 mmol/L (3.5-5.1); Sodium Level 136 mmol/L (136-145)
[2019-09-06 07:14] VITALS: O2SAT 96
[2019-09-06] MEDS: Loperamide 2 MG Capsule PO (08:18)
[2019-09-06] MEDS: amLODIPine 10 MG Tablet PO (08:18)
[2019-09-06] MEDS: Sertraline 100 MG Tablet PO (08:19)
[2019-09-06] MEDS: Lisinopril 5 MG Tablet 15 MG PO (08:19)
[2019-09-06] MEDS: Carvedilol 25 MG Tablet PO ×2 (08:19→20:52)
--- NOTE | 2019-09-06 08:21 | PCM.PN.BLA ---
Progress Note Afebrile Vital signs stable Maintaining appropriate oxygen saturation on room air while awake. Using 2 L at night secondary to sleep disordered breathing. Good oral intake The weight is 243 pounds and 9 ounces, down from 257 pounds admission. Good bowel function Medication list was reviewed. Current antihypertensives include carvedilol 25 mg twice daily, lisinopril 25 mg daily amlodipine 10 mg p.o. daily. Therapy notes were reviewed. Hemoglobin is improving and is 12.1 today. BMP shows a potassium of 4.4, sodium of 136, BUN of 26 and a creatinine of 1.19 and the magnesium is 2.3. Creatinine at admission to the rehab unit was 0.81. No complaints today. Denies lightheadedness, shortness of breath, cough, dysuria, abdominal pain, chest pain. Alert, oriented x3, no apparent distress Lungs-clear to auscultation but diminished, due to poor inspiratory effort Heart-regular rate and rhythm, no gallop, no murmur Abdomen-obese, soft, nontender, nondistended, normal bowel sounds heard No peripheral edema, no calf tenderness No rashes, no breakdown Impressions 1. Post stroke debility-continues to improve with therapy 2. Normochromic normocytic anemia-hemoglobin is improving 3. Acute renal failure-creatinine is improving but has not returned to baseline. Possibly related to increasing the dose of lisinopril/MACEY? 4. Hypertension-controlled 5. Depression/anxiety-better on sertraline Creat has increased with the increase in the dose of the lisinopril. I am going to back off the lisinopril and add Cardura at HS. Will recheck the BMP in a few days. If the creat comes down would be inclined to get a CTA of the renal arteries going forward to R/O Renal artery stenosis. STROKE Vital Signs/Narrative: Vital Signs Pulse Ox 09/06/19 07:14 96 Inpatient E&M: [id number] Subs Hosp L2
[2019-09-06] MEDS: Nystatin Powder 15gm Bottle 1 APPLIC TOPICAL ×2 (08:23→20:53)
[2019-09-06 08:28] VITALS: BP 125/66; PULSE 63; RESP 18; TEMP 36.4; O2SAT 98
[2019-09-06 08:58] VITALS: BMI 41.2
[2019-09-06 19:20] VITALS: BP 144/86; PULSE 67; RESP 18; TEMP 37.1; O2SAT 95
[2019-09-06] MEDS: QUEtiapine 25 MG Tablet 12.5 MG PO (20:51)
[2019-09-06] MEDS: Doxazosin 1 MG Tablet PO (20:52)
[2019-09-07 05:00] VITALS: BMI 41.2
[2019-09-07] MEDS: Enoxaparin 40 MG/0.4 ML Syringe SC (06:37)
[2019-09-07] MEDS: Menthol/Lanolin/Calamine/Znox 113 GM Tube 1 APPLIC TOPICAL ×3 (06:37→20:54)
[2019-09-07 07:24] VITALS: BP 110/72; PULSE 69; RESP 12; TEMP 36.5; O2SAT 96
[2019-09-07] MEDS: Carvedilol 25 MG Tablet PO ×2 (07:44→20:54)
[2019-09-07] MEDS: Sertraline 100 MG Tablet PO (07:44)
[2019-09-07] MEDS: amLODIPine 10 MG Tablet PO (07:44)
[2019-09-07] MEDS: Lisinopril 5 MG Tablet 15 MG PO (07:44)
[2019-09-07] MEDS: Nystatin Powder 15gm Bottle 1 APPLIC TOPICAL ×2 (07:48→20:54)
[2019-09-07 08:21] VITALS: BMI 41.2
--- NOTE | 2019-09-07 08:57 | PCM.PN.BLA ---
Progress Note Seen on TEAM rounds today. His mother Shakira participated in rounds via phone Afebrile Vital signs are stable. Lisinopril was decreased to 10 mg Q AM yesterday due to a persistent mild increase in the creat. He was started on Cardura At HS in place of the Lisinopril at HS. He is also on Coreg and Amlodipine. We tried a diuretic but creat increased so it was discontinued. Nursing and therapists report that there are things that Lawrence will just not do. He will not use the urinal and relies on the nurses to do this for him. He is not participating in toileting. Can not wipe himself. Requires total assistance with bathing. He is able to dress his upper body with standby assist but requires maximum assistance with his lower body. He is total assistance with toileting and moderate assistance with transfer onto the toilet. He was able to do his oral care. ST states he lacks safety awareness and is easily distracted. Alert, speech is fluid and intelligible. He has good facial expression and is smiling. The trach site is healing well with no sign of cellulitis. He is not coughing Lung - CTA HRRR abd - soft, NT, ND, normal BS's no edema No rashes and no skin breakdown He is not able to lift the RUE as far as he did last week......therapy wondering if this is a lack of motivation? Impressions 1. Post stroke debility-continues to improve with therapy when he wants to do something. He has a lack of motivation for doing other things like toileting and dressing his lower body and posterior jayne-care and using the urinal 2. Normochromic normocytic anemia-hemoglobin is improving 3. Acute renal failure-creatinine is improving but has not returned to baseline. Possibly related to increasing the dose of lisinopril/MACEY? 4. Hypertension-controlled 5. Depression/anxiety-better on sertraline 6. cognitive dysfunction with lack of safety awareness and he is also unrealistic about how much help he is requiring. He is too much for his mother to care for at this time and I reinforced this with Lawrence and his mother. We also discussed his lack of motivation to some activities the therapists are trying to get him to do. He will need to be able to use the toilet and do his jayne-care if he is discharged to the community and will also need to use the urinal or get to the BR to urinate. If he is not able to progress with these things then he will likely need to go to an SNF. STROKE Vital Signs/Narrative: Vital Signs Temp Pulse Resp BP Pulse Ox 09/07/19 07:24 97.7 F L 69 12 110/72 96 Inpatient E&M: [id number] Subs Hosp L2
--- NOTE | 2019-09-07 10:40 | CASEMGMT ---
Social Work IDT met with patient and mother via conference call for Team Meeting. Discussed patient's progress in therapy. Pt is max x2 with w/c follow for walking, working on mechanics, putting 3 lb weight on left ankle to give more control. Pt is min to mod x1 for transfers, CGA for bed mobility, mod for grooming, SA for UE dressing, total for LE ADLs and toileting. Pt is inconsistent with lifting arm. Pt is on a reg/thin diet, eating well, wanting to continue to take pills with applesauce. ST to assess more higher level cognitive functioning. Mom reports pt's personality is not having taking a lot initiation for tasks. Pt has poor insight at times, inattention, and to work on voice strategies. The goal is for pt to DC to mother's house. Explained insurance update 09/06 and continued stay is not guaranteed. Will continue to follow. ALISTAIR SierraW
[2019-09-07 20:38] VITALS: BP 115/70; PULSE 72; RESP 18; TEMP 36.8; O2SAT 93
[2019-09-07] MEDS: QUEtiapine 25 MG Tablet 12.5 MG PO (20:42)
[2019-09-07] MEDS: Doxazosin 1 MG Tablet PO (20:54)
[2019-09-08] MEDS: Enoxaparin 40 MG/0.4 ML Syringe SC (05:48)
[2019-09-08] MEDS: Menthol/Lanolin/Calamine/Znox 113 GM Tube 1 APPLIC TOPICAL ×3 (05:49→21:34)
[2019-09-08 07:25] VITALS: BP 110/73; PULSE 67; RESP 12; TEMP 36.6; O2SAT 97
[2019-09-08] MEDS: Polyethylene Glycol 3350 17 GM PACKET PO (07:58)
[2019-09-08] MEDS: Sertraline 100 MG Tablet PO (07:58)
[2019-09-08] MEDS: Carvedilol 25 MG Tablet PO ×2 (07:58→21:34)
[2019-09-08] MEDS: Lisinopril 10 MG Tablet PO (07:58)
[2019-09-08] MEDS: amLODIPine 10 MG Tablet PO (08:00)
--- NOTE | 2019-09-08 08:21 | PN_ITS ---
Progress Note Afebrile VSS-blood pressure is well controlled. He is tolerating the Cardura at night without lightheadedness. Maintaining appropriate oxygen saturation on RA Oral intake is adequate Discussed with nursing - no problems that need addressed. After discussion on rounds yesterday about the need to be able to complete his grooming and toileti ng with minimal assist the patient has been able to use the urinal by himself with non assistance. Reviewed the PT/OT/ST notes - he is getting in and out of bed now with CGA/min assist Medication list reviewed. BMP ordered for the morning. The Lisinopril dose was decreased to 10 mg daily because of the increase in the creatinine. If the creatinine is still elevated tomorrow I am going to DC the lisinopril and recheck the BMP Friday. If creatinine improves with the change in the Lisinopril dose then he will need a CTA of the renal arteries to r/o renal artery stenosis as a contributing factor in the HTN. Denies chest pain, shortness of breath, abdominal pain, nausea/vomiting, dyspnea with exertion, constipation, pain. Alert, appropriate with me, no apparent distress Lungs-clear to auscultation No peripheral edema No rashes Sleeping well with no agitation at night. Impressions 1. post stroke debility 2. ARF - etiology? may be due to lisinopril or to dehydration or to both. DC the Seroquel BMP in the AM Continue therapy STROKE Vital Signs/Narrative: Vital Signs Temp Pulse Resp BP Pulse Ox 09/08/19 07:25 97.8 F 67 12 110/73 97 Inpatient E&M: [id number] Subs Hosp L1
[2019-09-08 12:21] VITALS: BMI 41.2
[2019-09-08 19:19] VITALS: BP 131/57; PULSE 67; RESP 18; TEMP 36.7; O2SAT 99
[2019-09-08] MEDS: Nystatin Powder 15gm Bottle 1 APPLIC TOPICAL (21:34)
[2019-09-08] MEDS: Doxazosin 1 MG Tablet PO (21:34)
[2019-09-08 21:48] VITALS: BMI 41.2
[2019-09-09] MEDS: Enoxaparin 40 MG/0.4 ML Syringe SC (06:00)
[2019-09-09] MEDS: Menthol/Lanolin/Calamine/Znox 113 GM Tube 1 APPLIC TOPICAL ×3 (06:04→21:01)
[2019-09-09 06:35] LABS: Anion Gap 7 (5-15); BUN 27 mg/dL (7-18); BUN/Creat Ratio 23.9 RATIO (10-20); Calcium,Total 8.9 mg/dL (8.5-10.1); Chloride 102 mmol/L (98-107); Creatinine, Serum 1.13 mg/dL (0.70-1.30); EST Glomerular Filtration Rate 77 mL/min (>60); Est Glom Filt Rate - Afr Amer 93 mL/min (>60); Estimated Creatinine Clearance 79.99 ml/min; Glucose 90 mg/dL (74-106); Potassium 4.1 mmol/L (3.5-5.1); Sodium Level 136 mmol/L (136-145)
[2019-09-09] MEDS: amLODIPine 10 MG Tablet PO (07:44)
[2019-09-09] MEDS: Lisinopril 10 MG Tablet PO (07:44)
[2019-09-09] MEDS: Sertraline 100 MG Tablet PO (07:45)
[2019-09-09] MEDS: Carvedilol 25 MG Tablet PO ×2 (07:45→21:01)
[2019-09-09] MEDS: Nystatin Powder 15gm Bottle 1 APPLIC TOPICAL ×2 (07:45→21:01)
[2019-09-09 08:00] VITALS: BP 137/87; PULSE 67; RESP 16; TEMP 37.1; O2SAT 92
[2019-09-09 09:31] VITALS: BMI 41.2
--- NOTE | 2019-09-09 11:22 | PN_ITS ---
Progress Note Afebrile Vital signs are stable and blood pressure is well controlled Maintaining appropriate oxygen saturation on room air Fair oral intake All lab was personally reviewed. The sodium is 136 and the potassium is 4.1 and stable. The BUN is still elevated at 27 and the creatinine is 1.15 with a BUN/creatinine ratio of 23.9. He denies lightheadedness. When nursing and PT encourage him to increase his participation with toileting and using the urinal and dressing he responds and tries. We discussed Segundo with PT/OT and ST today prior to TEAM rounds. He is doing well with financial planning and mat but, he has poor safety awareness. He is unaware that he will fall if the therapist is not supporting him with ambulation. He has a persistent inflated sense of what he is actually able to do at this time and is unaware of the extent of his disabilities. I think if we compare his cognition prior to the stroke with what it is now there would a significant decline. He is very intelligent and was functioning at a higher level of cognition than most folks prior to the stroke. Alert, oriented X 3, NAD Lungs -clear to auscultation Heart-regular rate and rhythm Abdomen-obese but his weight has significantly decreased since admission to rehab. Nontender, nondistended, no guarding with palpation No peripheral edema No calf tenderness No rashes and no skin breakdown Impressions 1. Post stroke debility-excellent improvement with therapy while he is been in the rehab unit. I do not know if he lacks motivation or it is due to cognitive dysfunction but he has to be continually reminded to attempt increased participation with things like toileting, grooming, use of his urinal, personal care 2. Normochromic normocytic anemia-more likely than not secondary to blood loss due to hemorrhagic CVA and craniotomy-hemoglobin is stable and in fact improving 3. Acute renal failure-may be multifactorial. The creatinine did improved with decrease in the lisinopril dose but is still higher than what it was at admission to the rehab unit. His oral intake is less than it was when we were using the PEG tube. This may be contributing to the higher BUN/creatinine ratio. We will continue to monitor periodically. Give IV fluids tonight and repeat a BMP on Friday. If the creat goes back to baseline with hydration I will know that the Increase is due to IV volume depletion and if it does not I am going to DC the Lisinopril and recheck in a few days....if the creat goes back to baseline with the discontinuation of the NEERAJ will need a CTA of the renal arteries DC to r/o MACEY as a secondary cause of the HTN 4. Hypertension-controlled 5. Cognitive dysfunction - I think this is probably greater than we suspect bec ause we do not know his level of cognitive function prior to the stroke and suspect he is very intelligent. His lack of motivation to do certain task and recognize his degree of disability may bbe due to cognitive dysfunction and not due to a lack of motivation. STROKE Vital Signs/Narrative: Vital Signs Temp Pulse Resp BP Pulse Ox 09/09/19 08:00 98.7 F 67 16 137/87 H 92 Inpatient E&M: [id number] Subs Hosp L2
[2019-09-09] MEDS: Lactated Ringers 1,000 ML 999 ML IV (14:10)
[2019-09-09] MEDS: Lactated Ringers 1,000 ML 150 ML IV ×2 (15:12→21:40)
[2019-09-09 18:55] VITALS: BP 125/71; PULSE 69; RESP 18; TEMP 36.6; O2SAT 98
[2019-09-09] MEDS: Doxazosin 1 MG Tablet PO (21:01)
[2019-09-09 21:48] VITALS: BMI 41.2
[2019-09-10] MEDS: Enoxaparin 40 MG/0.4 ML Syringe SC (05:54)
[2019-09-10] MEDS: Menthol/Lanolin/Calamine/Znox 113 GM Tube 1 APPLIC TOPICAL (05:54)
[2019-09-10 07:00] VITALS: BP 134/86; PULSE 73; RESP 18; TEMP 36.7; O2SAT 94
[2019-09-10] MEDS: Sertraline 100 MG Tablet PO (07:46)
[2019-09-10] MEDS: Lisinopril 10 MG Tablet PO (07:46)
[2019-09-10] MEDS: amLODIPine 10 MG Tablet PO (07:46)
[2019-09-10] MEDS: Carvedilol 25 MG Tablet PO ×2 (07:46→21:00)
[2019-09-10] MEDS: Nystatin Powder 15gm Bottle 1 APPLIC TOPICAL (07:53)
[2019-09-10 12:11] VITALS: BMI 41.2
[2019-09-10] MEDS: 0.9% Saline Lock 10 ML Syringe IV (15:14)
[2019-09-10 19:30] VITALS: BP 132/82; PULSE 78; RESP 16; TEMP 37; O2SAT 95
[2019-09-10 21:00] VITALS: PULSE 78; RESP 16; O2SAT 95; BMI 41.2
[2019-09-10] MEDS: Doxazosin 1 MG Tablet PO (21:00)
--- NOTE | 2019-09-11 01:38 | NURSING ---
Reviewed and agree with AERODYNAMICS ENGINEER documentation and charting.
[2019-09-11] MEDS: Enoxaparin 40 MG/0.4 ML Syringe SC (05:49)
[2019-09-11 07:03] LABS: Hematocrit 36.6 % (40-54); Hemoglobin 11.8 g/dL (13.0-16.5)
[2019-09-11 07:48] LABS: Anion Gap 6 (5-15); BUN 22 mg/dL (7-18); BUN/Creat Ratio 19.6 RATIO (10-20); Calcium,Total 9.1 mg/dL (8.5-10.1); Chloride 103 mmol/L (98-107); Creatinine, Serum 1.12 mg/dL (0.70-1.30); EST Glomerular Filtration Rate 78 mL/min (>60); Est Glom Filt Rate - Afr Amer 94 mL/min (>60); Glucose 86 mg/dL (74-106); Potassium 4.3 mmol/L (3.5-5.1); Sodium Level 139 mmol/L (136-145)
[2019-09-11] MEDS: Lisinopril 10 MG Tablet PO (08:08)
[2019-09-11] MEDS: Carvedilol 25 MG Tablet PO ×2 (08:08→20:09)
[2019-09-11] MEDS: amLODIPine 10 MG Tablet PO (08:08)
[2019-09-11] MEDS: Sertraline 100 MG Tablet PO (08:09)
[2019-09-11] MEDS: Nystatin Powder 15gm Bottle 1 APPLIC TOPICAL (08:14)
[2019-09-11 08:15] VITALS: BP 132/72; PULSE 65; RESP 16; TEMP 36.6; O2SAT 100
[2019-09-11 09:35] VITALS: BMI 41.2
[2019-09-11 20:00] VITALS: BP 129/93; PULSE 68; RESP 18; TEMP 36.7; O2SAT 99; BMI 41.2
[2019-09-11] MEDS: Doxazosin 1 MG Tablet 2 MG PO (20:09)
[2019-09-12] MEDS: Enoxaparin 40 MG/0.4 ML Syringe SC (05:47)
[2019-09-12 07:40] VITALS: BP 132/79; PULSE 61; RESP 16; TEMP 36.5; O2SAT 97
[2019-09-12] MEDS: Carvedilol 25 MG Tablet PO ×2 (07:44→21:17)
[2019-09-12] MEDS: amLODIPine 10 MG Tablet PO (07:44)
[2019-09-12] MEDS: Sertraline 100 MG Tablet PO (07:45)
[2019-09-12] MEDS: Nystatin Powder 15gm Bottle 1 APPLIC TOPICAL (07:49)
[2019-09-12 08:40] VITALS: BMI 41.2
[2019-09-12] MEDS: Doxazosin 1 MG Tablet 2 MG PO (21:17)
[2019-09-12 21:20] VITALS: BP 157/89; PULSE 78; RESP 16; TEMP 37; O2SAT 95; BMI 41.2
--- NOTE | 2019-09-12 23:15 | NURSING ---
pt call to have urinal frequently emptied for small amts of urine;usually 50-100cc. staff to room to empty urinal for 50cc at this time bladder scan performed to see if pt was retaining urine. bladder scan was 0cc. rn explained to pt the importance of retraining the bladder and signs and sx of UTI, which pt denied . pt stated that he goes frequently because the staff does not empty it fast enough. pt given reassurance that his urinal is emptied as soon as possible and give an extra urinal if needed. pt acknowledged. rn to leave note for doctor in the am to address the issue, will continue to monitor through out the night
[2019-09-13] MEDS: Enoxaparin 40 MG/0.4 ML Syringe SC (06:31)
[2019-09-13 07:00] VITALS: BP 116/85; PULSE 69; RESP 16; TEMP 36.4; O2SAT 100
[2019-09-13] MEDS: Sertraline 100 MG Tablet PO (08:01)
[2019-09-13] MEDS: amLODIPine 10 MG Tablet PO (08:01)
[2019-09-13] MEDS: Carvedilol 25 MG Tablet PO ×2 (08:01→20:04)
[2019-09-13 10:28] VITALS: BMI 41.2
--- NOTE | 2019-09-13 13:01 | PCM.PN.BLA ---
Progress Note Segundo was seen on TEAM rounds today. His mother Shakira participate in rounds by phone. Afebrile VSS Maintaining appropriate oxygen saturation on RA Oral intake is fair to moderate. Discussed with nursing - no problems that need addressed except, apparently there were some inappropriate comments made to female nurses over the weekend and the nurses are now going in to his room in pairs. Reviewed the PT/OT/ST notes Medication list reviewed. Lawrence has no complaints today Pleasant, smiling, talkative and participating in the conversation Lungs-clear to auscultation, no wheezes, no Rales Heart-regular rate and rhythm, no murmur, no gallop Abdomen-obese, soft, nontender No peripheral edema Trach site is completely healed Impressions 1. post stroke debility 2. HTN - still with some high BPS....goal is < 130/80 3. dehydration with elevated CREAT- no significant improvement with IV fluids. I encouraged him to increase his fluid intake to at least 2 big mugs of water daily rather than 1 and 1/2. He requests that I notify him 1 day before starting any IV fluids. He will increase his water intake. I told him to increase his water intake to 2 full large cups daily (64 oz) Since the creat was still elevated after hydration the Lisinopril was discontinued. will recheck the creat in 5-7 days and if it has returned to baseline will recommend a CTA of the renal arteries going forward. We discussed what is appropriate behavior. I think he would benefit from a visit with a colleague/friend. He has been in TCU for a month and now in [facility] for over a month. He would like this but would like to be notified a day prior to the visit. Inpatient E&M: [id number] Subs Hosp L2
--- NOTE | 2019-09-13 13:52 | CASEMGMT ---
Social Work IDT met with patient and mother via conference call for Team Meeting. Discussed patient's progress in therapy. Pt is working with PT on refining his independence with walking. Pt is successfully using a hemiwalker with mod x1 and SBA x1 ambulating 40-50ft. The goal for the following day is to complete steps and a floor transfer. Pt has been very motivated, using urinal on his own, and taking initiative with tasks. Pt is CGA -min assist for stand pivot transfers, min for grooming , mod for LE ADLs and CGA for UE ADLS. Pt expressed There's some things I'm not doing because I'm afraid of falling so after tomorrow hopefully I'll do more. Pt praised for insight and awareness. Pt is doing well with swallowing and has been working on higher level cognitive strategies. ST noted pt has poor insight on responses in safety situations. Will continue working on that. Discussed DC plans. Pt's mother is coming into town from [place] 09/19 for a week and if able, pt will return home with her for the summer and continue with outpatient therapy. Mom stated she lives with her son and mother so someone will be home with pt all the time and she could assist as needed. Mom did have concerns about 2 steps to enter into home and motor home and car transfers. Therapy will work on those goals. SW to search for outpatient therapy centers near mom's home and will determine DME needed at time of DC. the goal is for pt to continue with therapy in [place] for further improvements until mother visits 09/19. Explained insurance update 09/14 and continued stay is not guaranteed. Will continue to follow and ReTeam next week. ALISTAIR Sierra
[2019-09-13] MEDS: Doxazosin 1 MG Tablet 2 MG PO (20:04)
[2019-09-13 20:09] VITALS: BP 145/83; PULSE 72; RESP 18; TEMP 36.8; O2SAT 97
[2019-09-13 20:14] VITALS: BMI 41.2
[2019-09-14] MEDS: Enoxaparin 40 MG/0.4 ML Syringe SC (06:23)
[2019-09-14 07:30] VITALS: BP 146/87; PULSE 67; RESP 18; TEMP 36.6; O2SAT 100
[2019-09-14] MEDS: Sertraline 100 MG Tablet PO (07:45)
[2019-09-14] MEDS: amLODIPine 10 MG Tablet PO (07:46)
[2019-09-14] MEDS: Carvedilol 25 MG Tablet PO ×2 (07:46→20:46)
[2019-09-14 12:05] VITALS: BMI 41.2
[2019-09-14 18:48] VITALS: BP 130/65; PULSE 71; RESP 18; TEMP 36.8; O2SAT 94
[2019-09-14] MEDS: Doxazosin 1 MG Tablet 2 MG PO (20:46)
[2019-09-14 20:51] VITALS: BMI 41.2
[2019-09-15] MEDS: Enoxaparin 40 MG/0.4 ML Syringe SC (05:21)
[2019-09-15] MEDS: Sertraline 100 MG Tablet PO (07:50)
[2019-09-15] MEDS: Carvedilol 25 MG Tablet PO ×2 (07:50→19:50)
[2019-09-15] MEDS: amLODIPine 10 MG Tablet PO (07:50)
[2019-09-15 08:05] VITALS: BP 129/89; PULSE 65; RESP 16; TEMP 36.4; O2SAT 98
[2019-09-15 09:34] VITALS: BMI 41.2
--- NOTE | 2019-09-15 14:17 | PCM.PN.BLA ---
Progress Note Afebrile Blood pressures are mildly increased. He was recently increased from 1 mg of Cardura at at bedtime to 2 mg. We will continue to monitor blood pressures. He denies dizziness or lightheadedness. Lisinopril was discontinued secondary to elevated creatinine which may be due to lisinopril but could also be due to intravascular volume depletion as his BUN/creatinine ratio has been greater than 20 quickly. Good oral intake Maintaining appropriate oxygen saturation on room air while awake and using 2 L of oxygen at night while sleeping due to sleep disordered breathing. Reviewed PT/OT/ST notes. Lawrence continues to progress. Nursing is c/o inappropriate comments of a sexual nature. This seems to have been a recent thing for the past 7-10 days. Lawrence has no complaint of chest pain, shortness of breath, cough, sore throat, abdominal pain, nausea. Alert, oriented x3, watching TV when we entered the room. Sitting in a recliner chair. Lungs-clear to auscultation throughout Heart-regular rate and rhythm Abdomen-obese, soft, nontender No peripheral edema Impressions 1. Debility secondary to hemorrhagic CVA-progressing well with therapy 2. Hypertension-mildly increased at times. Cardura recently increased to 2 mg nightly and will continue monitoring his blood pressures with a goal of maintaining blood pressure less than 130/80. 3. Obesity-has been losing weight due to calorie restricted diet while in inpatient rehab. 4. 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 Inappropriate sexual comments may be due to decreased inhibition due to the CVA. He does not recall making inappropriate comments. I explained to Lawrence that it is our job to not only physically rehabilitate him but, to make sure he has appropriate safety awareness and he is appropriate with comments to acquaintances and people he meets. In order to assist him with this the nurses will be pointing out any inappropriate behavior or comments he has with them. Continue therapy. Lawrence's mother will be in town next week and we will have her come in for family training to see if she is going to be able to assist Lawrence adequately at home or if we will need to make alternate plans. Inpatient E&M: [id number] Subs Hosp L2
--- NOTE | 2019-09-15 16:20 | CASEMGMT ---
Social Work Insurance approved pt with NRD 09/20, anticipated DC 09/21. Case went to medical review. Contacted mother and explained insurance. Mother stated that isn't going to work because I won't get down there until 09/21. He cannot get into his house and won't have anywhere to go until we leave 09/28. Inquired about arrival date as Team she stated 09/19. She apologized for mis-speaking and reiterated dates of arrival of 09/21 and departure 09/28. Reexplained update went to medical review and requesting pt DC by 09/21. Explained IDT will ReTeam Tuesday 09/19 and determine pt's progress and can submit another update 09/20, but continued stay is not guaranteed. Explained private pay on [place], TCU or another SNF. Mother stated they cannot pay privately. Inquired about DME as SW will order that prior to DC but it must fit on the RV. Mother understood. SW to search for outpatient centers in [place]. Contacted [facility], outpatient center in [place], [place]. Confirmed they provide PT/OT/ST and work with stroke patient's, and can accept's pt, pending insurance. Referral made, clinicals faxed. Will continue to follow. Morena Schroeder, PRODUCT PROMOTER SALES PERSON [employer]
[2019-09-15 19:15] VITALS: BP 142/89; PULSE 86; RESP 16; TEMP 36.9; O2SAT 93
[2019-09-15 19:50] VITALS: PULSE 86; RESP 16; O2SAT 93; BMI 41.2
[2019-09-15] MEDS: Doxazosin 1 MG Tablet 2 MG PO (19:50)
--- NOTE | 2019-09-16 04:12 | NURSING ---
Reviewed and agree with ASSISTANT MANAGER/EMBALMER documentation and charting.
[2019-09-16] MEDS: Enoxaparin 40 MG/0.4 ML Syringe SC (05:56)
--- NOTE | 2019-09-16 06:13 | NURSING ---
Pt refused NEERAJ wrap to RLE this a.m. during ADLs. Pt states that his legs move around and he doesn't needs them. Pt advised of the therapeutic reasons for NEERAJ wraps. Will continue to monitor.
[2019-09-16 06:33] LABS: Anion Gap 8 (5-15); BUN 20 mg/dL (7-18); BUN/Creat Ratio 17.7 RATIO (10-20); Calcium,Total 8.9 mg/dL (8.5-10.1); Chloride 102 mmol/L (98-107); Creatinine, Serum 1.13 mg/dL (0.70-1.30); EST Glomerular Filtration Rate 77 mL/min (>60); Est Glom Filt Rate - Afr Amer 93 mL/min (>60); Estimated Creatinine Clearance 79.99 ml/min; Glucose 92 mg/dL (74-106); Potassium 3.9 mmol/L (3.5-5.1); Sodium Level 138 mmol/L (136-145)
[2019-09-16 07:05] VITALS: BP 138/85; PULSE 69; RESP 17; TEMP 36.6; O2SAT 100
[2019-09-16] MEDS: Carvedilol 25 MG Tablet PO ×2 (08:02→20:16)
[2019-09-16] MEDS: Sertraline 100 MG Tablet PO (08:02)
[2019-09-16] MEDS: amLODIPine 10 MG Tablet PO (08:02)
--- NOTE | 2019-09-16 08:35 | PCM.PN.BLA ---
Progress Note Afebrile Blood pressures are trending up. The majority of the diastolic blood pressures have been greater than 80 over the past 3 to 4 days. Systolic has ranged from 116-157. The diastolic pressure has ranged from 79-89 with the majority of the readings being greater than 80 since the lisinopril was discontinued. PT/OT/ST notes were reviewed. Good oral intake No complaints Alert, oriented x3, no apparent distress, pleasant and appropriate Mucous membranes are moist Lungs-clear to auscultation, diminished in the bases Heart-regular rate and rhythm, no ectopy, no murmur, no gallop Abdomen-obese, soft, nontender, bowel sounds present in all 4 quadrants Trace edema in the right lower extremity, Ovidio wrap in place. No calf tenderness Still with right facial droop, weakness of the right upper extremity and lower extremity, incoordination of the R hand. doing better getting on and off the toilet but still not able to complete hygiene post BM and is total assist Impressions 1. Post stroke debility - continues to improve with therapy 2. HTN - not optimally controlled at this time. Goal is less than 130/80. In a man this age with hemorrhagic CVA and severe debility I feel it is important to r/o secondary causes of HTN. change the doxazosin to 2 mg twice daily and check orthostatic blood pressures twice daily, in the morning and in the late afternoon. CTA of the renal arteries TSH If the CTA and the TSH are normal check a 24H urine for metanephrines STROKE Vital Signs/Narrative: Vital Signs Temp Pulse Resp BP Pulse Ox 09/16/19 07:05 97.8 F 69 17 138/85 H 100 Inpatient E&M: 97154 Subs Hosp L2
--- NOTE | 2019-09-16 08:44 | CT_ITS ---
STUDY: CTA OF THE ABDOMINAL AORTA AND RENAL ARTERIES. REASON FOR EXAM: Male, 38 years old. RENAL ARTERY STENOSIS, ELEVATED BP, RECENT STROKE RADIATION DOSAGE (If Supplied By Facility): CTDIvol = ( 19.18 ) mGy, DLP = ( 931.11 ) mGycm TECHNIQUE: Axial CT angiography multi-detector data acquisition was obtained from the dome of the liver to the symphysis pubis following intravenous administration of IV- 100 mL Isovue 370. Axial images and MIP images were reconstructed from the axial data set. Post-processing of the angiographic images was performed, with multiplanar reformation and 3D reconstruction. Individualized dose optimization techniques were used for this CT. TECHNICAL QUALITY: Good COMPARISON: None. Descriptors of Narrowing: None (0%) Mild (< 50%) Moderate (50-70%) Severe (70-90%) Subtotal/Total Occlusion (90-100%) Non-Evaluable (technically non-diagnostic FINDINGS: Focal linear density at the right lung base suggestive of a focal infiltrate and/or atelectasis. Small hiatal hernia. Abdominal aorta: No demonstrated narrowing. Celiac and superior mesenteric arteries: No demonstrated narrowing. Inferior mesenteric artery: No demonstrated narrowing. Right renal artery(arteries): No demonstrated narrowing. Left renal artery(arteries): No demonstrated narrowing. CT/CTA Abdomen W/WO Contrast IMPRESSION: Normal abdominal aorta and bilateral renal arteries without a hemodynamically significant stenosis. Electronically Signed: Mike Ramos, at 10:22 EDT , Service support ,
[2019-09-16 09:12] LABS: Thyroid Stim Hormone (TSH) 2.38 uIU/mL (0.358-3.74)
--- NOTE | 2019-09-16 10:19 | NURSING ---
PT VOMITED ALL OVER HIMSELF WHEN INJECTED WITH CONTRAST. PT CLEANED UP AND PUT IN DRY GOWN. PT DENIES NAUSEA AND SOB. PT DID COUGH STRONGLY AND CLEAR HIS THROAT. CONTINUES TO CLEAR HIS THROAT SLIGHTLY. REPORT CALLED TO REHAB NURSE WHO IS AWARE OF EVENTS. PT RETURNS TO RU BY WC.
[2019-09-16] MEDS: Doxazosin 1 MG Tablet 2 MG PO ×2 (11:57→20:15)
[2019-09-16 14:18] VITALS: BMI 41.2
[2019-09-16 19:22] VITALS: BP 143/83; PULSE 79; RESP 16; TEMP 37.2; O2SAT 97
[2019-09-16 20:13] VITALS: BMI 41.2
[2019-09-16 22:00] VITALS: PULSE 78
[2019-09-17] MEDS: Enoxaparin 40 MG/0.4 ML Syringe SC (06:23)
[2019-09-17 06:32] VITALS: BP 130/95; BP 138/85; BP 150/97; PULSE 66; PULSE 73; PULSE 91
[2019-09-17 07:45] VITALS: BP 138/85; PULSE 66; RESP 16; TEMP 36.6; O2SAT 98
[2019-09-17] MEDS: Sertraline 100 MG Tablet PO (08:58)
[2019-09-17] MEDS: Doxazosin 1 MG Tablet 2 MG PO ×2 (08:58→20:56)
[2019-09-17] MEDS: Carvedilol 25 MG Tablet PO ×2 (08:58→20:56)
[2019-09-17] MEDS: amLODIPine 10 MG Tablet PO (08:58)
[2019-09-17 10:17] VITALS: BMI 41.2
[2019-09-17 17:58] VITALS: BP 118/51; BP 140/77; BP 145/68; PULSE 86; PULSE 87; PULSE 91
[2019-09-17 18:51] VITALS: BP 140/77; PULSE 87; RESP 18; TEMP 36.4; O2SAT 96
[2019-09-18 05:00] VITALS: BMI 41.2
[2019-09-18] MEDS: Enoxaparin 40 MG/0.4 ML Syringe SC (06:55)
[2019-09-18 07:00] VITALS: BP 129/85; PULSE 68; RESP 16; TEMP 36.7; O2SAT 96
[2019-09-18] MEDS: Doxazosin 1 MG Tablet 2 MG PO ×2 (08:14→20:43)
[2019-09-18] MEDS: amLODIPine 10 MG Tablet PO (08:14)
[2019-09-18] MEDS: Carvedilol 25 MG Tablet PO ×2 (08:14→20:43)
[2019-09-18] MEDS: Sertraline 100 MG Tablet PO (08:14)
[2019-09-18 15:04] VITALS: BMI 41.2
[2019-09-18 19:26] VITALS: BP 128/90; PULSE 77; RESP 17; TEMP 36.5; O2SAT 96
[2019-09-19] MEDS: Enoxaparin 40 MG/0.4 ML Syringe SC (06:32)
[2019-09-19 07:30] VITALS: BP 125/77; PULSE 57; RESP 16; TEMP 36.6; O2SAT 97
[2019-09-19] MEDS: Sertraline 100 MG Tablet PO (07:52)
[2019-09-19] MEDS: Carvedilol 25 MG Tablet PO ×2 (07:52→21:01)
[2019-09-19] MEDS: amLODIPine 10 MG Tablet PO (07:52)
[2019-09-19] MEDS: Doxazosin 1 MG Tablet 2 MG PO ×2 (07:53→21:01)
[2019-09-19 14:41] VITALS: BMI 41.2
[2019-09-19 19:00] VITALS: BP 126/83; PULSE 64; RESP 18; TEMP 36.8; O2SAT 97
[2019-09-20 05:00] VITALS: BMI 41.2
[2019-09-20] MEDS: Enoxaparin 40 MG/0.4 ML Syringe SC (06:14)
[2019-09-20 07:06] VITALS: BP 130/78; PULSE 65; RESP 12; TEMP 36.4; O2SAT 99
[2019-09-20] MEDS: Carvedilol 25 MG Tablet PO ×2 (07:54→20:37)
[2019-09-20] MEDS: amLODIPine 10 MG Tablet PO (07:54)
[2019-09-20] MEDS: Doxazosin 1 MG Tablet 2 MG PO ×2 (07:54→20:36)
[2019-09-20] MEDS: Sertraline 100 MG Tablet PO (07:54)
--- NOTE | 2019-09-20 10:29 | CASEMGMT ---
Social Work IDT met with patient and mother via conference call for Team Meeting. Discussed patient's progress in therapy. Pt is CGA to min assist for stand pivot transfers, SBA for bed mobility, walking 20-24 ft with base quad cane, using hemiwalker for longer distance, but walking becoming more functional. Pt completed 2 steps with 2 HR and has since completed a flight of steps with a rest in between. The goal is to walk on carpet this week. Pt is mod assist for bathing, set up for UE dressing, min for LE dressing and shoe laces, set up for urinal, max-total assist for BM toileting. ST continuing to working cognitive strategies. Pt needs a plan prior to heading into a task and performs better. Pt has more slurred speech when fatigued, but otherwise improving. Explained insurance NRD 09/20, and continued stay is not guaranteed. Mother stated she changed her travel schedule and is leaving [place] on this date and will be in town for a week and will take pt home with her on 09/23. Mother able to complete a day of therapy family training/nursing shared care on 09/21. Requesting DC 09/23, if insurance approves. Will continue to follow. Morena Schroeder, ALISTAIR HARTW
--- NOTE | 2019-09-20 11:03 | PN_ITS ---
Progress Note Lawrence was seen on team rounds today. His Shakira participated in rounds by telephone. Shakira plans on being in [place] by Tomorrow and will come in for family training on Friday. She is driving a motor home and plans on taking Lawrence home to [place] on Friday. Afebrile VSS-the blood pressure is improving with the increase in the doxazosin to 2 mg p.o. twice daily. Systolics are primarily under 130 with the diastolic is still greater than 80 at times. the Cardura was increased to BID on 09/16/19 Maintaining appropriate oxygen saturation on RA Oral intake is very good Discussed with nursing - no problems that need addressed Reviewed the PT/OT/ST notes Medication list reviewed. All lab was personally reviewed. The TSH is normal at 2.38. 24-hour urine metanephrines are pending. CTA of the abdomen showed no evidence of renal artery stenosis. No complaints. He is looking forward to being released this week. Alert, appropriate, smiling, participating in the conversation, oriented x3 Lungs-clear to auscultation but diminished-likely secondary to body habitus Heart-regular rate and rhythm, no gallop, no murmur Abdomen-soft, nondistended No significant peripheral edema. No calf tenderness. Ambulating with a quad cane now and he was able to ambulate 95 feet with fluctuating ataxia. No loss of balance but had inconsistent step length and width. Ataxia becomes more pronounced when he is fatigued. He can do sit to stand and stand pivot with only contact-guard assist now. He performed the tug test and 56.14 seconds today. He did 10 sit to stands in 30 seconds with no loss of balance. He is using a quad cane. He was able to put on his own shoes today with only min assist for the right shoe only. Impressions 1. Post stroke debility-continues to improve with therapy and is almost to a point where he could go home with his mother. Still requiring assistance with donning clothing on lower body and with hygiene post BM. Has progressed to the point where he is now able to use a quad cane for ambulation. 2. HTN - better with the increase in the Cardura to 2 mg BID. Can not use a diuretic since he went into ARF with HCTZ when attempted but, his oral intake of fluid is better now so may consider a low dose of HCTZ....12.5 daily 3. mild orthostatic BP change since Cardura increased.....pt is asymptomatic. Start HCTZ 12.5 mg daily today. Recheck a BMP on . Continue therapy Shakira to come in for family training on Friday Plan DC on Friday IF the insurance company is OK with this. Continue to monitor the BP and await the results of the 24 hour urine metanephrines STROKE Vital Signs/Narrative: Vital Signs Temp Pulse Resp BP Pulse Ox 09/20/19 07:06 97.6 F L 65 12 130/78 H 99 Inpatient E&M: 10504 Subs Hosp L2
[2019-09-20 12:03] VITALS: BMI 41.2
[2019-09-20] MEDS: hydroCHLOROthiazide 12.5mg 12.5 MG PO (12:12)
[2019-09-20 19:15] VITALS: BP 150/96; PULSE 68; RESP 16; TEMP 36.6; O2SAT 97
[2019-09-20 20:42] VITALS: BMI 41.2
[2019-09-20 22:00] VITALS: RESP 16
[2019-09-21] MEDS: Enoxaparin 40 MG/0.4 ML Syringe SC (06:34)
[2019-09-21 06:46] VITALS: BP 129/91; BP 141/96; BP 144/83; PULSE 71; PULSE 74; PULSE 86
--- NOTE | 2019-09-21 06:58 | NURSING ---
Pt obstinate this morning keeping eyes shut during staff care. Pt finally opened eyes and in an attempt to get Orthostatic VS, pt pointed to lower bed. This nurse asked pt to verbalize needs, pt told me to Put the bed down! This nurse asked him to say please since pt stated the We wanted it down as he shrugged his shoulders. This nurse told pt that he did not need to be rude.
[2019-09-21 08:00] VITALS: BP 134/88; PULSE 70; RESP 16; TEMP 36.6; O2SAT 97
[2019-09-21] MEDS: Carvedilol 25 MG Tablet PO ×2 (09:44→20:02)
[2019-09-21] MEDS: amLODIPine 10 MG Tablet PO (09:44)
[2019-09-21] MEDS: Doxazosin 1 MG Tablet 2 MG PO ×2 (09:44→20:02)
[2019-09-21] MEDS: hydroCHLOROthiazide 12.5mg 12.5 MG PO (09:44)
[2019-09-21] MEDS: Sertraline 100 MG Tablet PO (09:44)
[2019-09-21 10:02] VITALS: BMI 41.2
--- NOTE | 2019-09-21 13:08 | CASEMGMT ---
Social Work Spoke with insurance C.M. about DC plans and mother therapy training. Insurance approved pt with LCD 09/22, DC 09/23. If pt does not DC 09/23, submit review for barriers to DC. Notified mother whom is agreeable. Will await arrival of w/c prior to DC from [facility]. Referral faxed to [facility] in [place], [place] for PT/OT/ST. Plan: DC to mother's home in [place] 09/23 with outpatient PT/OT/ST, w/c Morena Schroeder MSW DIRECTOR INSTRUCTIONAL MATERIAL
[2019-09-21 18:50] VITALS: BP 153/81; PULSE 67; RESP 16; TEMP 37; O2SAT 96
[2019-09-21 21:20] VITALS: BMI 41.2
--- NOTE | 2019-09-22 01:47 | NURSING ---
09/20 @ 19:00. Upon arrival of this shift, pt was observed amongst a group of people outside without masks. Pt was with Mother, brother, Mom's boyfriend, and 2 ladies. No one was wearing a mask. Day shift nurse approached pt to inform them that they had breached the visitation agreement, thus compromising the COVID policy. Pt was escorted by Mother back to rehab unit with masks in place & mother departed. Pt was told by this nurse that his mask would now be necessary while in room during pt care.
[2019-09-22] MEDS: Enoxaparin 40 MG/0.4 ML Syringe SC (06:33)
[2019-09-22 06:48] VITALS: BP 124/78; BP 124/94; BP 125/73; PULSE 63; PULSE 80; PULSE 82
[2019-09-22 07:25] VITALS: BP 144/80; PULSE 66; RESP 16; TEMP 36.4; O2SAT 93
[2019-09-22] MEDS: hydroCHLOROthiazide 12.5mg 12.5 MG PO (10:12)
[2019-09-22] MEDS: Sertraline 100 MG Tablet PO (10:13)
--- NOTE | 2019-09-22 10:38 | PCM.PN.BLA ---
Progress Note Afebrile VSS -blood pressure is mildly increased. a small dose of HCTZ was added to the drug regimen yesterday Maintaining appropriate oxygen saturation on RA Oral intake is good Discussed with nursing - Pt was allowed to go outside to visit with his family yesterday IF they all wore masks and had normal temps. Unfortunately they did not adhere to the social distancing and then did not wear the masks.......the homeland security program specialist observed them not wearing the masks......they put them on when the nurse showed up to check on him. He is now restricted to the room which makes the family training with his mother less than optimal but, we can not put the other patients at risk. Reviewed the PT/OT/ST notes Medication list reviewed. Urine metanephrines are still pending. Labs been ordered for the morning. Alert, no apparent distress, calm and appropriate. Mucous membranes are moist Lungs-clear to auscultation with diminished breath sounds more likely than not secondary to body habitus. No wheezes, no Rales, no rhonchi. No conversational dyspnea and he is not tachypneic. Heart-regular rate and rhythm, no murmur, no gallop Abdomen-obese, soft, no guarding with palpation, nondistended Small amount of edema of the right ankle which is not unexpected because this is his weak side Right facial droop has improved significantly since admission to the rehab unit. The right arm and right leg are getting stronger and he is able to use the hemiwalker. He has done steps. Impressions 1. 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 The TSH and the Renal artery CTA are normal. 2. Hypertension-mildly elevated, not optimally controlled. Small dose of HCTZ was added to his drug regimen yesterday. BMP has been ordered for the a.m. he had ARF while in [facility] and creat has not improved with Hydration or discontinuation of the NEERAJ. 3. Sleep disordered breathing-continue oxygen anytime he is sleeping. 4. Dyslipidemia 5. Obesity 6. Normochromic normocytic anemia more likely than not secondary to blood loss with hemorrhagic CVA and subsequent craniotomy for shunt placement for hydrocephalus. 7. Acute renal failure-etiology uncertain at this time. Creatinine has improved but is not back to baseline. The creatinine has ranged from a low of 0.81 to a high of 1.49 since 06/09/2019. Current creatinine is 1.13. I met Shakira today and answered her questions. She and Lawrence would like his prescriptions filled at the retail pharmacy s they have them when they leave Friday. CARLOS, LUZ in the AM We discussed the need for a formal sleep study going forward and that sleep apnea is not always obstructive...it can be centrally mediated due to the CVA. Hopefully the metanephrines will be back by Friday......If not I will phone Lawrence when I get the results. STROKE Vital Signs/Narrative: Vital Signs Temp Pulse Pulse Pulse Pulse Resp BP 09/22/19 07:25 97.6 F L 66 16 144/80 H 09/22/19 06:48 82 63 80 BP BP BP Pulse Ox 09/22/19 07:25 93 09/22/19 06:48 124/78 H 125/73 H 124/94 H
[2019-09-22] MEDS: Carvedilol 25 MG Tablet PO ×2 (10:42→20:54)
[2019-09-22] MEDS: Doxazosin 1 MG Tablet 2 MG PO ×2 (10:42→20:54)
[2019-09-22] MEDS: amLODIPine 10 MG Tablet PO (10:42)
[2019-09-22 17:00] VITALS: BMI 41.2
[2019-09-22 19:09] VITALS: BP 157/85; PULSE 71; RESP 16; TEMP 36.9; O2SAT 96
[2019-09-22 20:07] LABS: Metanephrine, Ur 53 ug/L (Undefined); Normetanephrines, Ur 245 ug/L (Undefined)
[2019-09-22 23:51] LABS: Metanephrines, 24Ur 144 ug/24 hr (58-276); Normetanephrines, 24Ur 668 ug/24 hr (156-729)
[2019-09-23 05:54] LABS: Hematocrit 34.3 % (40-54); Hemoglobin 11.3 g/dL (13.0-16.5)
[2019-09-23 06:00] VITALS: BP 129/89; BP 140/87; PULSE 66; PULSE 68
[2019-09-23 06:15] LABS: Anion Gap 7 (5-15); BUN 19 mg/dL (7-18); BUN/Creat Ratio 15.1 RATIO (10-20); Chloride 100 mmol/L (98-107); Creatinine, Serum 1.26 mg/dL (0.70-1.30); EST Glomerular Filtration Rate 68 mL/min (>60); Est Glom Filt Rate - Afr Amer 82 mL/min (>60); Estimated Creatinine Clearance 71.73 ml/min; Glucose 93 mg/dL (74-106); Magnesium 2.2 mg/dL (1.6-2.6); Potassium 3.6 mmol/L (3.5-5.1); Sodium Level 139 mmol/L (136-145)
[2019-09-23] MEDS: Enoxaparin 40 MG/0.4 ML Syringe SC (06:42)
[2019-09-23] MEDS: Doxazosin 1 MG Tablet 2 MG PO ×2 (07:52→21:26)
[2019-09-23] MEDS: hydroCHLOROthiazide 12.5mg 12.5 MG PO (07:53)
[2019-09-23] MEDS: Carvedilol 25 MG Tablet PO (07:53)
[2019-09-23] MEDS: Sertraline 100 MG Tablet PO (07:53)
[2019-09-23] MEDS: amLODIPine 10 MG Tablet PO (07:53)
[2019-09-23 08:17] VITALS: BP 140/87; PULSE 66; RESP 16; TEMP 36.7; O2SAT 95
[2019-09-23 09:33] VITALS: BMI 41.2
--- NOTE | 2019-09-23 12:55 | DCINST_ITS ---
- Discharge Diagnoses Current Active Problems: Current Active and Chronic Problems Cellulitis (Acute) at the PEG site Normochromic normocytic anemia (Acute) likely due to frequent blood draws while acutely ill. Elevated hemidiaphragm (Chronic) Obesity (Chronic) Hyperglycemia (Acute) no hx of DM Regional wall motion abnormality of heart (Acute) due to CAD/MA? QT prolongation (Acute) on EKG 06/09/19 prior to the initiation of Seroquel You will use the following diet at home:: Calorie/Carbohydrate Controlled (spe cify 1200, 1400, etc) - carbohydrate controlled, low salt and low fat Your food should be the consistency of: Mechanical soft (ground) Your liquids should be the consistency of: Regular/Thin Discharge Activity: May Not Drive, May Shower, Use Walker - naima-walker Weight Bearing Status: Full weight bearing Call your doctor if you observe: Fever of 101 or Higher, Inability to urinate, Inability to have a bowel movement, Shortness of breath, Dizziness, Fainting spells, Chest pain, Calf discomfort, Uncontrolled pain, - - Go the ED or call 911 immediately if sudden onset: 1. facial droop 2. slurred speech or inability to get words out 3. weakness or numbness on 1 side of the face, arm or leg. 4. vertigo or room spinning 5. loss of vision or trouble seeing in one eye 6. Confusion 7. Trouble walking or maintaining balance and trouble with coordination 8. Sudden severe headache with no known cause Instructions: Tips for Using Less Salt, Low-Fat Cooking Tips, How to Vice President Of Procurement the Size of Servings, Diabetes: Understanding Carbohydrates, Weight Management: Healthy Eating, What Are Snoring and Sleep Apnea? Allergies/Adverse Reactions: Allergies No Known Allergies Allergy (Verified 08/03/19 13:36) Medications to take at Discharge Amlodipine [Norvasc] 10 mg PO DAILY #30 tab 09/23/19 Carvedilol 25 mg PO BID #60 tab 09/23/19 Doxazosin Mesylate [Cardura] 2 mg PO BID #60 tab 09/23/19 Lisinopril [Zestril] 10 mg PO DAILY #30 tab 09/23/19 Menthol/Lanolin/Calamine/Znox [Calmoseptine Ointment] 1 applic TOPICAL TID PRN PRN #1 tube 09/23/19 Sertraline HCl [Zoloft] 100 mg PO DAILY #30 tab 09/23/19 The following prescriptions were given: Menthol/Lanolin/Calamine/Znox [Calmoseptine Ointment] 1 applic TOPICAL TID PRN PRN #1 tube PRN Reason: jayne-anal irritation Transmission Status: Pending to [facility] Doxazosin Mesylate [Cardura] 2 mg PO BID #60 tab Transmission Status: Pending to [facility] Carvedilol 25 mg PO BID #60 tab Transmission Status: Pending to [facility] Amlodipine [Norvasc] 10 mg PO DAILY #30 tab Transmission Status: Pending to [facility] Lisinopril [Zestril] 10 mg PO DAILY #30 tab Transmission Status: Pending to [facility] Sertraline HCl [Zoloft] 100 mg PO DAILY #30 tab Transmission Status: Pending to [facility] Primary Care Physician: Care Physician,No Primary [Primary Care Provider] - Please follow up with your Primary Care Physician in: [place] after arriving in [place] Test Results: Test results from this visit will be discussed in further detail at your follow- up appointment, if applicable. Please Follow Up With: neurology Proposed Discharge Date: 09/24/19
--- NOTE | 2019-09-23 13:13 | PCM.DC.SUM ---
Discharge Date and Diagnosis - Problem List Patient Problems: Active and Suspected Problems Wall motion abnormality of inferior wall of left ventricle (Acute) Cardiomyopathy (Acute) Cognitive dysfunction due to stroke (Acute) Acute renal failure (Acute) Sleep-disordered breathing (Acute) Debility (Acute) Due to hemorrhagic left thalamus CVA on 06/09/2019 Hemorrhagic stroke (Acute) Left-sided nontraumatic intraventricular intracerebral hemorrhage (Acute) 06/09/2019 he had an acute intracranial hemorrhage of the left thalamus measuring 2.7 x 1.9 x 3.1 cm with surrounding vasogenic edema. There was also a cyst focus of hemorrhage posterior to the brainstem measuring 2.2 x 0.8 x 0.8 cm. Normochromic normocytic anemia (Acute) likely due to frequent blood draws while acutely ill. Hyperglycemia (Acute) no hx of DM Regional wall motion abnormality of heart (Acute) due to CAD/[place]? QT prolongation (Acute) on EKG 06/09/19 prior to the initiation of Seroquel Date of Admission: 08/04/19 Date of Discharge: 09/24/19 - Primary Discharge Diagnosis Acute Problems: Active Problems Debility (Acute) Due to hemorrhagic left thalamus CVA on 06/09/2019 Hemorrhagic stroke (Acute) Left-sided nontraumatic intraventricular intracerebral hemorrhage (Acute) 06/09/2019 he had an acute intracranial hemorrhage of the left thalamus measuring 2.7 x 1.9 x 3.1 cm with surrounding vasogenic edema. There was also a cyst focus of hemorrhage posterior to the brainstem measuring 2.2 x 0.8 x 0.8 cm. History of bur hole ventriculostomy Normochromic normocytic anemia (Acute) likely due to hemorrhagic CVA and frequent blood draws while acutely ill. Glucose intolerance with a HGA1C of 6.1% Regional wall motion abnormality of heart (Acute) akinesis of the inferior wall and hypokinesis of the posterior segment due to CAD/[place]? QT prolongation (Acute) on EKG 06/09/19 prior to the initiation of Seroquel..recheck of EKG on 08/05/19 showed the QTc to be 447 which was shortened in comparison to EKG done of 06/09/19 Cardiomyopathy (Acute) - EF is 50-55% with regional wall motion abnormality Cognitive dysfunction due to stroke (Acute) Acute renal failure Hyponatremia - resolved Cellulitis of the area surrounding the PEG tube - resolved Dysphagia Aphasia urinary incontinence and retention - resolved anxiety and depression Sleep disordered breathing with hypoxia Suspected Problems: JAUN - Secondary Discharge Diagnosis Chronic Problems: Chronic Problems Right ventricular enlargement (Chronic) - suspect JAUN Grade II diastolic dysfunction (Chronic) - likely due to uncontrolled HTN Left ventricular hypertrophy (Chronic) Dyslipidemia (Chronic) Low HDL (under 40) (Chronic) Glucose intolerance (Chronic) Depression (Chronic) Essential HTN (hypertension) (Chronic) untreated prior to the stroke Chronic cholecystitis (Chronic) Tracheostomy present (Chronic) - he was decannulated on 08/30/19 and the tracheostomy site is healed Percutaneous endoscopic gastrostomy status (Chronic) - removed and the site is healed Elevated hemidiaphragm (Chronic) Morbid Obesity (Chronic) Hospital Course and Treatment Imaging Results: Clinical Impression(s) from Imaging Studies Abdomen CTA 09/16/19 08:44 IMPRESSION: Normal abdominal aorta and bilateral renal arteries without a hemodynamically significant stenosis. Electronically Signed: Mike Rachel, at 10:22 EDT , Service support , Laboratory Tests 09/23/19 09/23/19 09/16/19 Range/Units 05:43 05:43 14:14 WBC (4.4-11.0) K/mm3 RBC (4.6-6.2) M/mm3 Hgb 11.3 L (13.0-16.5) g/dL Hct 34.3 L (40-54) % MCV (80-94) fL MCH (27.0-32.0) pg MCHC (32-36) g/dL RDW Std Deviation (35.1-43.9) fl RDW Coeff of Mary (11.6-14.6) % Plt Count (150-450) K/mm3 MPV (6.2-12.0) fl Immature Gran % (Auto) (0.0-0.9) % Neut % (Auto) (47-70) % Lymph % (Auto) (19-41) % [place] % (Auto) (0-10) % Eos % (Auto) (0-5) % Baso % (Auto) (0-1) % Absolute Neuts (auto) (2.0-7.7) X10^3/uL Absolute Lymphs (auto) (0.83-4.51) X10^3/uL Nucleated RBC % (0-5) % Sodium 139 (136-145) mmol/L Potassium 3.6 (3.5-5.1) mmol/L Chloride 100 (98-107) mmol/L Carbon Dioxide 32.0 (21.0-32.0) mmol/L Anion Gap 7 (5-15) BUN 19 H (7-18) mg/dL Creatinine 1.26 (0.70-1.30) mg/dL Estim Creat Clear Calc 71.73 ml/min Est GFR (MDRD) Af Amer 82 (>60) mL/min Est GFR (MDRD) Non-Af 68 (>60) mL/min BUN/Creatinine Ratio 15.1 (10-20) RATIO Glucose 93 (74-106) mg/dL Hemoglobin A1c (4.2-6.3) % Calcium 9.0 (8.5-10.1) mg/dL Phosphorus (2.5-4.9) mg/dL Magnesium 2.2 (1.6-2.6) mg/dL Total Bilirubin (0.20-1.00) mg/dL AST (15-37) U/L ALT (16-61) U/L Alkaline Phosphatase (45-117) U/L Total Protein (6.4-8.2) g/dL Albumin (3.2-5.0) g/dL Globulin (2.2-4.2) g/dL Albumin/Globulin Ratio (0.9-2.4) RATIO Triglycerides ( - 199) mg/dL Cholesterol (200) mg/dL LDL Cholesterol (0-130) mg/dL VLDL Cholesterol (5-40) mg/dL HDL Cholesterol (40 - ) mg/dL TSH (0.358-3.74) uIU/mL Urine Metanephrine 53 (Undefined) ug/L U Metanephrines 24 Hr 144 (58-276) ug/24 hr U Normetanephrine 245 (Undefined) ug/L U Normetanephrine 24h 668 (156-729) ug/24 hr POC Glucose (70-110) mg/dL 09/16/19 09/16/19 09/11/19 Range/Units 05:58 05:58 06:10 WBC (4.4-11.0) K/mm3 RBC (4.6-6.2) M/mm3 Hgb (13.0-16.5) g/dL Hct (40-54) % MCV (80-94) fL MCH (27.0-32.0) pg MCHC (32-36) g/dL RDW Std Deviation (35.1-43.9) fl RDW Coeff of Mary (11.6-14.6) % Plt Count (150-450) K/mm3 MPV (6.2-12.0) fl Immature Gran % (Auto) (0.0-0.9) % Neut % (Auto) (47-70) % Lymph % (Auto) (19-41) % [place] % (Auto) (0-10) % Eos % (Auto) (0-5) % Baso % (Auto) (0-1) % Absolute Neuts (auto) (2.0-7.7) X10^3/uL Absolute Lymphs (auto) (0.83-4.51) X10^3/uL Nucleated RBC % (0-5) % Sodium 138 139 (136-145) mmol/L Potassium 3.9 4.3 (3.5-5.1) mmol/L Chloride 102 103 (98-107) mmol/L Carbon Dioxide 28.0 30.0 (21.0-32.0) mmol/L Anion Gap 8 6 (5-15) BUN 20 H 22 H (7-18) mg/dL Creatinine 1.13 1.12 (0.70-1.30) mg/dL Estim Creat Clear Calc 79.99 80.70 ml/min Est GFR (MDRD) Af Amer 93 94 (>60) mL/min Est GFR (MDRD) Non-Af 77 78 (>60) mL/min BUN/Creatinine Ratio 17.7 19.6 (10-20) RATIO Glucose 92 86 (74-106) mg/dL Hemoglobin A1c (4.2-6.3) % Calcium 8.9 9.1 (8.5-10.1) mg/dL Phosphorus (2.5-4.9) mg/dL Magnesium (1.6-2.6) mg/dL Total Bilirubin (0.20-1.00) mg/dL AST (15-37) U/L ALT (16-61) U/L Alkaline Phosphatase (45-117) U/L Total Protein (6.4-8.2) g/dL Albumin (3.2-5.0) g/dL Globulin (2.2-4.2) g/dL Albumin/Globulin Ratio (0.9-2.4) RATIO Triglycerides ( - 199) mg/dL Cholesterol (200) mg/dL LDL Cholesterol (0-130) mg/dL VLDL Cholesterol (5-40) mg/dL HDL Cholesterol (40 - ) mg/dL TSH 2.38 (0.358-3.74) uIU/mL Urine Metanephrine (Undefined) ug/L U Metanephrines 24 Hr (58-276) ug/24 hr U Normetanephrine (Undefined) ug/L U Normetanephrine 24h (156-729) ug/24 hr POC Glucose (70-110) mg/dL 09/11/19 09/09/19 09/06/19 Range/Units 06:10 05:54 06:34 WBC (4.4-11.0) K/mm3 RBC (4.6-6.2) M/mm3 Hgb 11.8 L (13.0-16.5) g/dL Hct 36.6 L (40-54) % MCV (80-94) fL MCH (27.0-32.0) pg MCHC (32-36) g/dL RDW Std Deviation (35.1-43.9) fl RDW Coeff of Mary (11.6-14.6) % Plt Count (150-450) K/mm3 MPV (6.2-12.0) fl Immature Gran % (Auto) (0.0-0.9) % Neut % (Auto) (47-70) % Lymph % (Auto) (19-41) % [place] % (Auto) (0-10) % Eos % (Auto) (0-5) % Baso % (Auto) (0-1) % Absolute Neuts (auto) (2.0-7.7) X10^3/uL Absolute Lymphs (auto) (0.83-4.51) X10^3/uL Nucleated RBC % (0-5) % Sodium 136 136 (136-145) mmol/L Potassium 4.1 4.4 (3.5-5.1) mmol/L Chloride 102 102 (98-107) mmol/L Carbon Dioxide 27.0 29.0 (21.0-32.0) mmol/L Anion Gap 7 5 (5-15) BUN 27 H 26 H (7-18) mg/dL Creatinine 1.13 1.19 (0.70-1.30) mg/dL Estim Creat Clear Calc 79.99 75.95 ml/min Est GFR (MDRD) Af Amer 93 88 (>60) mL/min Est GFR (MDRD) Non-Af 77 72 (>60) mL/min BUN/Creatinine Ratio 23.9 H 21.8 H (10-20) RATIO Glucose 90 90 (74-106) mg/dL Hemoglobin A1c (4.2-6.3) % Calcium 8.9 9.2 (8.5-10.1) mg/dL Phosphorus (2.5-4.9) mg/dL Magnesium 2.3 (1.6-2.6) mg/dL Total Bilirubin (0.20-1.00) mg/dL AST (15-37) U/L ALT (16-61) U/L Alkaline Phosphatase (45-117) U/L Total Protein (6.4-8.2) g/dL Albumin (3.2-5.0) g/dL Globulin (2.2-4.2) g/dL Albumin/Globulin Ratio (0.9-2.4) RATIO Triglycerides ( - 199) mg/dL Cholesterol (200) mg/dL LDL Cholesterol (0-130) mg/dL VLDL Cholesterol (5-40) mg/dL HDL Cholesterol (40 - ) mg/dL TSH (0.358-3.74) uIU/mL Urine Metanephrine (Undefined) ug/L U Metanephrines 24 Hr (58-276) ug/24 hr U Normetanephrine (Undefined) ug/L U Normetanephrine 24h (156-729) ug/24 hr POC Glucose (70-110) mg/dL 09/06/19 08/30/19 08/24/19 Range/Units 06:34 07:14 06:44 WBC (4.4-11.0) K/mm3 RBC (4.6-6.2) M/mm3 Hgb 12.1 L (13.0-16.5) g/dL Hct 37.1 L (40-54) % MCV (80-94) fL MCH (27.0-32.0) pg MCHC (32-36) g/dL RDW Std Deviation (35.1-43.9) fl RDW Coeff of Mary (11.6-14.6) % Plt Count (150-450) K/mm3 MPV (6.2-12.0) fl Immature Gran % (Auto) (0.0-0.9) % Neut % (Auto) (47-70) % Lymph % (Auto) (19-41) % [place] % (Auto) (0-10) % Eos % (Auto) (0-5) % Baso % (Auto) (0-1) % Absolute Neuts (auto) (2.0-7.7) X10^3/uL Absolute Lymphs (auto) (0.83-4.51) X10^3/uL Nucleated RBC % (0-5) % Sodium 138 137 (136-145) mmol/L Potassium 4.5 4.2 (3.5-5.1) mmol/L Chloride 104 103 (98-107) mmol/L Carbon Dioxide 29.0 26.0 (21.0-32.0) mmol/L Anion Gap 5 8 (5-15) BUN 19 H 27 H (7-18) mg/dL Creatinine 1.16 1.27 (0.70-1.30) mg/dL Estim Creat Clear Calc 77.92 71.17 ml/min Est GFR (MDRD) Af Amer 90 81 (>60) mL/min Est GFR (MDRD) Non-Af 75 67 (>60) mL/min BUN/Creatinine Ratio 16.4 21.3 H (10-20) RATIO Glucose 93 96 (74-106) mg/dL Hemoglobin A1c (4.2-6.3) % Calcium 9.2 9.0 (8.5-10.1) mg/dL Phosphorus 4.9 (2.5-4.9) mg/dL Magnesium 2.2 2.3 (1.6-2.6) mg/dL Total Bilirubin (0.20-1.00) mg/dL AST (15-37) U/L ALT (16-61) U/L Alkaline Phosphatase (45-117) U/L Total Protein (6.4-8.2) g/dL Albumin (3.2-5.0) g/dL Globulin (2.2-4.2) g/dL Albumin/Globulin Ratio (0.9-2.4) RATIO Triglycerides ( - 199) mg/dL Cholesterol (200) mg/dL LDL Cholesterol (0-130) mg/dL VLDL Cholesterol (5-40) mg/dL HDL Cholesterol (40 - ) mg/dL TSH (0.358-3.74) uIU/mL Urine Metanephrine (Undefined) ug/L U Metanephrines 24 Hr (58-276) ug/24 hr U Normetanephrine (Undefined) ug/L U Normetanephrine 24h (156-729) ug/24 hr POC Glucose (70-110) mg/dL 08/24/19 08/21/19 08/20/19 Range/Units 06:44 06:39 16:45 WBC 7.5 (4.4-11.0) K/mm3 RBC 3.74 L (4.6-6.2) M/mm3 Hgb 11.2 L (13.0-16.5) g/dL Hct 34.2 L (40-54) % MCV 91.4 (80-94) fL MCH 29.9 (27.0-32.0) pg MCHC 32.7 (32-36) g/dL RDW Std Deviation 41.0 (35.1-43.9) fl RDW Coeff of Mary 12.3 (11.6-14.6) % Plt Count 311 (150-450) K/mm3 MPV 10.5 (6.2-12.0) fl Immature Gran % (Auto) (0.0-0.9) % Neut % (Auto) (47-70) % Lymph % (Auto) (19-41) % [place] % (Auto) (0-10) % Eos % (Auto) (0-5) % Baso % (Auto) (0-1) % Absolute Neuts (auto) (2.0-7.7) X10^3/uL Absolute Lymphs (auto) (0.83-4.51) X10^3/uL Nucleated RBC % (0-5) % Sodium (136-145) mmol/L Potassium (3.5-5.1) mmol/L Chloride (98-107) mmol/L Carbon Dioxide (21.0-32.0) mmol/L Anion Gap (5-15) BUN (7-18) mg/dL Creatinine (0.70-1.30) mg/dL Estim Creat Clear Calc ml/min Est GFR (MDRD) Af Amer (>60) mL/min Est GFR (MDRD) Non-Af (>60) mL/min BUN/Creatinine Ratio (10-20) RATIO Glucose (74-106) mg/dL Hemoglobin A1c (4.2-6.3) % Calcium (8.5-10.1) mg/dL Phosphorus (2.5-4.9) mg/dL Magnesium (1.6-2.6) mg/dL Total Bilirubin (0.20-1.00) mg/dL AST (15-37) U/L ALT (16-61) U/L Alkaline Phosphatase (45-117) U/L Total Protein (6.4-8.2) g/dL Albumin (3.2-5.0) g/dL Globulin (2.2-4.2) g/dL Albumin/Globulin Ratio (0.9-2.4) RATIO Triglycerides ( - 199) mg/dL Cholesterol (200) mg/dL LDL Cholesterol (0-130) mg/dL VLDL Cholesterol (5-40) mg/dL HDL Cholesterol (40 - ) mg/dL TSH (0.358-3.74) uIU/mL Urine Metanephrine (Undefined) ug/L U Metanephrines 24 Hr (58-276) ug/24 hr U Normetanephrine (Undefined) ug/L U Normetanephrine 24h (156-729) ug/24 hr POC Glucose 101 98 (70-110) mg/dL 08/20/19 08/19/19 08/19/19 Range/Units 06:29 16:11 05:48 WBC (4.4-11.0) K/mm3 RBC (4.6-6.2) M/mm3 Hgb (13.0-16.5) g/dL Hct (40-54) % MCV (80-94) fL MCH (27.0-32.0) pg MCHC (32-36) g/dL RDW Std Deviation (35.1-43.9) fl RDW Coeff of Mary (11.6-14.6) % Plt Count (150-450) K/mm3 MPV (6.2-12.0) fl Immature Gran % (Auto) (0.0-0.9) % Neut % (Auto) (47-70) % Lymph % (Auto) (19-41) % [place] % (Auto) (0-10) % Eos % (Auto) (0-5) % Baso % (Auto) (0-1) % Absolute Neuts (auto) (2.0-7.7) X10^3/uL Absolute Lymphs (auto) (0.83-4.51) X10^3/uL Nucleated RBC % (0-5) % Sodium (136-145) mmol/L Potassium (3.5-5.1) mmol/L Chloride (98-107) mmol/L Carbon Dioxide (21.0-32.0) mmol/L Anion Gap (5-15) BUN (7-18) mg/dL Creatinine (0.70-1.30) mg/dL Estim Creat Clear Calc ml/min Est GFR (MDRD) Af Amer (>60) mL/min Est GFR (MDRD) Non-Af (>60) mL/min BUN/Creatinine Ratio (10-20) RATIO Glucose (74-106) mg/dL Hemoglobin A1c (4.2-6.3) % Calcium (8.5-10.1) mg/dL Phosphorus (2.5-4.9) mg/dL Magnesium (1.6-2.6) mg/dL Total Bilirubin (0.20-1.00) mg/dL AST (15-37) U/L ALT (16-61) U/L Alkaline Phosphatase (45-117) U/L Total Protein (6.4-8.2) g/dL Albumin (3.2-5.0) g/dL Globulin (2.2-4.2) g/dL Albumin/Globulin Ratio (0.9-2.4) RATIO Triglycerides ( - 199) mg/dL Cholesterol (200) mg/dL LDL Cholesterol (0-130) mg/dL VLDL Cholesterol (5-40) mg/dL HDL Cholesterol (40 - ) mg/dL TSH (0.358-3.74) uIU/mL Urine Metanephrine (Undefined) ug/L U Metanephrines 24 Hr (58-276) ug/24 hr U Normetanephrine (Undefined) ug/L U Normetanephrine 24h (156-729) ug/24 hr POC Glucose 104 131 H 94 (70-110) mg/dL 08/19/19 08/18/19 08/18/19 Range/Units 05:40 16:31 06:21 WBC (4.4-11.0) K/mm3 RBC (4.6-6.2) M/mm3 Hgb (13.0-16.5) g/dL Hct (40-54) % MCV (80-94) fL MCH (27.0-32.0) pg MCHC (32-36) g/dL RDW Std Deviation (35.1-43.9) fl RDW Coeff of Mary (11.6-14.6) % Plt Count (150-450) K/mm3 MPV (6.2-12.0) fl Immature Gran % (Auto) (0.0-0.9) % Neut % (Auto) (47-70) % Lymph % (Auto) (19-41) % [place] % (Auto) (0-10) % Eos % (Auto) (0-5) % Baso % (Auto) (0-1) % Absolute Neuts (auto) (2.0-7.7) X10^3/uL Absolute Lymphs (auto) (0.83-4.51) X10^3/uL Nucleated RBC % (0-5) % Sodium 133 L (136-145) mmol/L Potassium 3.7 (3.5-5.1) mmol/L Chloride 96 L (98-107) mmol/L Carbon Dioxide 32.0 (21.0-32.0) mmol/L Anion Gap 5 (5-15) BUN 27 H (7-18) mg/dL Creatinine 1.46 H (0.70-1.30) mg/dL Estim Creat Clear Calc 61.91 ml/min Est GFR (MDRD) Af Amer 69 (>60) mL/min Est GFR (MDRD) Non-Af 57 L (>60) mL/min BUN/Creatinine Ratio 18.5 (10-20) RATIO Glucose 101 (74-106) mg/dL Hemoglobin A1c (4.2-6.3) % Calcium 8.8 (8.5-10.1) mg/dL Phosphorus (2.5-4.9) mg/dL Magnesium (1.6-2.6) mg/dL Total Bilirubin (0.20-1.00) mg/dL AST (15-37) U/L ALT (16-61) U/L Alkaline Phosphatase (45-117) U/L Total Protein (6.4-8.2) g/dL Albumin (3.2-5.0) g/dL Globulin (2.2-4.2) g/dL Albumin/Globulin Ratio (0.9-2.4) RATIO Triglycerides ( - 199) mg/dL Cholesterol (200) mg/dL LDL Cholesterol (0-130) mg/dL VLDL Cholesterol (5-40) mg/dL HDL Cholesterol (40 - ) mg/dL TSH (0.358-3.74) uIU/mL Urine Metanephrine (Undefined) ug/L U Metanephrines 24 Hr (58-276) ug/24 hr U Normetanephrine (Undefined) ug/L U Normetanephrine 24h (156-729) ug/24 hr POC Glucose 95 93 (70-110) mg/dL 08/17/19 08/16/19 08/16/19 Range/Units 21:06 16:20 06:50 WBC (4.4-11.0) K/mm3 RBC (4.6-6.2) M/mm3 Hgb (13.0-16.5) g/dL Hct (40-54) % MCV (80-94) fL MCH (27.0-32.0) pg MCHC (32-36) g/dL RDW Std Deviation (35.1-43.9) fl RDW Coeff of Mary (11.6-14.6) % Plt Count (150-450) K/mm3 MPV (6.2-12.0) fl Immature Gran % (Auto) (0.0-0.9) % Neut % (Auto) (47-70) % Lymph % (Auto) (19-41) % [place] % (Auto) (0-10) % Eos % (Auto) (0-5) % Baso % (Auto) (0-1) % Absolute Neuts (auto) (2.0-7.7) X10^3/uL Absolute Lymphs (auto) (0.83-4.51) X10^3/uL Nucleated RBC % (0-5) % Sodium 137 (136-145) mmol/L Potassium 4.1 (3.5-5.1) mmol/L Chloride 101 (98-107) mmol/L Carbon Dioxide 32.0 (21.0-32.0) mmol/L Anion Gap 4 L (5-15) BUN 21 H (7-18) mg/dL Creatinine 1.24 (0.70-1.30) mg/dL Estim Creat Clear Calc 72.89 ml/min Est GFR (MDRD) Af Amer 84 (>60) mL/min Est GFR (MDRD) Non-Af 69 (>60) mL/min BUN/Creatinine Ratio 16.9 (10-20) RATIO Glucose 154 H (74-106) mg/dL Hemoglobin A1c (4.2-6.3) % Calcium 8.9 (8.5-10.1) mg/dL Phosphorus 4.8 (2.5-4.9) mg/dL Magnesium 2.0 (1.6-2.6) mg/dL Total Bilirubin (0.20-1.00) mg/dL AST (15-37) U/L ALT (16-61) U/L Alkaline Phosphatase (45-117) U/L Total Protein (6.4-8.2) g/dL Albumin (3.2-5.0) g/dL Globulin (2.2-4.2) g/dL Albumin/Globulin Ratio (0.9-2.4) RATIO Triglycerides ( - 199) mg/dL Cholesterol (200) mg/dL LDL Cholesterol (0-130) mg/dL VLDL Cholesterol (5-40) mg/dL HDL Cholesterol (40 - ) mg/dL TSH (0.358-3.74) uIU/mL Urine Metanephrine (Undefined) ug/L U Metanephrines 24 Hr (58-276) ug/24 hr U Normetanephrine (Undefined) ug/L U Normetanephrine 24h (156-729) ug/24 hr POC Glucose 116 H 135 H (70-110) mg/dL 08/16/19 08/15/19 08/14/19 Range/Units 06:50 06:10 06:00 WBC 7.5 (4.4-11.0) K/mm3 RBC 3.85 L (4.6-6.2) M/mm3 Hgb 11.8 L (13.0-16.5) g/dL Hct 35.9 L (40-54) % MCV 93.2 (80-94) fL MCH 30.6 (27.0-32.0) pg MCHC 32.9 (32-36) g/dL RDW Std Deviation 41.1 (35.1-43.9) fl RDW Coeff of Mary 12.4 (11.6-14.6) % Plt Count 287 (150-450) K/mm3 MPV 10.4 (6.2-12.0) fl Immature Gran % (Auto) 0.500 (0.0-0.9) % Neut % (Auto) 68.3 (47-70) % Lymph % (Auto) 18.9 L (19-41) % [place] % (Auto) 7.9 (0-10) % Eos % (Auto) 3.7 (0-5) % Baso % (Auto) 0.7 (0-1) % Absolute Neuts (auto) 5.1 (2.0-7.7) X10^3/uL Absolute Lymphs (auto) 1.42 (0.83-4.51) X10^3/uL Nucleated RBC % 0 (0-5) % Sodium 136 137 (136-145) mmol/L Potassium 3.8 3.8 (3.5-5.1) mmol/L Chloride 99 100 (98-107) mmol/L Carbon Dioxide 33.0 H 32.0 (21.0-32.0) mmol/L Anion Gap 4 L 5 (5-15) BUN 20 H 19 H (7-18) mg/dL Creatinine 1.16 1.00 (0.70-1.30) mg/dL Estim Creat Clear Calc 77.92 90.38 ml/min Est GFR (MDRD) Af Amer 90 108 (>60) mL/min Est GFR (MDRD) Non-Af 75 89 (>60) mL/min BUN/Creatinine Ratio 17.2 19.1 (10-20) RATIO Glucose 95 93 (74-106) mg/dL Hemoglobin A1c (4.2-6.3) % Calcium 9.1 9.1 (8.5-10.1) mg/dL Phosphorus 5.7 H 5.7 H (2.5-4.9) mg/dL Magnesium 2.2 2.2 (1.6-2.6) mg/dL Total Bilirubin (0.20-1.00) mg/dL AST (15-37) U/L ALT (16-61) U/L Alkaline Phosphatase (45-117) U/L Total Protein (6.4-8.2) g/dL Albumin (3.2-5.0) g/dL Globulin (2.2-4.2) g/dL Albumin/Globulin Ratio (0.9-2.4) RATIO Triglycerides ( - 199) mg/dL Cholesterol (200) mg/dL LDL Cholesterol (0-130) mg/dL VLDL Cholesterol (5-40) mg/dL HDL Cholesterol (40 - ) mg/dL TSH (0.358-3.74) uIU/mL Urine Metanephrine (Undefined) ug/L U Metanephrines 24 Hr (58-276) ug/24 hr U Normetanephrine (Undefined) ug/L U Normetanephrine 24h (156-729) ug/24 hr POC Glucose (70-110) mg/dL 08/09/19 08/09/19 08/06/19 Range/Units 06:10 06:10 06:10 WBC (4.4-11.0) K/mm3 RBC (4.6-6.2) M/mm3 Hgb 11.6 L (13.0-16.5) g/dL Hct 35.8 L (40-54) % MCV (80-94) fL MCH (27.0-32.0) pg MCHC (32-36) g/dL RDW Std Deviation (35.1-43.9) fl RDW Coeff of Mary (11.6-14.6) % Plt Count (150-450) K/mm3 MPV (6.2-12.0) fl Immature Gran % (Auto) (0.0-0.9) % Neut % (Auto) (47-70) % Lymph % (Auto) (19-41) % [place] % (Auto) (0-10) % Eos % (Auto) (0-5) % Baso % (Auto) (0-1) % Absolute Neuts (auto) (2.0-7.7) X10^3/uL Absolute Lymphs (auto) (0.83-4.51) X10^3/uL Nucleated RBC % (0-5) % Sodium 135 L 138 (136-145) mmol/L Potassium 3.6 3.7 (3.5-5.1) mmol/L Chloride 98 102 (98-107) mmol/L Carbon Dioxide 32.0 30.0 (21.0-32.0) mmol/L Anion Gap 5 6 (5-15) BUN 12 10 (7-18) mg/dL Creatinine 0.94 0.81 (0.70-1.30) mg/dL Estim Creat Clear Calc 96.15 135.72 ml/min Est GFR (MDRD) Af Amer 114 137 (>60) mL/min Est GFR (MDRD) Non-Af 95 113 (>60) mL/min BUN/Creatinine Ratio 12.7 12.4 (10-20) RATIO Glucose 111 H 113 H (74-106) mg/dL Hemoglobin A1c (4.2-6.3) % Calcium 8.9 8.9 (8.5-10.1) mg/dL Phosphorus 4.7 (2.5-4.9) mg/dL Magnesium 2.2 2.2 (1.6-2.6) mg/dL Total Bilirubin 0.20 (0.20-1.00) mg/dL AST 19 (15-37) U/L ALT 25 (16-61) U/L Alkaline Phosphatase 108 (45-117) U/L Total Protein 7.4 (6.4-8.2) g/dL Albumin 2.9 L (3.2-5.0) g/dL Globulin 4.5 H (2.2-4.2) g/dL Albumin/Globulin Ratio 0.6 L (0.9-2.4) RATIO Triglycerides 157 ( - 199) mg/dL Cholesterol 146 (200) mg/dL LDL Cholesterol 92 (0-130) mg/dL VLDL Cholesterol 31 (5-40) mg/dL HDL Cholesterol 23 L (40 - ) mg/dL TSH (0.358-3.74) uIU/mL Urine Metanephrine (Undefined) ug/L U Metanephrines 24 Hr (58-276) ug/24 hr U Normetanephrine (Undefined) ug/L U Normetanephrine 24h (156-729) ug/24 hr POC Glucose (70-110) mg/dL 08/06/19 08/06/19 Range/Units 06:10 06:10 WBC 8.0 (4.4-11.0) K/mm3 RBC 3.54 L (4.6-6.2) M/mm3 Hgb 10.6 L (13.0-16.5) g/dL Hct 32.2 L (40-54) % MCV 91.0 (80-94) fL MCH 29.9 (27.0-32.0) pg MCHC 32.9 (32-36) g/dL RDW Std Deviation 40.6 (35.1-43.9) fl RDW Coeff of Mary 12.1 (11.6-14.6) % Plt Count 335 (150-450) K/mm3 MPV 10.5 (6.2-12.0) fl Immature Gran % (Auto) (0.0-0.9) % Neut % (Auto) (47-70) % Lymph % (Auto) (19-41) % [place] % (Auto) (0-10) % Eos % (Auto) (0-5) % Baso % (Auto) (0-1) % Absolute Neuts (auto) (2.0-7.7) X10^3/uL Absolute Lymphs (auto) (0.83-4.51) X10^3/uL Nucleated RBC % (0-5) % Sodium (136-145) mmol/L Potassium (3.5-5.1) mmol/L Chloride (98-107) mmol/L Carbon Dioxide (21.0-32.0) mmol/L Anion Gap (5-15) BUN (7-18) mg/dL Creatinine (0.70-1.30) mg/dL Estim Creat Clear Calc ml/min Est GFR (MDRD) Af Amer (>60) mL/min Est GFR (MDRD) Non-Af (>60) mL/min BUN/Creatinine Ratio (10-20) RATIO Glucose (74-106) mg/dL Hemoglobin A1c 6.1 (4.2-6.3) % Calcium (8.5-10.1) mg/dL Phosphorus (2.5-4.9) mg/dL Magnesium (1.6-2.6) mg/dL Total Bilirubin (0.20-1.00) mg/dL AST (15-37) U/L ALT (16-61) U/L Alkaline Phosphatase (45-117) U/L Total Protein (6.4-8.2) g/dL Albumin (3.2-5.0) g/dL Globulin (2.2-4.2) g/dL Albumin/Globulin Ratio (0.9-2.4) RATIO Triglycerides ( - 199) mg/dL Cholesterol (200) mg/dL LDL Cholesterol (0-130) mg/dL VLDL Cholesterol (5-40) mg/dL HDL Cholesterol (40 - ) mg/dL TSH (0.358-3.74) uIU/mL Urine Metanephrine (Undefined) ug/L U Metanephrines 24 Hr (58-276) ug/24 hr U Normetanephrine (Undefined) ug/L U Normetanephrine 24h (156-729) ug/24 hr POC Glucose (70-110) mg/dL no microbiology done during admission to inpt Rehab MODIFIED BARIUM SWALLOW: 08/18/19 RESULTS OF THE EVALUATION: The Patient presents with mild to moderate oropharyngeal dysphagia (DSRS: 4; SPS: 4) with grade III SILENT aspiration of thin liquids secondary to a recent 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 AGGREGATE): MODIFIED BARIUM SWALLOW IMPAIRMENT PROFILE (MBSImP) LABIAL SEAL: 0 (of 4) no labial escape TONGUE CONTROL: 2 (of 3) posterior escape < 50% BOLUS PREPARATION / MASTICATION: 0 (of 3) timely and efficient BOLUS TRANSPORT / LINGUAL MOTION: 0 (of 4) brisk tongue motion ORAL RESIDUE: 2 (of 4) residue collection on oral structures INITIATION OF PHARYNGEAL SWALLOW: 2 (of 4) posterior surface of epiglottis SOFT PALATE ELEVATION: 0 (of 4) no bolus between soft palate & pharyngeal wall LARYNGEAL ELEVATION: 0 (of 3) complete superior movement / approximation ANTERIOR HYOID EXCURSION: 0 (of 2) complete movement EPIGLOTTIC MOVEMENT: 0 (of 2) complete inversion LARYNGEAL VESTIBULE CLOSURE: 0 (of 2) complete closure PHARYNGEAL STRIPPING WAVE: 0 (of 2) present / complete PE SEGMENT OPENIN (of 3) partial distension / duration / obstruction TONGUE BASE RETRACTION: 2 (of 4) narrow column of contrast PHARYNGEAL RESIDUE: 2 (of 4) collection of residue ESOPHAGEAL BOLUS CLEARANCE: could not view BOLUS RESIDUE SCALE (BRS): 4 (of 6) residue in valleculae and piriform sinus Dr. Thorne-[place] [facility] for management of PEG tube Dr. Willam Gaming and Dr. Natanael Cruz-pulmonary medicine for management of tracheostomy Dr. 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 Status post ventriculostomy through a tj hole in the right frontal skull with insertion of a ventricular shunt. Prolonged intubation with placement of tracheostomy and PEG. He has R side weakness, dysphagia and aphasia. 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 He did not have a PCP and had not been seen by a doctor in quite some time. He was walking along and suddenly fell to the ground and started vomiting. He was brought to the [facility] emergency room. He was vomiting and unresponsive so he was intubated and sent for a non-contrasted CT brain. CT brain showed an acute intracranial hemorrhage of the left thalamus measuring approximately 2.7 x 1.9 x 3.1 cm within a rim of surrounding vasogenic edema. Blood was seen in the left lateral ventricle and frontal pole of the right lateral ventricle. He was started on a Cardene drip for blood pressure control and transferred to [facility] per the recommendation of the telestroke neurologist. Upon arrival at [facility] his NIH score was 23. He developed hydrocephalus and had a ventriculostomy through a right frontal tj hole with placement of a ventricular shunt. He had a prolonged intubation and required tracheostomy and PEG tube. He had a transthoracic echocardiogram at [facility] which showed concentric left ventricular hypertrophy, grade 2 diastolic dysfunction, akinesis of the inferior wall, hypokinesis of the posterior segment and a mildly reduced ejection fraction at 50 to 55%. There was also right ventricular enlargement which raises a suspicion of pulmonary HTN/possible JAUN. [facility]. PT/OT/ST were ordered and he had improved with therapy to the point where the therapists felt he could tolerate 3 hours of therapy daily. He was transferred to the IPRU at [facility] on 08/04/19 for > 3 H of therapy daily to restore function as close to his previous normal as possible. 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 Dr. Thorne was consulted on 08/03/2019 because nursing was unable to flush the PEG and it was very painful when they attempted to. A CT scan of the abdomen and pelvis was done and the PEG tube appeared to be within the abdominal wall. Dr. Thorne replaced the PEG tube with a G-tube due to dislodgment of the initial tube. She noticed mild erythema at the insertion site and he was treated for cellulitis with Ancef. At the time of transfer to inpt Rehab Lawrence had expressive aphasia and marked weakness on the right side. He was on Seroquel 25 mg BID for agitation. Because of the stroke and a high STOP BANG score an overnight trending pulse ox was ordered. The overnight trending pulse ox was done while he had the tracheostomy in place and it showed hypoxia which is likely due to central sleep apnea due to CVA. I also suspect he has JAUN due to obesity that predated the stroke. HBe was placed on O2 at 2 LPM any time he was sleeping. Blood sugars were elevated and a HGBA1C was checked and it was 6.1% which is consistent with glucose intolerance/prediabetes. The sanitation truck cleaner was consulted and he was placed on a carb controlled cardiac diet following removal of the PEG on 08/21/19. He was decannulated on 08/30/19. Seroquel was weaned off without any return of agitation. He was started on Sertraline at admission to the inpt unit and this was gradually increased to 100 mg daily to get control of anxiety/depression. He is doing well at the time of discharge. Lawrence did very well with therapy and at the time of discharge he is able to ambulate with a naima-walker. Urinary incontinence and urine retention have resolved. He is able to do his upper body dressing but still requires assistance with lower body dressing and also requires assistance with toileting and hygiene post bowel movement. Weakness of the right arm and leg has significantly improved. On 09/22/19 his mother Shakira came [facility] family [facility]. Lawrence will be going home with Shakira in [place] at [place]. Lab on 09/23/2019 showed a stable hemoglobin at 11.3. The electrolytes were within normal limits and the BUN was 19 with a creatinine of 1.26. The creatinine has ranged from 0.81-1.46 during his admission to [facility]. His creatinine on the day of the stroke was 1.49. Blood pressure was not adequately controlled on Coreg 25 mg twice daily, amlodipine 10 mg daily and doxazosin 2 mg twice daily. I initially added an NEERAJ in light of the glucose intolerance but the creat seemed to increase and it never returned back to 0.81. Lisinopril was discontinued. He was tried on a low-dose of hydrochlorothiazide however every time we attempt this his creatinine increases. He had a CTA of the renal arteries that revealed no evidence of stenosis. TSH was within normal limits. Urine metanephrines and normetanephrine's were within normal limits. Prior to discharge he was started on lisinopril 10 mg daily to assist in maintaining a blood pressure less than 130/80. Since he has no evidence of renal artery stenosis I do not feel the elevated creat is due to Lisinopril. Vital signs at the time of dictation are pulse rate 66, blood pressure 140/87, respiratory rate 16 and he was 95% saturated on room air. I hesitate to use Hydralazine due to the frequency of dosing and am trying to limit medication to twice daily for ease of use and for compliance. He was discharged on 09/24/19. A wheelchair was obtained for him prior to discharge. He will need to purchase a naima-walker and a shower chair. The social services specialist made arrangements for Lawrence to have outpatient physical therapy at [facility] therapy in [facility] for PT/OT/ST. Medications were faxed to the hospital OP pharmacy so that Lawrence would have them at [place]. Appts with a PCP in [place] and a neurologist were made prior to his DC by SW and nursing. Going forward he will need a formal sleep study and follow up with Pulmonary medicine for treatment if the study is +....casey if he has central sleep apnea. He should also be seen by cardiology for the ABN ECHO and have a stress test to evaluate for CAD in light of the akinesis of the inferior wall and hypokinesis of the posterior segment. Weight loss was advised to control blood sugars and decrease the likelihood that he will progress from glucose intolerance to DM. Alert, no apparent distress, calm and appropriate. Mucous membranes are moist Lungs-clear to auscultation with diminished breath sounds more likely than not secondary to body habitus. No wheezes, no Rales, no rhonchi. No conversational dyspnea and he is not tachypneic. Heart-regular rate and rhythm, no murmur, no gallop Abdomen-obese, soft, no guarding with palpation, nondistended Small amount of edema of the right ankle which is not unexpected because this is his weak side Right facial droop has improved significantly since admission to the rehab unit. The right arm and right leg are getting stronger and he is able to use the hemiwalker. He has done steps. This note was generated with Cumulux dictation software. It may contain incorrect words, spelling, and punctuation that were not noted in checking the note before signing. 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 There was also a cyst focus of hemorrhage posterior to the brainstem measuring 2.2 x 0.8 x 0.8 cm. Normochromic normocytic anemia (Acute) likely due to frequent blood draws while acutely ill. Hyperglycemia (Acute) no hx of DM Regional wall motion abnormality of heart (Acute) due to CAD/[place]? QT prolongation (Acute) on EKG 06/09/19 prior to the initiation of Seroquel - Physical Exam Vitals/I&O's: Vital Signs Temp Pulse Resp BP Pulse Ox 98.0 F 66 16 140/87 H 95 09/23/19 08:17 09/23/19 08:17 09/23/19 08:17 09/23/19 08:17 09/23/19 08:17 Oxygen Flow Rate (L/min) 2 Oxygen Delivery Method Room Air Weight: 242 lb 15.19 oz Body Mass Index (BMI) 41.2 Finger Stick Blood Glucose 92 Orthostatic Vital Signs Start: 09/17/19 00:58 Freq: q24h Status: Active Protocol: Activity Type Activity Date Activity User E-Sign Co-Sign Detail Recorded Client Recorded Date Recorded By Document 09/23/19 06:00 [facility] [id number] 09/23/19 06:41 WCM 09/23/19 06:00 Orthostatic Vitals Sitting -Blood Pressure (90/60-120/80 mm Hg) 129/89 H -Extremity Use Left Arm -Pulse Rate (60-100 beats/min) 68 Lying -Blood Pressure (90/60-120/80 mm Hg) 140/87 H -Extremity Use Left Arm -Pulse Rate (60-100 beats/min) 66 Intake and Output for Last 24 Hours 09/21/19 09/22/19 09/23/19 23:59 23:59 23:59 Intake Total 900 / 900 1480 / 1480 360 / 360 Output Total 1300 / 1300 1600 / 1600 575 / 575 Balance -400 / -400 -120 / -120 -215 / -215 Laboratory Results 09/16/19 14:14: Urine Metanephrine 53, U Metanephrines 24 Hr 144, U Normetanephrine 245, U Normetanephrine 24h 668 09/23/19 05:43: Hgb 11.3 L, Hct 34.3 L 09/23/19 05:43: Sodium 139, Potassium 3.6, Chloride 100, Carbon Dioxide 32.0, Anion Gap 7, BUN 19 H, Creatinine 1.26, Estim Creat Clear Calc 71.73, Est GFR (MDRD) Af Amer 82, Est GFR (MDRD) Non-Af 68, BUN/Creatinine Ratio 15.1, Glucose 93, Calcium 9.0, Magnesium 2.2 Current Medications Albuterol/Ipratropium (Duoneb) 3 ml INHALATION Q4H.RT PRN PRN Reason: SHORTNESS OF BREATH Bisacodyl (Dulcolax) 10 mg RECTAL .PRN X 1 PRN PRN Reason: Constipation Doxazosin Mesylate (Cardura) 2 mg PO BID [facility] Last Admin: 09/23/19 07:52 Dose: 2 mg Documented by: Emollient Ointment (Eucerin Intensive Repair) 1 applic TOPICAL 4X/DAY PRN PRN; Protocol PRN Reason: DRY SKIN Last Admin: 08/19/19 13:54 Dose: 1 applicatio Documented by: Enoxaparin Sodium (Lovenox) 40 mg SC DAILY@0600 [facility] Last Admin: 09/23/19 06:42 Dose: 40 mg Documented by: Hydrochlorothiazide () 12.5 mg PO DAILY [facility] Last Admin: 09/23/19 07:53 Dose: 12.5 mg Documented by: Magnesium Hydroxide (Milk Of Magnesia) 30 ml PO .PRN X 1 PRN PRN Reason: Constipation Nystatin (Mycostatin Powder) 1 applic TOPICAL DAILY PRN; Protocol PRN Reason: REDNESS Sertraline HCl (Zoloft) 100 mg PO DAILY [facility] Last Admin: 09/23/19 07:53 Dose: 100 mg Documented by: Sodium Chloride () 10 - 40 ml IV UD PRN PRN Reason: SALINE FLUSH Last Admin: 09/10/19 15:14 Dose: 10 ml Documented by: Discharge Activity: May Not Drive, May Shower, Use Walker - naima-walker Weight Bearing Status: Full weight bearing Call your doctor if you observe: Fever of 101 or Higher, Inability to urinate, Inability to have a bowel movement, Shortness of breath, Dizziness, Fainting spells, Chest pain, Calf discomfort, Uncontrolled pain, - - Go the ED or call 911 immediately if sudden onset: 1. facial droop 2. slurred speech or inability to get words out 3. weakness or numbness on 1 side of the face, arm or leg. 4. vertigo or room spinning 5. loss of vision or trouble seeing in one eye 6. Confusion 7. Trouble walking or maintaining balance and trouble with coordination 8. Sudden severe headache with no known cause Home Medications: Medications to take at Discharge Amlodipine [Norvasc] 10 mg PO DAILY #30 tab 09/23/19 Carvedilol 25 mg PO BID #60 tab 09/23/19 Doxazosin Mesylate [Cardura] 2 mg PO BID #60 tab 09/23/19 Lisinopril [Zestril] 10 mg PO DAILY #30 tab 09/23/19 Menthol/Lanolin/Calamine/Znox [Calmoseptine Ointment] 1 applic TOPICAL TID PRN PRN #1 tube 09/23/19 Sertraline HCl [Zoloft] 100 mg PO DAILY #30 tab 09/23/19 Following Prescrptions Were Given to Patient: Menthol/Lanolin/Calamine/Znox [Calmoseptine Ointment] 1 applic TOPICAL TID PRN PRN #1 tube PRN Reason: jayne-anal irritation Transmission Status: Pending to [facility] Doxazosin Mesylate [Cardura] 2 mg PO BID #60 tab Transmission Status: Pending to [facility] Carvedilol 25 mg PO BID #60 tab Transmission Status: Pending to [facility] Amlodipine [Norvasc] 10 mg PO DAILY #30 tab Transmission Status: Pending to [facility] Lisinopril [Zestril] 10 mg PO DAILY #30 tab Transmission Status: Pending to [facility] Sertraline HCl [Zoloft] 100 mg PO DAILY #30 tab Transmission Status: Pending to [facility] Primary Care Physician: Care Physician,No Primary [Primary Care Provider] - Please follow up with your Primary Care Physician in: [place] after arriving in [place] Please Follow Up With: neurology Patient Instructions: Tips for Using Less Salt, Low-Fat Cooking Tips, How to Corporate Trust Officer the Size of Servings, Diabetes: Understanding Carbohydrates, What Are Snoring and Sleep Apnea?, Weight Management: Healthy Eating Disposition: Home - to his mom's house in [place] and will have OP PT/OT/ST Minutes spent on discharge:: 50 Patient Condition:: Good Medical Necessity - Tobacco Use Smoking Status: Never smoker Tobacco Use: Non-smoker Meaningful Use Info Meaningful Use Diagnoses (Choose all that apply): Hemorrhagic CVA - CVA Therapy Assessed for PT,OT and/or ST?: Yes Inpatient E&M: [id number] Disch Hosp
[2019-09-23] MEDS: Lisinopril 10 MG Tablet PO (13:59)
[2019-09-23 19:03] VITALS: BP 132/82; PULSE 66; RESP 16; TEMP 36.9; O2SAT 95
[2019-09-23 21:26] VITALS: BP 142/69; PULSE 70
[2019-09-24 00:07] VITALS: BMI 41.2
[2019-09-24] MEDS: Enoxaparin 40 MG/0.4 ML Syringe SC (05:25)
[2019-09-24 05:41] LABS: Hematocrit 33.4 % (40-54); Hemoglobin 10.7 g/dL (13.0-16.5)
[2019-09-24 07:53] VITALS: BP 123/73; PULSE 80; RESP 18; TEMP 36.4; O2SAT 97
[2019-09-24] MEDS: hydroCHLOROthiazide 12.5mg 12.5 MG PO ×2 (08:15→08:18)
[2019-09-24] MEDS: Doxazosin 1 MG Tablet 2 MG PO (08:18)
[2019-09-24] MEDS: Sertraline 100 MG Tablet PO (08:18)
--- NOTE | 2019-09-24 10:19 | NURSING ---
Going over Discharge instructions, patients mother states that Neurology from [place] called her and made appointment with her for [facility]. Pt asked about PT/OT/ST set up in [place]. Set up by [facility] and they should be calling patient for appointment. Name of PT/OT/ST given to mother and told to call them for appointment if they do not call. Marisa teaching packet given on tips of using less Salt, Low Fat Cooking tips, How to Arcade Games Mechanic the size of servings, Diabetes:Understanding Cabs and Weight Management, Healthy Eating, and Sleep [place] as instructed by Dr. Mendosa.
[2019-09-24 10:28] VITALS: BMI 41.2
== END 2019-09-24 10:20 | disposition home or self-care (01) | DRG 56 ==
PROVIDERS: Admitting Provider Internal Medicine; Visit Provider Internal Medicine
DX: I69.351 Hemiplegia and hemiparesis following cerebral infarction affecting right dominant side (principal); J96.01 Acute respiratory failure with hypoxia; G91.9 Hydrocephalus, unspecified; Z68.41 Body mass index [BMI] 40.0-44.9, adult; L03.311 Cellulitis of abdominal wall; T85.528A Displacement of other gastrointestinal prosthetic devices, implants and grafts, initial encounter; I69.320 Aphasia following cerebral infarction; I69.393 Ataxia following cerebral infarction; I69.392 Facial weakness following cerebral infarction; I69.391 Dysphagia following cerebral infarction; R13.10 Dysphagia, unspecified; F32.9 Major depressive disorder, single episode, unspecified; E66.01 Morbid (severe) obesity due to excess calories; I10 Essential (primary) hypertension; D64.9 Anemia, unspecified; E78.5 Hyperlipidemia, unspecified; G47.37 Central sleep apnea in conditions classified elsewhere; F41.0 Panic disorder [episodic paroxysmal anxiety]; G47.33 Obstructive sleep apnea (adult) (pediatric); Y92.129 Unspecified place in nursing home as the place of occurrence of the external cause; Z93.1 Gastrostomy status; Z93.0 Tracheostomy status; Z98.2 Presence of cerebrospinal fluid drainage device; Y73.8 Miscellaneous gastroenterology and urology devices associated with adverse incidents, not elsewhere classified
CPT/HCPCS: 31720; 36415; 74175; 74230; 80048; 80053; 80061; 82962; 83036; 83735; 83835; 84100; 84443; 85014; 85018; 85025; 85027; 92507; 92526; 92610; 92611; 93005; 94640; 94762; 97110; 97112; 97116; 97140; 97162; 97166; 97530; 97535; 97542; 97802; 97803; J7050; J7120; Q9967; A4216

== ENCOUNTER → 2019-12-15 09:16 | Outpatient (CLI) | payer OTHER, SELFPAY ==
[2019-12-14 09:14] VITALS: BMI 39.2
[2019-12-15 10:00] LABS: Hemoglobin 11.8 g/dL (13.0-16.5); Mean Corp Hgb Conc 32.8 g/dL (32-36); Mean Corpuscular Hgb 29.9 pg (27.0-32.0); Mean Corpuscular Volume 91.4 fL (80-94); Mean Platelet Vol. 10.3 fl (6.2-12.0); Platelet Count 317 K/mm3 (150-450); RBC Distribution Width CV 12.1 % (11.6-14.6); RBC Distribution Width SD 40.8 fl (35.1-43.9); Red Blood Count 3.94 M/mm3 (4.6-6.2); White Blood Count 6.4 K/mm3 (4.4-11.0)
[2019-12-15 10:40] LABS: AST(SGOT) 18 U/L (15-37); Alanine Aminotransfer ALT/SGPT 32 U/L (16-61); Albumin, Serum 3.8 g/dL (3.2-5.0); Alkaline Phosphatase 105 U/L (45-117); Anion Gap 5 (5-15); BUN 24 mg/dL (7-18); BUN/Creat Ratio 21.1 RATIO (10-20); Calcium,Total 8.3 mg/dL (8.5-10.1); Chloride 105 mmol/L (98-107); Creatinine, Serum 1.14 mg/dL (0.70-1.30); EST Glomerular Filtration Rate 76 mL/min (>60); Est Glom Filt Rate - Afr Amer 92 mL/min (>60); Globulin 3.8 g/dL (2.2-4.2); Glucose 96 mg/dL (74-106); Potassium 4.2 mmol/L (3.5-5.1); Protein, Total 7.6 g/dL (6.4-8.2); Sodium Level 137 mmol/L (136-145)
== END ==
PROVIDERS: PCP Family Medicine; Referring Provider Nurse Practitioner Family; Visit Provider Nurse Practitioner Family
DX: I61.0 Nontraumatic intracerebral hemorrhage in hemisphere, subcortical (principal); I10 Essential (primary) hypertension
CPT/HCPCS: 36415; 80053; 85027

== ENCOUNTER → 2020-01-03 10:31 | Outpatient (CLI) | payer OTHER, SELFPAY ==
[2019-12-14 09:14] VITALS: BMI 39.2
--- NOTE | 2020-01-03 10:36 | ART_ITS ---
Reason For Study: Absent Rt Peripheral Pulses Procedure A bilateral lower extremity continuous wave Doppler with analog waveform analysis and ankle brachial indexes. Left Segmental Pressures Left brachial= 121mmHg. Left posterior tibial artery = 165mmHg. Left dorsalis pedis artery = 159mmHg. The left ankle waveforms are triphasic. Right Segmental Pressures Right brachial= 130mmHg. Right posterior tibial artery = 168mmHg. Right dorsalis pedis artery = 163mmHg. The right ankle waveforms are triphasic. Indices The right ankle brachial index by the posterior tibial artery is 1.29. The right ankle brachial index by the dorsalis pedis is 1.25. The left ankle brachial index by the posterior tibial artery is 1.27. The left ankle brachial index by the dorsalis pedis is 1.22. Interpretation Summary Triphasic Doppler waveforms are noted at ankle level bilaterally. Pulse-volume recordings appear satisfactory at ankle and digital level bilaterally. Resting ankle-brachial indices are normal bilaterally. There is no evidence of significant arterial occlusive disease in the lower extremities bilaterally. Ordering Physician: Remy Goldman Referring Physician: David Ojeda Performed By: Kylah Ruiz RDCS/RVT
== END ==
PROVIDERS: PCP Family Medicine; Visit Provider Psychiatry & Neurology Neurology
DX: R09.89 Other specified symptoms and signs involving the circulatory and respiratory systems (principal)
CPT/HCPCS: 93922

== ENCOUNTER → 2020-02-02 13:29 | Outpatient (CLI) | payer OTHER, SELFPAY ==
[2019-12-14 09:14] VITALS: BMI 39.2
--- NOTE | 2020-02-02 14:29 | ST.MBS ---
Modified Barium Swallow - Patient Information Study Date: 02/02/20 Study Time: 13:30 Direct Billable Minutes: 70 Total Minutes procedure & reportin Diagnosis: Dysphagia (R13.12) Referring Physician: David Ojeda Reason for Referral: The patient is a 39-year-old male referred for a repeat modified barium swallow (MBS) study to objectively assess the Patients oropharyngeal swallow function under fluoroscopy secondary to an acute intracranial hemorrhage of the left thalamus with extension to the lateral ventricles status post tj hole vetriculostomy with ventricular shunt placement; history of silent aspiration under fluoroscopy. Medical History: Acute left thalamic intracranial hemorrhage with extension to the lateral ventricles status post tj hole vetriculostomy with ventricular shunt placement, with resulting right hemiparesis, acute respiratory failure necessitating prolonged intubation (intubated 06/09/2019; extubated 06/11/2019; re-intubated 06/12/2019) with eventual tracheostomy tube placement (06/23/2019), dysphagia resulting in percutaneous endoscopic gastrostomy (PEG) tube placement (06/23/2019), depression, hypertension, chronic cholecystitis, elevated hemidiaphragm, obesity. - Penetration-Aspiration Scale Score Thin liquid - 5 mL tsp Result: 2= enter airway/above vocal folds/ejected Thin liquids via straw (single sip) 1 Result: 2= enter airway/above vocal folds/ejected Thin liquids via straw (single sip) 2 Result: 1= does not enter airway Thin liquids via straw (single sip) 3 Result: 1= does not enter airway Thin liquids via straw (sequential) Result: 2= enter airway/above vocal folds/ejected Pudding Result: 1= does not enter airway Solid Texture Result: 1= does not enter airway Thin liquids via straw (single sip) 4 Result: 2= enter airway/above vocal folds/ejected Thin liquids via straw (single sip) 5 Result: 2= enter airway/above vocal folds/ejected - Oral Phase Labial Seal: No Labial Escape Tongue Control During Bolus Hold: Posterior escape of less than half of bolus Bolus Preparation/Mastication: Timely and efficient chewing and mashing Bolus Transport/Lingual Motion: Brisk tongue motion Oral Residue: Trace residue lining oral structures - Pharyngeal Phase Initiation of Pharyngeal Swallow: Bolus head in pyriforms Soft Palate Elevation: No bolus between soft palate and pharyngeal wall Laryngeal Elevation: Comp. Superior move thyroid cart w/comp. apprx arytenoid cart-epig pet Anterior Hyoid Excursion: Partial anterior movement Epiglottic Movement: Complete inversion Laryngeal Vestibule Closure at Height of Swallow: Complete; no air/contrast in laryngeal vestibule Pharyngeal Stripping Wave: Present - complete Pharyngoesophageal Segment Opening: Complete distension and complete duration; no obstruction of flow Tongue Base Retraction: Narrow column of contrast between tongue base & post. pharyngeal wall Pharyngeal Residue: Trace residue within or on pharyngeal structures - Diagnosis/Impression Diagnosis: Dysphagia (R13.12) Impression: The patient presents with mild oropharyngeal dysphagia (DSRS: 2; DCS: D0) with intermittent shallow transient penetration with thin liquids secondary to a recent acute left thalamic intracranial hemorrhage with extension to the lateral ventricles status post tj hole vetriculostomy with ventricular shunt placement - Recommendations Comment: DIET TEXTURE RECOMMENDATIONS: regular textured (IDDSI: 7), thin liquid diet (IDDSI: 0) diet RECOMMENDED COMPENSATORY STRATEGIES: consider cutting tougher textures into bite sized pieces, reduced bolus volume / rate of ingestion, consider straws with all liquids, seated upright at 90 degrees during PO intake, remain upright for 30-60 minutes post meal (GERD precaution) Recommend Repeat Modified Barium Swallow: No Education Completed: 1. Described result of evaluation., 2. Pt understands evaluation & agrees with goals and treatment plan. - Image Count: [phone] - Status Active ST Patient: Not Active - Contact Information [facility] Speech Therapy:: Efra Genao M.A., SHARMAINE-MOULDER OPERATOR, CBIS MBSImP Certified, LSVT Certified [facility] Speech-Language Pathology Department Email: [email or web address]
== END ==
PROVIDERS: PCP Family Medicine; Referring Provider Family Medicine; Visit Provider Family Medicine
DX: T17.900D Unspecified foreign body in respiratory tract, part unspecified causing asphyxiation, subsequent encounter (principal); X58.XXXD Exposure to other specified factors, subsequent encounter
CPT/HCPCS: 74230; 92611

== ENCOUNTER → 2020-02-10 15:27 | Outpatient (CLI) | payer OTHER, SELFPAY ==
[2020-02-10 17:22] LABS: Vitamin B12 331 pg/mL (211-911)
[2020-02-10 17:40] LABS: Ferritin 67 ng/mL (26-388); Iron 73 ug/dL (65-175); Iron Binding Capacity,Total 301 ug/dL (250-450); PERCENT IRON SATURATION 24.3 % (15.0-55.0)
== END ==
PROVIDERS: Nurse Practitioner Family; PCP Family Medicine; Referring Provider Psychiatry & Neurology Neurology; Visit Provider Psychiatry & Neurology Neurology
DX: D64.9 Anemia, unspecified (principal)
CPT/HCPCS: 36415; 82607; 82728; 82746; 83540; 83550

== ENCOUNTER → 2020-06-08 15:16 | Outpatient (CLI) | payer OTHER, SELFPAY ==
--- NOTE | 2020-06-08 16:15 | RAD_ITS ---
STUDY: X-RAY - SOFT TISSUE NECK REASON FOR EXAM: Male, 39 years old. NARROWING FROM TRACHEA TECHNIQUE: Frontal and lateral view(s) of the neck were obtained. COMPARISON: None. FINDINGS: Normal visualized nasopharynx, oropharynx, hypopharynx. Normal epiglottis. There is narrowing of the subglottic tracheal air column. Normal prevertebral soft tissue structures. Normal visualized osseous structures. The soft tissue structures are unremarkable. RAD/Neck for Soft Tissue IMPRESSION: Narrowing of the subglottic trachea. Electronically Signed: Buster Jones MD at 16:48 EST , Service support ,
== END ==
PROVIDERS: PCP Family Medicine; Referring Provider Internal Medicine Pulmonary Disease; Visit Provider Internal Medicine Pulmonary Disease
DX: J39.8 Other specified diseases of upper respiratory tract (principal)
CPT/HCPCS: 70360

== ENCOUNTER 2020-06-20 15:30 | Outpatient (RCR) | payer OTHER, SELFPAY ==
[2019-12-14 09:14] VITALS: BMI 39.2
== END 2020-07-12 23:59 ==
LOC: NS 15:30
PROVIDERS: PCP Family Medicine; Visit Provider Family Medicine
DX: Z71.3 Dietary counseling and surveillance (principal); E66.01 Morbid (severe) obesity due to excess calories; G47.30 Sleep apnea, unspecified
CPT/HCPCS: 97802

== ENCOUNTER 2020-07-07 15:24 | Outpatient (RCR) | payer OTHER, SELFPAY | END 2020-09-19 23:59 | LOC: IMMUN 15:24 | PROVIDERS: PCP Family Medicine; Visit Provider Family Medicine | DX: Z23 Encounter for immunization (principal) | CPT/HCPCS: 0001A; 0002A; 91300 ==

== ENCOUNTER 2020-07-18 15:20 | Outpatient (RCR) | payer OTHER, SELFPAY ==
[2019-12-14 09:14] VITALS: BMI 39.2
== END 2020-08-11 23:59 ==
LOC: NS 15:20
PROVIDERS: PCP Family Medicine; Visit Provider Family Medicine
DX: Z71.3 Dietary counseling and surveillance (principal); E66.01 Morbid (severe) obesity due to excess calories; Z68.41 Body mass index [BMI] 40.0-44.9, adult; G47.30 Sleep apnea, unspecified; I10 Essential (primary) hypertension
CPT/HCPCS: 97803

== ENCOUNTER 2020-08-15 14:00 | Outpatient (RCR) | payer OTHER, SELFPAY ==
--- NOTE | 2019-12-10 10:46 | HP.OTEVAL_ITS ---
Patient's Visit Information JAVIER PANTOJA is a 39 year old M, referred to Occupational Therapy by Dr. David Ojeda MD, with a diagnosis of CVA. Date of Evaluation: 12/09/19 Occupational Therapist: Amalia Magana, LC/Rebeca, CHT - Subjective This 39 year old male was seen for OT eval with dx of CVA - suffered on 06/09/19 - off rehab september 24, 2019, pt did recive out-pt therapy while with sister-. lift program that was between speech/OT- pt states he is fustrated and rigo like to work more on his hand. 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 pt is right handed- pt would like to return to work. - ADLs Comments: pt has a 2nd floor apt two bedroom with a 1 and 1/2 bath- pt lives alone. pt has a tub bench for tub shower combo with hand alo shower head-pt PAULA with ADLS.jus has concerns with laundry and driving. pt can handle micowave and non oven stuff-. will use cock pot-. cleaning and laundry has not figured out. grocery shopping with [employer] will deliver to home and pantry with [employer]. has concerns with safely manuvering the stairs - Pain right UE 2 Pain Intensity Range: 0, 4 - ROM Shoulder: right 150 left 160 Elbow: right/left WNL Forearm: right supination 20* left 75 Wrist: right wrist ext to 0* flex WNL RD/UD WNL Opposition: right 6 left 10 ROM Comments: pt demo with right wrist resting position wrist in flexion and UD. - Strength Shoulder: right 4-/5 left 5/5 Elbow: right 4-/5 left 5/5 Forearm: right 4-/5 left 5/5 Wrist: right 4-/5 left 5/5 Per Diem Physical Therapist: right 14# left 85# Lateral Pinch: right 10# left 22# Tripod Pinch: right unable left 22# Strength Comments: pt demo with a decrease functional strength of right UE limiting pts ind. with ADLs and IADLs - Sensation Thumb: right red line left 2.83 Index: right red line left 2.83 Middle: right red line left 2.83 Ring: right red line left 2.83 Little: right red line left 2.83 Sensation Comments: feels arm is still numb -. fingers are red line indicating pt can burn or cut self without knowing it - Quick DASH-Disab of Arm,Shoulder& Hand Quick DASH Score: 68.3325 - Goals Goal:: pt will demo a increase in right UE MMT 4+/5 to increase pts ind with ADLs and IADLs by d/c. pt will demo a increase in right steeping press tender sthrength by 30# to increase pts ind with ADLs and IADLS by d/c Goal:: pt will demo the ability to open/close hand with functional tasks as folding laundry by d/c. pt will demo the ability to fully supinate right forearm to recive object by d/c Goal:: pt will demo the abiilty to grasp/release a variety of different size objects med. large. small etc without dropping items 80% by d/c Goal:: pt will demo understanding of visual compensitory becki around hot/sharp objects until sensation returns to protective response. pt will demo understanding on sensory re-ed by end of 3rd session - Rehabilitation General Assessment: right UE weakness and limited right hand coordination/dext. this limits pt ind. with use of right UE and FMS for ADLs and IADLs. Pt would benefit from skilled OT services 2-3x week for 8 weeks to increase pts functional strenght and ind. with ADLs and IADl tasks. Pt demo understanding of POC. Rehabilitation Potential: Good - Anticipated Interventions A/AAROM/PROM, Strengthening, Sensory Retraining, Joint Protection/Energy Conservation, Fine Motor Coord/Aaron, Neuro Reeducation, Sensory Stimulation, ADL Training, Education re assistive Equipment - Visit Plan Frequency: 2-3x /Week Duration: 2 Months TEXT: Thank you for the opportunity to evaluate your patient. For Medicare and Medicare HMO plans, please review the plan of care and approve it. It will need to be FAXED BACK to us at [phone] for Medicare purposes. Please let me know if there are questions or concerns regarding this plan of care. Physician Signature: Date:
--- NOTE | 2019-12-10 13:00 | SOAP_ITS ---
REASON FOR REFERRAL: The Patient is a pleasant 39 year old male referred for a clinical assessment of the cognitive communication and swallow function at [facility] on 12/10/2019 due to persisting dysarthria and mild dysphagia secondary to a 06/09/2019 intracranial hemorrhage of the left thalamus with extension to the lateral ventricles and posterior brainstem status post tj hole vetriculostomy with ventricular shunt placement, in addition to prolonged intubation and eventual tracheostomy (since removed) and PEG placement (since removed). The Patient?s mother was present for the evaluation and provided details regarding the Patient?s current level of functioning and progress noted to date. Both report no concern with cognitive functioning, with the Patient mentioning ?everyone keeps stating concern for my cognition, but all I get is silly puzzles? that do not provide functional components, and does report some benefit from metacognitive strategies that were provide by this clinician during his inpatient admission; he has returned to his vocational duties on a limited basis (he is working from home due to the current COVID- 19 pandemic), and has not encountered any issues with his cognitive processing during reintegration. Both report an uptake in right sided bolus loss over the past month, and additionally reports that he has noticed an uptake in right sided facial and intra-oral hypoesthesia (numbness) and weakness, and reports that this at times radiates to the right eye and slightly above to the forehead. 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 This has complicated his return to the vocational setting, particularly given the higher than usual utilization of videoconferencing. He has not discussed this with his physician, and was strongly encouraged to do so. This has also lead to intermittent diurnal sialorrhea and right sided bolus loss during ingestion. He denies any issues with coughing or throat clearing during ingestion, though again does report an uptake in right sided bolus loss over the past month. He denies sensations of bolus stasis or sensation of nasopharyngeal reflux. He denies any unintentional weight loss, changes in appetite, issues with early satiety, inanition, nausea, or emesis. He reports intermittent dysgeusia (abnormal / unpleasant taste), though nothing substantial, and denies hypogeusia (reduced taste), cacogeusia (strongly revolting taste), ageusia (absence of taste), or hyposmia (reduced smell). He denies issues with xerostomia (dry mouth). He denies any symptoms associate with trismus; denies odynophagia (pain during swallow). He denies issues with reflux / heartburn, globus sensation, post prandial substernal discomfort, or feelings of bolus stasis. He denies any current or previous issues with aspiration related pulmonary complications, to include pneumonia, bronchitis, or unexplained asthma symptoms. He appears cognitively intact, with both the Patient and Patients mother reporting he is transitioning well at the time, though are open to further investigation as medically indicated moving forward. The Patient is currently limited in ambulation, requiring transportation to the therapy room via wheelchair. He demonstrates no difficulties with posture maintenance and appears well nourished and appropriately groomed. 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 MEDICAL HISTORY: Acute left thalamic intracranial hemorrhage with extension to the lateral ventricles and posterior brainstem status post tj hole vetriculostomy with ventricular shunt placement, with resulting right hemiparesis, acute respiratory failure necessitating prolonged intubation (intubated 06/09/2019; extubated 06/11/2019; re-intubated 06/12/2019) with eventual tracheostomy tube placement (06/23/2019), dysphagia resulting in percutaneous endoscopic gastrostomy (PEG) tube placement (06/23/2019), depression, hypertension, chronic cholecystitis, elevated hemidiaphragm, obesity. PREVIOUS MODIFIED BARIUM SWALLOW STUDY: 08/18/2019 MBS revealed mild to moderate oropharyngeal dysphagia (DSRS: 4; SPS: 4) with grade III SILENT aspiration of thin liquids ADDITIONAL OBJECTIVE ASSESSMENT RESULTS: 06/09/2019 CT revealed an acute intracranial hemorrhage of the left thalamus with mild effacement of the mid left lateral ventricle; blood noted in the left lateral ventricle and frontal pole of the right lateral ventricle; cyst focus of hemorrhage posterior to the brainstem. RESULTS OF THE EVALUATION: The Patient presents with mild oral dysphagia and moderate dysarthria secondary to a recent acute left thalamic intracranial hemorrhage with extension to the lateral ventricles and posterior brainstem status post tj hole vetriculostomy with ventricular shunt placement SUPPLEMENTARY DYSPHAGIA ASSESSMENT RESULTS (SCALES / PROM): NIHSS (initial): 13 MODIFIED HUONG SCALE (mRS): mRS SCALE SCORE: 4 mRS SCALE DESCRIPTION: moderately severe disability; unable to walk without assistance and unable to attend to own bodily needs without assistance ISAN: AGE: 0 (<60) SEX: 1 (male) NIHSS (admission): 4 (5 to 15) mRS (pre-stroke): 0 (independent; mRS 0-1) ISAN SCORE: 5 STROKE ASSOCIATED PNEUMONIA RISK: low - 2.8% chance stroke associated pneumonia AGE, ATRIAL FIBRILLATION, DYSPHAGIA, SEX, STROKE SEVERITY (A2DS2) SCORE: AGE: 0 (< 73 years old) ATRIAL FIBRILLATION: 0 (no) DYSPHAGIA: 2 (yes) SEX: 1 (male) STROKE SEVERITY: 3 (NIHSS 5-15) A2DS2 SCORE: 6 OUTCOME PREDICTION: 23.5% chance of stroke associated pneumonia AGE, CONGESTIVE HEART FAILURE, DYSARTHRIA, DYSPHAGIA (ACDD4) RISK SCORE: AGE < 75: DYSARTHRIA: 1 (present) DYSPHAGIA: 4 (present) CONGESTIVE HEART FAILURE: 0 (not present) ACDD4 SCORE: 5 STROKE ASSOCIATED PNEUMONIA RISK: 17.0% risk post stroke PNA / HCAP ORAL MOTOR / MODIFIED CRANIAL NERVE ASSESSMENT: TRIGEMINAL NERVE (CNV): impaired; right facial hypoesthesia (new) FACIAL NERVE (CNVII): impaired; right facial asymmetry at rest; right labial asymmetry at rest, slightly upon retraction; inconsistent right side labial seal GLOSSOPHARYNGEAL NERVE (CNIX): no clinically significant abnormalities observed VAGUS NERVE (CNX): no clinically significant abnormalities observed HYPOGLOSSAL NERVE (CNXII): no clinically significant abnormalities observed ORAL SENSITIVITY AND PALATAL STRUCTURES:impaired; right sided intraoral hypoesthesia COUGH SUFFICIENCY: appropriate (strong) volitional cough intensity VOCAL QUALITY: impaired vocal quality, with harsh, pressed vocal quality with dysarthria ORAL MOTOR / MODIFIED CRANIAL NERVE ASSESSMENT (QUANTITATIVE): ORAL HEALTH ASSESSMENT TOOL (OHAT): LIPS: CATEGORY: 1 (changes) DESCRIPTION: dry, chapped; TONGUE: CATEGORY: 0 (healthy) DESCRIPTION: normal, moist, roughness, pink GUMS AND TISSUES: CATEGORY: 0 (healthy) DESCRIPTION: pink, moist, smooth, no bleeding SALIVA: CATEGORY: 0 (healthy) DESCRIPTION: moist tissues, watery and free-flowing saliva NATURAL TEETH: PRESENT: yes CATEGORY: 0 (healthy) DESCRIPTION: no decayed or broken teeth/roots ORAL CLEANLINESS: CATEGORY: 0 (healthy) DESCRIPTION: clean with no food particles / tartar / buildup in mouth or dentures DENTAL PAIN: CATEGORY: 0 (healthy) DESCRIPTION: no behavioral, verbal, or physical signs of dental pain OHAT TOTAL SCORE: 04/29 HOUSE BRACKMANN SCALE FOR FACIAL PARALYSIS GROSS FUNCTION ? GENERAL: grade III (moderate dysfunction) DESCRIPTION: obvious but not disfiguring difference between two sides; GROSS FUNCTION ? AT REST: grade IV (moderate ? severe dysfunction) DESCRIPTION: slight asymmetry with normal tone MOTION FUNCTION ? FOREHEAD: grade II (slight dysfunction) DESCRIPTION: moderate to good function MOTION FUNCTION ? EYES: grade II (slight dysfunction) DESCRIPTION: complete closure with minimum effort MOTION FUNCTION ? MOUTH: grade III (moderate dysfunction) DESCRIPTION: slightly weak with maximum effort SIALORRHEA SCORING SCALE (SSS): SSS SCORE: 4 (of 9) SSS DESCRIPTION: moderate, wet on the lips and chin, occasionally CLINICAL ASSESSMENT OF SWALLOW FUNCTION (QUANTITATIVE): REPETITIVE SALIVA SWALLOWING TEST (RSST): RSST RESULT: pass RSST DESCRIPTION: able to elicit 2 dry swallows within 30 seconds. 1OZ WATER SWALLOWING TEST (1OZ WST): 1OZ WST RESULTS: normal ? 1 (of 5) 1OZ WST DESCRIPTION: single swallow without coughing during ingestion DRINKING EPISODES: none 3OZ WATER SWALLOWING TEST (3OZ WST): 3OZ WST RESULTS: abnormal DRINKING EPISODES: stopping and starting HOOD 6 FACTORS: DYSPHONIA: 1 (positive) DYSARTHRIA: 1 (positive) ABNORMAL GAG RESPONSE: 0 (negative) ABNORMAL VOLITIONAL COUGH: 0 (negative) POST PRANDIAL COUGHIN (negative) POST PRANDIAL VOCAL CHANGES: 0 (negative) HOOD 6 FACTORS SCORE: 2 HOOD 6 FACTORS DESCRIPTION: moderate to severe (2+ clinical predictors) ENG ASSESSMENT OF SWALLOWING ABILITY (MASA): MASA SEVERITY SCORE: 191 MASA SEVERITY SCORE DESCRIPTION: unremarkable MASA ASPIRATION SEVERITY SCORE: 191 MASA ASPIRATION SEVERITY SCORE DESCRIPTION: unremarkable MASA DYSPHAGIA RISK RATING: probable; moderate evidence for disorder CLINICAL ASSESSMENT OF SWALLOW FUNCTION (QUALITATIVE): ORAL PREPARATORY PHASE: competent bolus manipulation without fragmented swallowing (piecemeal deglutition); slight right sided bolus loss with sequential ingestion of thin liquids, though this was trace at worst; preserved management of breathing / bolus formation ORAL TRANSITIONAL PHASE: no presence of transitional incompetence; no lingual discoordination (no tremor / undulations); sufficient oral clearance; no signs of premature bolus loss, though intermittent premature posterior bolus loss was visualized during his most recent videofluoroscopic examination which directly contributing to pre-prandial penetration and sole aspiration event with thin liquids PHARYNGEAL PHASE: mild reduction in hyolaryngeal excursion and duration upon digital palpation possibly suggestive of suboptimal laryngeal vestibule closure / pressure / duration, though in isolation this may lack clinically significance, appeared appropriate under fluoroscopy during most recent assessment; no obvious findings suggestive of pharyngeal phase delay / dyssynchrony, though mild pharyngeal phase dyssynchrony directly contributing to intermittent pre-prandial transient penetration and subsequent sole aspiration event identified under most recent videofluoroscopic assessment; no subjective signs of pharyngeal dysmotility; no subjective signs of velopharyngeal impairments; no overt signs or symptoms of penetration / aspiration throughout trials. ESOPHAGEAL PHASE: no obvious esophageal phase abnormalities observed. CONTRIBUTING / COMPLICATING FACTORS AND NOTABLE FINDINGS: absent cough in response to tracheobronchial aspiration under fluoroscopy during most recent assessment (atussia), with lowered cough response thresholds common in individuals with tracheostomy tubes; this may have resolved over time, though would benefit from further workup. RESPONSE TO STRATEGIES: all deficits managed successfully with reduction in bolus rate / volume adjustments, use of straws, and mild effects during execution of the chin tuck posture CLINICAL ASSESSMENT OF SWALLOW FUNCTION (SEVERITY GRADING): SWALLOWING PERFORMANCE SCALE (SPS): SPS SCORE: 3 (mild) SPS SCORE DESCRIPTION: mild dysfunction in oral or pharyngeal stage; requires modified diet or therapeutic swallowing precautions. COGNITIVE COMMUNICATION ASSESSMENT RESULTS (QUANTITATIVE): APRAXIA OF SPEECH RATING SCALE (ASRS-v1): ASRS-v1 SCORE: 0(of 4) ASRS-v1 SCORE DESCRIPTION: apraxia not present APHASIA SEVERITY RATING SCALE (ASRS): ASRS SCORE: 5 (of 5) ASRS SCORE DESCRIPTION: no discernable speech handicap; the patient may have subjective difficulties that are not obvious to the listener NEWCASTLE DYSARTHRIA ASSESSMENT TOOL (N-EREN) INTELLIGIBILITY: PERCEIVED INTELLIGIBILITY: intelligible with some difficulty NOTABLE CHARACTERISTICS: breathing; voice quality; stress; articulation precision; percentage intelligible RESPIRATION: OBSERVED RESPIRATION CHARACTERISTICS: clavicular breathing; irregular / inconsistent posture BREATHING RATE: normal PHONATION: LOUDNESS: variable PITCH: variable QUALITY: rough, strain-strangled ABILITY TO SUSTAIN VOLUME: able; inconsistent PITCH GLIDE: ABILITY: variable PITCH RANGE: reduced PITCH CONTROL: phonation breaks; change in voice quality RESONANCE: OBSERVATION: hypernasal WORD PRODUCTION (HYPONASALITY):no abnormalities observed WORD PRODUCTION (HYPERNASALITY): no abnormalities observed PROSODY: OBSERVATION: able to vary stress / intonation PROSODY IMITATION: normal ARTICULATION: RATE OF SPEECH: variable PHRASE LENGTH: adequate GROPING BEHAVIORS: not present COGNITIVE COMMUNICATION ASSESSMENT RESULTS (QUALITATIVE): LANGUAGE FUNCTIONING: 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 VOCAL FUNCTIONING: dysphonia (abnormal vocal quality) with noted vocal tension with a strained-strangled vocal quality and vocal harshness (raspy); occasional pitch breaks; demonstrated intermittent clavicular breathing EXECUTIVE FUNCTIONING: no obvious executive function-based abnormalities appreciated throughout the assessment, though the assessment focused predominantly on his communication impairments; further investigation throughout the treatment cycle may be beneficial as clinically indicated. MEMORY: no obvious memory-based abnormalities appreciated throughout the assessment, though the assessment focused predominantly on his communication impairments; further investigation throughout the treatment cycle may be beneficial as clinically indicated. ATTENTION: no obvious attention-based abnormalities appreciated throughout the assessment, though the assessment focused predominantly on his communication impairments; further investigation throughout the treatment cycle may be beneficial as clinically indicated. VISUOSPATIAL ABILITIES: no visuospatial based abnormalities appreciated COGNITIVE COMMUNICATION ASSESSMENT RESULTS (SEVERITY GRADING): FUNCTIONAL COMMUNICATION MEASURE (FCM) ?LANGUAGE COMPREHENSION FCM ? LANGUAGE COMPREHENSION LEVEL: 0 (of 6) SEVERITY: independent LEVEL DESCRIPTION: comprehension of language is appropriate for chronological age in all contexts. FUNCTIONAL COMMUNICATION MEASURE (FCM) ?LANGUAGE PRODUCTION FCM ? LANGUAGE PRODUCTION LEVEL: 0 (of 6) SEVERITY: independent LEVEL DESCRIPTION: language production is appropriate for age in all contexts. FUNCTIONAL COMMUNICATION MEASURE (FCM) ? ARTICULATION FCM ? ARTICULATION LEVEL: 2 (of 6) SEVERITY: mild-moderate LEVEL DESCRIPTION: speech is intelligible approximately 75% of the time; sound productions are noticeable in error; imprecise sequencing or coordination of speech sounds may be evident; ability to self-correct is inconsistent; FUNCTIONAL COMMUNICATION MEASURE (FCM) ?VOICE PRODUCTION FCM ? VOICE PRODUCTION LEVEL: 3 (of 6) SEVERITY: moderate LEVEL DESCRIPTION: voice is optimal for communication approximately 50% of the time; voice calls attention to itself as different; the listener becomes distracted by the voice to the degree that there is interference with the message. FUNCTIONAL COMMUNICATION MEASURE (FCM) ?FLUENCY / RATE / RHYTHM FCM ? FLUENCY LEVEL: 0 (of 6) SEVERITY: independent LEVEL DESCRIPTION: speech rate, rhythm, and/or fluency patterns for communication are within normal limits; the affective/cognitive component is within normal limits in all communication situations. INTERVENTION CONSIDERATIONS AND RECOMMENDATIONS: I cannot definitively rule out silent aspiration at bedside; I would consider objective assessment of the oropharyngeal swallow function given his history of silent aspiration. It is accepted that detection of aspiration by VFS is a predictor of pneumonia risk and / or probability of rehospitalization (Roni and Disha 1999). I would consider the Patient to be at higher risk for risk for aspiration secondary to his recent cerebrovascular disease; history of dysphagia with trace silent aspiration identified under fluoroscopy; abnormal Giovanni?s 6 factors results (2 or more clinical predictors); and his compromised ambulatory status. I would consider the Patient to be at a higher risk for silent aspiration when considering presence / recurrence of diurnal sialorrhea (SSS: 4); recent cerebrovascular accident (upwards of 15?39% following stroke); and recent history of silent aspiration under fluoroscopy. Often the only clues might be fever or a decline in oxygen saturation, although these lack sensitivity. I would consider the Patient to be at a higher risk of aspiration related medical complications / aspiration pneumonia / aspiration related pulmonary syndrome secondary to his recent cerebrovascular accident and protracted issues with dysphagia; presence of SILENT aspiration identified under fluoroscopy; and his currently impaired ambulatory status, RECOMMENDATIONS FOR INTERVENTION: The Patient requires intensive skilled speech-language intervention targeting training and implementation of recommended compensatory articulation strategy approach to improve overall speech intelligibility; diet texture management and training / implementation of recommended compensatory strategies; development, training, and implementation of a home based exercise regimen consisting of recommended oropharyngeal strengthening exercises to facilitate improved oropharyngeal strength / coordination; Patient education regarding stroke associated dysphagia and dysarthria; with recommendations for further diagnostic assessment of the swallow function under fluoroscopy via Modified Barium Swallow (MBS) study; with goal adjustment as clinically indicated. POST ASSESSMENT EDUCATION: The results and recommendations were discussed with the Patient and the Patients family immediately following completion of the assessment, with the Patient and the Patients family verbalizing understanding and agreement with all recommendations and education provided. We discussed factors impacting effects of aspiration, to include: the quantity of aspiration, the depth of aspiration (trachea or distal airways), and the physical properties of the aspirate. We discussed consequences of oropharyngeal dysphagia, to include pulmonary complications from tracheobronchial aspiration; potential for airway obstruction / asphyxiation; inadequate oral intake because of dysphagia; reduced caloric intake resulting in unintentional and potentially medically complicating loss of weight; and complications in overall course of care with later discharge from acute admissions / increased length of hospitalizations, increased likelihood for discharge to snf, and overall worse rehabilitation outcomes. DIET TEXTURE RECOMMENDATIONS: Will recommend a regular textured (IDDSI: 7), thin liquid diet (IDDSI: 0) diet RECOMMENDED COMPENSATORY STRATEGIES: Chin tuck, reduced bolus volume / rate of ingestion, straws with all liquids, seated upright at 90 degrees during PO intake, remain upright for 30-60 minutes post meal (GERD precaution), FUNCTIONAL OUTCOMES: OUTCOME 1: the Patient will independently demonstrate and utilize recommended compensatory articulation techniques (increased vocal intensity, reduced rate of speech) to facilitate increased expressive communication abilities in the home and social environments. OUTCOME 2: the Patient will tolerate the least restrictive means of nutrition to facilitate adequate hydration / nutrition with optimum safety and efficiency of swallowing function during P.O. intake without overt signs and symptoms of aspiration. OUTCOME 3: the Patient will demonstrate and utilize recommended oropharyngeal range of motion exercise within the Patients home based program to improve and maintain overall oropharyngeal functioning with minimal cueing and prompting provide by the clinician, across 2 out of 3 sessions. OUTCOME 4: the Patient will participate in a repeat Modified Barium Swallow (MBS) study to objectively assess the Patient?s oropharyngeal swallowing function to determine the least restrictive means of nutrition, to objectively assess the effectiveness of previously identified strategies / precautions, and to identify appropriate intervention approaches / strategies to implement during treatment sessions at the supervised level. OUTCOME 5: goal adjustment as needed Efra Genao M.A., CCC-WOOD MODEL BUILDER, CBIS MBSImP Certified, LSVT Certified [facility] Speech-Language Pathology Department Email: [email or web address]
--- NOTE | 2019-12-13 07:39 | HP.PTEVAL ---
Patient's Visit Information JAVIER PANTOJA is a 39 year old M referred to Physical Therapy by Dr. David Ojeda MD with a diagnosis of CVA with R sided weakness. Date of Evaluation: 12/10/19 Physical Therapist: Dc Ng DPT - Visit Plan Frequency: 2-3x /Week Duration: 4-6 Weeks Plan: Start with RLE motor control, strength, balance, gait progressiong with quad cane. - Subjective This 39 year old male was seen for OT eval with dx of CVA - suffered on 06/09/19 - off rehab september 24, 2019, pt did recive out-pt therapy while with sister-. 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 pt is right handed- pt would like to return to work. Pt. reports having difficulty walking, currently walking with quad cane. He has to do stairs at home and is having difficulty doing so. Pt. would like to get back to [facility]. - Objective POSTURE: Pt. has decent posture in stance. Pt. has L sided lean. Pt. has FH and rounded shoulders. PALPATION: no pain with palpation. NEURO: pt. has tone in RLE and RUE, spasticity noted. Clonus of RLE also noted. ROM: Pt. has good PROM of BLEs. Pt. has tight HS on R side, no pain. Tightness noted in R calf. MMT: Pt. has decent strength of BLEs, LLE 5/5, RLE 4+/5 throughout. COre strength- fair. GAIT: Pt. ambulates with quad cane, motor control deficits noted. Pt. ambulats with straight R knee as well. Pt. has redcued step length bilaterally. Pt. has trouble with RUE control and core control with gait. Pt. has methodical pattern. Pt. ambulated 150ft. fatigue as limiting factor. STAIRS: Pt. uses both hands on 1 hR, increased difficulty decending. - Balance Scores CATSIB Score (Max score 120 seconds): 71 Tinetti Balance Score: 10 Tinetti Gait Score: 3 Tinetti Balance & Gait Score: 13 - Goals Goal 1:: LTG: Pt. to be I with HEP. Goal Time Frame: 4-6 Weeks Goal 2:: LTG: Pt. to neogitate 13 steps in home with 1 HR and control PAULA. Goal Time Frame: 4-6 Weeks Goal 3:: LTG: Pt. to have increased core and RLE strength increased by 1/2 grade. Goal Time Frame: 4-6 Weeks Goal 4:: LTG: Pt. to have increased Tinetti score to 20/28 indicating increased balance. Goal Time Frame: 4-6 Weeks Goal 5:: LTG: Pt. to ambulate 300+ with quad cane PAULA with improved gait pattern allowing safe mobility in community. Goal Time Frame: 4-6 Weeks Goal 6:: LTG: Pt. to have increased Chedoke-Kiana LE scale to 5 indicating increased RLE motor control. Goal Time Frame: 4-6 Weeks - Rehabilitation Potential Physical Therapy Diagnosis: Pt. has signs and symptoms consistent with CVA with R sided weakness. Pt. has made improvements since initial injury, but is still having weakness, difficulty with gait/stairs, and difficulty with motor control. Pt. would benefit from PT to address above limitations progressing towards PLOF as able. Rehabilitation Potential: Good - Anticipated Interventions Patient/Client Instruction: Educate patient on: Condition, Plan of Care, Risk Factors, Benefits of Fitness Program For the Purpose of:: To improve decision making, To facilitate caregiver knowledge, To improve self management, To prevent re-injury, To improve ability to perform tasks related to life management, To improve tolerance to ADL's Therapeutic Exercise to Include: Strength training, Power training, Endurance training, Balance training, Coordination, Postural training, Flexibilty training, Gait and locomotor training, Passive ROM, Active ROM For the Purpose of:: To decrease pain, To decrease swelling/inflammation, To increase ROM, To improve nutrient delivery to tissue, To increase oxygenation perfusion, To improve muscle performance and motor function, To improve ability to perform ADL's, To decrease soft tissue restriction, To increase flexibility/ROM, To improve endurance, To improve balance, To improve safety with gait, To assume or resume ADL's Thank you for the opportunity to evaluate your patient. For Medicare and Medicare HMO plans, please review the plan of care and approve it. It will need to be FAXED BACK to us at [phone] for Medicare purposes. For Medicare only, by signing this I certify the plan of care. Please let me know if there are questions or concerns regarding this plan of care. Physician Signature: Date:
--- NOTE | 2020-01-24 12:27 | HP.PTREVAL ---
Dr. David Ojeda MD, It has been my pleasure to treat JAVIER PANTOJA over the last 16 visits for CVA with R sided weakness. Please see the progress note below for an update on the physical therapy plan of care! Subjective: Pt. reports overall doing well. Pt. is living at home, but does have an aide that comes in and helps and he has someone that helps him up/down stairs at home. The stiars has 1 HR. Objective/Function: MMT: pt. has overall good strength- but does have intemittent lapses resulting in cogwheeled effect (bilaterally, but R is worse than L) 5-/5 throughout. Core strength- poor+. GAIT: Pt. ambulates with SBQC, but continues to struggles with step length (he has a large step with his RLE and shortened on L side. Pt tends to have ataxic pattern as well, but is typically max to self correct. The does fatigue at ~100-115ft. which is improved. His biggest issues with his functional mobility is his ataxia. As he has made some progress with this, he is still having difficulty resulting in decreased independence. Chedoke- level 4 for LE,. Tinneti- Plan Plan: Cont. with POC. Add in reciprocal movements progressing to speed as able, both UE and LEs. Add in gait training adn HEP progress. He needs to work on step to increase independence here as well. Goals Goal 1:: LTG: Pt. to be I with HEP. Goal Time Frame: 4-6 Weeks Goal Progress: Progressing Goal 2:: LTG: Pt. to neogitate 13 steps in home with 1 HR and control PAULA. Goal Time Frame: 4-6 Weeks Goal Progress: Progressing Goal 3:: LTG: Pt. to have increased core and RLE strength increased by 1/2 grade. Goal Time Frame: 4-6 Weeks Goal Progress: Progressing Goal 4:: LTG: Pt. to have increased Tinetti score to 20/28 indicating increased balance. Goal Time Frame: 4-6 Weeks Goal Progress: Progressing Goal 5:: LTG: Pt. to ambulate 300+ with quad cane PAULA with improved gait pattern allowing safe mobility in community. Goal Time Frame: 4-6 Weeks Goal Progress: Progressing Goal 6:: LTG: Pt. to have increased Chedoke-Kiana LE scale to 5 indicating increased RLE motor control. Goal Time Frame: 4-6 Weeks Goal Progress: Progressing Anticipated Interventions Patient/Client Instruction: Educate patient on: Condition, Plan of Care, Risk Factors, Benefits of Fitness Program For the Purpose of:: To improve decision making, To facilitate caregiver knowledge, To improve self management, To prevent re-injury, To improve ability to perform tasks related to life management, To improve tolerance to ADL's Therapeutic Exercise to Include: Strength training, Power training, Endurance training, Balance training, Coordination, Postural training, Flexibilty training, Gait and locomotor training, Passive ROM, Active ROM For the Purpose of:: To decrease pain, To decrease swelling/inflammation, To increase ROM, To improve nutrient delivery to tissue, To increase oxygenation perfusion, To improve muscle performance and motor function, To improve ability to perform ADL's, To decrease soft tissue restriction, To increase flexibility/ROM, To improve endurance, To improve balance, To improve safety with gait, To assume or resume ADL's Please do not hesitate to contact me at [phone] by phone or if you have questions or concerns regarding this new plan of care! Sincerely, Dc Ng DPT
--- NOTE | 2020-01-26 16:35 | OTREVAL_ITS ---
Dr. David Ojeda MD, It has been my pleasure to treat JAVIER PANTOJA over the last 17 visits for CVA. Please see the progress note below for an update on the occupational therapy p kacy of care! Subjective: pt arrives to session- states no new concerns- pt continues to have concerns with his forearm tightness and use of fork/spoon. pt feels therapy is improving his strength Objective/Function: pt demo the ability to manuver back to OT area carring his quad cane. pt states he feels he is making gains-. pt demo full shoulder flex- to 160* a gain of 10*. right forearm supination continues to be tight and pt demo supination at 20* pronation wnl. right MMT of UE increased from 4-/5 to 4/5 grossly throuhout. pt demo with a right marketing analytics manager strength at 30# a increase from 14#. a right lateral pinch of 14# this is a increae from 10#. pt demo the ability to perfrom opposition to tip of right tip of LF . pt states that is ataxia is less but he has noticed a increase in ataxic motion when he is tired. pt states he is cont. to compansate with left hand for self feeding but pt would like to feed self with right hand. Plan Frequency: 2-3x /Week Duration: 2 Months Plan: cont with POC Goals - Goals Patient Goals: Regain Mobility, Regain Strength, Improve Fine Motor Skills, Use Hand/Wrist/Arm Normally Again, Decrease Tingling/Numbness Goal:: pt will demo a increase in right UE MMT 4+/5 to increase pts ind with ADLs and IADLs by d/c. pt will demo a increase in right marketing analytics manager sthrength by 30# to increase pts ind with ADLs and IADLS by d/c Goal:: pt will demo the ability to open/close hand with functional tasks as folding laundry by d/c. pt will demo the ability to fully supinate right forearm to recive object by d/c Goal:: pt will demo the abiilty to grasp/release a variety of different size objects med. large. small etc without dropping items 80% by d/c Goal:: pt will demo understanding of visual compensitory becki around hot/sharp objects until sensation returns to protective response. pt will demo understanding on sensory re-ed by end of 3rd session Anticipated Interventions Anticipated Interventions: A/AAROM/PROM, Strengthening, Sensory Retraining, Joint Protection/Energy Conservation, Fine Motor Coord/Aaron, Neuro Reeducation, Sensory Stimulation, ADL Training, Education re assistive Equipment Please do not hesitate to contact me at [phone] by phone or if you have questions or concerns regarding this new plan of care! Sincerely, Amalia Magana, OTR/L, CHT
--- NOTE | 2020-02-02 13:30 | PN_ITS ---
PRIMARY / SECONDARY DIAGNOSIS: dysphagia (R13.12) CURRENT DIET (SOLIDS): regular ? soft textures (IDDSI: 6) CURRENT DIET (LIQUIDS): thin liquid diets (IDDSI: 0) DENTITION: natural upper / lower dentition MENTAL STATUS: intact RESPIRATORY STATUS: O2 via room air REASON FOR REFERRAL: The patient is a 39-year-old male referred for a repeat modified barium swallow (MBS) study to objectively assess the Patients oropharyngeal swallow function under fluoroscopy secondary to an acute intracranial hemorrhage of the left thalamus with extension to the lateral ventricles status post tj hole vetriculostomy with ventricular shunt placement; history of silent aspiration under fluoroscopy. MEDICAL HISTORY: Acute left thalamic intracranial hemorrhage with extension to the lateral ventricles status post tj hole vetriculostomy with ventricular shunt placement, with resulting right hemiparesis, acute respiratory failure necessitating prolonged intubation (intubated 06/09/2019; extubated 06/11/2019; re-intubated 06/12/2019) with eventual tracheostomy tube placement (06/23/2019), dysphagia resulting in percutaneous endoscopic gastrostomy (PEG) tube placement (06/23/2019), depression, hypertension, chronic cholecystitis, elevated hemidiaphragm, obesity. PREVIOUS MODIFIED BARIUM SWALLOW STUDY RESULTS: 08/18/2019 MBS revealed mild to moderate oropharyngeal dysphagia (DSRS: 4; SPS: 4) with grade III SILENT aspiration of thin liquids ADDITIONAL OBJECTIVE ASSESSMENT RESULTS: None ASSESSMENT PARAMETERS: The Patient participated in a Modified Barium Swallow (MBS) study on 02/02/2020. This study was recorded in the lateral view and images were sent to PACs for storage. Scoring was completed through each trial using the 8- point Penetration-Aspiration Scale (PAS) and summarized via the Modified Barium Swallow Impairment Profile (MBSImP) and the Bolus Residue Scale (BRS), with severity scoring through the Dysphagia Severity Rating Scale (DSRS) and the Dysphagia Classification Scale (DCS), and recommended diet textures through the International Dysphagia Diet Standardisation Initiative (IDDSI) RESULTS OF THE EVALUATION: The patient presents with mild oropharyngeal dysphagia (DSRS: 2; DCS: D0) with intermittent shallow transient penetration with thin liquids secondary to a recent 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 PER TRIAL): PENETRATION / ASPIRATION SCALE (ZARATE): 1 = does not enter airway 2 = enters airway/above vocal folds/ejected 3 = enters airway/above vocal folds/not ejected 4 = enters airway/contacts vocal folds/ejected 5 = enters airway/contacts vocal folds/not ejected 6 = enters airway/below vocal folds/ejected 7 = enters airway/below vocal folds/not ejected despite effort 8 = enters airway/below vocal folds/no effort PENETRATION / ASPIRATION SCALE (SCORE): Thin liquid - 5 mL tsp.: 2 Thin liquids via straw (single sip): 2 Thin liquids via straw (single sip): 1 Thin liquids via straw (single sip): 1 Thin liquids via straw (sequential swallows): 2 Pudding via spoon: 1 Regular textured cookie: 1 Thin liquids via straw (single sip): 2 Thin liquids via straw (single sip): 2 OBJECTIVE ASSESSMENT OF SWALLOW FUNCTION (QUANTITATIVE ? AGGREGATE): MODIFIED BARIUM SWALLOW IMPAIRMENT PROFILE (MBSImP) LABIAL SEAL: 0 (of 4) no labial escape TONGUE CONTROL: 2 (of 3) posterior escape < 50% BOLUS PREPARATION / MASTICATION: 0 (of 3) timely and efficient BOLUS TRANSPORT / LINGUAL MOTION: 0 (of 4) brisk tongue motion ORAL RESIDUE: 1 (of 4) trace residue lining oral structures INITIATION OF PHARYNGEAL SWALLOW: 3 (of 4) pyriforms SOFT PALATE ELEVATION: 0 (of 4) no bolus between soft palate & pharyngeal wall LARYNGEAL ELEVATION: 0 (of 3) complete superior movement / approximation ANTERIOR HYOID EXCURSION: 1 (of 2) partial movement EPIGLOTTIC MOVEMENT: 0 (of 2) complete inversion LARYNGEAL VESTIBULE CLOSURE: 0 (of 2) complete closure PHARYNGEAL STRIPPING WAVE: 0 (of 2) present / complete PE SEGMENT OPENIN (of 3) complete distension / duration; no obstruction TONGUE BASE RETRACTION: 2 (of 4) narrow column of contrast PHARYNGEAL RESIDUE: 1 (of 4) trace residue ESOPHAGEAL BOLUS CLEARANCE: could not view BOLUS RESIDUE SCALE (BRS): BRS SCORE: 2 (of 6) BRS SCORE DESCRIPTION: residue in valleculae OBJECTIVE ASSESSMENT OF SWALLOW FUNCTION (SEVERITY GRADING): DYSPHAGIA SEVERITY RATING SCALE (DSRS): DSRS CLASSIFICATION: 2 (of 6) DSRS SEVERITY: mild DSRS CLASSIFICATION CHARACTERISTICS: oropharyngeal dysphagia present, which can be managed by specific swallow suggestions; DYSPHAGIA CLASSIFICATION SCALE (DCS): DCS CLASSIFICATION: D0 DCS SEVERITY: normal DCS CLASSIFICATION CHARACTERISTICS: without stasis or food consistency restrictions OBJECTIVE ASSESSMENT OF SWALLOW FUNCTION (QUALITATIVE): ORAL PREPARATORY PHASE: sufficient mastication rate and quality; sufficient anterior oral containment during oral manipulation; preserved management of breathing / bolus formation ORAL TRANSITIONAL PHASE: no presence of transitional incompetence; no lingual discoordination (no tremor / undulations); no bolus consolidation impairments with sufficient oral clearance; intermittent premature posterior bolus loss (< 10%) likely complicating optimal protection of the laryngeal vestibule PHARYNGEAL PHASE: mild pharyngeal phase dyssynchrony resulting in intermittent shallow prandial penetration of thin liquids; appropriate hyolaryngeal excursion and laryngeal vestibule closure / pressure with sufficient / consistent laryngeal vestibule pressure generated to expel penetrated material; appropriate pharyngeal motility; appropriate velopharyngeal functioning; ESOPHAGEAL PHASE: no obvious esophageal phase abnormalities observed. DYSPHAGIA ASSOCIATED MEDICAL CONSIDERATIONS / INTERVENTION CONSIDERATIONS: No aspiration appreciated throughout trials, unable to definitively rule out silent aspiration (though not suspected). All deficits managed well with positional considerations and smaller bolus volumes / rate of intake. Overall swallow profile nearing functional limitations, and is superior to that demonstrated during his prior examination. 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 POST ASSESSMENT EDUCATION: The results and recommendations were discussed with the Patient immediately following MBS completion, with the Patient verbalizing understanding and agreement with all recommendations and education provided. DIET TEXTURE RECOMMENDATIONS: Will recommend a regular textured (IDDSI: 7), thin liquid diet (IDDSI: 0) diet RECOMMENDED COMPENSATORY STRATEGIES: Consider cutting tougher textures into bite sized pieces, reduced bolus volume / rate of ingestion, consider straws with all liquids, seated upright at 90 degrees during PO intake, remain upright for 30-60 minutes post meal (GERD precaution) IMAGE COUNT: [id number] Efra Genao M.A., SHARMAINE-ROD MACHINE OPERATOR, CBIS MBSImP Certified, LSVT Certified [facility] Speech-Language Pathology Department Email: [email or web address]
--- NOTE | 2020-03-21 09:06 | HP.PTREVAL ---
Dr. David Ojeda MD, It has been my pleasure to treat JAVIER PANTOJA over the last 28 visits for CVA with R sided weakness. Please see the progress note below for an update on the physical therapy plan of care! Subjective: Pt reports feeling good this date, states he feels like he has made a lot of improvement. Objective/Function: Stair negotiation: Negotiated 1 flight of stairs ascending and descending reciprocal utilizing LHR and CGA. MMT: RLE 5/5 throughout. Core strength is good. Gait: Ambulated 224 feet w/ quad cane and no assistance. Assessed using Tinetti. TUG 14sec. Balance: Assessed using Tinetti. core of 18. Chedoke-Kiana: Stage 5 attained. Does not have full IR to reach stage 6. Pt. continues to have greatest difficulty with wtih coordination of BLEs and UEs. Pt. has progressed, but is still slowly progressing further. Plan Plan: Continue to progress with gait, balance, coordination. Goals Goal 1:: LTG: Pt. to be I with HEP. Goal Time Frame: 4-6 Weeks Goal Progress: Progressing Goal 2:: LTG: Pt. to neogitate 13 steps in home with 1 HR and control PAULA. Goal Time Frame: 4-6 Weeks Goal Progress: Progressing Goal 3:: LTG: Pt. to have increased core and RLE strength increased by 1/2 grade. Goal Time Frame: 4-6 Weeks Goal Progress: Goal Met Goal 4:: LTG: Pt. to have increased Tinetti score to 20/28 indicating increased balance. Goal Time Frame: 4-6 Weeks Goal Progress: Progressing Goal 5:: LTG: Pt. to ambulate 300+ with quad cane PAULA with improved gait pattern allowing safe mobility in community. Goal Time Frame: 4-6 Weeks Goal Progress: Progressing Goal 6:: LTG: Pt. to have increased Chedoke-Kiana LE scale to 5 indicating increased RLE motor control. Goal Time Frame: 4-6 Weeks Goal Progress: Goal Met Anticipated Interventions Patient/Client Instruction: Educate patient on: Condition, Plan of Care, Risk Factors, Benefits of Fitness Program For the Purpose of:: To improve decision making, To facilitate caregiver knowledge, To improve self management, To prevent re-injury, To improve ability to perform tasks related to life management, To improve tolerance to ADL's Therapeutic Exercise to Include: Strength training, Power training, Endurance training, Balance training, Coordination, Postural training, Flexibilty training, Gait and locomotor training, Passive ROM, Active ROM For the Purpose of:: To decrease pain, To decrease swelling/inflammation, To increase ROM, To improve nutrient delivery to tissue, To increase oxygenation perfusion, To improve muscle performance and motor function, To improve ability to perform ADL's, To decrease soft tissue restriction, To increase flexibility/ROM, To improve endurance, To improve balance, To improve safety with gait, To assume or resume ADL's Please do not hesitate to contact me at [phone] by phone or if you have questions or concerns regarding this new plan of care! Sincerely, ROSIO SyedT
--- NOTE | 2020-04-26 09:28 | HP.SP.ADRE_ITS ---
Previous/Current Goals - Goals 1-5 Previous Goal #1: OUTCOME 1: the patient will independently demonstrate and utilize recommended compensatory articulation techniques (increased vocal intensity, reduced rate of speech) to facilitate increased expressive communication abilities in the home and social environments. Goal 1 Status: While he demonstrates steady improvements in speech intelligibility, he does continue to demonstrate intermittent imprecise articulation, intermittent quick and involuntary patterns that can be explosive and varied in regard to intensity, with mild hypernasality; his speech appears quite pressured and at times his vocal quality remains harsh. Previous Goal #2: OUTCOME 2: the patient will tolerate the least restrictive means of nutrition to facilitate adequate hydration / nutrition with optimum safety and efficiency of swallowing function during P.O. intake without overt signs and symptoms of aspiration. Goal 2 Status: Goal met Previous Goal #3: OUTCOME 3: the patient will demonstrate and utilize recommended oropharyngeal range of motion exercise within the Patients home based program to improve and maintain overall oropharyngeal functioning with minimal cueing and prompting provide by the clinician, across 2 out of 3 sessions. Goal 3 Status: Goal met Previous Goal #4: OUTCOME 4: the patient will participate in a repeat Modified Barium Swallow (MBS) study to objectively assess the Patient?s oropharyngeal swallowing function to determine the least restrictive means of nutrition, to objectively assess the effectiveness of previously identified strategies / precautions, and to identify appropriate intervention approaches / strategies to implement during treatment sessions at the supervised level. 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 Smoking Status: Never smoker Hx Smoking: No Hx Tobacco Use: No Hx Smoking Exposure: No - Pain Is pain an issue with your current prescribed condition?: No Patient Allergies - Allergies Allergies No Known Allergies Allergy (Verified 02/10/20 14:45) Plan - Plan Plan: The patient is a pleasant 39 year old male who has attended 14 skilled speech-language intervention sessions spanning from 12/10/2019 to 04/24/2020 targeting mild oral dysphagia and moderate dysarthria secondary to a recent acute left thalamic intracranial hemorrhage with extension to the lateral ventricles and posterior brainstem status post tj hole vetriculostomy with ventricular shunt placement. The patient has participated in intervention sess ions consisting of training and implementation of recommended compensatory articulation strategy approach to improve overall speech intelligibility; diet texture management and training / implementation of recommended compensatory strategies; development, training, and implementation of a home based exercise regimen consisting of recommended oropharyngeal strengthening exercises to facilitate improved oropharyngeal strength / coordination; patient education regarding stroke associated dysphagia and dysarthria; with recommendations for further diagnostic assessment of the swallow function under fluoroscopy via Modified Barium Swallow (MBS) study; with goal adjustment as clinically indicated. At this time all dysphagia based goals have been met. While he demonstrates steady improvements in speech intelligibility, he does continue to demonstrate intermittent imprecise articulation, intermittent quick and involuntary patterns that can be explosive and varied in regard to intensity, with mild hypernasality; his speech appears quite pressured and at times his vocal quality remains harsh. 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 - Recommendations MBS: No Treatment Warranted: Yes - Frequency Frequency: 1x/Week Visits in this POC: 13 - Prognosis Prognosis: Excellent - Goals that are Established: Determination:: Goals will be added/modified as deemed necessary and appropriate. Therapy will be discontinued when results of re-evaluation indicate therapy is no longer needed or lack of progress has been documented. - Goal #1-5 Goal #1: OUTCOME 1: the patient will independently demonstrate and utilize recommended compensatory articulation techniques (increased vocal intensity, reduced rate of speech) to facilitate increased expressive communication abilities in the home and social environments. Prompts: Min Goal #2: OUTCOME 2: goal adjustment as needed
--- NOTE | 2020-05-01 09:49 | HP.OTREVAL ---
Dr. David Ojeda MD, It has been my pleasure to treat JAVIER PANTOJA over the last 34 visits for CVA. Please see the progress note below for an update on the occupational therapy plan of care! Subjective: Pt arrived with cane, pt feels he's slid backwards since he hasn't been here is a while. Objective/Function: feeling is coming more than going now, tingling now. right UE ROM is moving well with a more fluid motion of shouler and elbow- right forearm sup/pron, wrist and digit motion still ataxic at times limiting or notable increase concentration with attempts and this limits pts ind. use of right UE with ADLs and IADLs. therapy is challenging UE strength and working on increase. pt has stated increase sensation return to right hand can feel when textures are different. R grassroots organizer 19# - drastic decline since 04/03/20. therapist rec'd cont. skilled OT services 2x week for 6 weeks to cont with POC for pt to reach [facility] potential. Plan Frequency: 2-3x /Week Duration: 2 Months Plan: cont POC. add in writing and FM manipulation Goals - Goals Patient Goals: Regain Mobility, Regain Strength, Improve Fine Motor Skills, Use Hand/Wrist/Arm Normally Again, Decrease Tingling/Numbness Goal:: pt will demo a increase in right UE MMT 4+/5 to increase pts ind with ADLs and IADLs by d/c. pt will demo a increase in right grassroots organizer sthrength by 30# to increase pts ind with ADLs and IADLS by d/c Goal:: pt will demo the ability to open/close hand with functional tasks as folding laundry by d/c. pt will demo the ability to fully supinate right forearm to recive object by d/c Goal:: pt will demo the abiilty to grasp/release a variety of different size objects med. large. small etc without dropping items 80% by d/c Goal:: pt will demo the ability to form letters of name legibly 80% of the time. Goal:: pt will demo understanding of visual compensitory becki around hot/sharp objects until sensation returns to protective response. pt will demo understanding on sensory re-ed by end of 3rd session Anticipated Interventions Anticipated Interventions: A/AAROM/PROM, Strengthening, Sensory Retraining, Joint Protection/Energy Conservation, Fine Motor Coord/Aaron, Neuro Reeducation, Sensory Stimulation, ADL Training, Education re assistive Equipment Please do not hesitate to contact me at [phone] by phone or if you have questions or concerns regarding this new plan of care! Sincerely, Amalia Magana, OTR/L, CHT
--- NOTE | 2020-05-12 10:46 | HP.PTREVAL ---
Dr. David Ojeda MD, It has been my pleasure to treat JAVIER PANTOJA over the last 38 visits for CVA with R sided weakness. Please see the progress note below for an update on the physical therapy plan of care! Subjective: Pt. reports having some difficulty getting in since last time I saw him, mostly scheduling conflicts. Pt. reports he is no longer having assistance at home. He is still walking with quad cane, but mostly in home and getting assistance with transportation from outside sources for doctors appointments. He reports he is supposed to go to [place] early next month for a adaptive drivers assistance. No pain noted. He reprots doing exercises at home, but has been mostly focusing on walking. Objective/Function: GAIT: Pt. ambulates with quad cane. He is able to complete PAULA, but requires frequent VCing to keep cane close to self for increased stability. He still has a decent amount of ataxia with gait, but has yet to fall. I did recommend that a hemiwalker give greater support, but patient is unwilling to use. STAIRS: Pt. is able to complete with reciprocal pattern with ascending and descendign with CGA with use of 2 HR, CGA with 1 HR as well, but uses step to patern and completes laterally with both UEs on railing. MMT: Pt. has 5/5 strength throughout BLEs, but still has difficultywith coordination of specific testing. TUsec with use of quad cane, greatest difficulty with directional changes and he still requires increased VCing to keep quad cane close to body and take equal, but smaller steps. Pt. did much better with large perturbations this date using stepping stratagies to correct, both fwrd and backward stepping. Plan Plan: Pt. still has difficulty with gait stability, maily due to ataxia of both UE and LEs. Pt. still has not fallen, but has marked ataxic gait patterb. He would still benefit from PT to work on functional mobility, working on ability to self correct larger losses of balance and gait pattern. Goals Goal 1:: LTG: Pt. to be I with HEP. Goal Time Frame: 4-6 Weeks Goal Progress: Progressing Goal 2:: LTG: Pt. to neogitate 13 steps in home with 1 HR and control PAULA. Goal Time Frame: 4-6 Weeks Goal Progress: Progressing Goal 3:: LTG: Pt. to have increased core and RLE strength increased by 1/2 grade. Goal Time Frame: 4-6 Weeks Goal Progress: Goal Met Goal 4:: LTG: Pt. to have increased Tinetti score to 20/28 indicating increased balance. Goal Time Frame: 4-6 Weeks Goal Progress: Progressing Goal 5:: LTG: Pt. to ambulate 300+ with quad cane PAULA with improved gait pattern allowing safe mobility in community. Goal Time Frame: 4-6 Weeks Goal Progress: Progressing Goal 6:: LTG: Pt. to have increased Chedoke-Kiana LE scale to 5 indicating increased RLE motor control. Goal Time Frame: 4-6 Weeks Goal Progress: Goal Met Anticipated Interventions Patient/Client Instruction: Educate patient on: Condition, Plan of Care, Risk Factors, Benefits of Fitness Program For the Purpose of:: To improve decision making, To facilitate caregiver knowledge, To improve self management, To prevent re-injury, To improve ability to perform tasks related to life management, To improve tolerance to ADL's Therapeutic Exercise to Include: Strength training, Power training, Endurance training, Balance training, Coordination, Postural training, Flexibilty training, Gait and locomotor training, Passive ROM, Active ROM For the Purpose of:: To decrease pain, To decrease swelling/inflammation, To increase ROM, To improve nutrient delivery to tissue, To increase oxygenation perfusion, To improve muscle performance and motor function, To improve ability to perform ADL's, To decrease soft tissue restriction, To increase flexibility/ROM, To improve endurance, To improve balance, To improve safety with gait, To assume or resume ADL's Please do not hesitate to contact me at [phone] by phone or if you have questions or concerns regarding this new plan of care! Sincerely, Dc Ng DPT
--- NOTE | 2020-07-03 11:25 | HP.PTREVAL_ITS ---
Dr. David Ojeda MD, It has been my pleasure to treat JAVIER PANTOJA over the last 49 visits for CVA with R sided weakness. Please see the progress note below for an update on the physical therapy plan of care! Subjective: Pt. reports no pain today. Pt. arrives using small base quad cane. Pt. reports that he is doing better at home. Pt. reports having difficulty getting down to bottom of refrigerator. Objective/Function: GAIT: pt. ambulates with small base quad cane. Pt. continue to have ataxic pattern and requires occassional VCing for cane placement, to stay close to AD and increase stability. MMT: 5/5 throughout BLEs, but ataxic. Core strength- fair-. TU.7 sec. STAIRS: Pt. is able to complete with 1 HR both ascneding/descending, Pt. is methodical. Pt. has increased difficulty with lifting his RLE to the next step. 6 MWT: PT. walked 4:32 sec today, and ambulate 338feet. Pt. reports increased fatigue. He required VCing to slow tempo to increse safety throughout. Pt. became a little unsteady periodically with testing. FLOOR TX: Pt. is able to get up and down from tall kneeling to half kneeling PAULA with use of table for stability. Pt. is unable to complete without use of UES. Plan Plan: Work on floor transfers, TUG improvement, stair negotiation, and gait pro gression working on reducing ataxia Goals Goal 1:: LTG: Pt. to be I with HEP. Goal Time Frame: 4-6 Weeks Goal Progress: Goal Met Goal 2:: LTG: Pt. to neogitate 13 steps in home with 1 HR and control PAULA. Goal Time Frame: 4-6 Weeks Goal Progress: Progressing Goal 3:: LTG: Pt. to have increased core and RLE strength increased by 1/2 grade. Goal Time Frame: 4-6 Weeks Goal Progress: Goal Met Goal 4:: LTG: Pt. to have increased Tinetti score to 20/28 indicating increased balance. Goal Time Frame: 4-6 Weeks Goal Progress: Progressing Goal 5:: LTG: Pt. to complete 6 MWT with 450'+ with LRD. Goal Time Frame: 4-6 Weeks Goal Progress: Progressing Goal 6:: LTG: Pt. to complete floor transfers PAULA with decrease external assistance. Goal Time Frame: 4-6 Weeks Goal Progress: Progressing Anticipated Interventions Patient/Client Instruction: Educate patient on: Condition, Plan of Care, Risk Factors, Benefits of Fitness Program For the Purpose of:: To improve decision making, To facilitate caregiver knowledge, To improve self management, To prevent re-injury, To improve ability to perform tasks related to life management, To improve tolerance to ADL's Therapeutic Exercise to Include: Strength training, Power training, Endurance training, Balance training, Coordination, Postural training, Flexibilty training, Gait and locomotor training, Passive ROM, Active ROM For the Purpose of:: To decrease pain, To decrease swelling/inflammation, To increase ROM, To improve nutrient delivery to tissue, To increase oxygenation perfusion, To improve muscle performance and motor function, To improve ability to perform ADL's, To decrease soft tissue restriction, To increase flexibility/ROM, To improve endurance, To improve balance, To improve safety with gait, To assume or resume ADL's Please do not hesitate to contact me at [phone] by phone or if you have questions or concerns regarding this new plan of care! Sincerely, Dc Ng DPT
--- NOTE | 2020-07-07 07:39 | HP.OTREVAL ---
Dr. David Ojeda MD, It has been my pleasure to treat JAVIER PANTOJA over the last 19 visits for CVA. Please see the progress note below for an update on the occupational therapy plan of care! Subjective: pt arrives states he feels he had made gians- still struggling with ataxic movements and lack of sensation to right hand - this makes performing ADls and IADls more difficult or he is unable to perform at all. 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 R Lat Pinch 11# up from 10#. R Tripod 5# up from 0. pt demo full UE ROM but ataxic movement of hand limits functional use for pinch and grasp- pt demo with z thumb deformity with pinch- therapist yvette. supportive orthosis to decrease tone to limit this deformity. pt would benefit from skilled OT services to 2x week for 8 weeks to increase pts ind. with ADLs and IADLs Plan Frequency: 2-3x /Week Duration: 2 Months Plan: cont POC - FMS working with visual compensitory becki. for graps with right hand due to sensation loss-. Pt has a goal to be done with therapy by end of August. Pt has follow up with as well. Goals - Goals Patient Goals: Regain Mobility, Regain Strength, Improve Fine Motor Skills, Decrease Tingling/Numbness Goal:: pt will demo a increase in right UE MMT 4+/5 to increase pts ind with ADLs and IADLs by d/c. pt will demo a increase in right log roper strength by 30# to increase pts ind with ADLs and IADLS by d/c Goal:: pt will demo the ability to open/close hand with functional tasks as folding laundry by d/c. pt will demo the ability to fully supinate right forearm to recive object by d/c Goal:: pt will demo the abiilty to grasp/release a variety of different size objects med. large. small etc without dropping items 80% by d/c Goal:: pt will demo the ability to form letters of name legibly 80% of the time. Goal:: pt will demo understanding of visual compensitory becki around hot/sharp objects until sensation returns to protective response. pt will demo understanding on sensory re-ed by end of 3rd session Anticipated Interventions Anticipated Interventions: A/AAROM/PROM, Strengthening, Sensory Retraining, Joint Protection/Energy Conservation, Fine Motor Coord/Aaron, Neuro Reeducation, Sensory Stimulation, ADL Training, Education re assistive Equipment Please do not hesitate to contact me at [phone] by phone or if you have questions or concerns regarding this new plan of care! Sincerely, Amalia Magana, OTR/L, CHT
--- NOTE | 2020-08-01 14:13 | HP.SP.ADRE ---
Previous/Current Goals - Goals 1-5 Previous Goal #1: OUTCOME 1: the patient will independently demonstrate and utilize recommended compensatory articulation techniques (increased vocal intensity, reduced rate of speech) to facilitate increased expressive communication abilities in the home and social environments. Goal 1 Status: Segundo demonstrated use of strategies intermittently throughout the previous several sessions. At times he uses a rapid rate which decreased his overall intelligibility. With a verbal he was able to reduce his rate. Therapy was in a small room with no auditory noice or interference. Speech was moderately dysarthric during most sessions as he continued to have errors in speech. Previous Goal #2: OUTCOME 2: goal adjustment as needed. Previous Goal #3: . Previous Goal #4: . Previous Goal #5: . History - History Date of Eval: 12/10/19 Results: Segundo completed 12 weeks of therapy since last reporting period. 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 Respiration: decreased breath support continues, with audible inspiration and pt taking breaths mid sentences (though at appropriate junctures). Phonation: Mildly breathy speech, mildly reduced loudness, though pt able to demonstrate increased volume (yelling). Resonance: overall WNL. Articulation: Primary area of difficulty, characterized by imprecise phoneme production and syllable collapses. Prosody: Overall fast rate of speech, with frequent short rushes of speech. Pt does slow his rate and repeat partial phrases with increased focus to articulatory precision when cued by listener, with significant improvement in intelligibility. Dysarth/Motor Re-Eval - Testing Results Dysarthria/Motor Test Comparison: Segundo has made progress during this course of therapy. The focus of therapy has not yet addressed his functional occupational needs for his career. He reported that he has to be able to speak over running power equiptment and across large spaces. Other Impressions - Comments Therapy -: Therapy consisted of training and implementation of recommended compensatory articulation strategy approach to improve overall speech intelligibility; diet texture management and training / implementation of recommended compensatory strategies. 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 - Recommendations MBS: No Treatment Warranted: Yes - Frequency Frequency: 1x/Week Duration: 3 Months Visits in this POC: 12 - Prognosis Prognosis: Good - Goals that are Established: Determination:: Goals will be added/modified as deemed necessary and appropriate. Therapy will be discontinued when results of re-evaluation indicate therapy is no longer needed or lack of progress has been documented. - Goal #1-5 Goal #1: The patient will independently demonstrate and utilize recommended compensatory articulation techniques (increased vocal intensity, reduced rate of speech) to facilitate increased expressive communication abilities in the home, occupational, and social environments including but not limited to increased distance and over noise on 4/5 trials on 3/4 consecutive sessions.
== END 2020-08-15 19:00 | disposition home or self-care (01) ==
LOC: OT 14:00
PROVIDERS: PCP Family Medicine; Referring Provider Family Medicine; Visit Provider Family Medicine
DX: I69.328 Other speech and language deficits following cerebral infarction (principal); I69.341 Monoplegia of lower limb following cerebral infarction affecting right dominant side; I69.334 Monoplegia of upper limb following cerebral infarction affecting left non-dominant side
CPT/HCPCS: 92507; 92523; 92610; 97110; 97112; 97116; 97140; 97161; 97164; 97166; 97530; 97760

== ENCOUNTER → 2020-09-08 08:54 | Outpatient (CLI) | payer OTHER, SELFPAY ==
[2019-12-14 09:14] VITALS: BMI 39.2
[2020-09-08 10:07] LABS: Hematocrit 38.6 % (40-54); Hemoglobin 12.6 g/dL (13.0-16.5); Mean Corp Hgb Conc 32.6 g/dL (32-36); Mean Corpuscular Hgb 29.6 pg (27.0-32.0); Mean Corpuscular Volume 90.8 fL (80-94); Mean Platelet Vol. 10.4 fl (6.2-12.0); Platelet Count 331 K/mm3 (150-450); RBC Distribution Width CV 12.5 % (11.6-14.6); RBC Distribution Width SD 40.9 fl (35.1-43.9); Red Blood Count 4.25 M/mm3 (4.6-6.2); White Blood Count 7.8 K/mm3 (4.4-11.0)
[2020-09-08 10:35] LABS: Vitamin B12 > 2000 pg/mL (211-911)
[2020-09-08 10:38] LABS: Cholesterol 154 mg/dL (200); High Density Lipoprotein 42 mg/dL; Triglycerides 73 mg/dL; Very Low Density Lipoprotein 15 mg/dL (5-40)
== END ==
PROVIDERS: PCP Family Medicine; Referring Provider Nurse Practitioner Family; Visit Provider Nurse Practitioner Family
DX: I61.9 Nontraumatic intracerebral hemorrhage, unspecified (principal); D64.9 Anemia, unspecified
CPT/HCPCS: 36415; 80061; 82607; 85027

== ENCOUNTER 2020-11-28 16:38 | Outpatient (RCR) | payer OTHER, SELFPAY ==
[2019-12-14 09:14] VITALS: BMI 39.2
== END 2020-12-12 23:59 ==
LOC: NS 16:38
PROVIDERS: PCP Family Medicine; Visit Provider Family Medicine
DX: Z71.3 Dietary counseling and surveillance (principal); E66.01 Morbid (severe) obesity due to excess calories; Z68.41 Body mass index [BMI] 40.0-44.9, adult; I10 Essential (primary) hypertension; G81.91 Hemiplegia, unspecified affecting right dominant side; G47.30 Sleep apnea, unspecified
CPT/HCPCS: 97803

== ENCOUNTER → 2020-12-05 14:23 | Outpatient (CLI) | payer OTHER, SELFPAY ==
[2020-12-05 18:08] LABS: Microalbumin,Random Urine 9.6 mg/L (NO RANGE EST.); Microalbumin:Creatinine Ratio 4.9 mg/g CRE (<30 mg/g CRE)
[2020-12-05 18:21] LABS: AST(SGOT) 19 U/L (15-37); Alanine Aminotransfer ALT/SGPT 46 U/L (16-61); Albumin, Serum 3.8 g/dL (3.2-5.0); Alkaline Phosphatase 87 U/L (45-117); Anion Gap 5 (5-15); BUN 23 mg/dL (7-18); Calcium,Total 8.8 mg/dL (8.5-10.1); Chloride 107 mmol/L (98-107); Creatinine, Serum 1.35 mg/dL (0.70-1.30); EST Glomerular Filtration Rate 62 mL/min (>60); Est Glom Filt Rate - Afr Amer 75 mL/min (>60); Glucose 120 mg/dL (74-106); Potassium 3.9 mmol/L (3.5-5.1); Protein, Total 7.8 g/dL (6.4-8.2); Sodium Level 138 mmol/L (136-145)
== END ==
PROVIDERS: PCP Family Medicine; Referring Provider Family Medicine; Visit Provider Family Medicine
DX: I10 Essential (primary) hypertension (principal)
CPT/HCPCS: 36415; 80053; 82043; 82570

== ENCOUNTER 2020-12-12 10:30 | Outpatient (RCR) | payer OTHER, SELFPAY ==
[2019-12-14 09:14] VITALS: BMI 39.2
--- NOTE | 2020-09-07 14:43 | HP.OTDCSUM ---
It has been my pleasure to treat JAVIER PANTOJA under orders from Dr. David Ojeda MD, for the diagnosis of Right UE weakness- ataxic movment for a total of 30 visit(s). Please see the following information for a summary of their discharge status. % Improvement: 80 Objective/Function: pt tolerated well Plan: D/C pt is out of town for the summer Discharge Comments: pt has been seen in OT following a CVA. pt has made great gains and continues to show progress and gaining sensation. pt has met the initial OT goals. Pt is going out of town and will establish new goals and cont while out of town. If there are questions or concerns regarding this patient's occupational therapy, please fell free to call me at [phone]. Thank you for the referral of this patient. Sincerely, Amalia Magana, OTR/L, CHT
--- NOTE | 2020-09-13 14:08 | HP.PTDCSUM ---
It has been my pleasure to treat JAVIER PANTOJA referred by Dr. David Ojeda MD, with the diagnosis of CVA with R sided weakness, difficulty with gait for a total of 45 visit(s). Discharge Date: 09/07/20 Please see the following information for a summary of their discharge status. Subjective: Pt. is doing good today and is getting excited for his trip to [place] next week. The pt. is ready to be discharged today. % Improvement: 85 Objective/Function: Pt. did well with his last visit today. He was able to meet 4/5 of his goals. While performing the 6 minute walk, the pt. did experience SOB and needed to sit and rest right after. The pt. needs to continue to work on improving his gait and endurance. 6 minute walk test: 468 feet. Tinneti: . Transfer from floor to chair: Use of one UE to push off of the chair. Min assistance. Stairs: were assessed last visit, but the pt. was able to negotiate a flight of stairs with use of L UE on the handrail. Gait: Pt. continues to use a walking device and can walk continuously without losing balance. He does seem unsteady at times, but is fairly independent when walking. Pt. wishes to walk without cane and has been working towards this here at PT in the [facility] and will work on this on his own at home. Goal 1:: LTG: Pt. to be I with HEP. Goal Progress: Goal Met Goal 2:: LTG: Pt. to negotiate 13 steps with 1 HR and mod I. 09/05/2020: Pt. was able to negotiate a full flight of stairs using only 1 handrail and performed this independently. Goal Progress: Goal Met Goal 3:: LTG: Pt. to complete 6 min walk test with 400' + with LRD. 09/07/2020: Pt. was able to complete a 6 min walk test and was able to walk 468 feet. Goal Progress: Goal Met Goal 4:: LTG: Pt. to increase tinetti score to a 20/28 indicating increase balance. 09/07/2020: Pt. scored 19/28 on the tinetti test. Goal Progress: Goal Met Goal 5:: LTG: Pt. to complete floor transfer mod I with decreased external assistance. 09/07/2020: Pt. is still needing use of one UE with use of external device to perform a floor transfer to a chair. Goal Progress: Progressing Plan: Continue to increase strength, endurance, and motor control in the right lower extremity. Progress walking without a cane in the parallel bars. Discharge Comments: Pt. was seen for his stroke to increase his strength, balance, and gait. The pt. is still using a cane while walking and is a min assist to independent with all activities. The patient improved both his gait and balance and was able to meet 4/5 of his goals. He states that he is going to continue to work on his HEP, improving his gait, and hopefully will be able to drive back from [place] on his own. The pt. plans to be discharged today and spend time out in [place] for a month or two and will move to [place]. He is to follow up with his physician if he needs to come back to PT. If there are questions or concerns regarding this patient's physical therapy, please feel free to call me at [phone]. Thank you for the referral of this patient. Sincerely, Dc Ng DPT
--- NOTE | 2021-01-30 15:38 | HP.SP.DC_ITS ---
ST Discharge Summary - Discharged: Discharge: Segundo Mora is discharge from [facility] speech therapy as of 12/12/20 as he is functional in his daily living activities as well as vocational tasks. He was treated for dysarthria and at the time of discharge he had met all goals. He was 100% intelligible. No cues needed for use of strategies. If he did need to repeat to be understood he did so independently. Please see notes for details. Thank you for allowing me to participate in the care of this patient.
== END 2020-12-12 19:00 | disposition home or self-care (01) ==
LOC: SP 10:30
PROVIDERS: PCP Family Medicine; Visit Provider Family Medicine
DX: I69.328 Other speech and language deficits following cerebral infarction (principal); I69.341 Monoplegia of lower limb following cerebral infarction affecting right dominant side; I69.334 Monoplegia of upper limb following cerebral infarction affecting left non-dominant side
CPT/HCPCS: 92507; 97110; 97116; 97164; 97530

== ENCOUNTER 2021-06-05 11:38 | Outpatient (CLI) | payer BC, SELFPAY ==
[2021-06-05 15:32] LABS: Absolute Neutrophil Count 5.9 X10^3/uL (2.0-7.7); Basophil# 0.03 X10^3/uL; Basophil% 0.4 % (0-1); Eosinophils% 3.6 % (0-5); Hematocrit 39.6 % (40-54); Hemoglobin 12.6 g/dL (13.0-16.5); Lymphocyte % 16.8 % (19-41); Mean Corp Hgb Conc 31.8 g/dL (32-36); Mean Corpuscular Hgb 29.7 pg (27.0-32.0); Mean Corpuscular Volume 93.4 fL (80-94); Mean Platelet Vol. 10.1 fl (6.2-12.0); Monocyte# 0.64 X10^3/uL; Monocyte% 7.7 % (0-10); NRBC Flagged by Analyzer 0 % (0-5); Neutrophil # 5.92 X10^3/uL (2.7-7.7); Platelet Count 369 K/mm3 (150-450); RBC Distribution Width CV 13.3 % (11.6-14.6); RBC Distribution Width SD 45.8 fl (35.1-43.9); Red Blood Count 4.24 M/mm3 (4.6-6.2); White Blood Count 8.3 K/mm3 (4.4-11.0)
[2021-06-05 16:15] LABS: ALB/GLOB Ratio 0.9 RATIO (0.9-2.4); AST(SGOT) 17 U/L (15-37); Alanine Aminotransfer ALT/SGPT 41 U/L (16-61); Albumin, Serum 3.5 g/dL (3.2-5.0); Alkaline Phosphatase 86 U/L (45-117); Anion Gap 8 (5-15); BUN 23 mg/dL (7-18); BUN/Creat Ratio 21.3 RATIO (10-20); Calcium,Total 8.3 mg/dL (8.5-10.1); Chloride 104 mmol/L (98-107); Cholesterol 169 mg/dL (200); Creatinine, Serum 1.08 mg/dL (0.70-1.30); EST Glomerular Filtration Rate 80 mL/min (>60); Est Glom Filt Rate - Afr Amer 97 mL/min (>60); Globulin 4.1 g/dL (2.2-4.2); Glucose 128 mg/dL (74-106); High Density Lipoprotein 48 mg/dL; Potassium 4.1 mmol/L (3.5-5.1); Protein, Total 7.6 g/dL (6.4-8.2); Sodium Level 138 mmol/L (136-145); Thyroid Stim Hormone (TSH) 1.26 uIU/mL (0.358-3.74)
[2021-06-05 16:26] LABS: Microalbumin,Random Urine 6.6 mg/L (NO RANGE EST.); Microalbumin:Creatinine Ratio 4.9 mg/g CRE (<30 mg/g CRE)
[2021-06-05 17:19] LABS: Hemoglobin A1c 6.1 % (3.8-5.6)
== END 2021-06-05 23:59 | disposition home or self-care (01) ==
LOC: MFPLAB 11:40
PROVIDERS: PCP Family Medicine; Referring Provider Family Medicine; Visit Provider Family Medicine
DX: E66.01 Morbid (severe) obesity due to excess calories (principal); Z68.41 Body mass index [BMI] 40.0-44.9, adult; R79.89 Other specified abnormal findings of blood chemistry
CPT/HCPCS: 36415; 80053; 82043; 82465; 82570; 83036; 83718; 84443; 85025

== ENCOUNTER 2021-09-06 09:00 | Outpatient (RCR) | payer BC, OTHER, SELFPAY ==
--- NOTE | 2020-12-21 11:43 | HP.OTEVAL ---
Patient's Visit Information JAVIER PANTOJA is a 40 year old M, referred to Occupational Therapy by Dr. David Ojeda MD, with a diagnosis of TIA. Date of Evaluation: 12/21/20 Occupational Therapist: Amalia Magana, LC/Rebeca, CHT - Subjective This 40 year old male was seen for OT eval with dx of TBI and right hand paresis. pt has been seen in our OT dep. following his d/c from the hospital. pt has made great gains with is right UE ROM but continues to struggle with fine motor tasks limiting his ind. with home mtg. and ADLS tasks. pt has concerns with tremor and ataxic movement patterns. 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 - ROM ROM Comments: pt demo with limited right forearm supination. right thumb cmc flexion with movement with MP hyper extension and IP hyper flex- - Strength Construction Project Coordinator: right 40# left 70# Lateral Pinch: right 8# left 18# Tripod Pinch: right unable left 10# Strength Comments: motor planning limits pts position on testing tripod pinch - Sensation Thumb: right 4.08 left 2.83 Index: right 3.84 left 2.83 Middle: right 3.84 left 3.22 Ring: right 3.84 left 2.83 Little: right 3.84 left 2.83 Stereognosis: Normal - Right, Normal - Left Kinesthesia: Abnormal - Right, Normal - Left Proprioception: Abnormal - Right Sensation Comments: sensation is improving - Goals Goal:: pt will demo a increase in right 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 with ADLs and IADLs by d.c Goal:: pt will demo. right forearm supination by 30* to increase pts ind. with ADLs and IADLs. pt will demo decrease in CMC flexion limiting pts MP hyper-extension. Goal:: pt will demo a increase in FMS by demo ind with manipulation of coins, tie knot, write legibly and press buttons to increase his ind. with ADLs by d/c Goal:: pt will demo a decrease in right forearm tone to increase ease of performing forearm supination to full ROM by d/.c. pt will demo a reduction in FPL tone noted by decrease in thumb flexion tone by d/c - Rehabilitation General Assessment: Pt demo with difficulty with motor planning and fine motor skills following a CVA. pt has made good gains in UE ROM but demo. with limited FMS- movement is rigid and make it difficult to manipulate objects and thumb demo with instability with contracture deformities. pt is limited with work and IADLs and would benefit from skilled OT services 1-2x week for 8 weeks to ensure pt reaches his maximal rehab potential. pt agrees to POC. Rehabilitation Potential: Good - Anticipated Interventions A/AAROM/PROM, Strengthening, Triggerpoint Release, Modalities, Orthoses, Ergonomic Education, Fine Motor Coord/Aaron, Neuro Reeducation, Visual/Perceptual Skills, Education re assistive Equipment, Education re Diagnosis - Visit Plan Frequency: 1-2x /Week Duration: 2 Months TEXT: Thank you for the opportunity to evaluate your patient. For Medicare and Medicare HMO plans, please review the plan of care and approve it. It will need to be FAXED BACK to us at [phone] for Medicare purposes. Please let me know if there are questions or concerns regarding this plan of care. Physician Signature: Date:
--- NOTE | 2021-02-21 10:41 | HP.PTEVAL ---
Patient's Visit Information JAVIER PANTOJA is a 40 year old M referred to Physical Therapy by Dr. David Ojeda MD with a diagnosis of R spastic hemiparesis. Date of Evaluation: 02/20/21 Physical Therapist: Dc Ng DPT - Visit Plan Frequency: 2x /Week Duration: 6 Weeks Plan: Improve patient strength of hip and ankle musculature, improve dynamic balance tasks. Consider incorporating exercises to normalize R LE gait pattern, with goal of being less synergistic and improving motor control. - Subjective Pt presents to physical therapy with right spastic hemiparesis he ambulates using a single point cane. Pt suffered a stroke last May and has done some outpatient therapy this past year, he currently being treated by OT for his hand and UE function. Pt reports challenges with controlling his R LE during seated tasks. He has been doing some exercises that were given to him previously and exercising his LE every day. 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 At the present time pt reports inability to perform these tasks, but states it is his goal to return to these activities by Bubba, as well as be able to ambulate with no cane. Pt reports he has had 1 fall in the past month, but feels that his balance is not an issue. - Objective ROM: R Hip WFL Knee 3-0-106 (PROM 3-0 115 )Ankle active PF 40 DF 5 passive DF 10 degrees, ;L Hip WFL Knee 4-0-120 Ankle WFL. flexibility : hamstring length R 61, L 60. STRENGTH: R Hip flexion 4+, extension 5 IR 5, ER 4+ Knee flexion 5, extension 5, Ankle inversion 4+, eversion 4, PF 5, DF 4 ;L Hip: flexion 4+, extension 5 IR 5, ER4+ Knee flexion 5, extension 5 Ankle inversion 5, eversion 5, PF 5, DF 5. COORDINATION: heel to christie R slow and abnormal, L abnormal ; repeated Stomping: R abnormal, L abnormal. SENSATION: WNL LE. 5x STS : 14.82sec. GAIT: walk w/ extension synergy of Right LE, R hip hike w/ circumduction of R LE during swing phase - Balance/Special Test Scores Lower Extremity Functional Score: 29 TUG Test Time Seconds: 15.95 - Goals Goal 1:: Pt will be independent with HEP. Goal Time Frame: 4-6 Weeks Goal 2:: STG: Pt will ambulate with 10 degrees of R hip flexion during swing phase. Goal Time Frame: 2-4 Weeks Goal 3:: LTG: Pt will return to walk 50 feet without cane safely. Goal Time Frame: 6-8 Weeks Goal 4:: LTG: Pt will improve all ankle strength to 5/5 in order to improve gait and balance. Goal Time Frame: 4-6 Weeks Goal 5:: STG: Pt will be able to bend over and black pickler object without losing balance to better perform tasks at work. Goal Time Frame: 2-4 Weeks Goal 6:: STG: Pt will improve LEFS score to < 50% disability Goal Time Frame: 2-4 Weeks - Rehabilitation Potential Physical Therapy Diagnosis: ankle weakness, hip weakness, incoordination , gait abnormalities Rehabilitation Potential: Good - Anticipated Interventions Patient/Client Instruction: Educate patient on: Condition, Plan of Care, Benefits of Fitness Program For the Purpose of:: To increase ROM, To improve nutrient delivery to tissue, To improve muscle performance and motor function, To improve ability to perform ADL's, To improve ability of physical actions for home/community/work/leisure, To improve gait and locomotor functions, To improve balance, To improve safety with gait, To improve safety Therapeutic Exercise to Include: Strength training, Endurance training, Balance training, Coordination, Body mechanics, Flexibilty training, Gait and locomotor training, Neuromotor development, Active ROM For the Purpose of:: To increase ROM, To improve muscle performance and motor function, To improve ability of physical actions for home/community/work/leisure, To improve gait and locomotor functions, To improve health of tissue, To increase flexibility/ROM, To improve endurance, To improve balance, To improve safety with gait, To improve safety, To improve health and function, To foster healthy habits Functional Training to Include: Functional work training, Gait training For the Purpose of:: To improve muscle performance and motor function, To increase tolerance to activity/condition/position, To improve ability of physical actions for home/community/work/leisure, To improve gait and locomotor functions, To improve endurance, To improve balance, To improve safety with gait, To improve safety, To improve health and function Assistive Devices: Cane For the Purpose of:: To improve balance, To improve safety with gait, To improve safety Thank you for the opportunity to evaluate your patient. For Medicare and Medicare HMO plans, please review the plan of care and approve it. It will need to be FAXED BACK to us at [phone] for Medicare purposes. For Medicare only, by signing this I certify the plan of care. Please let me know if there are questions or concerns regarding this plan of care. Physician Signature: Date:
--- NOTE | 2021-04-03 16:09 | OTREVAL_ITS ---
Dr. David Ojeda MD, It has been my pleasure to treat JAVIER PANTOJA over the last 29 visits for TIA. Please see the progress note below for an update on the occupational therapy p kacy of care! Subjective: pt arrives states since he returned to therapy he has made good gains at 60% and from the initial stroke about 75%-. pt states he needs most help with hand and wrist - would like to get more fluid motion Objective/Function: R Marketing Consultant 30# up from 22 on 02/05. R Lat Pinch 16#. R TRipod 7#. Pinches taken after exercise d/t being used. pt has made great gains with his strength and ROM- he continues to be limited with distal finger control and other wrist and FMS skills as zippers/buttons etc. pt would benefit from skilled OT services 1-2x week for 8 weeks. Plan Frequency: 1-2x /Week Duration: 2 Months Plan: cont with FMS and wrist forearm fluid motion - distal finger control- buttons, zippers etc. 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 with ADLs and IADLs by d.c Goal:: pt will demo. right forearm supination by 65* to increase pts ind. with ADLs and IADLs. pt will demo decrease in CMC flexion limiting pts MP hyper- extension. U use of supportive brace limits MP hyper-ext. Goal:: pt will demo a increase in FMS by demo ind with manipulation of coins, tie knot, write legibly and press buttons to increase his ind. with ADLs by d/c Goal:: pt will demo a decrease in right forearm tone to increase ease of performing forearm supination to full ROM by d/.c. pt will demo a reduction in FPL tone noted by decrease in thumb flexion tone by d/c Anticipated Interventions Anticipated Interventions: A/AAROM/PROM, Strengthening, Triggerpoint Release, Modalities, Orthoses, Ergonomic Education, Fine Motor Coord/Aaron, Neuro Reeducation, Visual/Perceptual Skills, Education re assistive Equipment, Education re Diagnosis Please do not hesitate to contact me at [phone] by phone or if you have questions or concerns regarding this new plan of care! Sincerely, Amalia Magana, OTR/L, CHT
--- NOTE | 2021-04-10 12:38 | HP.PTREVAL ---
Dr. David Ojeda MD, It has been my pleasure to treat JAVIER PANTOJA over the last 14 visits for R spastic hemiparesis. Please see the progress note below for an update on the physical therapy plan of care! Subjective: Pt. is here today for his re evaluation. Pt. reports no pain today. Pt. arrives walking with cane, uses cane in home and outside. Pt. is working, but is off on Bubba break. Pt. reports increasing walking at home and work. He reports being 55% better with walking. Objective/Function: Pt. still has slight tightness with his R ankle, 2deg of active motion, 6 deg passive. Pt. has 4+/5 DF strength. The rest of his strength is 5-/5 throughout BLEs. Pt. has improved gait pattern with SPC and without AD. Pt. still lacks increased hip flexion during R swing phase, but improves with VCing. He has increased ataxic movements with out AD, but is still able to maintain good stability. No LOB noted.. TU.2sec with cane, 17.8 without AD. 6MWT: 537feet with cane. STAIRS: pt. has good reciprocal pattern with use of 1 HR with both ascending and descending. Plan Plan: Pt. is still having some trouble with increasing normal gait pattern. I would like him to work on R DF ROM and DF strength, increased R hip flexion during swing phase of gait and gait pattern with and without AD. Balance/Gait/Functional tests - Balance/Special Test Scores Lower Extremity Functional Score: 35 TUG Test Time Seconds: 15.95 Tug Test: <20 sec.=mostly independent Goals Goal 1:: Pt will be independent with HEP. Goal Time Frame: 4-6 Weeks Goal Progress: Goal Met Goal 2:: STG: Pt will ambulate with 10 degrees of R hip flexion during swing phase. Goal Time Frame: 2-4 Weeks Goal Progress: Progressing Goal 3:: LTG: Pt will return to walk 50 feet without cane safely. Goal Time Frame: 6-8 Weeks Goal Progress: Goal Met Goal 4:: LTG: Pt will improve all ankle strength to 5/5 in order to improve gait and balance. 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 Goal Time Frame: 2-4 Weeks Goal Progress: Goal Met Goal 6:: STG: Pt will improve LEFS score to < 50% disability Goal Time Frame: 2-4 Weeks Goal Progress: Progressing Anticipated Interventions Patient/Client Instruction: Educate patient on: Condition, Plan of Care, Benefits of Fitness Program For the Purpose of:: To increase ROM, To improve nutrient delivery to tissue, To improve muscle performance and motor function, To improve ability to perform ADL's, To improve ability of physical actions for home/community/work/leisure, To improve gait and locomotor functions, To improve balance, To improve safety with gait, To improve safety Therapeutic Exercise to Include: Strength training, Endurance training, Balance training, Coordination, Body mechanics, Flexibilty training, Gait and locomotor training, Neuromotor development, Active ROM For the Purpose of:: To increase ROM, To improve muscle performance and motor function, To improve ability of physical actions for home/community/work/leisure, To improve gait and locomotor functions, To improve health of tissue, To increase flexibility/ROM, To improve endurance, To improve balance, To improve safety with gait, To improve safety, To improve health and function, To foster healthy habits Functional Training to Include: Functional work training, Gait training For the Purpose of:: To improve muscle performance and motor function, To increase tolerance to activity/condition/position, To improve ability of physical actions for home/community/work/leisure, To improve gait and locomotor functions, To improve endurance, To improve balance, To improve safety with gait, To improve safety, To improve health and function Assistive Devices: Cane For the Purpose of:: To improve balance, To improve safety with gait, To improve safety Please do not hesitate to contact me at [phone] by phone or if you have questions or concerns regarding this new plan of care! Sincerely, Dc Ng DPT
--- NOTE | 2021-05-17 11:43 | HP.OTREVAL ---
Dr. David Ojeda MD, It has been my pleasure to treat JAVIER PANTOJA over the last 34 visits for TIA. Please see the progress note below for an update on the occupational therapy plan of care! Subjective: pt arrives to session- states he is noticing more movement- pt states is unsure where tingling ends- but can feel more textures - pt states he is picking up his cane more with his right hand - pt is hopeful to continue with OT to increase FMS for increase ind with ADLs Objective/Function: right UE continues to make gains with fluid shoulder movement pattern- noted decreased distal finger control this limits pts writing legibly and shoe tying. pt 9 hole peg test with right was 4 min and 58 sec.. left hand was 31sec. stereognosis of 0/5 objects pt unable to identify but able to feel something was in his hand. 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 pt is making gains and continues to show steady progress. pt would benefit from skilled OT services 1-2x week for 6 weeks. and re-assessment at that time. Plan Frequency: 1-2x /Week Duration: 2 Months Plan: cont FM strengthening and control, forearm supination w/fluid motion. add handwriting Goals - Goals Patient Goals: Improve Fine Motor Skills, Use Hand/Wrist/Arm Normally Again, Be More Independent in ADLS Goal:: pt will demo a increase in right voting machine mechanic strength by 45# or greater to increase pts ind. with ADLs and IADLs by d.c (progressing) Goal:: pt will demo. right forearm supination by 65* to increase pts ind. with ADLs and IADLs. (progressing pt at 45*). pt will demo decrease in CMC flexion limiting pts MP hyper-extension. U use of supportive brace limits MP hyper-ext. (goal is met) Goal:: pt will demo a increase in FMS by demo ind with manipulation of coins, tie knot, write legibly and press buttons to increase his ind. with ADLs by d/c. pt will report use of right hand for oral care 90% of the time without dropping toothbrush by d/c Goal:: pt will demo a decrease in right forearm tone to increase ease of performing forearm supination to full ROM by d/.c (progressing). pt will demo a reduction in FPL tone noted by decrease in thumb flexion tone by d/c (progressing) Anticipated Interventions Anticipated Interventions: A/AAROM/PROM, Strengthening, Triggerpoint Release, Modalities, Orthoses, Ergonomic Education, Fine Motor Coord/Aaron, Neuro Reeducation, Visual/Perceptual Skills, Education re assistive Equipment, Education re Diagnosis Please do not hesitate to contact me at [phone] by phone or if you have questions or concerns regarding this new plan of care! Sincerely, Amalia Magana, OTR/L, CHT
--- NOTE | 2021-05-18 13:44 | HP.PTREVAL ---
Dr. David Ojeda MD, It has been my pleasure to treat JAVIER PANTOJA over the last 22 visits for R spastic hemiparesis. Please see the progress note below for an update on the physical therapy plan of care! Subjective: Pt. reports overall doing well. Pt. reports being HEP compliant. Pt. pleased with progress. Pt. is still hopeful to increase his stability with his gait and get back to all work related activities without limitations. Objective/Function: TU.3 sec with SPC. 6 MWT: 513feet with SPC. MMT: pt. has improved strength of RLE: ankle 5/5 throughout; knee: ext 5/5, flexion 5-/5; hip- flexion 4+/5, abd 4+/5, ext 4+/5. GAIT: Pt. ambulates improved gait pattern, decreased retro lean during R swing phase. He is ambulating safely, but still methodically with his gait pattern. STAIRS: Pt. able to negotiate with step to pattern without issues. He does have some instability during SLS on R side, but is improving. He does demonstrate continued ataxia in his R foot and UE. I would like to continue to work on some motor control of his RLE aide with gait. Plan Plan: Cont. to work on walking endurance, stability. RLE motor control. Progress HEP for independent program. Balance/Gait/Functional tests - Balance/Special Test Scores Lower Extremity Functional Score: 44 TUG Test Time Seconds: 14.3 Tug Test: <20 sec.=mostly independent Goals Goal 1:: Pt will be independent with HEP. Goal Time Frame: 4-6 Weeks Goal Progress: Goal Met Goal 2:: STG: Pt will ambulate with 10 degrees of R hip flexion during swing phase. Goal Time Frame: 2-4 Weeks Goal Progress: Goal Met Goal 3:: NEW GOAL (05/18/21)- Pt. to complete 6 MWT to 600ft. indicating increased efficiency and stability with gait. Goal Time Frame: 6-8 Weeks Goal Progress: Progressing Goal 4:: LTG: Pt will improve all ankle strength to 5/5 in order to improve gait and balance. 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 Goal Time Frame: 2-4 Weeks Goal Progress: Goal Met Goal 6:: STG: Pt will improve LEFS score to < 50% disability Goal Time Frame: 2-4 Weeks Goal Progress: Progressing Anticipated Interventions Patient/Client Instruction: Educate patient on: Condition, Plan of Care, Benefits of Fitness Program For the Purpose of:: To increase ROM, To improve nutrient delivery to tissue, To improve muscle performance and motor function, To improve ability to perform ADL's, To improve ability of physical actions for home/community/work/leisure, To improve gait and locomotor functions, To improve balance, To improve safety with gait, To improve safety Therapeutic Exercise to Include: Strength training, Endurance training, Balance training, Coordination, Body mechanics, Flexibilty training, Gait and locomotor training, Neuromotor development, Active ROM For the Purpose of:: To increase ROM, To improve muscle performance and motor function, To improve ability of physical actions for home/community/work/leisure, To improve gait and locomotor functions, To improve health of tissue, To increase flexibility/ROM, To improve endurance, To improve balance, To improve safety with gait, To improve safety, To improve health and function, To foster healthy habits Functional Training to Include: Functional work training, Gait training For the Purpose of:: To improve muscle performance and motor function, To increase tolerance to activity/condition/position, To improve ability of physical actions for home/community/work/leisure, To improve gait and locomotor functions, To improve endurance, To improve balance, To improve safety with gait, To improve safety, To improve health and function Assistive Devices: Cane For the Purpose of:: To improve balance, To improve safety with gait, To improve safety Please do not hesitate to contact me at [phone] by phone or if you have questions or concerns regarding this new plan of care! Sincerely, Dc Ng DPT
--- NOTE | 2021-06-28 07:45 | OTREVAL_ITS ---
Dr. David Ojeda MD, It has been my pleasure to treat JAVIER PANTOJA over the last 46 visits for TIA. Please see the progress note below for an update on the occupational therapy p kacy of care! Subjective: pt arrives states he continues to struggle with fine motor and sensation- pt states he has noticed increase ability to feel muscles in palm of his hand working- still difficulty with distal finger control making brushing his teeth- Objective/Function: pt demo with fluid shoulder and elbow movement- pts sensation to right hand has made new gains testing with monofilaments t 3.84. right forearm supination 50* pronation WNL. right opposition to thumb to LF tip. noted increase fluid finger flex and ext increasing pts ind with ADLs. noted less ulnar deviation with resting hand position. pt able to add and abduct fingers. pts distal finger control with his handwriting is better-. pt would benefit from continued skilled OT services 2x week for 4 more weeks and re-eval at that time- Plan Frequency: 1-2x /Week Duration: 4 Weeks Visits in this POC: 75 Plan: cont FM strengthening and control, forearm supination w/fluid motion. add handwriting , use of mouse- distal finger control. 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 ulnar deviation and wrist ext only Goals - Goals Patient Goals: Improve Fine Motor Skills, Use Hand/Wrist/Arm Normally Again, Be More Independent in ADLS Goal:: pt will demo a increase in right automatic nailing machine operator strength by 45# or greater to increase pts ind. with ADLs and IADLs by d.c (progressing) Goal:: pt will demo. right forearm supination by 65* to increase pts ind. with ADLs and IADLs. (progressing pt at 50 *). pt will demo decrease in CMC flexion limiting pts MP hyper-extension. U use of supportive brace limits MP hyper-ext. (goal is met) Goal:: pt will demo a increase in FMS by demo ind with manipulation of coins, tie knot, write legibly and press buttons to increase his ind. with ADLs by d/c ( goal is progressing). pt will report use of right hand for oral care 90% of the time without dropping toothbrush by d/c Goal:: pt will demo a decrease in right forearm tone to increase ease of performing forearm supination to full ROM by d/.c (progressing). pt will demo a reduction in FPL tone noted by decrease in thumb flexion tone by d/c (progressing) Anticipated Interventions Anticipated Interventions: A/AAROM/PROM, Strengthening, Triggerpoint Release, Modalities, Orthoses, Ergonomic Education, Fine Motor Coord/Aaron, Neuro Reeducation, Visual/Perceptual Skills, Education re assistive Equipment, Education re Diagnosis Please do not hesitate to contact me at [phone] by phone or if you have questions or concerns regarding this new plan of care! Sincerely, Amalia Magana, OTR/L, CHT
--- NOTE | 2021-07-04 11:59 | HP.PTREVAL_ITS ---
Dr. David Ojeda MD, It has been my pleasure to treat JAVIER PANTOJA over the last 32 visits for R spastic hemiparesis. Please see the progress note below for an update on the physical therapy plan of care! Subjective: Pt. reports overall doing well. He is having some trouble with his foot turning out into supination during stance phase of gait. He is overall walking well. No falls. Objective/Function: TU.1sec with cane. 6MWT: 478feet. 5/5 strength throughout BLEs. floor transfers: good, but some difficulty going from prone to kneeling, difficulty wt. bearing through RUE. I am a little concered about his his foot supination, made need a brace to stabilize. Plan Plan: Work on floor transfers, Wbing through RUE, gait pattern, and coordination. Balance/Gait/Functional tests - Balance/Special Test Scores Lower Extremity Functional Score: 44 TUG Test Time Seconds: 14.3 Tug Test: <20 sec.=mostly independent Goals Goal 1:: Pt will be independent with HEP. Goal Time Frame: 4-6 Weeks Goal Progress: Goal Met Goal 2:: STG: Pt will ambulate with 10 degrees of R hip flexion during swing phase. Goal Time Frame: 2-4 Weeks Goal Progress: Goal Met Goal 3:: NEW GOAL (05/18/21)- Pt. to complete 6 MWT to 600ft. indicating increased efficiency and stability with gait. Goal Time Frame: 6-8 Weeks Goal Progress: Progressing Goal 4:: LTG: Pt will improve all ankle strength to 5/5 in order to improve gait and balance. 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 Goal Time Frame: 2-4 Weeks Goal Progress: Goal Met Goal 6:: STG: Pt will improve LEFS score to < 50% disability Goal Time Frame: 2-4 Weeks Goal Progress: Progressing Anticipated Interventions Patient/Client Instruction: Educate patient on: Condition, Plan of Care, Benefits of Fitness Program For the Purpose of:: To increase ROM, To improve nutrient delivery to tissue, To improve muscle performance and motor function, To improve ability to perform ADL's, To improve ability of physical actions for home/community/work/leisure, To improve gait and locomotor functions, To improve balance, To improve safety with gait, To improve safety Therapeutic Exercise to Include: Strength training, Endurance training, Balance training, Coordination, Body mechanics, Flexibilty training, Gait and locomotor training, Neuromotor development, Active ROM For the Purpose of:: To increase ROM, To improve muscle performance and motor function, To improve ability of physical actions for home/community/work/lei sure, To improve gait and locomotor functions, To improve health of tissue, To increase flexibility/ROM, To improve endurance, To improve balance, To improve safety with gait, To improve safety, To improve health and function, To foster healthy habits Functional Training to Include: Functional work training, Gait training For the Purpose of:: To improve muscle performance and motor function, To increase tolerance to activity/condition/position, To improve ability of physical actions for home/community/work/leisure, To improve gait and locomotor functions, To improve endurance, To improve balance, To improve safety with gait, To improve safety, To improve health and function Assistive Devices: Cane For the Purpose of:: To improve balance, To improve safety with gait, To improve safety Please do not hesitate to contact me at [phone] by phone or if you have questions or concerns regarding this new plan of care! Sincerely, Dc Ng DPT
--- NOTE | 2021-08-02 12:34 | HP.PTREVAL ---
Dr. David Ojeda MD, It has been my pleasure to treat JAVIER PANTOJA over the last 39 visits for R spastic hemiparesis. Please see the progress note below for an update on the physical therapy plan of care! Subjective: Pt. reports overall doing well. Pt. reports no pain. He reports regaining feeling in his arm each day. He continues to report increase weakness which effects his job duties and household activities. Objective/Function: Pt. has improved ROM, he does have increased R ankle supination during stance phase, but has improved with use of ASO brace. TU.7sec, but ataxic in . 6 MWT: 513feet with cane. fatigue noted. Floor tx: I with use of table, SBA without. MMT: 5-/5 throughout LEs marked fatigue with increased reps with hip and quad testing. Plan Plan: Start phasing to gym program. Focus on LE strengthening and endurance. Program gym equipment that he can do I. Balance/Gait/Functional tests - Balance/Special Test Scores Lower Extremity Functional Score: 44 TUG Test Time Seconds: 14.3 Tug Test: <20 sec.=mostly independent Goals Goal 1:: Pt will be independent with HEP. Goal Time Frame: 4-6 Weeks Goal Progress: Goal Met Goal 2:: STG: Pt will ambulate with 10 degrees of R hip flexion during swing phase. Goal Time Frame: 2-4 Weeks Goal Progress: Goal Met Goal 3:: NEW GOAL (05/18/21)- Pt. to complete 6 MWT to 600ft. indicating increased efficiency and stability with gait. Goal Time Frame: 6-8 Weeks Goal Progress: Progressing Goal 4:: LTG: Pt will improve all ankle strength to 5/5 in order to improve gait and balance. 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 Goal Time Frame: 2-4 Weeks Goal Progress: Goal Met Goal 6:: STG: Pt will improve LEFS score to < 50% disability Goal Time Frame: 2-4 Weeks Goal Progress: Progressing Anticipated Interventions Patient/Client Instruction: Educate patient on: Condition, Plan of Care, Benefits of Fitness Program For the Purpose of:: To increase ROM, To improve nutrient delivery to tissue, To improve muscle performance and motor function, To improve ability to perform ADL's, To improve ability of physical actions for home/community/work/leisure, To improve gait and locomotor functions, To improve balance, To improve safety with gait, To improve safety Therapeutic Exercise to Include: Strength training, Endurance training, Balance training, Coordination, Body mechanics, Flexibilty training, Gait and locomotor training, Neuromotor development, Active ROM For the Purpose of:: To increase ROM, To improve muscle performance and motor function, To improve ability of physical actions for home/community/work/leisure, To improve gait and locomotor functions, To improve health of tissue, To increase flexibility/ROM, To improve endurance, To improve balance, To improve safety with gait, To improve safety, To improve health and function, To foster healthy habits Functional Training to Include: Functional work training, Gait training For the Purpose of:: To improve muscle performance and motor function, To increase tolerance to activity/condition/position, To improve ability of physical actions for home/community/work/leisure, To improve gait and locomotor functions, To improve endurance, To improve balance, To improve safety with gait, To improve safety, To improve health and function Assistive Devices: Cane For the Purpose of:: To improve balance, To improve safety with gait, To improve safety Please do not hesitate to contact me at [phone] by phone or if you have questions or concerns regarding this new plan of care! Sincerely, ROSIO SyedT
== END 2021-09-06 19:00 | disposition home or self-care (01) ==
LOC: PT 09:00
PROVIDERS: PCP Family Medicine; Referring Provider Family Medicine; Visit Provider Family Medicine
DX: I69.351 Hemiplegia and hemiparesis following cerebral infarction affecting right dominant side (principal)
CPT/HCPCS: 97110; 97112; 97140; 97162; 97164; 97166; 97530

== ENCOUNTER 2022-02-19 11:00 | Outpatient (RCR) | payer BC, SELFPAY ==
--- NOTE | 2021-10-04 15:54 | HP.PTREVAL_ITS ---
Dr. David Ojeda MD, It has been my pleasure to treat JAVIER PANTOJA over the last 55 visits for CVA, ataxia. Please see the progress note below for an update on the physical therapy plan of care! Subjective: Pt reports he has noticed a significant improvement, but still notices difficulty with ambulating and core weakness. Objective/Function: Pt is able to ambulate 340 feet today with cane and CGAx1. At that point, he becomes fatigued and R ankle becomes very unstable demonstrating significant ankle inversion which could lead to future falls and injury. Pt displayed very little ataxia with gait today. Pt would definitely benefit from further R LE stretching and strengthening to promote safer gait. Pt would also benefit from core strengthening to aid with more upright posture during ambulation to aid with safety during ambulation. Pt is I with gym routine at this time as he has been exercising I on his days without PT. Pt does need an advanced HEP to progress his strengthening. Pt is able to negotiate one flight of stairs reciprocally on this date, but must use one hand rail and is very fatigued at the end of the attempt. Pt must be able to negotiatie several flights of stairs in order to return to work fully Plan Plan: Cont with poc Balance/Gait/Functional tests - Balance/Special Test Scores Lower Extremity Functional Score: 43 Goals Goal 1:: LTG: Pt. to be I with HEP for home and gym exercises. Goal Time Frame: 4-6 Weeks Goal Progress: Progressing Goal 2:: LTG: Pt. to ambulate with increased B ankle control and stability allowing for increased safety with gait. Goal Time Frame: 4-6 Weeks Goal Progress: Progressing Goal 3:: LTG: Pt. to ambulate with decreased overall ataxia allowing for increased safety and control. Goal Time Frame: 4-6 Weeks Goal Progress: Progressing Goal 4:: Pt will be able to negotiate 4 flights of 10 stairs with 1 handrail and SBAx1 in order to return to work without being limited. Goal Time Frame: 4-6 Weeks Goal Progress: New goal Anticipated Interventions Patient/Client Instruction: Educate patient on: Condition, Plan of Care, Risk Factors, Benefits of Fitness Program For the Purpose of:: To improve health and function, To foster healthy habits, To improve decision making, To facilitate caregiver knowledge, To improve self management, To prevent re-injury, To improve ability to perform tasks related to life management Therapeutic Exercise to Include: Strength training, Power training, Balance training, Coordination, Body mechanics, Postural training, Flexibilty training, Gait and locomotor training For the Purpose of:: To decrease pain, To increase ROM, To improve nutrient delivery to tissue, To increase oxygenation perfusion, To improve muscle performance and motor function, To improve ability to perform ADL's, To improve gait and locomotor functions, To improve health of tissue, To decrease soft tissue restriction, To increase flexibility/ROM Please do not hesitate to contact me at [phone] by phone or if you have questions or concerns regarding this new plan of care! Sincerely, Nando Brunson, PT, ATC
--- NOTE | 2021-10-04 15:56 | HP.PTREVAL ---
Dr. David Ojeda MD, It has been my pleasure to treat JAVIER PANTOJA over the last 55 visits for CVA, ataxia. Please see the progress note below for an update on the physical therapy plan of care! Subjective: Pt reports he has noticed a significant improvement, but still notices difficulty with ambulating and core weakness. Objective/Function: Pt is able to ambulate 340 feet today with cane and CGAx1. At that point, he becomes fatigued and R ankle becomes very unstable demonstrating significant ankle inversion which could lead to future falls and injury. Pt displayed very little ataxia with gait today. Pt would definitely benefit from further R LE stretching and strengthening to promote safer gait. Pt would also benefit from core strengthening to aid with more upright posture during ambulation to aid with safety during ambulation. Pt is I with gym routine at this time as he has been exercising I on his days without PT. Pt does need an advanced HEP to progress his strengthening. Pt is able to negotiate one flight of stairs reciprocally on this date, but must use one hand rail and is very fatigued at the end of the attempt. Pt must be able to negotiatie several flights of stairs in order to return to work fully Plan Plan: Continue to focus on R LE stretching, strengthening, balance and proprio, gait training, stair negotiation, and HEP Balance/Gait/Functional tests - Balance/Special Test Scores Lower Extremity Functional Score: 43 Goals Goal 1:: LTG: Pt. to be I with HEP for home and gym exercises. Goal Time Frame: 4-6 Weeks Goal Progress: Progressing Goal 2:: LTG: Pt. to ambulate with increased B ankle control and stability allowing for increased safety with gait. Goal Time Frame: 4-6 Weeks Goal Progress: Progressing Goal 3:: LTG: Pt. to ambulate with decreased overall ataxia allowing for increased safety and control. Goal Time Frame: 4-6 Weeks Goal Progress: Progressing Goal 4:: Pt will be able to negotiate 4 flights of 10 stairs with 1 handrail and SBAx1 in order to return to work without being limited. Goal Time Frame: 4-6 Weeks Goal Progress: New goal Anticipated Interventions Patient/Client Instruction: Educate patient on: Condition, Plan of Care, Risk Factors, Benefits of Fitness Program For the Purpose of:: To improve health and function, To foster healthy habits, To improve decision making, To facilitate caregiver knowledge, To improve self management, To prevent re-injury, To improve ability to perform tasks related to life management Therapeutic Exercise to Include: Strength training, Power training, Balance training, Coordination, Body mechanics, Postural training, Flexibilty training, Gait and locomotor training For the Purpose of:: To decrease pain, To increase ROM, To improve nutrient delivery to tissue, To increase oxygenation perfusion, To improve muscle performance and motor function, To improve ability to perform ADL's, To improve gait and locomotor functions, To improve health of tissue, To decrease soft tissue restriction, To increase flexibility/ROM Please do not hesitate to contact me at [phone] by phone or if you have questions or concerns regarding this new plan of care! Sincerely, Nando Brunson, PT, ATC
--- NOTE | 2021-11-16 14:01 | HP.PTREVAL_ITS ---
Dr. David Ojeda MD, It has been my pleasure to treat JAVIER PANTOJA over the last 67 visits for CVA, ataxia. Please see the progress note below for an update on the physical therapy plan of care! Subjective: Gianfranco arrives today with use of his SPC. He is doing well. He is now I with his gym exercises. He reports no major issues. He is concerned about his ankle when he walks. He is starting back to work over the next few weeks. No pain noted. Objective/Function: STAIRS: Pt. able to negotiate stairs. He can complete with 1 HR with reciprocal pattern, holding in cane in 1 had as well. He does have difficulty with descending, limited ankle stability noted on R side. GAIT: He continues to have difficulty with ankle stability. He has an OTC sports ASO, but still has increased ankle PF and INV resulting in increased lateral stress to his ankle joint. I talked to him about possible need for more rigid ankle bracing possible AFO. He does not have foot drop, but has marked tone with his gait resulting in initial contact being at lateral heel and rocker moment on lateral aspect of his foot. This results in a fairly unstable position during R stance phase which in turn progresses to reduced R stance phase time and increased instability. I would like him to talk to his physician about this and possibly have a consult with guest request runner to determine best type of bracing, possibly custom to increase proper foot positioning and safety. Plan Plan: Gianfranco is now I with gym exercise program. At this point in time his main limitation is his ataxia and I do believe if we can improve his ankle stability with possible AFO that his safety with gait would also improve. We will work on stretching into EVR and DF, ankle motor control to reduce his PF+ SUP initial contact of his ankle. Balance/Gait/Functional tests - Balance/Special Test Scores Lower Extremity Functional Score: 43 Goals Goal 1:: LTG: Pt. to be I with HEP for home and gym exercises. Goal Time Frame: 4-6 Weeks Goal Progress: Goal Met Goal 2:: LTG: Pt. to ambulate with increased B ankle control and stability allowing for increased safety with gait, with reduce R ankle PF+ supinated positioning allowing for increased safety/stability. Goal Time Frame: 4-6 Weeks Goal Progress: Progressing Goal 3:: LTG: Pt. to ambulate with decreased overall ataxia allowing for increased safety and control. Goal Time Frame: 4-6 Weeks Goal Progress: Progressing Goal 4:: Pt will be able to negotiate 4 flights of 10 stairs with 1 handrail and SBAx1 in order to return to work without being limited. Goal Time Frame: 4-6 Weeks Goal Progress: Goal Met Anticipated Interventions Patient/Client Instruction: Educate patient on: Condition, Plan of Care, Risk Factors, Benefits of Fitness Program For the Purpose of:: To improve health and function, To foster healthy habits, To improve decision making, To facilitate caregiver knowledge, To improve self management, To prevent re-injury, To improve ability to perform tasks related to life management Therapeutic Exercise to Include: Strength training, Power training, Balance training, Coordination, Body mechanics, Postural training, Flexibilty training, Gait and locomotor training For the Purpose of:: To decrease pain, To increase ROM, To improve nutrient delivery to tissue, To increase oxygenation perfusion, To improve muscle performance and motor function, To improve ability to perform ADL's, To improve gait and locomotor functions, To improve health of tissue, To decrease soft tissue restriction, To increase flexibility/ROM Please do not hesitate to contact me at [phone] by phone or if you have questions or concerns regarding this new plan of care! Sincerely, Dc Ng DPT
--- NOTE | 2021-11-19 12:00 | HP.OTDCSUM_ITS ---
It has been my pleasure to treat JAVIER PANTOJA under orders from Dr. David Ojeda MD, for the diagnosis of CVA for a total of 84 visit(s). Please see the following information for a summary of their discharge status. % Improvement: 85 Objective/Function: pt demo with ataxic motion of right UE - and tone of right forearm wrist and digits- limiting pts FMS and performance of manipulation of fasteners and typing-. see below info for sensation. right sustainable design consultant 55# initial 40#. Thumb: right 4.08 left 2.83. Index: right 3.84 left 2.83. Middle: right 3.84 left 3.22. Ring: right 3.84 left 2.83. Little: right 3.84 same left 2.83. pt demo increase return of radial never as sensation on back of fingers are at 3.61. 9 hole peg test to test manipulation. right hand 3min 55 sec. this is improving from 4 min 38sec. pt would benefit from continued OT services 1-2x week for next 4-6 weeks. will work on stretch of UB to decrease risk of flexor contractors as well as cont with FMS to increase typing, manipulation of fasteners to increase pts IND. with ADls adn IADLS as cooking- meal prep- and cleaning tasks. Goal:: pt will demo a increase in right sustainable design consultant strength by 45# or greater to increase pts ind. with ADLs and IADLs by d.c (progressing) pt is at 38# right sustainable design consultant strength - Goal:: pt will demo a increase in FMS by demo ind with manipulation of coins, tie knot, write legibly and press buttons to increase his ind. with ADLs by d/c (goal is progressing). Goal:: pt will report use of right hand for oral care 90% of the time without dropping toothbrush by d/c ( progressing pt states he is still dropping tooth brush) Goal:: pt will demo a decrease in right forearm tone to increase ease of performing forearm supination to full ROM by d/.c (progressing). pt will demo a reduction in FPL tone noted by decrease in thumb flexion tone by d/c (progressing) Plan: cont with right UE stretching along with FMS. shoulder. forearm. wrist If there are questions or concerns regarding this patient's occupational therapy, please fell free to call me at [phone]. Thank you for the referral of this patient. Sincerely, Amalia Magana OTR/L, CHT
--- NOTE | 2021-11-19 12:00 | HP.OTREVAL ---
Dr. David Ojeda MD, It has been my pleasure to treat JAVIER PANTOJA over the last 84 visits for CVA. Please see the progress note below for an update on the occupational therapy plan of care! Subjective: pt states his Dr. states he started him on muscle relaxer (he received it this am and will take it with food this afternoon). pt states he is open to allow Lawrence to call in to see if he is getting tired he will change his medication. Objective/Function: pt demo with ataxic motion of right UE - and tone of right forearm wrist and digits- limiting pts FMS and performance of manipulation of fasteners and typing-. see below info for sensation. 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 Thumb: right 4.08 left 2.83. Index: right 3.84 left 2.83. Middle: right 3.84 left 3.22. Ring: right 3.84 left 2.83. Little: right 3.84 same left 2.83. pt demo increase return of radial never as sensation on back of fingers are at 3.61. 9 hole peg test to test manipulation. right hand 3min 55 sec. this is improving from 4 min 38sec. pt would benefit from continued OT services 1-2x week for next 4-6 weeks. will work on stretch of UB to decrease risk of flexor contractors as well as cont with FMS to increase typing, manipulation of fasteners to increase pts IND. with ADls adn IADLS as cooking- meal prep- and cleaning tasks. Plan Frequency: 1-2x /Week Duration: 4-6 Weeks Plan: cont with right UE stretching along with FMS. shoulder. forearm. wrist Goals - Goals Goal:: pt will demo a increase in right automobile service station manager strength by 65# or greater to increase pts ind. with ADLs and IADLs by d.c (progressing) pt is at #55 right automobile service station manager strength - Goal:: pt will demo a increase in FMS by demo ind with manipulation of coins, tie knot, write legibly and press buttons to increase his ind. with ADLs by d/c (goal is progressing). Goal:: pt will report use of right hand for oral care 90% of the time without dropping toothbrush by d/c ( progressing pt states he is still dropping tooth brush) Goal:: pt will demo a decrease in right forearm tone to increase ease of performing forearm supination to full ROM by d/.c (progressing). pt will demo a reduction in FPL tone noted by decrease in thumb flexion tone by d/c (progressing) Anticipated Interventions Anticipated Interventions: A/AAROM/PROM, Strengthening, Triggerpoint Release, Modalities, Orthoses, Ergonomic Education, Fine Motor Coord/Aaron, Neuro Reeducation, Visual/Perceptual Skills, Education re Self Massage Techniques, Education re Correct Donning Tech,Care&Wearing Sched Comp Garments Please do not hesitate to contact me at [phone] by phone or if you have questions or concerns regarding this new plan of care! Sincerely, Amalia Magana, LISAR/L, CHT
--- NOTE | 2022-01-03 10:02 | HP.OTREVAL ---
Dr. David Ojeda MD, It has been my pleasure to treat JAVIER PANTOJA over the last 93 visits for CVA. Please see the progress note below for an update on the occupational therapy plan of care! Subjective: pt arrives to OT states he feels he is making good gains with UB = using gym eq. 2x week with health and wellness program. pt states elbow up is doing well- pt struggling with FMS - writing and manipulation of fasteners despite what sensation has returned. Objective/Function: monofilament testing of digits. right digit tips test all at 3.61 this indicates diminished light touch. coin manipulation finger to palm translation (7/7) and palm to finger translation (5/7). handwriting is getting better- increase words increase difficulty with legibility -. pt demo with poor distal finger control due to increase tone of digits increasing difficulty with letter and number formation for writing checks and or signature. pt would benefit from skilled OT services 1-2x week for next 6 weeks to continue to focused on FMS and sensation to increase ind. with ADLs and work tasks. Plan Frequency: 1-2x /Week Duration: 4-6 Weeks Plan: cont with right UE stretching along with FMS. shoulder. forearm. wrist Goals - Goals Goal:: pt will demo a increase in right hand umbrella tipper strength by 65# or greater to increase pts ind. with ADLs and IADLs by d.c (progressing) pt is at #55 right hand umbrella tipper strength - Goal:: pt will demo a increase in FMS by demo ind with manipulation of coins, tie knot, write legibly and press buttons to increase his ind. with ADLs by d/c (goal is progressing). Goal:: pt will report use of right hand for oral care 90% of the time without dropping toothbrush by d/c ( progressing pt states he is still not dropping his tooth brush but difficulty manipulation of tooth brush turning over) Goal:: pt will demo a decrease in right forearm tone to increase ease of performing forearm supination to full ROM by d/.c (progressing). pt will demo a reduction in FPL tone noted by decrease in thumb flexion tone by d/c (progressing) pt continues to demo min tone but with stress mod tone. Goal:: pt will demo the ability to test on monofilaments at 2.83 indicating return of sensation. Anticipated Interventions Anticipated Interventions: PETR/PROM, Strengthening, Triggerpoint Release, Modalities, Orthoses, Ergonomic Education, Fine Motor Coord/Aaron, Neuro Reeducation, Visual/Perceptual Skills, Education re Self Massage Techniques, Education re Correct Donning Tech,Care&Wearing Sched Comp Garments Please do not hesitate to contact me at [phone] by phone or if you have questions or concerns regarding this new plan of care! Sincerely, Amalia Magana, OTR/L, CHT
--- NOTE | 2022-02-19 11:22 | OTREVAL_ITS ---
Dr. David Ojeda MD, It has been my pleasure to treat JAVIER PANTOJA over the last 104 visits for CVA. Please see the progress note below for an update on the occupational therapy plan of care! Subjective: pt states he is doing ok- would like more ideas to transition to a HEP- pt states he is seeing improvements with his strength- but still struggling with use of dominate hand with opening jars- cutting food as this is difficulty so he avoids it- Objective/Function: monofilament testing of digits. right digit tips test all at 3.61 this indicates diminished light touch - pt states he continues to have sensation down his hand and feels numbness sensation is wrist and hand- numbness he would get in his face is going away-. coin manipulation finger to palm translation (7/7) with dropping x3 but increase time able to get 7 coins in hand and palm to finger translation (6/7). pt required increase time to perform 5min. handwriting is getting better- increase words increase difficulty with legibility -. pt demo with poor distal finger control due to increase tone of digits increasing difficulty with letter and number formation for writing checks and or signature. pt has been performing tasks sitting with good ability- therapist added functional tasks as opening jar/simulated cutting food and folding towels to POC as this increase concentration pt struggled with task bilateral hand task. pt would benefit from skilled OT services 1-2x week for next 6 weeks to continue to focused on FMS and sensation to increase ind. with ADLs and work tasks. Plan Frequency: 1x/Week Duration: 4 Weeks Plan: pt demo with need for skilled OT services 1x week for 4 weeks to continue to assist pt in reaching maximal rehab potential. Initiate dynamic standing balance with bilateral hand skills-. reciprocal movement and reaction speed with timed tasks- Goals - Goals Goal:: pt will demo a increase in right metal miner blasting strength by 65# or greater to increase pts ind. with ADLs and IADLs by d.c (progressing) pt is at #55 right metal miner blasting strength - Goal:: pt will demo a increase in FMS by demo ind with manipulation of coins, tie knot, write legibly and press buttons to increase his ind. with ADLs by d/c (goal is progressing). Goal:: pt will report use of right hand for oral care 90% of the time without dropping toothbrush by d/c ( progressing pt states he is still not dropping his tooth brush but difficulty manipulation of tooth brush turning over) Goal:: pt will demo a decrease in right forearm tone to increase ease of performing forearm supination to full ROM by d/.c (progressing). pt will demo a reduction in FPL tone noted by decrease in thumb flexion tone by d/c (progressing) pt continues to demo min tone but with stress mod tone. Goal:: pt will demo the ability to test on monofilaments at 2.83 indicating return of sensation. Anticipated Interventions Anticipated Interventions: A/AAROM/PROM, Strengthening, Triggerpoint Release, Modalities, Orthoses, Ergonomic Education, Fine Motor Coord/Aaron, Neuro Reeducation, Visual/Perceptual Skills, Education re Self Massage Techniques, Education re Correct Donning Tech,Care&Wearing Sched Comp Garments Please do not hesitate to contact me at [phone] by phone or if you have questions or concerns regarding this new plan of care! Sincerely, Amalia Magana, OTR/L, CHT
== END 2022-02-19 19:00 | disposition home or self-care (01) ==
LOC: PT 11:00
PROVIDERS: PCP Family Medicine; Referring Provider Family Medicine; Visit Provider Family Medicine
DX: I69.351 Hemiplegia and hemiparesis following cerebral infarction affecting right dominant side (principal)
CPT/HCPCS: 97110; 97112; 97140; 97164; 97530

== ENCOUNTER 2022-03-28 10:30 | Outpatient (RCR) | payer BC, SELFPAY ==
--- NOTE | 2022-03-28 11:28 | HP.OTDCSUM ---
It has been my pleasure to treat JAVIER PANTOJA under orders from Dr. David Ojeda MD, for the diagnosis of CVA for a total of 110 visit(s). Please see the following information for a summary of their discharge status. % Improvement: 85 Plan: D/C Discharge Comments: pt was seen in OT following a CVA and right UE. pt has made gains but continues to struggle with FMS and does continue demo ataxic motion for right UE. pt will continue with HEP. Pt to return if he feels he has had a decline in functional mobility or performance of ADLS. If there are questions or concerns regarding this patient's occupational therapy, please fell free to call me at [phone]. Thank you for the referral of this patient. Sincerely, Amalia Magana OTR/L, CHT
--- NOTE | 2022-03-28 12:11 | HP.PTDCSUM_ITS ---
It has been my pleasure to treat JAVIER PANTOJA referred by Dr. David Ojeda MD, with the diagnosis of CVA, Ataxia for a total of 87 visit(s). Discharge Date: 03/28/22 Please see the following information for a summary of their discharge status. Subjective: Pt. reports doing well. He is doing all work activities without issues. HE was able to climb a small ladder at work as well. Pt. reports being 95% better overall. He had a new articulating AFO and is having good tolerance to wearing. He is wearing it no most of the day. pt. is going back to [place] next week. % Improvement: 95 Objective/Function: ROM: Pt. has some tightness in his R calf, but loosens up, except for his tone that kicks in intermittently. Tightness in B HS as well. MMT: 5/5 throughout BLE. TU.1 sec without AD, 14.3sec with single point cane. STAIRS: pt. able to negotiate ascend with 1 HR with reciprocal pattern, step to with descending. GAIT: Pt. is able to walk with and without AD. He still has an ataxic pattern, but his new brace prevents increased INV and supinated positioning. Pt. is doing much better. Goal 1:: LTG: Pt. to be I with HEP. Goal Progress: Goal Met Goal 2:: LTG: Pt. to complete TUG test in less than 15sec with LRD. Goal Progress: Goal Met Goal 3:: LTG: Pt. to negotiate steps with 1 HR with reciprocal pattern without issues. Goal Progress: Goal Met Goal 4:: LTG: Pt. to walk safely without use of single point cane. Goal Progress: Progressing Plan: Pt. to be DC from PT at this point in time. He is to continue to work on walking progression Discharge Comments: Pt. is doing much better with his walking and general mobility. He still has some ataxia which effects his mobility, but is significantly better. He is I with HEP and gym program and will be DC to these programs at this point in time. If there are questions or concerns regarding this patient's physical therapy, please feel free to call me at [phone]. Thank you for the referral of this patient. Sincerely, Dc Garciaos, DPT Balance/Gait/Functional tests - Balance/Special Test Scores Lower Extremity Functional Score: 56
== END 2022-03-28 13:04 | disposition home or self-care (01) ==
LOC: OT 10:30
PROVIDERS: PCP Family Medicine; Referring Provider Family Medicine; Visit Provider Family Medicine
DX: I69.351 Hemiplegia and hemiparesis following cerebral infarction affecting right dominant side
CPT/HCPCS: 97110; 97112; 97140; 97164; 97530

== ENCOUNTER → 2022-08-23 | Outpatient (CLI) | payer BC, SELFPAY ==
[2022-08-23 12:48] LABS: Absolute Lymphocyte Count 1.64 X10^3/uL (0.83-4.51); Absolute Neutrophil Count 6.8 X10^3/uL (2.0-7.7); Basophil# 0.05 X10^3/uL; Basophil% 0.5 % (0-1); Eosinophil# 0.32 X10^3/uL; Eosinophils% 3.3 % (0-5); Hematocrit 40.6 % (40-54); Hemoglobin 13.2 g/dL (13.0-16.5); Lymphocyte # 1.64 X10^3/ul (0.83-4.51); Lymphocyte % 17.1 % (19-41); Mean Corp Hgb Conc 32.5 g/dL (32-36); Mean Corpuscular Hgb 30.3 pg (27.0-32.0); Mean Corpuscular Volume 93.1 fL (80-94); Mean Platelet Vol. 9.6 fl (6.2-12.0); Monocyte# 0.74 X10^3/uL; Monocyte% 7.7 % (0-10); NRBC Flagged by Analyzer 0 % (0-5); Neutrophil # 6.81 X10^3/uL (2.7-7.7); Platelet Count 336 K/mm3 (150-450); RBC Distribution Width CV 12.7 % (11.6-14.6); RBC Distribution Width SD 43.4 fl (35.1-43.9); Red Blood Count 4.36 M/mm3 (4.6-6.2); White Blood Count 9.6 K/mm3 (4.4-11.0)
[2022-08-23 13:25] LABS: ALB/GLOB Ratio 0.9 RATIO (0.9-2.4); AST(SGOT) 23 U/L (15-37); Alanine Aminotransfer ALT/SGPT 42 U/L (16-61); Albumin, Serum 3.6 g/dL (3.2-5.0); Alkaline Phosphatase 83 U/L (45-117); Anion Gap 7 (5-15); BUN 31 mg/dL (7-18); BUN/Creat Ratio 24.8 RATIO (10-20); Calcium,Total 8.9 mg/dL (8.5-10.1); Chloride 103 mmol/L (98-107); Cholesterol 169 mg/dL (200); Creatinine, Serum 1.25 mg/dL (0.70-1.30); EST Glomerular Filtration Rate 67 mL/min (>60); Est Glom Filt Rate - Afr Amer 82 mL/min (>60); Globulin 4.2 g/dL (2.2-4.2); Glucose 119 mg/dL (74-106); High Density Lipoprotein 38 mg/dL; Potassium 4.6 mmol/L (3.5-5.1); Protein, Total 7.8 g/dL (6.4-8.2); Sodium Level 136 mmol/L (136-145); Thyroid Stim Hormone (TSH) 2.09 uIU/mL (0.358-3.74)
[2022-08-23 13:28] LABS: Hemoglobin A1c 6.2 % (3.8-5.6)
[2022-08-23 13:37] LABS: Microalbumin,Random Urine 5.2 mg/L (NO RANGE EST.); Microalbumin:Creatinine Ratio 3.9 mg/g CRE (<30 mg/g CRE)
== END | disposition home or self-care (01) ==
LOC: LAB 12:16
PROVIDERS: PCP Family Medicine; Referring Provider Family Medicine; Visit Provider Family Medicine
DX: Z00.01 Encounter for general adult medical examination with abnormal findings (principal); G81.10 Spastic hemiplegia affecting unspecified side; E66.01 Morbid (severe) obesity due to excess calories; Z68.41 Body mass index [BMI] 40.0-44.9, adult; E88.81 Metabolic syndrome and other insulin resistance; I10 Essential (primary) hypertension; G47.30 Sleep apnea, unspecified
CPT/HCPCS: 36415; 80053; 82043; 82465; 82570; 83036; 83718; 84443; 85025

== ENCOUNTER → 2023-02-17 | Outpatient (CLI) | payer BC, SELFPAY ==
[2023-02-17 12:24] LABS: Absolute Lymphocyte Count 1.33 X10^3/uL (0.83-4.51); Absolute Neutrophil Count 6.1 X10^3/uL (2.0-7.7); Basophil# 0.04 X10^3/uL; Basophil% 0.5 % (0-1); Eosinophil# 0.33 X10^3/uL; Eosinophils% 3.9 % (0-5); Hematocrit 41.5 % (40-54); Hemoglobin 13.1 g/dL (13.0-16.5); Lymphocyte # 1.33 X10^3/ul (0.83-4.51); Lymphocyte % 15.8 % (19-41); Mean Corp Hgb Conc 31.6 g/dL (32-36); Mean Corpuscular Hgb 29.6 pg (27.0-32.0); Mean Corpuscular Volume 93.9 fL (80-94); Monocyte# 0.61 X10^3/uL; Monocyte% 7.2 % (0-10); NRBC Flagged by Analyzer 0 % (0-5); Neutrophil # 6.09 X10^3/uL (2.7-7.7); Neutrophil % 72.1 % (47-70); POSITIVE COUNT YES; RBC Distribution Width CV 12.6 % (11.6-14.6); RBC Distribution Width SD 43.6 fl (35.1-43.9); Red Blood Count 4.42 M/mm3 (4.6-6.2); White Blood Count 8.4 K/mm3 (4.4-11.0)
[2023-02-17 12:56] LABS: Differential Indicated SCAN CRITERIA MET
[2023-02-17 12:57] LABS: Differential Comment SCANNED; Platelet Estimate ADEQUATE (ADEQ)
[2023-02-17 12:58] LABS: ALB/GLOB Ratio 0.8 RATIO (0.9-2.4); AST(SGOT) 15 U/L (15-37); Alanine Aminotransfer ALT/SGPT 46 U/L (16-61); Albumin, Serum 3.3 g/dL (3.2-5.0); Alkaline Phosphatase 76 U/L (45-117); Anion Gap 7 (5-15); BUN 26 mg/dL (7-18); BUN/Creat Ratio 22.8 RATIO (10-20); Calcium,Total 8.6 mg/dL (8.5-10.1); Chloride 107 mmol/L (98-107); Cholesterol 160 mg/dL (200); Creatinine, Serum 1.14 mg/dL (0.70-1.30); EST Glomerular Filtration Rate 75 mL/min (>60); Est Glom Filt Rate - Afr Amer 91 mL/min (>60); Globulin 4.4 g/dL (2.2-4.2); Glucose 110 mg/dL (74-106); High Density Lipoprotein 45 mg/dL; Potassium 4.3 mmol/L (3.5-5.1); Protein, Total 7.7 g/dL (6.4-8.2); Sodium Level 137 mmol/L (136-145)
== END | disposition home or self-care (01) ==
PROVIDERS: PCP Family Medicine; Visit Provider Family Medicine
DX: E88.810 Metabolic syndrome (principal); G81.10 Spastic hemiplegia affecting unspecified side; E66.01 Morbid (severe) obesity due to excess calories; I10 Essential (primary) hypertension
CPT/HCPCS: 36415; 80053; 82465; 83036; 83718; 85025

== ENCOUNTER → 2023-12-06 | Outpatient (CLI) | payer BC, SELFPAY ==
[2023-12-06 09:08] LABS: Absolute Lymphocyte Count 1.66 X10^3/uL (0.83-4.51); Basophil# 0.05 X10^3/uL; Basophil% 0.6 % (0-1); Eosinophil# 0.37 X10^3/uL; Eosinophils% 4.2 % (0-5); Hematocrit 39.3 % (40-54); Hemoglobin 12.7 g/dL (13.0-16.5); Lymphocyte # 1.66 X10^3/ul (0.83-4.51); Lymphocyte % 18.7 % (19-41); Mean Corp Hgb Conc 32.3 g/dL (32-36); Mean Corpuscular Hgb 29.3 pg (27.0-32.0); Mean Corpuscular Volume 90.6 fL (80-94); Mean Platelet Vol. 9.6 fl (6.2-12.0); Monocyte# 0.74 X10^3/uL; Monocyte% 8.3 % (0-10); NRBC Flagged by Analyzer 0 % (0-5); Neutrophil # 6.03 X10^3/uL (2.7-7.7); Neutrophil % 67.6 % (47-70); Platelet Count 303 K/mm3 (150-450); RBC Distribution Width CV 13.5 % (11.6-14.6); RBC Distribution Width SD 44.7 fl (35.1-43.9); Red Blood Count 4.34 M/mm3 (4.6-6.2); White Blood Count 8.9 K/mm3 (4.4-11.0)
[2023-12-06 10:06] LABS: Hemoglobin A1c 5.7 % (3.8-5.6)
[2023-12-06 10:09] LABS: ALB/GLOB Ratio 0.9 RATIO (0.9-2.4); AST(SGOT) 16 U/L (15-37); Alanine Aminotransfer ALT/SGPT 53 U/L (16-61); Albumin, Serum 3.4 g/dL (3.2-5.0); Alkaline Phosphatase 75 U/L (45-117); Anion Gap 8 (5-15); BUN 27 mg/dL (7-18); BUN/Creat Ratio 25.2 RATIO (10-20); Calcium,Total 8.7 mg/dL (8.5-10.1); Chloride 108 mmol/L (98-107); Cholesterol 170 mg/dL (200); Creatinine, Serum 1.07 mg/dL (0.70-1.30); EST Glomerular Filtration Rate 80 mL/min (>60); Est Glom Filt Rate - Afr Amer 97 mL/min (>60); Globulin 3.9 g/dL (2.2-4.2); Glucose 112 mg/dL (74-106); High Density Lipoprotein 41 mg/dL; Protein, Total 7.3 g/dL (6.4-8.2); Sodium Level 137 mmol/L (136-145); Triglycerides 88 mg/dL; Very Low Density Lipoprotein 18 mg/dL (5-40)
[2023-12-06 10:27] LABS: Microalbumin:Creatinine Ratio 26.4 mg/g CRE (<30 mg/g CRE)
== END | disposition home or self-care (01) ==
PROVIDERS: PCP Family Medicine; Referring Provider Family Medicine; Visit Provider Family Medicine
DX: E88.810 Metabolic syndrome (principal); I10 Essential (primary) hypertension
CPT/HCPCS: 36415; 80053; 80061; 82043; 82570; 83036; 85025

== ENCOUNTER 2024-03-10 07:51 | Day surgery (SDC) | payer BC, SELFPAY ==
--- NOTE | 2024-03-10 | COLBX_PTH ---
PATIENT: JAVIER PANTOJA LOC: EN U#:[id number] AGE/SX: 43/M ROOM: RE03/10/[address]: Dr. Kristin Thorne MD : 1980 BED: DIS: 03/10/2024 SPEC #: [id number] RECD: 03/10/24 13:39 STATUS: GAYATRI CONLEY #: [id number] JOSE GUADALUPE: 03/10/24 00:[address]: Kristin Thorne DEPT: SURGICAL PATHOLOGY RECD BY: Khoa Teague ENTERED: 03/10/24 13:40 SP TYPE: COLON BX OTHR DR: Dr. David Ojeda MD Tissues: A - COLON BIOPSY B - Ascending colon C - Transverse colon D - Rectum, NOS Procedures: Surgery Specimen Level IV HEADER OPERATION: Colonoscopy and polypectomy PRE-OP DIAGNOSIS: Family history of colon cancer TISSUE SUBMITTED: A- Appendiceal polyp, B- Ascending colon polyp, C- Transverse colon polyp, D- Rectal polyp MICROSCOPIC DIAGNOSIS A. Appendiceal polyp, biopsy: Fragments of hyperplastic polyp. B. Ascending colon polyp, biopsy: Polypoid fragments of benign colonic mucosa. See comment. C. Transverse colon polyp, biopsy: Tubular adenoma. D. Rectal polyp, biopsy: Hyperplastic polyp. AMPam 03/12/2024 COMMENT B. A benign appearing lymphoid aggregate is present. Clinical correlation is suggested. MICROSCOPIC DESCRIPTION Slides are reviewed. GROSS DESCRIPTION A. Received in fixative is one container labeled with the patient's name and designated Appendiceal polyp. The specimen consists of multiple irregular fragments of light henry soft tissue that in aggregate measure 1.0 x 0.3 x 0.1 cm. The specimen is totally submitted in one cassette. B. Received in fixative is one container labeled with the patient's name and designated Ascending colon polyp. The specimen consists of one irregular fragment of light henry soft tissue that measures 0.5 x 0.3 x 0.1 cm. The specimen is totally submitted in one cassette. C. Received in fixative is one container labeled with the patient's name and designated Transverse colon polyp. The specimen consists of one irregular fragment of light henry soft tissue that measures 0.5 x 0.5 x 0.1 cm. The specimen is totally submitted in one cassette. D. Received in fixative is one container labeled with the patient's name and designated Rectal polyp. The specimen consists of one irregular fragment of light henry soft tissue that measures 0.5 x 0.5 x 0.2 cm. The specimen is totally submitted in one cassette. 03/10/2024 TC:5 CPT:[id number]
--- NOTE | 2024-03-10 08:09 | H&P.OPEN ---
[facility] - General General Date of Service: 03/10/24 HPI Narrative JAVIER PANTOJA, is a 43 M who presents for screening colonoscopy. Patient's father was diagnosed with stage III colon cancer at age 53. Patient has bowel movements daily denies any blood. Patient denies any chronic abdominal pain/nausea/vomiting/reflux. Patient's never had previous colonoscopy. [facility] Medical History (Updated 03/08/24 @ 12:10 by Delores Choi) Ambulates with cane Foot drop, right Difficulty walking Dietary restriction CPAP (continuous positive airway pressure) dependence Sleep apnea Non-smoker Cardiology follow-up encounter Umbilical hernia Mood changes Tracheostomy granuloma Sleep apnea in adult GERD (gastroesophageal reflux disease) Stroke Adrenal disorder Home Medications ?Medication ?Instructions ?Recorded ?Last Taken ?Type carvedilol 25 mg tablet 25 mg PO BID BP #60 tabs 09/23/19 Unknown Rx amlodipine 10 mg tablet 5 mg PO DAILY BP 02/10/20 Unknown History multivitamin 1 tab PO DAILY 09/05/20 Unknown History lisinopril 10 mg tablet 10 mg PO BID 04/16/22 Unknown History mecobalamin (vitamin B12) 1,000 500 mcg PO DAILY 04/16/22 Unknown History mcg chewable tablet (B12 Active) cyclobenzaprine 10 mg tablet 10 mg PO TID PRN muscle spasm #90 08/25/23 Unknown Rx tabs magnesium 200 mg tablet 200 mg PO DAILY 09/04/23 Unknown History cholecalciferol (vitamin D3) 25 25 mcg PO DAILY 03/08/24 Unknown History mcg (1,000 unit) chewable tablet (Vitamin D3) Allergy/AdvReac Type Severity Reaction Status Date / Time No Known Allergies Allergy Verified 03/08/24 11:59 Family History Brother Agoraphobia with panic disorder Father Colon cancer Grandfather Diabetes Myocardial infarction Heart disease Surgical History S/P percutaneous endoscopic gastrostomy (PEG) tube placement S/P myringotomy with insertion of tube S/P vasectomy S/P ventricular shunt placement Status post tracheostomy S/P adenoidectomy Social History (Updated 04/16/22 @ 13:11 by Nava Harper) sexually active: No Smoking Status: Never smoker alcohol intake: never substance use type: does not use what type of physical activity do you participate in: other details: PT, OT frequency: 1-2 times per week Past Medical/Surgical History Planned Operation Planned Operative Procedure(s): CSCOPE S.O.S: No Previous Hospitalizations/Surgeries HX Hospitalizations: No HX of Surgeries: Tracheostomy Percutaneous endoscopic gastrostomy Any Problems With Anesthesia: No You/Your Family Experience Fever (Hyperthermia) With Anes: No Cholinesterase deficiency: No Cardiovascular Hx Chest Pain within Last 2 months: No Hx of Irregular Heartbeat and/or Afib: No Hx Heart Attack: No Hx Hypertension: Yes (CONTROLLED WITH MED) Hx Cardiac Surgery/Stents/Etc.: No Hx Pain in Legs when Walking/Leg Cramps: No Respiratory Hx Chronic Obstructive Pulmonary Disease (COPD): No Hx Emphysema: No Hx Sleep Apnea: Yes CPAP: Yes BIPAP: No Hx Respiratory Tract Infection/Cold (presently): No Result (for STOP score): Positive Hx Smoking: No Smoking Status: Never smoker Gastrointestinal Hx Gastrointestinal Bleed: No Hx Ulcer: No Difficulty Chewing/Swallowing: Yes Special diet followed at home: Yes Hx Unplanned Weight Loss of 20#: No Neurological Hx Seizures: No Hx Transient Ischemic Attacks (TIA): No Hx Multiple Sclerosis: No Hx Parkinson's Disease: No Does patient have nerve stimulator: No Blood Disorder Hx Deep Vein Thrombosis: No Hx Hepatitis: No Hx Cirrhosis: No Hx Anemia: No Hx Blood Disorders: No Reproduction : No Genitourinary Hx Renal Disease: No Hx Dialysis: No Musculoskeletal Hx Arthritis: No Hx Rheumatoid Arthritis: No Endocrine Hx Diabetes: No Thyroid Disease: No Psycho/Social Hx Substance Use: No Hx Alcohol Use: No Hx Anxiety: No Hx Depression: No Hx Dementia: No Miscellaneous Hx Cancer: No Recent Exposure to Contagious Disease: No Allergies No Known Allergies Allergy (Verified 03/08/24 11:59) Maternal: Family History Brother Agoraphobia with panic disorder Father Colon cancer Grandfather Diabetes Myocardial infarction Heart disease No pertinent history Paternal: Family History Brother Agoraphobia with panic disorder Father Colon cancer Grandfather Diabetes Myocardial infarction Heart disease No pertinent history Discharge Is Pt Admitted From a Senior Care, or a Correction: No After D/C, Where Do you Plan to Go: Return Home Physical Exam Const alert, oriented x3 and no apparent distress HEENT normocephalic and head/scalp atraumatic Resp normal respiratory effort Cardio regular rate GI soft to palpation and non-tender; Negative for non-distended Palpation: hernia umbilical (Incarcerated, no change the overlying skin); Negative for guarding Extremity no clubbing, cyanosis or edema Skin no rashes or lesions noted Neuro CN's II-XII intact bilaterally Psych mental status grossly normal Assessment & Plan Assessment/Plan (1) Family history of colon cancer in father: Surgery Risks - Colonoscopy I discussed with the patient the risks of the procedure: Yes Risks Include but are not Limited To: Risks include but are not limited to: Bleeding, perforation requiring further surgery, inability to complete colonoscopy requiring barium enema.
[2024-03-10 08:19] VITALS: BP 119/69; PULSE 82; RESP 18; TEMP 36.5; O2SAT 99; BMI 44.0
--- NOTE | 2024-03-10 08:21 | PRE.ANES_ITS ---
ASA Classification* ASA Classification ASA Classification: 3 Assessment & Plan Anesthesia* Anesthesia Assessment Anesthesia Assessment: Discussed sedation and/or anesthesia options, risks, benefits, and alternatives with patient/parents/legal guardian/POA. Questions invited. The patient/parents/legal guardian/POA seems to understand and agrees to proceed with anesthesia plan. Reviewed the physical assessment, medical history, allergy history and patient home medications list prior to surgery/procedure/anesthetic and documented any changes. Performed airway and anesthesia risk assessments. Anesthesia Type Anesthesia Type: MAC Anesthesia Focused Assessment* Airway Assessment Mouth opens: >3 cm Mallampati Score: II Focused Labs Anesthesia Preop lab: CBC WBC 8.9 K/mm3 (4.4-11.0) 12/06/23 08: RBC 4.34 M/mm3 (4.6-6.2) L 12/06/23 08:26 Hgb 12.7 g/dL (13.0-16.5) L 12/06/23 08:26 Hct 39.3 % (40-54) L 12/06/23 08:26 Plt Count 303 K/mm3 (150-450) 12/06/23 08:26 CHEMISTRY Potassium 4.0 mmol/L (3.5-5.1) 12/06/23 08:26 Sodium 137 mmol/L (136-145) 12/06/23 08:26 Magnesium 2.2 mg/dL (1.6-2.6) 09/23/19 05:43 Phosphorus 4.9 mg/dL (2.5-4.9) 08/24/19 06:44 BUN 27 mg/dL (7-18) H 12/06/23 08:26 Creatinine 1.07 mg/dL (0.70-1.30) 12/06/23 08:26 Glucose 112 mg/dL (74-106) H 12/06/23 08:26 POC Glucose 101 mg/dL (70-110) 08/21/19 06:39 TSH 2.09 uIU/mL (0.358-3.74) 08/23/22 12:20 COAG PT 14.6 SECONDS (11.7-14.9) 06/09/19 21:00 Pre-Assessment Diagnosis/Proposed Procedure Planned Operative Procedure(s): CSCOPE Anesthesia History Anesthesia History - mental health nurse practitioner: Anesthesia History - mental health nurse practitioner Hx Hospitalization No 03/10/24 08:11 Any Problems With Anesthesia No 03/10/24 08:11 Cholinesterase deficiency No 03/10/24 08:11 You/Your Family Experience No 03/10/24 08:11 fever (hyperthermia) with Relationship Recent Exposure to Contagious No 03/10/24 08:11 Disease Does patient have nerve No 03/10/24 08:11 stimulator Patient instructed to have device shut off --Does patient have Pacemaker or ICD? When Was Last Pacemaker Check QUESTION #4 FULL TEXT: You/Your Family Experience fever (hyperthermia) with Anesthesia Last Oral Intake Last Oral intake: Last Oral Intake NPO since Meds taken in AM with sips of water? Meds patient instructed to take am of surgery PONV PONV - mental health nurse practitioner: PONV - mental health nurse practitioner Female No 03/08/24 12:01 HX of Motion Sickness No 03/08/24 12:01 HX of N/V After Surgery No 03/08/24 12:01 Non-Smoker Yes 03/08/24 12:01 Duration of Surgery greater No 03/08/24 12:01 than 60 minutes Number of Risk Factors 1 03/08/24 12:01 PONV Score Low Risk 03/08/24 12:01 Height & Weight Height & Weight: Anesthesia: Height & Weight Height 5 ft 5 in 09/04/23 14:28 Respiratory Assessment Respiratory Assessment - mental health nurse practitioner: Respiratory Tract Infection Hx - mental health nurse practitioner Hx Respiratory Tract Infection No 03/10/24 08:11 STOP Sleep Apnea STOP Sleep Apnea - mental health nurse practitioner: STOP Sleep Apnea - mental health nurse practitioner Hx Hypertension Yes: CONTROLLED WITH MED 03/10/24 08:11 Hx Sleep Apnea Yes 03/10/24 08:11 CPAP Yes 03/10/24 08:11 BIPAP No 03/10/24 08:11 Do you snore loudly (louder than talking or can be heard Do you often feel tired/ fatigued/ sleepy during daytime? Has anyone observed you stop breathing during sleep? STOP Results Positive 03/10/24 08:11 QUESTION #5 FULL TEXT : Do you snore loudly (louder than talking or can be heard through closed doors)? Tobacco Use History Tobacco Use History - mental health nurse practitioner: Tobacco Use History - mental health nurse practitioner Tobacco Use Smoking Status Never smoker 03/10/24 08:11 Hx Tobacco Use No 03/08/24 12:01 Years Smoking Packs Smoked per Day Smoking Cessation Date was within the last 15 years Hx Smoking Cessation Date Hx Smoking Cessation Counseling Hematologic Medial History Hematologic Hx - mental health nurse practitioner: Hematologic Medical Hx - biology laboratory assistant Hx of Blood Transfusion No 03/08/24 12:01 Hx of Transfusion in last 3 No 03/08/24 12:01 Months Date of Last Transfusion (if within last 3 months) Ever experience any problems No 03/08/24 12:01 with transfusion(s)? Specify any problems Hx of Preganancy in last 3 N/A 03/08/24 12:01 Months Nurse Filling Out Transfusion NBUCHER 03/08/24 12:01 & Questions: Date: 03/08/24 03/08/24 12:01 Time: 12:04 03/08/24 12:01 Patient unable to answer at this time (ie. confused, unrespo /Reproduction History /Reproductive History - mental health nurse practitioner: /Reproductive Hx- mental health nurse practitioner Hx Now No 03/10/24 08:11 Gestational Age (in weeks): EDC: Hx Hx Para Hx Section SAB No 03/08/24 12:01 PFSH Medical History Ambulates with cane Foot drop, right Difficulty walking Dietary restriction CPAP (continuous positive airway pressure) dependence Sleep apnea Non-smoker Cardiology follow-up encounter Umbilical hernia Mood changes Tracheostomy granuloma Sleep apnea in adult GERD (gastroesophageal reflux disease) Stroke Adrenal disorder Home Medications ?Medication ?Instructions ?Recorded ?Last Taken ?Type carvedilol 25 mg tablet 25 mg PO BID BP #60 tabs 09/23/19 03/10/24 07:05 Rx amlodipine 10 mg tablet 5 mg PO DAILY BP 02/10/20 Unknown History multivitamin 1 tab PO DAILY 09/05/20 Unknown History lisinopril 10 mg tablet 10 mg PO BID 04/16/22 03/10/24 07:05 History mecobalamin (vitamin B12) 1,000 500 mcg PO DAILY 04/16/22 Unknown History mcg chewable tablet (B12 Active) cyclobenzaprine 10 mg tablet 10 mg PO TID PRN muscle spasm #90 08/25/23 Unknown Rx tabs magnesium 200 mg tablet 200 mg PO DAILY 09/04/23 Unknown History cholecalciferol (vitamin D3) 25 25 mcg PO DAILY 03/08/24 Unknown History mcg (1,000 unit) chewable tablet (Vitamin D3) Allergy/AdvReac Type Severity Reaction Status Date / Time No Known Allergies Allergy Verified 03/10/24 08:16 Family History Brother Agoraphobia with panic disorder Father Colon cancer Grandfather Diabetes Myocardial infarction Heart disease Surgical History S/P percutaneous endoscopic gastrostomy (PEG) tube placement S/P myringotomy with insertion of tube S/P vasectomy S/P ventricular shunt placement Status post tracheostomy S/P adenoidectomy Social History sexually active: No Smoking Status: Never smoker alcohol intake: never substance use type: does not use what type of physical activity do you participate in: other details: PT, OT frequency: 1-2 times per week Review of Systems (Anesthesia) ROS Narrative System reviewed and no additional complaints, except as documented.
[2024-03-10 09:51] VITALS: BP 102/65; BP 119/69; PULSE 73; RESP 18; TEMP 36.5; O2SAT 93
--- NOTE | 2024-03-10 09:52 | OP.COLON_ITS ---
Patient Name: Segundo Mora Procedure Date: 03/10/2024 9:18 AM Date of : 1980 Age: 43 Procedure: Colonoscopy Indications: Screening in patient at increased risk: Colorectal cancer in father before age 60 Providers: Kristin Thorne MD Referring MD: David Ojeda Medicines: Monitored Anesthesia Care Patient Profile: This is a 43 year old male. Last Colonoscopy: none. The patient's first colonoscopy is today. Complications: No immediate complications. Procedure: Pre-Anesthesia Assessment: - Prior to the procedure, a History and Physical was performed, and patient medications and allergies were reviewed. The patient's tolerance of previous anesthesia was also reviewed. The risks and benefits of the procedure and the sedation options and risks were discussed with the patient. All questions were answered, and informed consent was obtained. Prior Anticoagulants: The patient has taken no anticoagulant or antiplatelet agents. ASA Grade Assessment: Per anesthesia. After reviewing the risks and benefits, the patient was deemed in satisfactory condition to undergo the procedure. After I obtained informed consent, the scope was passed under direct vision. Throughout the procedure, the patient's blood pressure, pulse, and oxygen saturations were monitored continuously. The Colonoscope was introduced through the anus and advanced to the cecum, identified by the appendiceal orifice, ileocecal valve and palpation. The colonoscopy was performed without difficulty. The patient tolerated the procedure well. The quality of the bowel preparation was good. Scope In: 9:24:18 AM Scope Withdrawal Time 0 hours 15 minutes 22 seconds Scope Out: 9:45:07 AM Total Procedure Duration Time 0 hours 20 minutes 49 seconds Findings: The perianal and digital rectal examinations were normal. Three sessile polyps were found in the transverse colon, ascending colon and appendiceal orifice. The polyps were less than 5 mm in size. These polyps were removed with a cold biopsy forceps. Resection and retrieval were complete. A less than 5 mm polyp was found in the rectum. The polyp was semi-pedunculated. The polyp was removed with a hot snare. Resection and retrieval were complete. The exam was otherwise without abnormality on direct and retroflexion views. Impression: - Three less than 5 mm polyps in the transverse colon, in the ascending colon and at the appendiceal orifice, removed with a cold biopsy forceps. Resected and retrieved. - One less than 5 mm polyp in the rectum, removed with a hot snare. Resected and retrieved. - The examination was otherwise normal on direct and retroflexion views. Recommendation: - Discharge patient to home. - Resume previous diet. - Continue present medications. - Await pathology results. - Repeat colonoscopy in 3 years for surveillance based on pathology results. Procedure Code(s): --- Professional --- 79495, PT, Colonoscopy, flexible; with removal of tumor(s), polyp(s), or other lesion(s) by snare technique 11779, 59, Colonoscopy, flexible; with biopsy, single or multiple Diagnosis Code(s): --- Professional --- Z80.0, Family history of malignant neoplasm of digestive organs D12.3, Benign neoplasm of transverse colon (hepatic flexure or splenic flexure) D12.2, Benign neoplasm of ascending colon D12.1, Benign neoplasm of appendix D12.8, Benign neoplasm of rectum CPT copyright 2021 [employer]. All rights reserved. The codes documented in this report are preliminary and upon video game producer review may be revised to meet current compliance requirements. MD Kristin Miller MD 03/10/2024 9:51:53 AM This report has been signed electronically. Number of Addenda: 0 Note Initiated On: 03/10/2024 9:18 AM
--- NOTE | 2024-03-10 09:52 | OP.CCLET_ITS ---
03/10/2024 David Ojeda [address] [place] [address] Re : Colonoscopy procedure for Segundo Mora Dear Dr. Ojeda This procedure was performed on Sunday, March 10, 2024. My impressions and recommendations are as follows: Impressions : - Three less than 5 mm polyps in the transverse colon, in the ascending colon and at the appendiceal orifice, removed with a cold biopsy forceps. Resected and retrieved. - One less than 5 mm polyp in the rectum, removed with a hot snare. Resected and retrieved. - The examination was otherwise normal on direct and retroflexion views. Recommendations : - Discharge patient to home. - Resume previous diet. - Continue present medications. - Await pathology results. - Repeat colonoscopy in 3 years for surveillance based on pathology results. My findings are described in the full procedure note, which is enclosed. If I can be of further assistance, please feel free to contact me at Doctor phone number(s): , Work: . Sincerely, MD Kristin Miller MD 03/10/2024 9:51:53 AM This report has been signed electronically.
[2024-03-10 09:55] VITALS: BP 119/69; BP 98/65; PULSE 73; RESP 18; O2SAT 95
--- NOTE | 2024-03-10 09:55 | PCM.POST.ANE ---
Anesthesia: Postop Eval I Current Vital Signs Temperature: 97.7 F Pulse Rate: 74 Blood Pressure: 102/65 Respiratory Rate: 16 Pulse Ox: 96 Oxygen Delivery Method: Room Air Assessment Airway patent: Yes Spontaneous unlabored respirations: Yes Mental status: Asleep nausea: No Vomiting: No Anesthesia Complication: No Fluid Hydration Crystalloid volume administer (ml): 40 Total IV fluid infused: 40 Progress Note Anesthesia document: Postop Eval 1 completed: Yes
[2024-03-10 09:56] VITALS: BP 102/65; PULSE 74; RESP 16; TEMP 36.5; O2SAT 96
--- NOTE | 2024-03-10 09:57 | PCM.POSTANE2 ---
Anesthesia Postop Eval I Sum Postop Eval Completion status Anesthesia document: Postop Eval 1 completed: Yes Anesthesia Postop Eval I Summary Anesthesia Postop Eval I Summary: Anesthesia Postop Eval I: Assessment Summary Airway patent Yes 03/10/24 09:56 [email or web address] Spontaneous unlabored Yes 03/10/24 09:56 [email or web address] respirations Mental status Asleep 03/10/24 09:56 [email or web address] nausea No 03/10/24 09:56 [email or web address] Vomiting No 03/10/24 09:56 [email or web address] Anesthesia Postop Eval I: Fluid Summary Crystalloid volume administer 40 03/10/24 09:56 [email or web address] (ml) Colloids volume administered ( ml) Blood Product volume administered (ml) Total IV fluid infused 40 03/10/24 09:56 [email or web address] Anesthesia Postop Eval I: Summary Notes Anesthesia Complication No 03/10/24 09:56 [email or web address] Anesthesia Complication Comment: Post-operative progress note Anesthesia: Postop Eval II Evaluation Mental status: Awake Pain Level: 0 nausea: No Vomiting: No
[2024-03-10 10:00] VITALS: BP 109/66; BP 119/69; PULSE 75; RESP 18; TEMP 36.3; O2SAT 93
[2024-03-10 10:32] VITALS: BP 119/69
== END 2024-03-10 10:53 | disposition home or self-care (01) ==
LOC: EN 07:51 → AC 07:51
PROVIDERS: PCP Family Medicine; Referring Provider Family Medicine; Visit Provider Surgery
PROC: 0DJD8ZZ Inspection of Lower Intestinal Tract, Via Natural or Artificial Opening Endoscopic (ICD-10-PCS; CPT 45378; principal; 2024-03-10 08:55)
DX: Z12.11 Encounter for screening for malignant neoplasm of colon (principal); I69.351 Hemiplegia and hemiparesis following cerebral infarction affecting right dominant side; Z80.0 Family history of malignant neoplasm of digestive organs; K21.9 Gastro-esophageal reflux disease without esophagitis; D12.3 Benign neoplasm of transverse colon; K62.1 Rectal polyp; Z79.899 Other long term (current) drug therapy; I10 Essential (primary) hypertension
CPT/HCPCS: 45380; 45385; 88305; A4216; J2405

== ENCOUNTER → 2024-07-02 | Outpatient (CLI) | payer BC, SELFPAY ==
[2024-07-02 12:58] LABS: ALB/GLOB Ratio 1.3 RATIO (0.9-2.4); AST(SGOT) 20 U/L (<=37); Alanine Aminotransfer ALT/SGPT 37 U/L (<=46); Albumin, Serum 4.2 g/dL (3.5-5.0); Alkaline Phosphatase 70 U/L (40-129); Anion Gap 10 (5-15); BUN 27 mg/dL (4-19); Calcium,Total 9.2 mg/dL (7.6-11.0); Carbon Dioxide 24.2 mmol/L (21.0-32.0); Chloride 101 mmol/L (98-108); Creatinine, Serum 1.01 mg/dL (0.70-1.20); EST Glomerular Filtration Rate 95 (>60); Globulin 3.3 g/dL (2.2-4.2); Glucose 103 mg/dL (70-99); Potassium 4.8 mmol/L (3.3-5.1); Protein, Total 7.5 g/dL (5.9-8.4); Sodium Level 134 mmol/L (133-145); Total Bilirubin 0.28 mg/dL (0.00-1.30)
== END | disposition home or self-care (01) ==
LOC: LAB 12:01
PROVIDERS: PCP Family Medicine; Referring Provider Family Medicine; Visit Provider Family Medicine
DX: I10 Essential (primary) hypertension (principal)
CPT/HCPCS: 36415; 80053

== ENCOUNTER → 2024-10-18 | Outpatient (CLI) | payer BC, SELFPAY ==
[2024-10-18 08:35] LABS: Hematocrit 40.3 % (40-54); Hemoglobin 13.2 g/dL (13.0-16.5); Immature Granulocytes Count 0.020 X10^3/uL (0.0-0.0); Mean Corp Hgb Conc 32.8 g/dL (32-36); Mean Corpuscular Volume 92.0 fL (80-94); Mean Platelet Vol. 9.7 fl (6.2-12.0); NRBC Flagged by Analyzer 0 % (0-5); Platelet Count 301 K/mm3 (150-450); RBC Distribution Width CV 12.8 % (11.6-14.6); RBC Distribution Width SD 43.1 fl (35.1-43.9); Red Blood Count 4.38 M/mm3 (4.6-6.2); White Blood Count 7.1 K/mm3 (4.4-11.0)
[2024-10-18 09:24] LABS: AST(SGOT) 18 U/L (<=37); Alanine Aminotransfer ALT/SGPT 33 U/L (<=46); Albumin, Serum 4.2 g/dL (3.5-5.0); Alkaline Phosphatase 75 U/L (40-129); Anion Gap 10 (5-15); BUN 24 mg/dL (4-19); BUN/Creat Ratio 22.6 RATIO (10-20); Calcium,Total 9.3 mg/dL (7.6-11.0); Carbon Dioxide 26.2 mmol/L (21.0-32.0); Chloride 104 mmol/L (98-108); Globulin 3.2 g/dL (2.2-4.2); Glucose 115 mg/dL (70-99); Potassium 4.7 mmol/L (3.3-5.1)
== END | disposition home or self-care (01) ==
LOC: LAB 07:55
PROVIDERS: PCP Family Medicine; Referring Provider Family Medicine; Visit Provider Family Medicine
DX: E66.813 Obesity, class 3 (principal)
CPT/HCPCS: 36415; 80053; 83036; 85025

== ENCOUNTER 2024-12-20 11:00 | Outpatient (RCR) | payer BC, SELFPAY ==
--- NOTE | 2024-04-19 12:53 | HP.PTEVAL ---
Patient's Visit Information Visit Information Visit Information: JAVIER PANTOJA is a 43 year old M referred to Physical Therapy by SILVIA Bañuelos with a diagnosis of CVA, R sided weakness. Date of Evaluation: 04/19/24 Physical Therapist: Dc Ng DPT Visit Plan Frequency: 1x/Week Duration: 8 weeks Plan: 1) ankle EVR, DF, PF strengthening 2) BLE strengthening 3) dynamic balance training progressing to SL RLE balance. Subjective Subjective: Pt. is here today for his initial evaluation with diagnosis of H/O CVA with R sided effected, CVA 2019. 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 Pt. reports that he would like to increase his overall function, "back to normal," but also improve R LE strength and stability with dynamic mobility. Pt. is hopeful to get back to cycling to work. I talked to him about a 3 wheeled bike, but he was hopeful for a two wheeled bike. Pt. reports his R ankle still wants to turn in at times, but has become more aurora. He used to wear a brace, but is no longer wearing this. Pt. is hopeful to work on strengthening of his RLE in order to increase stability and dynamic mobility. Objective Objective: POSTURE: Pt. has a general flexed posture. Pt. has a wide EVA. Pt. is able to stand without AD, but has sway back posture and wide EVA PALPATION: Pt. has no pain with all palpation. NEURO: Pt. has normal DTR of BLEs. Pt. has normal sensation of BLEs. Pt. is able to rise on heels and toes, but has a marked deviation to L side with heel raises. MMT: RLE: ankle: DF 18.0#, PF 35.4# EVR 15.0#, INV 22.9#, knee: ext 44.6#, flexion 29.2# LLE: ankle DF 25.1#, PF 42.4#, EVR 34.7#, INV 28.3#, knee: ext 60.7#, flexion 70.8#. GAIT: Pt. ambulates with SPC, but has exaggerated reach with RLE rather than wt. shift onto the R side during gait. TU.12 with SPC, 19.3 without AD Balance/Special Test Scores Lower Extremity Functional Score: 41 TUG Test Time Seconds: 19.3 30 Second Chair Rise Test Seconds: 11 Goals Goal 1:: LTG: Pt. to be I with HEP. Goal Time Frame: 6-8 Weeks Goal 2:: LTG: Pt. to have increased R LE strength symmetrical to L side. Goal Time Frame: 6-8 Weeks Goal 3:: LTG: Pt. to have increased TUG time to less than 10seconds with SPC. Goal Time Frame: 4-6 Weeks Goal 4:: LTG: Pt. to completed 30 sec sit to stand test with 15 reps indicating increased BLE functional strength. Goal Time Frame: 6-8 Weeks Goal 5:: LTG: Pt. to be able to complete single leg heel raise on RLE with good R ankle stability. Goal Time Frame: 4-6 Weeks Rehabilitation Potential Physical Therapy Diagnosis: Pt. has signs and symptoms consistent with history of CVA with R sided weakness. Pt. has improved RLE strength, but still limited compared to other side. Pt. has some marked mobility issues and would benefit from PT to address the ankle strengthening and stability with gait/balance. Rehabilitation Potential: Excellent Anticipated Interventions Patient/Client Instruction: Educate patient on: Condition, Plan of Care, Risk Factors and Benefits of Fitness Program For the Purpose of:: To improve decision making, To facilitate caregiver knowledge, To improve self management and To prevent re-injury Therapeutic Exercise to Include: Strength training, Power training, Agility training, Postural training, Flexibilty training, Gait and locomotor training and Neuromotor development For the Purpose of:: To decrease level of supervision to perform tasks, To improve ability of physical actions for home/community/work/leisure, To improve gait and locomotor functions, To improve health of tissue, To increase flexibility/ROM and To improve balance Text: Thank you for the opportunity to evaluate your patient. For Medicare and Medicare HMO plans, please review the plan of care and approve it. It will need to be FAXED BACK to us at [phone] for Medicare purposes. For Medicare only, by signing this I certify the plan of care. Please let me know if there are questions or concerns regarding this plan of care. Physician Signature: Date:
--- NOTE | 2024-06-28 10:58 | HP.PTREVAL ---
Re-Evaluation Intro: Mirela Mckeon, SILVIA, It has been my pleasure to treat JAVIER PANTOJA over the last 7 visits for CVA, R sided weakness. Please see the progress note below for an update on the physical therapy plan of care! Subjective Subjective: Pt. reports overall doing better. He still is unable to ride his bike like he would want to. He has not fallen recently. Pt. reports no major pain. Objective Objective/Function: TU.4 with SPC and 12.6sec without Ad. Pt. was safer with AD. 30sec sit to stand without use of UEs 13. GAIT: PT. ambulates with SPC with decent stability, but does have marked ataxia MMT: Pt. has marked weakness with his R ankle. He is almost able to complete SL heel raise on R, but has some instability with trials. He has marked weakness with his R anterior tib as well. Pt. has goals of getting around with a bicycle for community ambulation due to having to get rid of his car for new residence. With his limited balance and stability I suggested a three wheeled bike for safety. Plan Plan Plan: I am asking for further PT to work on further balance and BLE strength. I would suggest continued PT to work on RLE strength and dynamic balance in order to increase safety with hope of riding bicycle as primary mode of getting around. Balance/Gait/Functional tests Balance/Special Test Scores Lower Extremity Functional Score: 45 TUG Test Time Seconds: 13.4 Tug Test: <20 sec.=mostly independent 30 Second Chair Rise Test Seconds: 13 Goals Goals Goal 1:: LTG: Pt. to be I with HEP. Goal Time Frame: 6-8 Weeks Goal Progress: Progressing Goal 2:: LTG: Pt. to have increased R LE strength symmetrical to L side. Goal Time Frame: 6-8 Weeks Goal Progress: Progressing Goal 3:: LTG: Pt. to have increased TUG time to less than 10seconds with SPC. Goal Time Frame: 4-6 Weeks Goal Progress: Progressing Goal 4:: LTG: Pt. to completed 30 sec sit to stand test with 15 reps indicating increased BLE functional strength. Goal Time Frame: 6-8 Weeks Goal Progress: Progressing Goal 5:: LTG: Pt. to be able to complete single leg heel raise on RLE with good R ankle stability. Goal Time Frame: 4-6 Weeks Anticipated Interventions Anticipated Interventions Patient/Client Instruction: Educate patient on: Condition, Plan of Care, Risk Factors and Benefits of Fitness Program For the Purpose of:: To improve decision making, To facilitate caregiver knowledge, To improve self management and To prevent re-injury Therapeutic Exercise to Include: Strength training, Power training, Agility training, Postural training, Flexibilty training, Gait and locomotor training and Neuromotor development For the Purpose of:: To decrease level of supervision to perform tasks, To improve ability of physical actions for home/community/work/leisure, To improve gait and locomotor functions, To improve health of tissue, To increase flexibility/ROM and To improve balance Re-Evaluation Ending Re-evaluation ending: Please do not hesitate to contact me at [phone] by phone or if you have questions or concerns regarding this new plan of care! Sincerely, Dc Ng DPT
--- NOTE | 2024-06-28 16:03 | HP.OTEVAL_ITS ---
Patient's Visit Information Visit Information Visit Information: JAVIER PANTOJA is a 43 year old M, referred to Occupational Therapy by SILVIA Bañuelos, with a diagnosis of CVA. Date of Evaluation: 06/28/24 Occupational Therapist: LC De Jesus/Rebeca, CHT Subjective Subjective: This 43 year old male was seen for OT eval with dx of CVA with cramps and spasms- pt states he noticed the sensation he felt the sensation has returned in 2024. Pt states he has gained some right hand movement but still struggles with fluid motion- writing- typing-using right hand for putting seatbelt on- and using right hand for bathing/dressing. Bilateral hand skills such as tying his shoes, folding laundry and meal prep. pt states he has a cramp/ and muscle spasm in right hand - pt states this not get painful. pt states he takes a muscle relaxer 1 x a day. Pt states he would like to get dominate right hand more functional to increase functional use of right UE with ADLs and IADLs. ROM Forearm: right supination 30* left 55* ( with noted compensation at shoulder) ROM Comments: pt demo with cmc collapse with MP hyper extendion right digital ROM is Strength Certified Pesticide Applicator: right 45# left 65# Lateral Pinch: right 14# left 24# Tripod Pinch: right 4# left 18# Strength Comments: pt demo with right thumb MP hyper flex with resistive testing Sensation Sensation Comments: pt testing at 2.83 (interpretation Normal sensation) pt reports constant tingling sensation. pt states more tingling on LF and RF of right hand. Nine Hole Peg Right: 3min 31 seconds Left: 26.55 seconds Comments: pt demo below average with right dominate Fine motor skills In-Hand Manipulation Finger to Palm Translation: Unable - Right and Normal - Left Palm to Finger Translation: Unable - Right and Normal - Left Quick DASH-Disab of Arm,Shoulder& Hand Quick DASH Score: 53.3325 Goals Goal:: pt will demo a increase in right license and permit specialist strength by 10# or greater to inc rease his ind.with IADls as cleaning/meal prep by ravi Goal:: pt will demo a increase in right forearm supination by 15* to increase ind with grooming/dressing tasks by dc Goal:: pt will demo the ability to write name legibly 4/5 trials with good use of distal finger control by d/c pt will demo IND with shoe tying by d/c pt will demo typing with no more than 4 errors by d.c pt will demo a reduction in right 9-hole peg test to under 2 min or less indication of improved ADLs by d.c Goal:: pt will report the ability to fasten seat belt IND with right UE by d.c pt will demo the ability to open jar lids/ clean and prep veg. IND by d/c Rehabilitation General Assessment: pt demo with increase muscle tightness of right UE , limited functional motion and strength decreasing pts IND with ADLs and IADLs. Pt demo need of skilled OT services 1-2x week for 12 weeks to improve pts safe functional use of right dominate hand/UE with ADls and IADLs. Rehabilitation Potential: Good Anticipated Interventions Anticipated Interventions: A/AAROM/PROM, Strengthening, Triggerpoint Release, Sensory Retraining, Modalities, Orthoses, Joint Protection/Energy Conservation, Ergonomic Education, Fine Motor Coord/Aaron, Neuro Reeducation, ADL Training, Education re assistive Equipment, Education re Diagnosis, Caregiver Training and Home Program Visit Plan Frequency: 1-2x /Week Duration: 3 Months TEXT: Thank you for the opportunity to evaluate your patient. For Medicare and Medicare HMO plans, please review the plan of care and approve it. It will need to be FAXED BACK to us at [phone] for Medicare purposes. Please let me know if there are questions or concerns regarding this plan of care. Physician Signature: Date:
--- NOTE | 2024-07-27 11:17 | HP.PTDCSUM ---
Discharge Summary D/C summary: It has been my pleasure to treat JAVIER PANTOJA referred by SILVIA Bañuelos, with the diagnosis of CVA, R sided weakness for a total of 11 visit(s). Discharge Date: 07/27/24 Please see the following information for a summary of their discharge status. Subjective Subjective: Pt. reports overall doing well. Pt. Overall Improvement % Improvement: 75 Objective Objective/Function: MMT: RLE: knee ext 67.4#, flex 31.2#; ankle: DF 43.7#, EVR 28.0#, hip flex50.3# (cogwheel like movement). LLE: knee: ext 69.5#, flex 55.7#, ankle DF 40.8#, EVR 40.8#, hip flex 45.9# TUG; 12.6sec with use of SPC 30sec sit to stand 13 without use of UEs. SL heel raises x10 bilaterally without issues, SL on R some movement, but not able to complete full heel raises on RLE. L heel raise, patient is able to complete 10 with balance assistance. SL balance: 17sec on LLE, sec on RLE. Pt. has marked difficulty with control SLS bilaterally, R worse than L. GAIT: Pt. ambulates with SPC is still ataxic, but no LOB. Pt. did well. Pt. is going to try on his own at this point in time. Pt. to follow up with physician as needed. Goals Goal 1:: LTG: Pt. to be I with HEP. Goal Progress: Progressing Goal 2:: LTG: Pt. to have increased R LE strength symmetrical to L side. Goal Progress: Progressing Goal 3:: LTG: Pt. to have increased TUG time to less than 10seconds with SPC. Goal Progress: Progressing Goal 4:: LTG: Pt. to completed 30 sec sit to stand test with 15 reps indicating increased BLE functional strength. Goal Progress: Progressing Goal 5:: LTG: Pt. to be able to complete single leg heel raise on RLE with good R ankle stability. Goal Progress: Progressing Plan Plan: Pt. to be DC from PT at this point in time. D/C Information d/c sentence: If there are questions or concerns regarding this patient's physical therapy, please feel free to call me at [phone]. Thank you for the referral of this patient. Sincerely, Dc Ng, DPT Balance/Gait/Functional tests Balance/Special Test Scores Lower Extremity Functional Score: 43 TUG Test Time Seconds: 12.6 Tug Test: <20 sec.=mostly independent 30 Second Chair Rise Test Seconds: 13 Improvement % Improvement: 75
--- NOTE | 2024-09-23 11:58 | HP.OTREVAL ---
Re-Evaluation Intro: Mirela Mckeon, LOLA-C, It has been my pleasure to treat JAVIER PANTOJA over the last 13 visits for CVA. Please see the progress note below for an update on the occupational therapy plan of care! Subjective Subjective: pt arrives to OT states he has noticed increase in FM mobility- but still struggles with right hand use for bilateral hand tasks as tying shoes- writing- and typing for work tasks- pt limited with bilateral hand use with activities for meal prep ( cutting and pealing fruits/veg etc) pt would like to cont. services as he continues to make gains towards his IND with self-care. Objective Objective/Function: pt slower with reaction time on right vs left- 9 hole peg test 2 min and 27 sec. this is a improvement from 3 min 31 sec. right contract associate strength 50# a increase from 45# right lateral pinch 12# decrease from 14# right tripod pinch 6# a increase from 4# pt continues to demo ataxic movement limiting pts FMS. pt demo improvements with tasks but continues to demo compensation for ADLs and IADLs pt would like to continue to work on handwriting - typing- and tying and use of his dominate hand with ADls. with work tasks he would like to use his right hand to use hammer or power drill. pt would benefit from further skilled therapy services 1-2x week for 12 weeks to continue to have pt reach his maximal rehab potential. Plan Plan Frequency: 1-2x /Week Duration: 3 Months Visits in this POC: 24 Plan: Cont POC 3 months (1-2x/week) Goals Goals Patient Goals: Regain Mobility, Decrease Swelling/Stiffness, Use Hand/Wrist/Arm Normally Again, Decrease Tingling/Numbness, Be More Independent in ADLS, Decrease Muscle Tone and Resume Former Household Responsibilities (Cooking,Cleaning,Yard, etc.) Goal:: pt will demo a increase in right contract associate strength by 10# or 55# or greater to increase his ind.with IADls as cleaning/meal prep by d.c ( progressing) Goal:: pt will demo a increase in right forearm supination by 15* to increase ind with grooming/dressing tasks by dc (progressing) Goal:: pt will demo the ability to write name legibly 4/5 trials with good use of distal finger control by d/c (progressing) pt will demo IND with shoe tying by d/c ( progressing) pt will demo typing 3 sentences with no more than 4 errors in less than 2 min to demo increased IND with work tasks by d/c pt will demo a reduction in right 9-hole peg test to under 2 min or less indication of improved ADLs by d.c (progressing) Goal:: pt will report the ability to fasten seat belt IND with right UE by d.c (goal met) pt will demo the ability to open jar lids/ clean and prep veg. for meal IND by d/c ( progressing) Anticipated Interventions Anticipated Interventions Anticipated Interventions: A/AAROM/PROM, Strengthening, Triggerpoint Release, Sensory Retraining, Modalities, Orthoses, Joint Protection/Energy Conservation, Ergonomic Education, Fine Motor Coord/Aaron, Neuro Reeducation, ADL Training, Education re assistive Equipment, Education re Diagnosis, Caregiver Training and Home Program Re-Evaluation Ending Re-evaluation ending: Please do not hesitate to contact me at [phone] by phone or if you have questions or concerns regarding this new plan of care! Sincerely, Amalia Magana, OTR/L, CHT
--- NOTE | 2024-10-21 14:13 | HP.OTREVAL ---
Re-Evaluation Intro: Mirela Mckeon, LOLA-Grace, It has been my pleasure to treat JAVIER PANTOJA over the last 16 visits for CVA. Please see the progress note below for an update on the occupational therapy plan of care! Subjective Subjective: Patient arrived for re-eval, reports no changes since last visit. He reports feeling he's made progress since starting therapy and would like to continue. He is on his 4/4 sessions approved by insurance, will submit for addtl today. 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 He continues to report difficulty with fine motor tasks including typing, writing, brushing teeth, opening containers. He reports it's all gotten easier but it still requires incr time and adaptations. Discussed using foam tubing to build up handles of writing utensils, eating utensils, etc to improve fxn and supervising airplane pilot control. Discussed benefits from botox used for tone mgmt in targeted muscles in forearm and hand to reduce impact of flexor tone. Discussed stretching program at home focusing on composite supination, external rotation, and wrist extension. Patient would benefit from continued OT sessions to improve strength, function, and independence with daily living tasks using his R UE. Plan Plan Frequency: 1-2x /Week Duration: 3 Months Visits in this POC: 4 Plan: Cont POC 3 months (1-2x/week) Goals Goals Patient Goals: Regain Mobility, Decrease Swelling/Stiffness, Use Hand/Wrist/Arm Normally Again, Decrease Tingling/Numbness, Be More Independent in ADLS, Decrease Muscle Tone and Resume Former Household Responsibilities (Cooking,Cleaning,Yard, etc.) Goal:: pt will demo a increase in right supervising airplane pilot strength by 10# or 55# or greater to increase his ind.with IADls as cleaning/meal prep by chec ( progressing) Goal:: pt will demo a increase in right forearm supination by 15* to increase ind with grooming/dressing tasks by dc (MET) Goal:: pt will demo the ability to write name legibly 4/5 trials with good use of distal finger control by d/c (MET) pt will demo IND with shoe tying by d/c ( progressing) pt will demo typing 3 sentences with no more than 4 errors in less than 2 min to demo increased IND with work tasks by d/c pt will demo a reduction in right 9-hole peg test to under 2 min or less indication of improved ADLs by d.c (progressing) Goal:: pt will report the ability to fasten seat belt IND with right UE by d.c (goal met) pt will demo the ability to open jar lids/ clean and prep veg. for meal IND by d/c ( progressing) Anticipated Interventions Anticipated Interventions Anticipated Interventions: A/AAROM/PROM, Strengthening, Triggerpoint Release, Sensory Retraining, Modalities, Orthoses, Joint Protection/Energy Conservation, Ergonomic Education, Fine Motor Coord/Aaron, Neuro Reeducation, ADL Training, Education re assistive Equipment, Education re Diagnosis, Caregiver Training and Home Program Re-Evaluation Ending Re-evaluation ending: Please do not hesitate to contact me at [phone] by phone or if you have questions or concerns regarding this new plan of care! Sincerely, Ling Pierce
--- NOTE | 2024-10-21 15:42 | OTREVAL_ITS ---
Re-Evaluation Intro: Mirela Mckeon, LOLA-Grace, It has been my pleasure to treat JAVIER PANTOJA over the last 16 visits for CVA. Please see the progress note below for an update on the occupational therapy plan of care! Subjective Subjective: Patient arrived for re-eval, reports no changes since last visit. He reports feeling he's made progress since starting therapy and would like to continue. He is on his 4/4 sessions approved by insurance, will submit for addtl today. 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 He continues to report difficulty with fine motor tasks including typing, writing, brushing teeth, opening containers. He reports it's all gotten easier but it still requires incr time and adaptations. Discussed using foam tubing to build up handles of writing utensils, eating utensils, etc to improve fxn and temperature logging operator control. Discussed benefits from botox used for tone mgmt in targeted muscles in forearm and hand (pronator teres and flexor pollicis longus) to reduce impact of flexor tone enough to make hand and arm more functional. Discussed stretching program at home focusing on composite supination, external rotation, and wrist extension. Patient would benefit from continued OT sessions to improve strength, function, and independence with daily living tasks using his R UE. Plan Plan Frequency: 1-2x /Week Duration: 3 Months Visits in this POC: 4 Plan: Cont POC 3 months (1-2x/week) Goals Goals Patient Goals: Regain Mobility, Decrease Swelling/Stiffness, Use Hand/Wrist/Arm Normally Again, Decrease Tingling/Numbness, Be More Independent in ADLS, Decrease Muscle Tone and Resume Former Household Responsibilities (Cooking,Cleaning,Yard, etc.) Goal:: pt will demo a increase in right temperature logging operator strength by 10# or 55# or greater to increase his ind.with IADls as cleaning/meal prep by dPamc ( progressing) Goal:: pt will demo a increase in right forearm supination by 15* to increase ind with grooming/dressing tasks by dc (MET) Goal:: pt will demo the ability to write name legibly 4/5 trials with good use of distal finger control by d/c (MET) pt will demo IND with shoe tying by d/c ( progressing) pt will demo typing 3 sentences with no more than 4 errors in less than 2 min to demo increased IND with work tasks by d/c pt will demo a reduction in right 9-hole peg test to under 2 min or less indication of improved ADLs by d.c (progressing) Goal:: pt will report the ability to fasten seat belt IND with right UE by d.c (goal met) pt will demo the ability to open jar lids/ clean and prep veg. for meal IND by d/c ( progressing) Anticipated Interventions Anticipated Interventions Anticipated Interventions: A/AAROM/PROM, Strengthening, Triggerpoint Release, Sensory Retraining, Modalities, Orthoses, Joint Protection/Energy Conservation, Ergonomic Education, Fine Motor Coord/Aaron, Neuro Reeducation, ADL Training, Education re assistive Equipment, Education re Diagnosis, Caregiver Training and Home Program Re-Evaluation Ending Re-evaluation ending: Please do not hesitate to contact me at [phone] by phone or if you have questions or concerns regarding this new plan of care! Sincerely, Ling Pierce
--- NOTE | 2024-10-25 11:50 | HP.PTEVAL2_ITS ---
Patient's Visit Information Visit Information Visit Information: JAVIER PANTOJA is a 43 year old M referred to Physical Therapy by SILVIA Bañuelos with a diagnosis of R sided spastic hemiplegia. Date of Evaluation: 10/25/24 Physical Therapist: Dc Ng DPT Visit Plan Frequency: 1-2x /Week Duration: 4 Weeks Plan: 1) inhibition to R post tib, post tib stretching 2) R peroneal strengthening 3) toe extension strengthening 4) great to flexor stretching. Subjective Subjective: Pt. is here today for his evaluation with diagnosis of spastic hemiplegia of dominant side, R. Pt. is know to this PT from previous episodes of care. Pt. reports increased R foot wanting to "curl." Pt. reports this is causing him balance issues and forcing him to use a SPC. Pt. is hopeful to get ideas to fix this. Pt. is doing some ankle and toe raises. Pt. reports no pain with this. He saw some videos to work on foot strengthening. Pt. is hopeful to increase his R foot and toe strength to improve his balance. He is also concerned about his R arm swing with gait, also effecting his balance. He reports walking barefoot is challenging and exposes this issues more. Objective Objective: POSTURE: Pt. has wide EVA in stance. Pt. has slight R ankle INV and supination noted. PALPATION: Pt. has some tenderness at medial longitudinal arch. NEURO: Pt. has normal on L side, hyper reflexive on R side. ROM: PT. does have some calf tightness on R side and great toe extension tightness. MMT: RLE: knee: ext 75.8#, flex 39.8#; ankle: DF 40.0#, PF 33.6#, EVR 26.4#, INV 31.3# LLE: knee: ext 79.0#, flex 46.4#; ankle: DF 46.8#, PF 48.2#, EVR 52.4, INV 37.6# GAIT: Pt ambulate with SPC. Pt. has marked ankle INV and supination on R side. more noticiable in gait without shoes. Pt. is difficulty correcting. Pt. has minimal arm swing as well. He tends to reach R foot out in front on him then wt. shift rather than a combine movement. Goals Goal 1:: LTG: Pt. to be I with HEP. Goal Time Frame: 4-6 Weeks Goal 2:: LTG: pt. to be able to stand and walk without R foot supination positioning Goal Time Frame: 4-6 Weeks Goal 3:: LTG: pt. to have symmetrical ankle EVR strength. Goal Time Frame: 4-6 Weeks Goal 4:: LTG: Pt. to ambulate with normal gait pattern without use of SPC. Goal Time Frame: 4-6 Weeks Rehabilitation Potential Physical Therapy Diagnosis: Pt. has signs and symptoms consistent with R sided (dominant side) spastic hemiplegia. Pt. has marked R sided spasticity, R ankle EVR weakness, post tib tightness resulting in R ankle supination and INV. Pt. would benefit from PT to address the above limitations progressing his overall gait mechanics. Rehabilitation Potential: Good Anticipated Interventions Patient/Client Instruction: Educate patient on: Condition, Plan of Care, Risk Factors and Benefits of Fitness Program For the Purpose of:: To improve decision making, To facilitate caregiver knowledge, To improve self management, To prevent re-injury and To improve ability to perform tasks related to life management Therapeutic Exercise to Include: Strength training, Balance training, Coordination, Postural training, Flexibilty training, Gait and locomotor training, Passive ROM and Active ROM For the Purpose of:: To decrease pain, To decrease swelling/inflammation, To increase ROM, To improve nutrient delivery to tissue, To increase oxygenation perfusion and To improve muscle performance and motor function Manual Therapy Techniques to Include: Massage Comment: inhibition to post tib For the Purpose of:: To decrease pain, To decrease swelling/inflammation, To increase ROM, To improve nutrient delivery to tissue, To increase oxygenation perfusion and To improve muscle performance and motor function text: Thank you for the opportunity to evaluate your patient. For Medicare and Medicare HMO plans, please review the plan of care and approve it. It will need to be FAXED BACK to us at [phone] for Medicare purposes. For Medicare only, by signing this I certify the plan of care. Please let me know if there are questions or concerns regarding this plan of care. Physician Signature: Date:
--- NOTE | 2024-11-19 11:16 | HP.OTDCSUM ---
Discharge Summary D/C Summary: It has been my pleasure to treat JAVIER PANTOJA under orders from SILVIA Bañuelos, for the diagnosis of CVA for a total of 4 visit(s). Please see the following information for a summary of their discharge status. 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 He continues to report difficulty with fine motor tasks including typing, writing, brushing teeth, opening containers. He reports it's all gotten easier but it still requires incr time and adaptations. Discussed using foam tubing to build up handles of writing utensils, eating utensils, etc to improve fxn and test preparer control. Discussed benefits from botox used for tone mgmt in targeted muscles in forearm and hand (pronator teres and flexor pollicis longus) to reduce impact of flexor tone enough to make hand and arm more functional. Discussed stretching program at home focusing on composite supination, external rotation, and wrist extension. Patient would benefit from continued OT sessions to improve strength, function, and independence with daily living tasks using his right UE. Due to insurance limitation pt will cont. with HEP at this time. Goals Patient Goals: Regain Mobility, Decrease Swelling/Stiffness, Use Hand/Wrist/Arm Normally Again, Decrease Tingling/Numbness, Be More Independent in ADLS, Decrease Muscle Tone and Resume Former Household Responsibilities (Cooking,Cleaning,Yard, etc.) Goal:: pt will demo a increase in right test preparer strength by 10# or 55# or greater to increase his ind.with IADls as cleaning/meal prep by dPamc ( Goal met) Goal:: pt will demo a increase in right forearm supination by 15* to increase ind with grooming/dressing tasks by dc (MET) Goal:: pt will demo the ability to write name legibly 4/5 trials with good use of distal finger control by d/c (MET) pt will demo IND with shoe tying by d/c ( progressing) pt will demo typing 3 sentences with no more than 4 errors in less than 2 min to demo increased IND with work tasks by d/c pt will demo a reduction in right 9-hole peg test to under 2 min or less indication of improved ADLs by d.c (progressing) Goal:: pt will report the ability to fasten seat belt IND with right UE by ravi (goal met) pt will demo the ability to open jar lids/ clean and prep veg. for meal IND by d/c ( progressing) Plan Plan: D/C pt out of therapy visits D/C Information Discharge Comments: pt d/c with HEP due to insurance limitations- d/c sentence: If there are questions or concerns regarding this patient's occupational therapy, please fell free to call me at [phone]. Thank you for the referral of this patient. Sincerely, Amalia Magana, OTR/L, CHT
--- NOTE | 2024-12-20 14:16 | HP.PTDCS(2) ---
Discharge Summary D/C Summary: It has been my pleasure to treat JAVIER PANTOJA referred by SILVIA Bañuelos, with the diagnosis of R sided spastic hemiplegia for a total of 5 visit(s). Discharge Date: 12/20/24 Please see the following information for a summary of their discharge status. Subjective Subjective: Pt. reports being 75% better overall. He was able to able to walk [address] home form work, but had to stop twice. He was very tired, causing him to take it easy for 3 days afterwards. He would like to be able to do this 1 mile walk to get to work and back. Objective Objective/Function/Assessment: MMT: R ankle EVR 38.1#, L ankle EVR 47.8# GAIT: Pt. is ambulating much better. He does ambulate with SPC. Pt. had much less ankle supination during stance phase with gait. No instability noted. Gianfranco is overall doing much better. Pt. did have some questions about riding his bicycle. I talked to him about having to improve his core strength prior to getting on a bicycle. pt. consents. Goals Patient Goals: Improve Mobility and Improve Function Goal 1:: LTG: Pt. to be I with HEP. Goal Progress: Goal Met Goal 2:: LTG: pt. to be able to stand and walk without R foot supination positioning Goal 3:: LTG: pt. to have symmetrical ankle EVR strength. Goal 4:: LTG: Pt. to ambulate with normal gait pattern without use of SPC. Goal Progress: Goal Met Plan Plan: Pt. to be DC from PT at this point in time. He has met all goals. D/C Information d/c sentence: If there are questions or concerns regarding this patient's physical therapy, please feel free to call me at [phone]. Thank you for the referral of this patient. Sincerely, Dc Ng DPT
== END 2024-12-20 19:00 | disposition home or self-care (01) ==
LOC: PT 11:00
PROVIDERS: PCP Family Medicine; Referring Provider Nurse Practitioner Family; Visit Provider Nurse Practitioner Family
DX: Z86.73 Personal history of transient ischemic attack (TIA), and cerebral infarction without residual deficits (principal)
CPT/HCPCS: 97035; 97110; 97140; 97161; 97167; 97530